=== PATIENT | female | born 1990 | race Caucasian/White ===

== ENCOUNTER 2020-05-29 14:23 | Emergency (ER) | payer MEDICAID, SELFPAY | END 2020-05-29 16:46 | disposition left against medical advice (07) | PROVIDERS: Emergency Provider Emergency Medicine | DX: Z04.1 Encounter for examination and observation following transport accident (principal) ==

== ENCOUNTER 2020-06-03 11:41 | Outpatient (REF) | payer MEDICAID, SELFPAY ==
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
== END 2020-06-03 11:42 | disposition home or self-care (01) ==
LOC: HO.XRAY 11:41
PROVIDERS: PCP Internal Medicine; Visit Provider Emergency Medicine
DX: S19.9XXA Unspecified injury of neck, initial encounter (principal); X58.XXXA Exposure to other specified factors, initial encounter; Y93.9 Activity, unspecified; Y92.9 Unspecified place or not applicable; Y99.9 Unspecified external cause status
CPT/HCPCS: 72040

== ENCOUNTER 2020-07-21 15:00 | Outpatient (RCR) | payer OTHER, MEDICAID, SELFPAY | END 2020-10-29 14:16 | disposition other institution (70) | LOC: HO.PT 15:00 | PROVIDERS: PCP Internal Medicine; Visit Provider Internal Medicine | DX: M54.2 Cervicalgia (principal) | CPT/HCPCS: 97110; 97140; 97161 ==

== ENCOUNTER 2020-12-24 16:41 | Emergency (ER) | payer MEDICAID, SELFPAY ==
--- NOTE | ~2020-12-24 | XR_ITS ---
EXAMINATION: XR CHEST CLINICAL INFORMATION: Cough and fever COMPARISON: Chest 09/24/2018 TECHNIQUE: Frontal view of the chest was obtained. FINDINGS: The lungs are somewhat expanded with diffuse patchy haziness and opacity scattered throughout both lungs suspicious for underlying inflammatory process. No focal consolidation or pleural effusion seen. Heart size and pulmonary vascularity is normal. No gross bony abnormality seen. XR/XR chest 1V IMPRESSION: Patchy bilateral haziness and opacity suspicious for scattered inflammatory infectious etiology. No focal consolidation or pleural effusion. These findings are new compared to previous chest x-ray 09/24/2018.
[2020-12-24 16:55] VITALS: BP 99/56; PULSE 93; RESP 20; TEMP 36.8; O2SAT 97; BMI 24.7
[2020-12-24 17:34] LABS: COVID-19 Test Positive (Negative)
[2020-12-24 18:00] VITALS: BP 110/55; PULSE 77; RESP 18; TEMP 37.1; O2SAT 97
--- NOTE | 2020-12-24 18:52 | ED.URI ---
HPI - URI/Sore Throat General Chief Complaint: Upper Respiratory Symptoms Stated Complaint: flu like Time Seen by Provider: 12/24/20 17:27 Source: patient Mode of arrival: ambulatory History of Present Illness HPI Narrative: 30-year-old female with a past medical history of anemia, presenting to the ED complaining of dry cough, myalgias/body aches, intermittent fevers T-max 102?, headache, sore throat, mild SOB x9 days. Denies recent travel, CP, abdominal pain, sick contacts MD elicited complaint: fever, cough and sore throat Related Data Home Medications Medication Instructions Recorded Confirmed ferrous sulfate 325 mg (65 mg 325 mg PO DAILY 02/12/20 iron) tablet Previous Rx's Medication Instructions Recorded acetaminophen 500 mg tablet 500 mg PO Q6H PRN #20 tab 12/24/20 (Tylenol Extra Strength) benzonatate 100 mg capsule 100 mg PO TID PRN #14 cap 12/24/20 (Tessalon Perles) doxycycline hyclate 100 mg tablet 100 mg PO BID 7 Days #14 tab 12/24/20 fluticasone propionate 50 2 spray INTRANASAL DAILY #16 g 12/24/20 mcg/actuation nasal spray,suspension (Flonase Allergy Relief) Allergies Allergy/AdvReac Type Severity Reaction Status Date / Time No Known Allergies Allergy Verified 02/10/20 14:56 [No Known Allergies*] Review of Systems Review of Systems: Constitutional: + Fever, No Chills, No Night Sweats, + Fatigue, + Malaise ENT/Mouth: + Nasal Congestion, No Sinus Pain, No Hoarseness, + sore throat, No Rhinorrhea, No Swallowing Difficulty Eyes: No Eye Pain, No Swelling, No Redness Cardiovascular: No Chest Pain, + SOB, No Dyspnea on Exertion, No Orthopnea, No Edema Respiratory: + Cough, No Sputum, No Wheezing, No Dyspnea Gastrointestinal: No Nausea, No Vomiting, No Abdominal pain Musculoskeletal: No joint pain, + Myalgias, No Joint Swelling Skin: No Skin Lesions, No rash Neuro: No Weakness, No Numbness,+Headache Yes all other systems are reviewed and are negative [facility] Past Medical History Attestation statement: The following information was validated with the patient. Medical History Anemia Former smoker Surgical History No history of previous surgery Family History Family History Maternal Grandmother Asthma Arthritis Maternal Grandfather Diabetes mellitus Maternal Aunt Breast cancer Social History Social History Unable to assess alcohol history related to: Unknown Advance Directives: No Advance Directives Information Provided: No Patient : No Sexual orientation: Straight/Heterosexual Gender identity: female Physical Exam Vital Signs: Vital Signs: Last Vital Signs Temp 98.3 F 12/24/20 16:55 Pulse 93 12/24/20 16:55 Resp 20 12/24/20 16:55 BP 99/56 L 12/24/20 16:55 Pulse Ox 97 12/24/20 16:55 Body Mass Index 24.7 Const: General: cooperative, healthy appearing, no acute distress, well developed, alert and awake Orientation/consciousness: patient oriented x3 Limitations: no limitations HENMT: Head: Yes normal to inspection Ears: hearing grossly normal bilaterally General nose exam: Normal external nose present Face and sinus: Yes normal facial exam Eyes: General: appearance normal, both eyes and all related structures EOM: EOMs intact bilaterally Neck: Neck: Yes normal visual inspection Resp: Effort & Inspection: normal respiratory effort and no respiratory distress Auscultation: clear to auscultation bilaterally, no rales, no rhonchi and no wheezes Cardio: Rate: regular rate Heart sounds: S1 normal heart sound present and S2 normal heart sound present Skin: Rashes: no rashes Wounds: no wounds Neuro: General: patient oriented x3 Gait exam (Neuro): Normal gait present Extrem: General: Yes normal to inspection Course Course Course Narrative: -COVID-19 positive XR chest 1V IMPRESSION: Patchy bilateral haziness and opacity suspicious for scattered inflammatory infectious etiology. No focal consolidation or pleural effusion. These findings are new compared to previous chest x-ray 09/24/2018. >> ambulated patient with pulse oximetry maintain saturations greater than 97% on RA. No tachycardia. Given 1st dose of doxycycline in the ED. Worrisome signs and symptoms and strict return precautions discussed. Instructed patient/recommended that she obtains pulse oximeter at home MDM - URI/Sore Throat MDM Narrative Medical decision making narrative: 30-year-old female with a past medical history of anemia, presenting to the ED complaining of dry cough, myalgias/body aches, intermittent fevers T-max 102?, headache, sore throat, mild SOB x9 days. On exam mildly hypotensive, afebrile, NAD/nontoxic appearing, lungs CTA. Concern for viral syndrome/COVID-19. Rule out pneumonia. Low concern for severe sepsis. Plan: COVID-19 testing, CXR Medical Records Attestation: I reviewed the patient's medical records. Lab Data Attestation: I reviewed the patient's lab results. Labs: Lab Results 12/24/20 Range/Units 16:58 COVID-19 ([facility]) Positive A (Negative) COVID-19 Clin Com See Note Discharge Plan Discharge Clinical Impression: COVID-19, Pneumonia due to COVID-19 virus Patient Disposition: Home, Self-Care Instructions: COVID-19 (Coronavirus Disease 2019) (ED) Additional Instructions: YOUR COVID-19 POSITIVE. YOU ALSO HAVE COVID-19 PNEUMONIA. DOXYCYCLINE IS ANTIBIOTIC, TAKE PRESCRIBED. TESSALON PERLES FOR COUGH. USE ALBUTEROL INHALER AT HOME NEEDED. FLONASE IS A NASAL DECONGESTANT SPRAY YOU SHOULD BUY A PULSE OXIMETER AT HOME AND MONITOR YOUR OXYGEN SATURATIONS. IF THEY ARE DROPPING BELOW 90% RETURN TO THE ED IMMEDIATELY At this time you will be okay for discharge. Please plan for self quarantine for up to 10-14 days. Do not expose yourself to others. You may not go to work. If testing does come back negative you may return to activities as long as you are no longer having any symptoms for at least 3 days. Please continue to follow cold instructions and wash your hands frequently. You may take Tylenol as directed on the bottle for pain or fever. CDC Guidelines for home isolation: - Stay away from others - WEAR A MASK if you are sick AND STAY HOME - Cover your mouth and nose with a tissue when you cough or sneeze. Dispose of tissues in a lined trash can and wash your hands immediately with soap and water for at least 20 seconds. If soap and water are not available, clean hands with alcohol-based hand casting associate that contains at least 60% alcohol. - Clean your hands often with soap and water for at least 20 seconds - Avoid touching your eyes, nose and mouth with unwashed hands - Do not share dishes, drinking glasses, cups, eating utensils, towels, or bedding with other people in your home. After using these items, wash them thoroughly with soap and water or put in the identity management consultant. - Clean high-touch surfaces in your isolation area ( sick room and bathroom) every day; let a caregiver clean and disinfect high-touch surfaces in other areas of the home. Clean the area or item with soap and water or another detergent if it is dirty. Then, use a household disinfectant. - Limit contact with pets and animals: If you must care for a pet, wash your hands before and after interacting with them) Prescriptions: New acetaminophen [Tylenol Extra Strength] 500 mg tablet 500 mg PO Q6H PRN (Reason: pain or fever) Qty: 20 RF: 0 benzonatate [Tessalon Perles] 100 mg capsule 100 mg PO TID PRN (Reason: cough) Qty: 14 RF: 0 fluticasone propionate [Flonase Allergy Relief] 50 mcg/actuation spray,suspension 2 spray intranasal DAILY Qty: 16 RF: 0 doxycycline hyclate 100 mg tablet 100 mg PO BID 7 Days Qty: 14 RF: 0 Referrals: [facility] [Primary Care Provider] - 2 days (CALL) Stand Alone Forms: Work/School Release
== END 2020-12-24 20:44 | disposition home or self-care (01) ==
PROVIDERS: Emergency Provider Emergency Medicine
DX: U07.1 COVID-19 (principal); J12.82 Pneumonia due to coronavirus disease 2019; R05 Cough; M79.10 Myalgia, unspecified site; R50.9 Fever, unspecified; Z79.899 Other long term (current) drug therapy
CPT/HCPCS: 36415; 71045; 87635; 99283

== ENCOUNTER → 2021-03-03 09:06 | Outpatient (BNVA) | payer MEDICAID, SELFPAY | PROVIDERS: Visit Provider Advanced Practice Midwife | DX: Z32.01 Encounter for pregnancy test, result positive (principal) | CPT/HCPCS: 81025; 99212 ==

== ENCOUNTER 2021-03-17 10:16 | Outpatient (REF) | payer MEDICAID, SELFPAY ==
[2021-03-17 12:59] LABS: Hematocrit 32.4 % (37.0-47.0); Mean Corpuscular Hemoglobin 29.9 pg (27.0-33.0); Mean Platelet Volume 10.3 fL (9.4-12.3); Platelet Count 281 X10*3/uL (160-400); Red Blood Count 3.68 X10*6/uL (4.20-5.50); Red Cell Distribution Width 11.8 % (11.0-16.0); White Blood Count 10.2 X10*3/uL (4.8-10.8)
[2021-03-17 13:23] LABS: Glucose 1 Hour PP 50gm Dose 87 mg/dL (60-140)
[2021-03-18 03:50] LABS: Syphilis Screen Nonreactive (Nonreactive)
[2021-03-18 04:04] LABS: HIV AB/AG Nonreactive (Nonreactive); HIV Num 1 0.06 S/CO (0.00-0.99); ~HepC Num1 0.11 S/CO (0.00-0.79); ~Hepatitis C Antibody Nonreactive (Nonreactive)
[2021-03-18 04:05] LABS: HBsAGNum1 0.14 S/CO (0.00-0.99); Hepatitis B Surface Antigen Negative (Negative)
[2021-03-18 12:12] LABS: Rubella IgG Antibody 1.64 Index
== END 2021-03-17 10:17 | disposition home or self-care (01) ==
LOC: HO.LAB 10:16
PROVIDERS: Visit Provider Advanced Practice Midwife
DX: Z34.91 Encounter for supervision of normal pregnancy, unspecified, first trimester (principal); Z3A.10 10 weeks gestation of pregnancy
CPT/HCPCS: 85027; 86762; 86780; 86787; 86803; 86850; 86900; 86901; 87340; 87389; 99212

== ENCOUNTER 2021-03-25 11:38 | Outpatient (REF) | payer MEDICAID, SELFPAY ==
--- NOTE | ~2021-03-25 | US_ITS ---
EXAMINATION: OBSTETRICAL ULTRASOUND, FIRST TRIMESTER HISTORY: 31-year-old at 11.3 weeks of gestation NT screening COMPARISON: None TECHNIQUE: Real time transabdominal imaging with color and M-mode Doppler. FINDINGS: A single, live IUP CRL of 45.0 mm c/w 11.3wks is noted. Heart Rate: 167 beats per minute. Normal yolk sac seen. NT was 0.6.mm. NB Present The embryo appears sonographically wnl for this GA. Both maternal ovaries are seen and appear normal. GESTATIONAL AGE: 1. Established GA: 11.3 wks 2. GA from [facility]: 11.3 wks ESTIMATED DATE OF DELIVERY: 1. Established MEDHAT: 10/11/2021 2. MEDHAT from [facility]: 10/11/2021 US/US OB 1T nuc measure IMPRESSION: 1. A single live IUP 2. Size equals dates 3. NT of 0.6 mm MFM Consultation: I reviewed the ultrasound findings along with significance of NT measurement. The NT of less than 3mm is generally reassuring. However, the sensitivity for T21 detection is only 60%. I reviewed the availability of serum aneuploidy screening which includes cell-free DNA and placental protein based tests. I discussed the sensitivity, false-positive rate, and other limitations associated with each test. I also reviewed the availability of invasive diagnostic tests that are associated small but definite risk of miscarriage. We also reviewed the differences between screening tests and diagnostic tests. After our discussion, she opted for the First trimester screening that is based on cell-free DNA or non-invasive testing (NIPT). The result will be faxed to your office in approximately 7 days. A follow up at 18 weeks for survey has been scheduled. Thank you very much for this referral. Total time 30 minutes. The time spent was devoted to counseling the patient about the disease and diagnosis, coordinating care including reviewing her records, pertinent lab data and studies, as well as discussing diagnostic evaluation and workup, plan therapeutic interventions and future disposition of care. This includes any additional research needed to obtain further information in formulating the plan of care of this patient. This note was generated with a voice recognition program. Please excuse any errors which may have been overlooked during my review of this note. Sometimes these errors may affect the content or meaning of a given sentence.
== END 2021-03-25 11:39 | disposition home or self-care (01) ==
LOC: HO.US 11:38
PROVIDERS: Visit Provider Advanced Practice Midwife
DX: Z32.01 Encounter for pregnancy test, result positive (principal)
CPT/HCPCS: 76813

== ENCOUNTER 2021-04-13 09:15 | Outpatient (REF) | payer MEDICAID, SELFPAY ==
[2021-04-14 01:25] LABS: CT PCR NOT DETECTED (Not Detect.)
[2021-04-14 01:26] LABS: NG PCR NOT DETECTED (Not Detect.)
[2021-04-14 10:16] LABS: BV Int Neg Control Negative (Negative); BV Int Pos Control Positive (Positive)
[2021-04-16 13:06] LABS: HPV mRNA E6/E7 rflx Not Detected (Not Detected)
== END 2021-04-13 09:16 | disposition home or self-care (01) ==
LOC: HO.LAB 09:15
PROVIDERS: Visit Provider Advanced Practice Midwife
DX: Z34.92 Encounter for supervision of normal pregnancy, unspecified, second trimester (principal); Z36.3 Encounter for antenatal screening for malformations; Z3A.14 14 weeks gestation of pregnancy
CPT/HCPCS: 87480; 87491; 87510; 87591; 87624; 87660; 88142; 99212

== ENCOUNTER → 2021-05-11 10:59 | Outpatient (BNVA) | payer MEDICAID, SELFPAY | PROVIDERS: Visit Provider Advanced Practice Midwife | DX: Z34.82 Encounter for supervision of other normal pregnancy, second trimester (principal); Z3A.18 18 weeks gestation of pregnancy; Z36.3 Encounter for antenatal screening for malformations | CPT/HCPCS: 81003; 99212 ==

== ENCOUNTER 2021-05-27 10:10 | Outpatient (REF) | payer MEDICAID, SELFPAY ==
--- NOTE | ~2021-05-27 | US_ITS ---
EXAMINATION: US OBSTETRICAL CLINICAL INFORMATION: 31-year-old at 20.3 weeks of gestation Screening for anomaly COMPARISON: 03/25/2021 TECHNIQUE: Real-time transabdominal ultrasound was performed using C1-5 megahertz transducer. FINDINGS: A single, active, fetus is seen in breech presentation. The placenta is anterior without previa, and the amniotic fluid volume is wnl. MEASUREMENTS: 1. Biparietal Diameter: 4.8 cm; 20.4 wks 2. Occipital Frontal Diameter: 6.4 cm 3. Head Circumference: 18.3 cm; 20.5 wks 4. Abdominal Circumference: 15.8 cm; 21.0 wks 5. Femur Length: 3.4 cm; 20.6 wks 6. Humerus Length: 3.54 cm; 22.2 wks 7. Tibia Length: 2.95 cm; 20.6 wks 8. Ulna Length: 2.96 cm; 21.1 wks 9. Lateral ventricle: 0.69 cm 10. Cerebellum: 2.1 cm; 21.0 wks 11. Cisterna Magna: 0.56 cm 12. Nuchal Fold: 4.2 mm 13. Heart Rate: 153 beats per minute Rt ovary: normal Lt ovary: normal Cervical length 3.6 cm on T/A. GESTATIONAL AGE: 1. Established GA: 20.3 wks 2. GA from [facility]: 20.6 wks ESTIMATED DATE OF DELIVERY: 1. Established MEDHAT: 10/11/2021 2. MEDHAT from [facility]: 10/08/2021 ANATOMY: Bilateral choroid plexus cysts The visualized anatomy includes but not limited to: 1. Cranium: Normal 2. Intracranial anatomy: cavum septum pellucidi, lateral ventricles, bilateral choroid plexus cysts, cerebellum, posterior fossa, third and fourth ventricles. 3. face: orbits, lip/palate, profile, nasal bone 4. Heart: four-chamber view of the heart, ventricular septum, foramen ovale, pulmonary vein, left and right outflow tracts, three-vessel view, 3 vessel trachea view, aortic and ductal arches, situs.. 5. Diaphragm: Normal 6. Abdominal wall: Normal 7. Cord Insertion: Normal 8. Spine: Cervical, thoracic, lumbar, sacral. 9. Stomach: Normal size and shape 10. Right Kidney: Normal 11. Left Kidney: Normal 12. 3 vessel cord: Normal 13. Upper extremity: Open hands, fifth digit. 14. Lower extremity: Tibia, fibula, bilateral feet. 15. Bladder: Normal 16. Genitalia: Male, patient aware US/US OB /maternal detail IMPRESSION: 1. Single, living, intrauterine with appropriate biometry. 2. Bilateral choroid plexus cyst. The rest of the anatomy was within normal limits. DISCUSSION: I reviewed today's ultrasound findings and informed her that the choroid plexus cyst is a benign finding that is present in approximately 3-5% of normal fetuses. Its frequency is higher in fetuses with trisomy 18. We briefly discussed the approximate prognosis of a child with trisomy 18. The ultrasound detection is approximately 80% due to the fact that condition is usually associated with severe anatomic abnormalities. There were no ultrasound stigmata. She had the low risk N IPT. In this setting, isolated choroid plexus cyst is considered a normal variant. We discussed the limitations of ultrasound in diagnosing aneuploidy and other congenital abnormalities. I reviewed the differences between screening test and diagnostic test. Amniocentesis was discussed and declined. She was informed that the baseline incidence of congenital abnormalities is approximately 3-5%. Not all these conditions are diagnosable in utero. RECOMMENDATIONS: 1. Suggest the interval growth evaluation at approximately 28 weeks (not scheduled). Thank you for allowing me to participate in her care. Total time 30 minutes. The time spent was devoted to counseling the patient about the disease and diagnosis, coordinating care including reviewing her records, pertinent lab data and studies, as well as discussing diagnostic evaluation and workup, plan therapeutic interventions and future disposition of care. This includes any additional research needed to obtain further information in formulating the plan of care of this patient. This note was generated with a voice recognition program. Please excuse any errors which may have been overlooked during my review of this note. Sometimes these errors may affect the content or meaning of a given sentence.
== END 2021-05-27 10:11 | disposition home or self-care (01) ==
LOC: HO.US 10:10
PROVIDERS: Visit Provider Advanced Practice Midwife
DX: Z34.92 Encounter for supervision of normal pregnancy, unspecified, second trimester (principal); Z36.3 Encounter for antenatal screening for malformations
CPT/HCPCS: 76811

== ENCOUNTER 2021-06-01 10:54 | Outpatient (REF) | payer MEDICAID, SELFPAY ==
[2021-06-01 15:50] LABS: CT PCR NOT DETECTED (Not Detect.); NG PCR NOT DETECTED (Not Detect.)
[2021-06-02 12:14] LABS: BV Int Neg Control Negative (Negative); BV Int Pos Control Positive (Positive)
== END 2021-06-01 10:55 | disposition home or self-care (01) ==
LOC: HO.LAB 10:54
PROVIDERS: Visit Provider Advanced Practice Midwife
DX: O23.592 Infection of other part of genital tract in pregnancy, second trimester (principal); N76.0 Acute vaginitis; Z3A.21 21 weeks gestation of pregnancy; Z83.3 Family history of diabetes mellitus
CPT/HCPCS: 87480; 87491; 87510; 87591; 87660; 99212

== ENCOUNTER → 2021-06-29 10:08 | Outpatient (BNVA) | payer MEDICAID, SELFPAY | PROVIDERS: Visit Provider Advanced Practice Midwife | DX: Z34.82 Encounter for supervision of other normal pregnancy, second trimester (principal); Z36.3 Encounter for antenatal screening for malformations; Z3A.25 25 weeks gestation of pregnancy | CPT/HCPCS: 99212 ==

== ENCOUNTER 2021-07-09 15:45 | Emergency (ER) | payer OTHER, SELFPAY ==
[2021-07-09 15:50] VITALS: BP 107/55; PULSE 79; RESP 19; TEMP 36.5; O2SAT 98; BMI 26.5
[2021-07-09 16:00] VITALS: BP 107/55; PULSE 79; RESP 19; TEMP 36.5; O2SAT 98
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
--- NOTE | 2021-07-09 18:00 | PC.NURSE ---
Upon discharge, pt decided that she wouldnt be able to go to [facility] for 4 hour monitoring as she has a 1 1/2 year old child that is with a sitter. Sitter cannot stay, and stated she must go home to care for child. WADE Wong discussed risks of not going to [facility], pt understands risk, and will be discharging against medical advice
== END 2021-07-09 18:22 | disposition left against medical advice (07) ==
PROVIDERS: Emergency Provider Emergency Medicine Emergency Medical Services
DX: O9A.212 Injury, poisoning and certain other consequences of external causes complicating pregnancy, second trimester (principal); S39.012A Strain of muscle, fascia and tendon of lower back, initial encounter; V43.52XA Car driver injured in collision with other type car in traffic accident, initial encounter; Z3A.27 27 weeks gestation of pregnancy; W22.11XA Striking against or struck by driver side automobile airbag, initial encounter; Y93.89 Activity, other specified; Y92.414 Local residential or business street as the place of occurrence of the external cause; Y99.9 Unspecified external cause status
CPT/HCPCS: 99284

== ENCOUNTER → 2021-07-12 09:25 | Outpatient (BNVA) | payer MEDICAID, SELFPAY | PROVIDERS: Visit Provider Obstetrics & Gynecology | DX: Z04.1 Encounter for examination and observation following transport accident (principal); Z34.92 Encounter for supervision of normal pregnancy, unspecified, second trimester | CPT/HCPCS: 99212 ==

== ENCOUNTER 2021-07-15 09:06 | Outpatient (REF) | payer MEDICAID, SELFPAY ==
[2021-07-15 11:10] LABS: Hematocrit 27.4 % (37.0-47.0); Hemoglobin 9.1 g/dl (12.0-16.0); Mean Corpuscular HGB Conc 33.2 g/dl (31.0-35.0); Mean Corpuscular Hemoglobin 29.9 pg (27.0-33.0); Mean Corpuscular Volume 90.1 fL (80.0-98.0); Mean Platelet Volume 10.1 fL (9.4-12.3); Platelet Count 221 X10*3/uL (160-400); Red Blood Count 3.04 X10*6/uL (4.20-5.50); Red Cell Distribution Width 12.5 % (11.0-16.0); White Blood Count 9.1 X10*3/uL (4.8-10.8)
[2021-07-15 11:52] LABS: Glucose 1 Hour PP 50gm Dose 135 mg/dL (60-140)
[2021-07-15 12:04] LABS: Syphilis Screen Nonreactive (Nonreactive)
[2021-07-15 12:20] LABS: Amphetamine Screen Urine Not Detected (Not Detect); Barbiturates, Urine Not Detected (Not Detect); Benzodiazepines Screen Urine Not Detected (Not Detect); Cannabinoid Screen Urine Not Detected (Not Detect); Cocaine Screen Urine Not Detected (Not Detect); Fentanyl, urine Not Detected (Not Detect); Opiate Screen Urine Not Detected (Not Detect); Phencyclidine Screen Urine Not Detected (Not Detect)
== END 2021-07-15 09:07 | disposition home or self-care (01) ==
LOC: HO.LAB 09:06
PROVIDERS: Visit Provider Advanced Practice Midwife
DX: Z34.92 Encounter for supervision of normal pregnancy, unspecified, second trimester (principal)
CPT/HCPCS: 80307; 85027; 86780; 87086; 87147

== ENCOUNTER 2023-05-23 11:17 | Outpatient (REF) | payer MEDICAID, SELFPAY ==
[2023-05-23 14:41] LABS: Alanine Aminotransferase 77 U/L (0-31); Albumin Level 4.4 g/dL (3.5-5.0); Alkaline Phosphatase 113 U/L (39-117); Anion Gap 13 (12-20); Aspartate Amino Transferase 45 U/L (5-31); Bilirubin Total 0.6 mg/dL (0.0-1.0); Blood Urea Nitrogen 11 mg/dL (9-16); Calcium 9.4 mg/dL (8.4-10.2); Carbon Dioxide 25 mmol/L (22-29); Chloride 107 mmol/L (96-108); Estimated Glomerular Filt Rate > 60; Glucose Random 71 mg/dL (60-115); Potassium 3.9 mmol/L (3.3-5.1); Sodium 141 mmol/L (135-145); Total Protein 7.4 g/dL (6.5-8.0)
[2023-05-23 15:01] LABS: TSH reflex Free T4 0.53 uIU/mL (0.32-4.0)
[2023-05-24 08:07] LABS: HIV AB/AG Nonreactive (Nonreactive); HIV Num 1 0.04 S/CO (0.00-0.99)
[2023-05-25 09:04] LABS: RPR Rapid Plasma Reagin NON-REACTIVE (NON-REACTIVE)
[2023-05-25 22:33] LABS: TS Negative Control Passed; TS Panel A 1; TS Panel B 1; TS Positive Control Passed; TSpotTB Negative (Negative)
== END 2023-05-23 11:18 | disposition home or self-care (01) ==
LOC: HO.CHCLDS 11:17
PROVIDERS: Visit Provider Internal Medicine
DX: Z00.00 Encounter for general adult medical examination without abnormal findings (principal); F41.9 Anxiety disorder, unspecified; D64.89 Other specified anemias
CPT/HCPCS: 36415; 80053; 84443; 86481; 86592; 87389

== ENCOUNTER 2023-05-25 15:49 | Outpatient (REF) | payer MEDICAID, SELFPAY ==
[2023-05-26 03:49] LABS: CT PCR NOT DETECTED (Not Detect.); NG PCR NOT DETECTED (Not Detect.)
[2023-05-27 05:12] LABS: HBc Num1 0.09 S/CO (0.00-0.79); HBsAGNum1 0.33 S/CO (0.00-0.99); Hepatitis A Antibody IgM 0.54 Index (0-0.79); Hepatitis B Core Antibody Nonreactive (Nonreactive); Hepatitis B Surface Antigen Negative (Negative); ~Hepatitis A Antibody IgM Nonreactive (Nonreactive); ~Hepatitis B Surface Antibody NONREACTIVE (Nonreactive); ~Hepatitis C Antibody Nonreactive (Nonreactive)
[2023-05-27 20:54] LABS: TS Negative Control Passed; TS Panel A 1; TS Panel B 1; TS Positive Control Passed; TSpotTB Negative (Negative)
== END 2023-05-25 15:50 | disposition home or self-care (01) ==
LOC: HO.HHCL 15:49
PROVIDERS: Visit Provider Internal Medicine
DX: Z00.00 Encounter for general adult medical examination without abnormal findings (principal); R74.01 Elevation of levels of liver transaminase levels
CPT/HCPCS: 0353U; 36415; 86481; 86704; 86706; 86709; 86803; 87340

== ENCOUNTER 2023-06-19 09:26 | Outpatient (REF) | payer MEDICAID, SELFPAY ==
--- NOTE | ~2023-06-19 | US_ITS ---
EXAMINATION: US ABDOMEN COMPLETE CLINICAL INFORMATION: Transaminitis. Hematuria. Flank pain. COMPARISON: None available. TECHNIQUE: Real-time imaging of the abdominal viscera. FINDINGS: PANCREAS: Normal. ABDOMINAL AORTA: The proximal, mid, and distal segments are normal in caliber. INFERIOR VENA CAVA: Visualized portions are normal. LIVER: Normal. The liver is normal in size. The liver contour is normal. Parenchymal echogenicity is normal. No focal hepatic lesion. There is no intrahepatic biliary duct dilatation seen. GALLBLADDER: The gallbladder is physiologically distended without evidence of stones, sludge, wall thickening or pericholecystic fluid. A 2 mm nonmobile polyp is seen. COMMON BILE DUCT: Normal in caliber measuring 0.3 cm in diameter. RIGHT KIDNEY: No hydronephrosis or focal parenchymal lesions. The kidney measures 10.0 x 4.9 x 6.0 cm in maximum dimensions. At the interpolar aspect, a 3 mm nonobstructing calculus is seen. LEFT KIDNEY: Normal. No hydronephrosis. No renal calculi or focal parenchymal lesions. The kidney measures 10.5 x 5.8 x 4.9 cm in maximum dimensions. SPLEEN: Normal. The spleen measures 11.3 cm in maximum dimension. FREE FLUID: None. US/US abdomen complete IMPRESSION: 1. A 3 mm nonobstructing right renal calculus is seen. No left renal calculus is seen. No hydronephrosis is seen bilaterally. 2. A 2 mm nonmobile polyp is seen.
== END 2023-06-19 09:27 | disposition home or self-care (01) ==
LOC: HO.HMGCX 09:26
PROVIDERS: PCP Nurse Practitioner Family; Visit Provider Internal Medicine
DX: R74.01 Elevation of levels of liver transaminase levels (principal)
CPT/HCPCS: 76700

== ENCOUNTER 2024-03-22 13:55 | Outpatient (REF) | payer MEDICAID, SELFPAY | END 2024-03-22 13:56 | disposition home or self-care (01) | LOC: HO.HHCLNP 13:55 | PROVIDERS: Visit Provider Family Medicine | DX: J02.8 Acute pharyngitis due to other specified organisms (principal); B97.89 Other viral agents as the cause of diseases classified elsewhere | CPT/HCPCS: 87070; 87147 ==

== ENCOUNTER 2024-04-01 12:41 | Outpatient (REF) | payer MEDICAID, SELFPAY ==
--- NOTE | ~2024-04-01 | MM_ITS ---
EXAMINATION: MM DIAGNOSTIC DIGITAL BREAST TOMOSYNTHESIS, BILATERAL US BREAST LIMITED, RIGHT MAMMOGRAPHY: CLINICAL INFORMATION: 34-year-old female, baseline mammogram, lump and pain right breast upper outer quadrant about 8:00 to 10:00 axis. COMPARISON: Mammography: No prior. Baseline exam. TECHNIQUE: Digital breast tomosynthesis is performed in both the craniocaudal and mediolateral oblique views along with computer-aided detection (CAD). Synthesized 2D images are generated from the tomosynthesis. In addition to standard views, full field right mediolateral view was also obtained. FINDINGS: The breasts are heterogeneously dense, which may obscure small masses (ACR BI-RADS breast composition Category c). Within the approximate 8-9 o'clock axis of the right breast, mid to posterior depth, there is a irregular spiculated mass with associated distortion/desmoplasia and stable microcalcifications. This will be evaluated with ultrasound. There are no suspicious findings in the left breast. No axillary abnormality or skin abnormalities in either breast. ULTRASOUND: CLINICAL INFORMATION: Evaluate irregular mass, palpable, approximate 8:00 axis left breast, posterior one third. COMPARISON: No prior. TECHNIQUE: Targeted sonographic evaluation was performed using a high frequency linear transducer. Attention was given to the 8:00 axis left breast, posterior one third, in the region of palpable concern. Selected archived documentation. FINDINGS: RIGHT BREAST: - Within the right breast, spanning 8-9 o'clock axis, there is an irregular elongated wider than tall infiltrative appearing hypoechoic mass with posterior acoustic shadowing/attenuation, hyperechoic desmoplasia surrounding in the fat, internal vascular flow, with estimated diameter of approximately 2.1 x 4.9 x 1.3 cm (AP, TRV, CC). There are small specular echoes representing calcifications. This is extremely suspicious. -Within the lower right axilla, there is a markedly enlarged lymph node with loss of normal fatty hilum, thickened cortex, consistent with pathologic node, measuring 2.8 x 1.8 cm. This is also extremely suspicious. No additional abnormalities noted. MM/MM tomosynthesis diagnostic BI IMPRESSION: -Highly suspicious hypoechoic mass within the 8-9:00 axis of the right breast, for which ultrasound guided biopsy is recommended. This correlates with the palpable abnormality. -Highly suspicious low axillary pathologic lymph node measuring 2.8 x 1.8 cm, for which ultrasound-guided biopsy is recommended. This was incidentally found. -Findings and recommendations were communicated to patient via the technologist, who appeared in understanding. OVERALL ASSESSMENT: Mammography: BI-RADS 5 - Highly suggestive of malignancy Ultrasound: BI-RADS 5 - Highly suggestive of malignancy RECOMMENDATION: Biopsy recommended This patient's information was entered into a reminder system with a target due date for their next mammogram. Electronically signed by: Ruy Gallo MD 04/01/2024 01:58 PM [facility]
== END 2024-04-01 12:42 | disposition home or self-care (01) ==
LOC: HO.MAMMO 12:41
PROVIDERS: PCP Family Medicine; Visit Provider Family Medicine
DX: N64.4 Mastodynia (principal)
CPT/HCPCS: 76642; 77062; 77066

== ENCOUNTER → 2024-04-01 13:30 | Outpatient (BNV) | payer MEDICAID, SELFPAY | PROVIDERS: PCP Family Medicine; Visit Provider Radiology Diagnostic Radiology | DX: N63.13 Unspecified lump in the right breast, lower outer quadrant (principal) | CPT/HCPCS: 76642; 77062; 77066 ==

== ENCOUNTER 2024-04-07 13:18 | Outpatient (AMB) | payer MEDICAID, SELFPAY ==
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
[2024-04-07 13:23] VITALS: BP 125/60; PULSE 62; BMI 28.3
== END 2024-04-07 13:35 | disposition home or self-care (01) ==
PROVIDERS: PCP Family Medicine; Visit Provider Surgery
DX: R22.31 Localized swelling, mass and lump, right upper limb (principal); N63.10 Unspecified lump in the right breast, unspecified quadrant
CPT/HCPCS: 99204

== ENCOUNTER → 2024-04-07 13:18 | Outpatient (BNVA) | payer MEDICAID, SELFPAY | PROVIDERS: PCP Family Medicine; Visit Provider Surgery | DX: N63.11 Unspecified lump in the right breast, upper outer quadrant (principal); R22.31 Localized swelling, mass and lump, right upper limb; Z80.3 Family history of malignant neoplasm of breast | CPT/HCPCS: 99202 ==

== ENCOUNTER 2024-04-08 09:48 | Outpatient (REF) | payer MEDICAID, SELFPAY ==
--- NOTE | ~2024-04-08 | MM_ITS ---
PROCEDURE: US GUIDED BREAST BIOPSY, RIGHT US GUIDED RIGHT AXILLARY NODE BIOPSY, RIGHT CLINICAL INFORMATION: Suspicious irregular spiculated mass 9:00 axis right breast , for ultrasound-guided biopsy. Suspicious enlarged lymph node right axillary region, for ultrasound-guided biopsy. COMPARISON: 04/01/2024 mammography and right breast ultrasound. PROCEDURAL DETAILS: The details of the procedure, as well as the risks, benefits, and alternatives to the procedure were explained to the patient in detail and all of her questions were answered, after which written informed consent was obtained. Site and side were confirmed. Right breast 9:00 axis mass: Prior to the procedure, sonography revealed the somewhat elongated hypoechoic irregular mass at the 9:00 axis, 5 cm from the nipple. A time-out was performed, the lesion intended for biopsy was targeted, and the skin of the overlying right breast was then marked, prepped and draped in the usual sterile fashion. Using sonographic guidance, sterile technique, and 1% lidocaine without epinephrine for local anesthesia, multiple core biopsies were obtained through the targeted area with a 14G spring loaded Sertera core biopsy device. There was real-time confirmation of appropriate needle passage. Sampling was documented. At the completion of tissue sampling, a single open coil metallic clip was deposited at the biopsy site. Right Axillary Lymph Node: Prior to the procedure, sonography revealed a pathologic right low axillary lymph node measuring 2.1 cm short axis with loss of fatty hilum. A time-out was performed, the lesion intended for biopsy was targeted, and the skin of the overlying right axilla was then marked, prepped and draped in the usual sterile fashion. Using sonographic guidance, sterile technique, and 1% lidocaine without epinephrine for local anesthesia, multiple core biopsies were obtained through the targeted area with a 14G spring loaded Sertera core biopsy device. There was real-time confirmation of appropriate needle passage. Sampling was documented. At the completion of tissue sampling, a single butterfly shaped metallic clip was deposited at the biopsy site. There was no evidence of immediate complication. SPECIMEN: 3 well formed core samples were obtained from each site. DIGITAL POST-PROCEDURE MAMMOGRAPHY: Breast density: The tissue is heterogeneously dense which may obscure small masses. BI-RADS version 5, category C. There are no new mammographic findings demonstrated. The postprocedure 2-view direct digital mammogram reveals satisfactory and accurate positioning of both of the biopsy clips. No hematoma present. The patient tolerated the procedure well and, after assuring adequate hemostasis, was discharged in good condition after reviewing postbiopsy breast care instructions. Final pathology results are pending. MM/MM tomosynthesis diagnostic RT IMPRESSION: 1. No immediate complication from 2 site ultrasound-guided percutaneous biopsy right breast 9:00 lesion and low axillary lymph node. 2. Ultrasound was used to localize and guide marker clip placement x2. 3. The 2-view direct digital postprocedure mammogram reveals accurate positioning of both of the biopsy clips. 4. Final pathology results are pending. A separate report with final recommendations will be issued once these results are made available. Electronically signed by: Ruy Gallo MD 04/08/2024 11:52 AM [facility]
[2024-04-08] MEDS: Lidocaine HCl 1 % 20 ML VIAL SUBCUT (10:59)
[2024-04-08] MEDS: Sodium Bicarbonate 8.4% 50 MEQ/50 ML VIAL SUBCUT (10:59)
== END 2024-04-08 09:49 | disposition home or self-care (01) ==
LOC: HO.MAMMO 09:48
PROVIDERS: PCP Internal Medicine; Visit Provider Surgery
DX: N63.10 Unspecified lump in the right breast, unspecified quadrant (principal); R22.31 Localized swelling, mass and lump, right upper limb
CPT/HCPCS: 19083; 38505; 76942; 77061; 77065; 88305; 88341; 88342; 88360; A4648; C1894; J2003

== ENCOUNTER → 2024-04-08 09:50 | Outpatient (BNV) | payer MEDICAID, SELFPAY | PROVIDERS: PCP Internal Medicine; Visit Provider Radiology Diagnostic Radiology | DX: R22.31 Localized swelling, mass and lump, right upper limb (principal); N63.15 Unspecified lump in the right breast, overlapping quadrants | CPT/HCPCS: 19083; 38505; 77065 ==

== ENCOUNTER 2024-04-16 09:37 | Outpatient (AMB) | payer MEDICAID, SELFPAY ==
[2024-04-16 09:48] VITALS: BP 120/80; PULSE 62; BMI 28.3
--- NOTE | 2024-04-16 09:48 | MHC.OFFVIS ---
Vital Signs 04/16/24 09:48 Height 5 ft 2 in Weight 155 lb BMI 28.3 BP 120/80 Blood Pressure Location Rt brachial Position Sitting Pulse 62 Intake Visit Reasons: Discuss br bx results Intake Note: Patient here to discuss rt br us needle core and rt axilla LN bx from 04-08-2024. Patient c/o: bruising around bx site. Audio Production Manager Required: No Accompanied by: Self / Same As Patient Allergies No Known Allergies [No Known Allergies*] Allergy (Verified 04/16/24 09:49) HPI Comments Details: Patient has finally presented for follow-up status post breast (right) and axillary lymph node biopsies which were positive for breast cancer. She had missed a couple of appointments and was called by me personally to strongly encourage her to come for today's visit. Pathology results were reviewed. Patient was as would be expected very upset but she said she had her suspicious at this was the diagnosis. [facility] Medical History Former smoker Anemia Surgical History No history of previous surgery Family History Maternal Grandmother Asthma Arthritis Maternal Grandfather Diabetes mellitus Maternal Aunt Breast cancer Social History Household Members: Children Both parents involved: Yes Caregiver staying overnight: No Housing: Apartment Are you a primary lead caregiver to a significant other at home: No Do you presently have visiting nurse or other home services: No 75 years or older and lives alone: No Unable to assess alcohol history related to: Unknown Patient Tobacco Use Status: Former Tobacco user Cigarettes Per Day: 4 Agree to transfusion: Yes service: No Current occupational status: unemployed Sexual orientation: Straight/Heterosexual Gender identity: Female Female Reproductive History Menstrual Age of Menarche: 10 Physical Exam Vital Signs: Last Vital Signs Pulse 62 04/16/24 09:48 BP 120/80 04/16/24 09:48 BMI result Body Mass Index 28.3 Chest Other: Breast exam is status quo. Ecchymosis status post biopsy expected. Assessment & Plan Assessment & Plan (1) Breast cancer, right: Code(s): C50.911 - Malignant neoplasm of unspecified site of right female breast Category: Medical (2) Metastatic cancer to axillary lymph nodes: Code(s): C77.3 - Secondary and unspecified malignant neoplasm of axilla and upper limb lymph nodes Category: Surgical Plan Current plan is for the patient to be seen by Oncology for consideration of neoadjuvant therapy regarding her recently diagnosed breast cancer with positive lymph nodes of the right breast. All questions answered. Patient was assured me that she will make this appointment. We will be in contact with her and with Oncology regarding her progress and possible surgical interventions. At present, patient was very upset with her diagnosis and arrangements for genetic testing will be made on a day which is more convenient for her. All questions answered. Orders: Referrals Hematology & Oncology Referral C50.919 - Malignant neoplasm of unspecified site of unspecified female breast Coding Level of Care Code Est Pt Level 5 (20268) Diagnoses Breast cancer, right C50.911 Metastatic cancer to axillary lymph nodes C77.3
== END 2024-04-16 10:00 | disposition home or self-care (01) ==
PROVIDERS: PCP Internal Medicine; Visit Provider Surgery
DX: C50.911 Malignant neoplasm of unspecified site of right female breast (principal); C77.3 Secondary and unspecified malignant neoplasm of axilla and upper limb lymph nodes
CPT/HCPCS: 99214

== ENCOUNTER → 2024-04-16 09:37 | Outpatient (BNVA) | payer MEDICAID, SELFPAY | PROVIDERS: PCP Internal Medicine; Visit Provider Surgery | DX: C50.911 Malignant neoplasm of unspecified site of right female breast (principal); C77.3 Secondary and unspecified malignant neoplasm of axilla and upper limb lymph nodes | CPT/HCPCS: 99212 ==

== ENCOUNTER → 2024-04-25 09:50 | Outpatient (BNVA) | payer MEDICAID, SELFPAY | PROVIDERS: PCP Internal Medicine; Visit Provider Surgery | DX: Z13.79 Encounter for other screening for genetic and chromosomal anomalies (principal) | CPT/HCPCS: 99211 ==

== ENCOUNTER → 2024-04-25 11:21 | Outpatient (BNV) | payer MEDICAID, SELFPAY | PROVIDERS: PCP Internal Medicine; Referring Provider Internal Medicine; Visit Provider Internal Medicine | DX: C50.411 Malignant neoplasm of upper-outer quadrant of right female breast (principal); C77.3 Secondary and unspecified malignant neoplasm of axilla and upper limb lymph nodes | CPT/HCPCS: 99205 ==

== ENCOUNTER 2024-04-29 15:16 | Outpatient (REF) | payer MEDICAID, SELFPAY ==
[2024-04-29] MEDS: gadobutroL 7.5 ML VIAL IVPUSH (16:29)
== END 2024-04-29 15:17 | disposition home or self-care (01) ==
LOC: HO.MRI 15:16
PROVIDERS: PCP Internal Medicine; Visit Provider Internal Medicine
DX: C77.3 Secondary and unspecified malignant neoplasm of axilla and upper limb lymph nodes (principal)
CPT/HCPCS: 77049; A9585

== ENCOUNTER → 2024-04-29 15:38 | Outpatient (BNV) | payer MEDICAID, SELFPAY | PROVIDERS: PCP Internal Medicine; Visit Provider Internal Medicine | DX: C50.411 Malignant neoplasm of upper-outer quadrant of right female breast (principal); C77.3 Secondary and unspecified malignant neoplasm of axilla and upper limb lymph nodes | CPT/HCPCS: 77049 ==

== ENCOUNTER → 2024-04-30 15:07 | Outpatient (REF) | payer MEDICAID, SELFPAY ==
--- NOTE | 2024-04-30 15:09 | CA_ITS ---
Transthoracic Echocardiogram Patient (Last, First, Middle): Jeny Sierra, Gender: Female Date of : 1990 Age: 34 Procedure Date: 04/30/2024 Procedure Type: Transthoracic Echocardiogram Location: OP Height: 157.48 cm Weight: 70.31 kg BSA: 1.72 m2 Heart Rate: bpm BP: 120 / 80 mmHg Information Systems Security Analyst: MAGNUS Referring MD: Hawa Lei MD Symptoms: pre chemo eval Study Quality: Adequate ECG Rhythm: Sinus Conclusions: - The left ventricular systolic function is normal. The calculated ejection fraction is 65% by biplane method. - No obvious valvular pathology seen on this study. Findings Left Ventricle Normal left ventricular cavity size. There is normal left ventricular wall thickness. The left ventricular systolic function is normal. The calculated ejection fraction is 65% by biplane method. There is no evidence of regional wall motion abnormalities. Diastolic function is normal for age. LV peak GLS -22.3%. Right Ventricle Mildly increased right ventricular cavity size. There is normal right ventricular systolic function. Atria The left atrium is mildly dilated. The right atrium is normal in size. Aortic Valve There is a normal trileaflet aortic valve. There is no aortic valve stenosis. There is no aortic valve regurgitation. Mitral Valve The mitral valve appears normal. There is trace mitral valve regurgitation. There is no mitral valve stenosis. Pulmonic Valve The pulmonic valve is likely normal. Tricuspid Valve Normal tricuspid valve structure. There is trace tricuspid valve regurgitation. There is no evidence of pulmonary hypertension. Great Vessels The asc aorta and aortic arch are normal in size. Venous The inferior vena cava is normal in size and collapses greater than 50% with inspiration. Pericardium/Pleural There is no evidence of pericardial effusion. Prior Study Comparison No prior study available for comparison. Recommendations, Care & Conclusions No obvious valvular pathology seen on this study. Measurements 2D Linear Measurements IVSd: 0.90 0.6-0.9/0.6-1.0 cm LVIDd: 4.65 3.9-5.3/4.2-5.9 cm LVIDd Index: 2.70 2.4-3.2/2.2-3.1 cm/m2 LVIDs: 3.16 2.0-3.6 cm LVPWd: 0.82 0.7-1.1 cm LA Diam: 3.60 2.7-3.8/3.0-4.0 cm LAIDs Index: 2.09 1.5-2.3 cm/m2 LV Mass: 164.12 67-162/88-224 g LV Mass Index: 95.42 43-95/49-115 g/m2 LVOT Diam: 1.90 3.0+(-)1.3 cm 2D Systolic Function EF 4C: 65.60 >55% EF 2C: 66.40 >55% EF BiP: 65.00 >55% Mitral Valve MV Pk E: 0.92 MV PK A: 0.46 MV Decel Time: 280.00 E/A: 2.00 E'Lateral: 13.80 E'Medial: 10.30 E/E' Med: 9.00 E/E' Lat: 6.70 PHT: 82.00 MVA PHT: 2.68 Decel Boyle: 3.30 Aortic Valve AoV Pk Pedro: 1.79 AoV Mn Pedro: 1.19 AoV VTI: 0.39 AoV Pk Grad: 13.00 Aov Mn Grad: 7.00 AXEL Cont.VTI: 2.12 LVOT LVOT Pk Pedro: 1.40 LVOT Mn Pedro: 0.92 LVOT VTI: 0.29 LVOT Pk Grad: 8.00 LVOT Mn Grad: 4.00 LVOT Diam: 1.90 LVOT Area: 2.84 Diastolic Function MV Pk E: 0.92 MV Pk A: 0.46 E/A: 2.00 E'Medial: 10.30 E/E' Med: 9.00 E' Laterial: 13.80 E/E' Lat: 6.70 Right Ventricle TAPSE (mm): 26.50 TVS' Pedro: 14.90 Tricuspid Valve RA Press: 3.00 Great Vessels Aorta Sinus of Valsalva: 2.59 2.0-3.[address] Ridge: 2.25 1.7-3.4 cm Ao Asc: 2.70 2.1-3.4 cm Ao Arch: 2.40 Updated in Other Vendor System with Status of Final Taurus Agustin MD electronically signed on 05/02/2024 11:47:55 AM with status of Final
== END ==
LOC: HO.CARD 15:07
PROVIDERS: PCP Internal Medicine; Visit Provider Internal Medicine
DX: C77.3 Secondary and unspecified malignant neoplasm of axilla and upper limb lymph nodes (principal)
CPT/HCPCS: 93306; 93356

== ENCOUNTER → 2024-04-30 15:09 | Outpatient (BNV) | payer MEDICAID, SELFPAY | PROVIDERS: PCP Internal Medicine; Visit Provider Internal Medicine | DX: Z01.818 Encounter for other preprocedural examination (principal) | CPT/HCPCS: 93306; 93356 ==

== ENCOUNTER 2024-05-01 10:41 | Day surgery (SDC) | payer MEDICAID, SELFPAY ==
[2024-04-30 05:56] VITALS: BMI 28.3
[2024-05-01] VITALS (17 sets, daily range): BP systolic 98–125; BP diastolic 57–78; PULSE 52–71; RESP 16–22; TEMP 36.4–36.6; O2SAT 97–100
--- NOTE | ~2024-05-01 | IR_ITS ---
CLINICAL HISTORY: Right Breast cancer. The patient presents to interventional radiology for placement of a port for chemotherapy. PROCEDURES: 1. Real-time ultrasound-guided access into the left internal jugular vein after documentation of selected vessel patency, and permanent image storing in the patient records. 2. Placement of a 6.6 Azeri single-lumen power port. CLINICIAN: Clif Busby PA-C MEDICATIONS: - Versed 1.5 mg, Fentanyl 75 mcg, Lidocaine 1% 10 mL SQ -Antibiotics: Ancef 2g -For additional details, please see nursing flowsheet. Complications: None. Estimated blood loss: <5 ml Specimens: None. Contrast: None. Fluoroscopy time: 1.2 min MODERATE SEDATION TIME: 37 min PROCEDURE NOTE: The procedure, risks, benefits, and alternatives were carefully explained to the patient and written informed consent was obtained. The patient was placed supine on the fluoroscopy table. A timeout was performed. The left neck and chest was prepped and draped in usual sterile fashion. Maximum barrier technique was utilized. Local anesthesia was administered to the access site with 1% lidocaine. Under ultrasound guidance, the left internal jugular vein was accessed with a 5 fr micropuncture set. A 0.035 in wire was advanced into the IVC. A peel-away sheath was advanced over the wire and into the SVC, and the wire was removed. Next, subcutaneous lidocaine was administered to the chest. The port pocket was created after the skin incision, utilizing blunt dissection. Using blunt dissection, a subcutaneous tunnel was created that connects from the port pocket to the venotomy site. Through the peel-away sheath, the 6.6 Azeri port catheter was placed. The catheter position was verified with fluoroscopy to be at the superior vena cava/right atrial junction. The port was connected to the catheter and was placed in the pocket. The venotomy site was closed with a 3-0 Vicryl subcutaneous suture. The port incision site was closed with interrupted 3-0 Vicryl subcutaneous sutures and surgical glue. Prior to closing the skin, 1 g of Ancef solution was placed in the pocket. The port was tested, flushed, and packed with heparin per routine protocol. The patient tolerated the procedure well. The patient was stable after the procedure and was transferred to the PACU. The procedure was performed under moderate sedation and with a dedicated nurse with continuous monitoring of vital signs. A permanent image of the ultrasound the neck and fluoroscopic image of the chest was saved and sent to PACS. FINDINGS: 1. Patent left internal jugular vein 2. Placement of a 6.6 Azeri single lumen power port. 3. Port flushes and aspirates very well with a 10 mL syringe. No pneumothorax. IR/IR cvc insert tunnel w prt/director of valuation IMPRESSION: Placement of a 6.6 Azeri single-lumen power port. PLAN: - The patient will be discharged home when stable by sedation protocol. - Port may be used immediately. This procedure was performed by Clif Busby PA-C, and directly supervised by Dr. Olivo Electronically signed by: Cem Olivo MD 05/23/2024 03:15 PM [facility] Workstation: [id number]
--- NOTE | ~2024-05-01 | IR_ITS ---
CLINICAL HISTORY: Right Breast cancer. The patient presents to interventional radiology for placement of a port for chemotherapy. PROCEDURES: 1. Real-time ultrasound-guided access into the left internal jugular vein after documentation of selected vessel patency, and permanent image storing in the patient records. 2. Placement of a 6.6 English single-lumen power port. CLINICIAN: Clif Busby PA-C MEDICATIONS: - Versed 1.5 mg, Fentanyl 75 mcg, Lidocaine 1% 10 mL SQ -Antibiotics: Ancef 2g -For additional details, please see nursing flowsheet. Complications: None. Estimated blood loss: <5 ml Specimens: None. Contrast: None. Fluoroscopy time: 1.2 min MODERATE SEDATION TIME: 37 min PROCEDURE NOTE: The procedure, risks, benefits, and alternatives were carefully explained to the patient and written informed consent was obtained. The patient was placed supine on the fluoroscopy table. A timeout was performed. The left neck and chest was prepped and draped in usual sterile fashion. Maximum barrier technique was utilized. Local anesthesia was administered to the access site with 1% lidocaine. Under ultrasound guidance, the left internal jugular vein was accessed with a 5 fr micropuncture set. A 0.035 in wire was advanced into the IVC. A peel-away sheath was advanced over the wire and into the SVC, and the wire was removed. Next, subcutaneous lidocaine was administered to the chest. The port pocket was created after the skin incision, utilizing blunt dissection. Using blunt dissection, a subcutaneous tunnel was created that connects from the port pocket to the venotomy site. Through the peel-away sheath, the 6.6 English port catheter was placed. The catheter position was verified with fluoroscopy to be at the superior vena cava/right atrial junction. The port was connected to the catheter and was placed in the pocket. The venotomy site was closed with a 3-0 Vicryl subcutaneous suture. The port incision site was closed with interrupted 3-0 Vicryl subcutaneous sutures and surgical glue. Prior to closing the skin, 1 g of Ancef solution was placed in the pocket. The port was tested, flushed, and packed with heparin per routine protocol. The patient tolerated the procedure well. The patient was stable after the procedure and was transferred to the PACU. The procedure was performed under moderate sedation and with a dedicated nurse with continuous monitoring of vital signs. A permanent image of the ultrasound the neck and fluoroscopic image of the chest was saved and sent to PACS. FINDINGS: 1. Patent left internal jugular vein 2. Placement of a 6.6 English single lumen power port. 3. Port flushes and aspirates very well with a 10 mL syringe. No pneumothorax. IR/IR us guide venous access IMPRESSION: Placement of a 6.6 English single-lumen power port. PLAN: - The patient will be discharged home when stable by sedation protocol. - Port may be used immediately. This procedure was performed by Clif Busby PA-C, and directly supervised by Dr. Olivo Electronically signed by: Cem Olivo MD 05/23/2024 03:15 PM [facility] Workstation: [id number]
[2024-05-01 11:06] LABS: UPreg QC Valid YES; Urine Pregnancy NEGATIVE (NEGATIVE)
--- NOTE | 2024-05-01 13:07 | MHC.SHP ---
Pre-Procedural Eval Section A - 24 Hr Update-Section A only Date of Service: 05/01/24 Section B - Complete if H&P > 30 days Chief Complaint: malig. neoplasm axilla & upper limb lymph nodes Details of Present Illness: 34 y/o female with right breast cancer and poor iv access Relevant Family History (Specify if Yes): No Relevant Social History: None Present Medications: see Short Stay Collaborative assessment Medical History: Significant History History of Previous Operations: Relevant previous surgery/procedure and date(s) Allergies: Allergies Allergy/AdvReac Type Severity Reaction Status Date / Time No Known Allergies Allergy Verified 04/25/24 11:34 [No Known Allergies*] Review of Systems Sugical H&P ROS: Negative: Constitution, Cardiovascular, Respiratory and Integumentary Exam Surgical H&P Exam: Normal: Heart, Normal: Lungs, Normal: Skin and Normal: Neurological Plan 34 y/o female with right breast cancer and poor iv access -Left port Time Spent With Patient Time: Total time managing care of this patient today ____ minutes.
[2024-05-01] MEDS: ceFAZolin Sodium/Dextrose,Iso 2 GM/50 ML PIGGYBACK IV (13:35)
[2024-05-01] MEDS: fentaNYL citrate/PF 100 MCG/2 ML VIAL 50 MCG IVPUSH (13:37)
[2024-05-01] MEDS: Midazolam HCl/PF 2 MG/2 ML VIAL 1 MG IVPUSH ×4 (13:40→14:00)
[2024-05-01] MEDS: fentaNYL citrate/PF 100 MCG/2 ML VIAL 25 MCG IVPUSH ×3 (13:43→14:00)
== END 2024-05-01 16:10 | disposition home or self-care (01) ==
PROVIDERS: Physician Assistant Surgical; PCP Internal Medicine; Visit Provider Internal Medicine
DX: Z45.2 Encounter for adjustment and management of vascular access device (principal); C77.3 Secondary and unspecified malignant neoplasm of axilla and upper limb lymph nodes; C50.511 Malignant neoplasm of lower-outer quadrant of right female breast; Z17.0 Estrogen receptor positive status [ER+]; Z17.21 Progesterone receptor positive status; Z17.32 Human epidermal growth factor receptor 2 negative status; D64.9 Anemia, unspecified; Z56.0 Unemployment, unspecified; Z87.891 Personal history of nicotine dependence
CPT/HCPCS: 36561; 76937; 81025; 99152; 99153; C1769; C1788; J0131; J0690; J1642; J1644; J2003; J2250; J2310; J3010

== ENCOUNTER → 2024-05-01 13:00 | Outpatient (BNV) | payer MEDICAID, SELFPAY | PROVIDERS: PCP Internal Medicine; Visit Provider Physician Assistant Surgical | DX: C50.911 Malignant neoplasm of unspecified site of right female breast (principal); C77.3 Secondary and unspecified malignant neoplasm of axilla and upper limb lymph nodes | CPT/HCPCS: 36561; 76937; 77001; 99152 ==

== ENCOUNTER 2024-06-21 11:54 | Inpatient (IN) | payer MEDICAID, SELFPAY ==
[2024-06-21] VITALS (12 sets, daily range): BP systolic 88–109; BP diastolic 37–78; PULSE 95–130; RESP 18–33; TEMP 37.7–39.6; O2SAT 91–99; BMI 26.7
--- NOTE | ~2024-06-21 | XR_ITS ---
CLINICAL HISTORY: chest wall pain, fever Chest Radiographs, 2 views Comparison: 12/24/20 Findings: Left chest wall central venous catheter with the tip terminating at the cavoatrial junction. No cardiomegaly. Normal mediastinal contours. No pneumothorax. No opacity. No pleural effusion. Normal upper abdomen. No acute fracture. Impression: No acute findings. This document has been electronically signed by: Mariposa Mobley MD on 06/21/2024 14:15:34
--- NOTE | 2024-06-21 12:04 | ED_ITS ---
HPI - General Adult General Chief complaint: Nausea/Vomiting/Diarrhea Stated complaint: sent by Dr. Henry cancer patient,multiple symptoms Time Seen by Provider: 06/21/24 12:09 Source: patient Mode of arrival: ambulatory Limitations: no limitations History of Present Illness ED Provider: Dominique Jain APRN HPI narrative: 34 yo female with a history of breast cancer [place] [facility] [place] currently on adriamycin/cytoxan (last dose 06/17) here with complaints of generalized abdominal pain, chest wall pain with coughing, non productive cough, sore throat, body aches, chills, fever, nausea/vomiting with waking this morning. Of note, patient was in [facility] ER 2 days ago with her son where he was diagnosed with both rhinovirus/coronavirus. She denies shortness of breath, headache, neck pain/stiffness, skin rash, diarrhea, urinary complaints, calf pain or swelling. Related Data Previous Rx's ?Medication ?Instructions ?Recorded dexamethasone 4 mg tablet 4 mg PO BID #30 tabs 05/20/24 ondansetron 8 mg disintegrating 8 mg PO Q8H PRN Nausea #60 tabs 05/20/24 tablet acetaminophen 325 mg capsule 650 mg (2 x 325 mg) PO Q6H PRN 06/21/24 fever or pain #30 caps ondansetron 4 mg disintegrating 4 mg PO Q6H PRN nausea and 06/21/24 tablet vomiting #12 tabs oseltamivir 75 mg capsule (Tamiflu) 75 mg PO BID 5 days #10 caps 06/21/24 Allergies Allergy/AdvReac Type Severity Reaction Status Date / Time No Known Allergies Allergy Verified 06/21/24 12:07 [No Known Allergies*] Review of Systems 2 Review of Systems: Yes all other systems are reviewed and are negative Constitutional: Constitutional: Reports no additional constitutional complaints, Reports body ache(s), Reports chills, Reports fever(s), Denies headache(s) and Denies weakness Eyes: Eyes: Reports no additional eye complaints and Denies change in vision ENT: Reports system reviewed and no additional complaints, except as documented, Denies dizziness, Denies headache(s), Denies nasal congestion, Reports nasal discharge, Denies neck pain and Reports sore throat Cardiovascular: Cardiovascular: Reports no additional cardiovascular complaints, Reports chest pain, Denies leg edema and Denies dyspnea Respiratory: Respiratory: Reports no additional respiratory complaints, Reports cough and Denies dyspnea Gastrointestinal: Gastrointestinal: Reports no additional gastrointestinal complaints, Reports abdominal pain, Denies diarrhea, Reports nausea and Reports vomiting Genitourinary: Genitourinary: Reports no additional female genitourinary complaints and Denies urinary incontinence Musculoskeletal: Musculoskeletal: Reports no additional musculoskeletal complaints, Denies back pain, Denies arthralgias, Denies joint swelling, Denies neck pain, Denies numbness and Denies tingling Integumentary/Breasts: Skin/Breast: Reports system reviewed and no additional complaints, except as docu and Denies rash Neurologic: Reports system reviewed and no additional complaints, except as documented, Denies Abnormal speech present, Denies dizziness, Denies headache(s), Denies numbness, Denies tingling and Denies weakness PMFSH Past Medical History Attestation statement: The following information was validated with the patient. Source: old records reviewed and nursing notes reviewed Medical History Former smoker Anemia Surgical History No history of previous surgery Family History Family History Maternal Grandmother Arthritis Asthma Maternal Grandfather Diabetes mellitus Maternal Aunt Breast cancer Father Throat cancer Paternal Grandfather Stomach cancer Social History Social History Household Members: Children Housing: Apartment Are you a primary day care director to a significant other at home: No Do you presently have visiting nurse or other home services: No Unable to assess alcohol history related to: Unknown Alcohol intake: former Patient Tobacco Use Status: Former Tobacco user Smoked in Last 30 Days: No Use of substances other than those prescribed or required for medical reasons: No Agree to transfusion: Yes Advance Directives: No Advance Directives Information Provided: No service: No Current occupational status: unemployed Sexual orientation: Straight/Heterosexual Gender identity: Female Physical Exam ED Vital Signs: Vital Signs - 24 hr 06/21/24 12:04 06/21/24 13:39 06/21/24 14:46 Temperature 100.1 F 101.5 F H 99.8 F Pulse Rate 130 H 108 H 101 H Respiratory Rate 22 H 18 18 Blood Pressure 90/53 L 109/51 L Pulse Oximetry 99 97 95 Oxygen Delivery Method Room Air Room Air 06/21/24 14:52 06/21/24 17:09 06/21/24 17:32 Temperature 101.3 F H 102.6 F H Pulse Rate 116 H 116 H Respiratory Rate 19 18 Blood Pressure 95/43 L 100/77 106/78 Pulse Oximetry 99 95 Oxygen Delivery Method Room Air Room Air 06/21/24 18:28 06/21/24 19:22 06/21/24 19:25 Temperature 103.3 F H 103.3 F H 103.3 F H Pulse Rate 118 H 108 H Respiratory Rate 20 Blood Pressure 95/63 98/48 L Pulse Oximetry 99 97 Oxygen Delivery Method Room Air Room Air 06/21/24 20:51 06/21/24 20:55 06/21/24 20:58 Temperature 100.7 F H Pulse Rate 98 95 117 H Respiratory Rate 31 H 33 H 31 H Blood Pressure 88/47 L 92/37 L 101/48 L Pulse Oximetry 93 91 L 93 Oxygen Delivery Method Room Air Room Air Room Air 06/21/24 20:58 Temperature Pulse Rate 98 Respiratory Rate Blood Pressure 101/48 L Pulse Oximetry Oxygen Delivery Method BMI result Body Mass Index 26.7 Const General: cooperative, healthy appearing, comfortable and no acute distress Orientation/consciousness: patient oriented x3 Limitations: no limitations HENMT Head: Yes normal to inspection Ears: hearing grossly normal bilaterally and TM's normal bilaterally General nose exam: Normal external nose present Face and sinus: Yes normal facial exam Mouth: Normal oral and palatal mucosa present Throat: Yes posterior oropharynx normal, Yes tonsils normal and Yes uvula midline Eyes General: appearance normal, both eyes and all related structures Pupils: Equal, round and reactive pupils present Neck Neck: Yes normal visual inspection, Yes full ROM, Yes no lymphadenopathy and Yes no meningeal signs Chest Chest palpation & inspection: normal inspection of the chest Resp Effort & Inspection: normal respiratory effort Auscultation: clear to auscultation bilaterally Cardio Rate: regular rate Rhythm: regular rhythm Peripheral pulses: Peripheral pulses 2+ throughout GI Inspection: Yes normal to inspection Palpation (GI): Soft to palpation and nontender Auscultation: normal bowel sounds Back/Spine/Pelvis Thoracic/Lumbar Spine: thoracic and lumbar spine normal to inspection Skin General skin exam: no rashes or lesions noted Neuro General: patient oriented x3, no meningeal signs, no focal motor deficits and normal sensation to monofilament Cranial nerves: Yes Equal, round and reactive pupils present Cognition (Neuro): normal cognition Speech: No Abnormal speech present Gait exam (Neuro): Normal gait present Motor exam (neuro): 5/5 motor strength present throughout Extrem General: Yes normal to inspection, Yes no pedal edema and Yes no calf tenderness Course Course Course Narrative: RME performed by Kendal Brown PA-C. Patient is a 34 year old assigned female at presenting to the emergency department with a fever, chills, and cough. Patient states she has breast cancer and is on chemo for which she follows with Dr. Lei. Detailed physical exam and review of systems are deferred to the studio couch frame builder. Labs, imaging, and swabs ordered. Patient placed back in the waiting room pending room availability and results. Reevaluation(s) Reevaluation #1: 1445-labs show leukocytosis (from Neulasta and not infection) Otherwise labs are unremarkable. Patient is not neutropenic. Her chest x-ray shows no signs of infection. Her urine is negative for infection. Her serology is positive for coronavirus, rhinovirus and flu a. She is nontoxic appearing she is tolerating p.o.. I discussed her case with the oncologist on-call. Her white blood cell count is likely elevated from receiving Neulasta last week. We are both comfortable discharging the patient home and she will follow up with the on-call tomorrow morning via phone. We will hold her in the ER until her temp and heart rate improve and then anticipate dc Reevaluation #2: 2100-patient has continued to have intermittent fevers while she has been in the emergency room and tachycardia despite several rounds of Tylenol and Toradol and IV fluids. I think this is from her viral illness. However patient developed a room air saturation of 89-90% which improved on 2 L of oxygen and had some tachypnea at rest. Her lungs are clear. This is likely from her viral syndrome. She feels quite weak. I do believe she would benefit from admission with IV fluids and supplemental oxygen and to continue to treat her supportively. Patient is agreeable with plan of care Medications Administered Discontinued Medications Generic Name Dose Route Start Last Admin Trade Name Neil PRN Reason Stop Dose Admin Acetaminophen 650 mg 06/21/24 12:30 06/21/24 12:55 Acetaminophen 325 Mg Tablet PO 06/21/24 12:31 650 mg ONCE ONE Administration Acetaminophen 975 mg 06/21/24 17:04 06/21/24 17:30 Acetaminophen 325 Mg Tablet PO 06/21/24 17:05 975 mg ONCE ONE Administration Sodium Chloride 1,000 mls @ 999 mls/hr 06/21/24 12:19 06/21/24 14:44 Ns IV 06/21/24 13:19 Infused .Q1H1M STA Infusion Sodium Chloride 1,000 mls @ 999 mls/hr 06/21/24 12:41 06/21/24 14:48 Ns IV 06/21/24 13:41 Infused .Q1H1M STA Infusion Sodium Chloride 1,000 mls @ 999 mls/hr 06/21/24 14:51 06/21/24 17:06 Ns IV 06/21/24 15:51 Infused .Q1H1M STA Infusion Sodium Chloride 500 mls @ 999 mls/hr 06/21/24 19:27 06/21/24 19:38 Ns IV 06/21/24 19:57 999 mls/hr .Q31M STA Administration Ketorolac Tromethamine 15 mg 06/21/24 13:46 06/21/24 14:44 Ketorolac Tromethamine 15 Mg/Ml Vial IVPUSH 06/21/24 13:47 15 mg ONCE ONE Administration Ketorolac Tromethamine 15 mg 06/21/24 19:27 06/21/24 19:37 Ketorolac Tromethamine 15 Mg/Ml Vial IVPUSH 06/21/24 19:28 15 mg ONCE ONE Administration Ondansetron HCl 4 mg 06/21/24 12:30 06/21/24 12:55 Ondansetron Hcl 4 Mg/2 Ml Vial IVPUSH 06/21/24 12:31 4 mg ONCE ONE Administration Oseltamivir Phosphate 75 mg 06/21/24 17:04 06/21/24 17:38 Oseltamivir Phosphate 75 Mg Capsule PO 06/21/24 17:05 75 mg ONCE ONE Administration Medical Decision Making Medical Decision Making MDM Narrative: 34 yo female with a history of breast cancer [place] [facility] [place]Dul[place] currently on adriamycin/cytoxan (last dose 06/17) here with complaints of generalized abdominal pain, chest wall pain with coughing, non productive cough, sore throat, body aches, chills, fever, nausea/vomiting with waking this morning w/ recent sick contact.? On arrival she has fever, tachycardia and initial blood pressure 90/53 She is alert and oriented. No focal findings on exam. Constellation of symptoms with recent sick contact to two different viruses seems more typical for a viral syndrome. Due to history will obtain labs, EKG, CXR, UA. Nursing tells me respiratory pathogen panel will take several hours and so we will obtain a rapid covid and flu test. Will order APAP, IVF, antiemetic Differential Diagnosis Differential Diagnoses: The differential diagnosis associated with the presentation includes See course of care Admission/Observation Consideration of admission/observation: Escalation of care including admission/observation considered see course of care Consult Healthcare Provider Management of the patient was discussed with: Hospitalist and Engine Lathe Set Up Operator Aaron Henry-reviewed labs. Elevated WBC from Neulasta injection which she received last week and not from infection. 2100-Reached out to hospitalist (Reginald) for admission, Accepted at 2143 Lab Data [facility] Lab Attestation statement: I reviewed the patient's lab results. 06/21/24 12:53 06/21/24 12:53 Labs: Lab Results 06/21/24 06/21/24 06/21/24 Range/Units 12:53 12:54 13:09 WBC 27.2 H (4.8-10.8) X10*3/uL RBC 3.60 L (4.20-5.50) X10*6/uL Hgb 10.6 L (12.0-16.0) g/dl Hct 30.0 L (37.0-47.0) % MCV 83.3 (80.0-98.0) fL MCH 29.4 (27.0-33.0) pg MCHC 35.3 H (31.0-35.0) g/dl RDW 12.2 (11.0-16.0) % Plt Count 106 L D (160-400) X10*3/uL MPV 10.2 (9.4-12.3) fL Immature Gran % (Auto) Cancelled Neut % (Auto) Cancelled Lymph % (Auto) Cancelled Saunders % (Auto) Cancelled Eos % (Auto) Cancelled Baso % (Auto) Cancelled Lymph # (Auto) Cancelled Saunders # (Auto) Cancelled Eos # (Auto) Cancelled Baso # (Auto) Cancelled Abs Immat Gran (auto) Cancelled Absolute Neuts (auto) Cancelled Absolute Nucleated RBC 0.000 (0.0-0.012) X10*3/uL Nucleated RBC % (auto) 0.0 (0.0-0.2) /100WBC Neutrophils % (Manual) 91 H (45-73) % Band Neutrophils % 2 L (3-5) % Lymphocytes % (Manual) 4 L (20-40) % Monocytes % (Manual) 2 (2-11) % Metamyelocytes % 1 % Abs Neuts (Manual) 25.3 H (2.0-8.3) X10*3/uL Lymphocytes # (Manual) 1.1 L (1.2-4.9) X10*3/uL Monocytes # (Manual) 0.5 (0.1-1.2) X10*3/uL Metamyelocytes # 0.3 X10*3/uL Toxic Vacuolation PRESENT Platelet Estimate DECREASED (NORMAL) Plt Morphology Comment NORMAL RBC Morphology NOTED Hypochromasia 1+ (5-14) /OIF Tear Drop Cells 1+ (0-2) /OIF Sodium 136 (135-145) mmol/L Potassium 3.8 (3.3-5.1) mmol/L Chloride 105 (96-108) mmol/L Carbon Dioxide 23 (22-29) mmol/L Anion Gap 12 (12-20) BUN 10 (9-16) mg/dL Creatinine 0.79 (0.5-1.4) mg/dL Estim Creat Clear Calc 87.8 Estimated GFR > 60 Random Glucose 96 (60-115) mg/dL Lactic Acid 2.0 (0.5-2.0) mmol/L Calcium 9.2 D (8.4-10.2) mg/dL Magnesium 1.6 (1.6-2.6) mg/dL Total Bilirubin 0.5 (0.0-1.0) mg/dL AST 40 H (5-31) U/L ALT 94 H (0-31) U/L Alkaline Phosphatase 270 H (39-117) U/L Troponin I High Sens 2.9 (<3.5-17.0) ng/L Total Protein 7.5 (6.5-8.0) g/dL Albumin 4.2 (3.5-5.0) g/dL Beta HCG, Quant < 2 mIU/mL Urine Color Urine Appearance Urine pH (5.0-9.0) Ur Specific [place] (1.005-1.025) Urine Protein (Neg-Trace) mg/dL Urine Glucose (UA) (Negative) mg/dL Urine Ketones (Negative) mg/dL Urine Blood (Negative) Urine Nitrite (Negative) Ur Leukocyte Esterase (Negative) Urine RBC (0-2) /HPF Urine WBC (0-5) /HPF Ur Squamous Epith Cells (0-2) /HPF Urine Bacteria (None Seen) Hyaline Casts (0-2) /LPF Respiratory Panel Mckeon See Note Adenovirus (Rapid PCR) Not Detected (Not Detect.) B.pert (TEM-PCR) Not Detected (Not Detect.) B.parapertussis DNA PCR Not Detected (Not Detect.) C. pneumoniae DNA (PCR) Not Detected (Not Detect.) Coronavirus OC43 (PCR) Not Detected (Not Detect.) Coronavirus HKU1 (PCR) Not Detected (Not Detect.) Coronavirus 229E (PCR) Not Detected (Not Detect.) COVID-19 (BONIFACIO) Negative (Negative) COVID-19 Clin Com See Note Coronavirus NL63 (PCR) Detected A (Not Detect.) Human Metapneumovir PCR Not Detected (Not Detect.) Influenza A (RT-PCR) Detected A (Not Detect.) Influenza B (RT-PCR) Not Detected (Not Detect.) M. pneumoniae (PCR) Not Detected (Not Detect.) Parainfluenza 1 (PCR) Not Detected (Not Detect.) Parainfluenza 2 (PCR) Not Detected (Not Detect.) Parainfluenza 3 (PCR) Not Detected (Not Detect.) Parainfluenza 4 (PCR) Not Detected (Not Detect.) RSV (PCR) Not Detected (Not Detect.) Entero/Rhino (PCR) Detected A (Not Detect.) SARS-CoV-2 RNA (RT-PCR) Not Detected (Not Detect.) S. pyogenes GrpA CHARMAINE Negative (Negative) 02/08/25 Range/Units 14:31 WBC (4.8-10.8) X10*3/uL RBC (4.20-5.50) X10*6/uL Hgb (12.0-16.0) g/dl Hct (37.0-47.0) % MCV (80.0-98.0) fL MCH (27.0-33.0) pg MCHC (31.0-35.0) g/dl RDW (11.0-16.0) % Plt Count (160-400) X10*3/uL MPV (9.4-12.3) fL Immature Gran % (Auto) Neut % (Auto) Lymph % (Auto) Saunders % (Auto) Eos % (Auto) Baso % (Auto) Lymph # (Auto) Saunders # (Auto) Eos # (Auto) Baso # (Auto) Abs Immat Gran (auto) Absolute Neuts (auto) Absolute Nucleated RBC (0.0-0.012) X10*3/uL Nucleated RBC % (auto) (0.0-0.2) /100WBC Neutrophils % (Manual) (45-73) % Band Neutrophils % (3-5) % Lymphocytes % (Manual) (20-40) % Monocytes % (Manual) (2-11) % Metamyelocytes % % Abs Neuts (Manual) (2.0-8.3) X10*3/uL Lymphocytes # (Manual) (1.2-4.9) X10*3/uL Monocytes # (Manual) (0.1-1.2) X10*3/uL Metamyelocytes # X10*3/uL Toxic Vacuolation Platelet Estimate (NORMAL) Plt Morphology Comment RBC Morphology Hypochromasia /OIF Tear Drop Cells /OIF Sodium (135-145) mmol/L Potassium (3.3-5.1) mmol/L Chloride (96-108) mmol/L Carbon Dioxide (22-29) mmol/L Anion Gap (12-20) BUN (9-16) mg/dL Creatinine (0.5-1.4) mg/dL Estim Creat Clear Calc Estimated GFR Random Glucose (60-115) mg/dL Lactic Acid (0.5-2.0) mmol/L Calcium (8.4-10.2) mg/dL Magnesium (1.6-2.6) mg/dL Total Bilirubin (0.0-1.0) mg/dL AST (5-31) U/L ALT (0-31) U/L Alkaline Phosphatase (39-117) U/L Troponin I High Sens (<3.5-17.0) ng/L Total Protein (6.5-8.0) g/dL Albumin (3.5-5.0) g/dL Beta HCG, Quant mIU/mL Urine Color Yellow Urine Appearance Clear Urine pH 6.5 (5.0-9.0) Ur Specific [place] <= 1.005 (1.005-1.025) Urine Protein Negative (Neg-Trace) mg/dL Urine Glucose (UA) Negative (Negative) mg/dL Urine Ketones Negative (Negative) mg/dL Urine Blood Moderate (2+) H (Negative) Urine Nitrite Negative (Negative) Ur Leukocyte Esterase Negative (Negative) Urine RBC 6-10 H (0-2) /HPF Urine WBC 0-5 (0-5) /HPF Ur Squamous Epith Cells 11-20 (0-2) /HPF Urine Bacteria Trace (None Seen) Hyaline Casts 0-2 (0-2) /LPF Respiratory Panel [place] Adenovirus (Rapid PCR) (Not Detect.) B.pert (TEM-PCR) (Not Detect.) B.parapertussis DNA PCR (Not Detect.) C. pneumoniae DNA (PCR) (Not Detect.) Coronavirus OC43 (PCR) (Not Detect.) Coronavirus HKU1 (PCR) (Not Detect.) Coronavirus 229E (PCR) (Not Detect.) COVID-19 (BONIFACIO) (Negative) COVID-19 Clin Com Coronavirus NL63 (PCR) (Not Detect.) Human Metapneumovir PCR (Not Detect.) Influenza A (RT-PCR) (Not Detect.) Influenza B (RT-PCR) (Not Detect.) M. pneumoniae (PCR) (Not Detect.) Parainfluenza 1 (PCR) (Not Detect.) Parainfluenza 2 (PCR) (Not Detect.) Parainfluenza 3 (PCR) (Not Detect.) Parainfluenza 4 (PCR) (Not Detect.) RSV (PCR) (Not Detect.) Entero/Rhino (PCR) (Not Detect.) SARS-CoV-2 RNA (RT-PCR) (Not Detect.) S. pyogenes GrpA CHARMAINE (Negative) Independent Interpretation I performed an independent interpretation of an: EKG and Plain X-Ray Interpretation: I independently reviewed the EKG which shows sinus tachycardia with a rate of 104 I independently viewed the x-ray and agree with the radiology report Radiology Impression Discussion of test interpretation with radiology: I have reviewed the radiologist's reading. Radiologist Impression: [place] [id number] XRay Report Signed Patient: Jeny Sierra MR#: [id number] : 1990 Acct:[id number] Age/Sex: 34 / F ADM Date: 06/21/24 Loc: .ED Attending Dr: Ordering Physician: Dominique Jain NP Date of Service: 06/21/24 Procedure(s): XR chest 2V Accession Number(s): [id number] cc: Gregory Henry MD; Dominique Jain NP~ CLINICAL HISTORY: chest wall pain, fever Chest Radiographs, 2 views Comparison: 12/24/20 Findings: Left chest wall central venous catheter with the tip terminating at the cavoatrial junction. No cardiomegaly. Normal mediastinal contours. No pneumothorax. No opacity. No pleural effusion. Normal upper abdomen. No acute fracture. Impression: No acute findings. Discharge Plan Discharge Clinical Impression: Influenza A Patient Disposition: Admitted As Inpatient Additional Instructions: Your viral panel was positive for coronavirus, rhino virus and influenza a. We are prescribing you a medication called Tamiflu. Sometimes Tamiflu can cause vomiting and diarrhea. If this medication makes you feel worse you may stop taking it. Make sure that you are taking all medications with food. We also prescribed you a nausea medication to have at home if you need it. Continue to take Tylenol for any fever as needed. Increase fluids at home. We did speak to the oncologist on-call and they recommended that you call them tomorrow to give them an update on how you are feeling. They also recommended you follow-up with your normal oncologist on Sunday. In the meantime if you feel that your symptoms are getting worse please return to the emergency room. Print Language: Maldivian
--- NOTE | 2024-06-21 12:19 | ECG_ITS ---
Test Reason : fever Blood Pressure : */* mmHG Vent. Rate : 104 BPM Atrial Rate : 104 BPM P-R Int : 148 ms QRS Dur : 100 ms QT Int : 320 ms P-R-T Axes : 14 3 19 degrees QTcB Int : 420 ms Sinus tachycardia Incomplete right bundle branch block Borderline ECG No previous ECGs available Referred By: Dominique Jain Electronically Signed By: Konrad Paige
--- OUTSIDE RECORDS SUMMARY | 2024-06-21 12:32 | XMS_ITS | Clinical Summary ---
Author Organization [facility] Address [address] [place] [address] Care Team Providers Care Press Operator Assistant Name Role Phone Unavailable Primary Care Provider Unavailabl e Allergies No known active allergies Medications Medication Sig Dispensed Refills Start Date End Date Status 27-1 MG TABS Take 1 tablet by mouth daily. 0 12/11/2022 Active Active Problems Patient Care Coordination No te Formatting of this note migh t be different from the original. PCP: KRISTI [facility] NPI#[id number] Problem Noted Date Diagnosed Date Other specified anemias 12/29/2022 Estimated Date of Delivery Comme nts Yes 02/06/2023 Social History Tobacco Use Types Packs/Day Years Used Date Smoking Tobacco: Former Cigarettes Smokeless Tobacco: Never Tobacco Cessation:Counseling Given: Not Answered Alcohol Use Standard Drinks/Week Comments Not Currently 0 (1 standard drink = 0.6 oz pur e alcohol) Estimated Date of Delivery Comme nts Yes 02/06/2023 Sex and Gender Information Value Date Recorded Sex Assigned at Female 03/07/2023 11:21 AM EDT Gender Identity Not on file Sexual Orientation Not on file Job Start Date Occupation Industry Not on file Not on file Not on file Last Filed Vital Signs Vital Sign Reading Time Taken Comments Blood Pressure 107/52 02/01/2023 1:39 PM EDT Pulse 77 02/01/2023 1:39 PM EDT Temperature 36.4 ??C (97.5 ??F) 02/01/2023 1:39 PM ED T Respiratory Rate - - Oxygen Saturation 98% 02/01/2023 1:39 PM EDT Inhaled Oxygen Concentration - - Weight 71.2 kg (157 lb) 12/07/2022 11:32 AM EDT Height - - Body Mass Index - - Plan of Treatment Health Maintenance Due Date Last Done Comments Hepatitis C Screening 1990 COVID-19 Vaccine (#1) 1990 Depression Screening 2000 Preventative Health Evaluation 02/06/2006 Cervical Cancer Screening (Pap Smear) 02/06/2009 Hepatitis B Vaccines (2 of 3 - 19+ 3-dose series) 11/06/2014 10/09/2014 Influenza Vaccine (#1) 2024 02/20/2020, 2017 DTap / Tdap / Td (6 - Td or Tdap) 11/17/2032 11/17/2022, 09/01/2021, 11/29/2011, Additional history exists RSV Adult > 60+ Yrs or (1 - 1-dose 75+ series) 02/06/2063 Pneumococcal Vaccine Aged Out No long er eligible based on patient's age to complete this topic RSV Ped < 20 months Aged Out No longe r eligible based on patient's age to complete this topic RigoJeny acosta Personal/Family Self [address] [address]
[2024-06-21] MEDS: ondansetron HCL 4 MG/2 ML VIAL IVPUSH (12:55)
[2024-06-21] MEDS: Acetaminophen 325 MG TABLET 650 MG PO (12:55)
[2024-06-21] MEDS: 0.9 % Sodium Chloride 1,000 ML 999 ML IV ×3 (12:56→15:10)
[2024-06-21 13:07] LABS: Hemoglobin 10.6 g/dl (12.0-16.0)
[2024-06-21 13:13] LABS: Mean Corpuscular HGB Conc 35.3 g/dl (31.0-35.0); Mean Corpuscular Hemoglobin 29.4 pg (27.0-33.0); Mean Corpuscular Volume 83.3 fL (80.0-98.0); Mean Platelet Volume 10.2 fL (9.4-12.3); Platelet Count 106 X10*3/uL (160-400); Red Cell Distribution Width 12.2 % (11.0-16.0); White Blood Count 27.2 X10*3/uL (4.8-10.8)
[2024-06-21 13:21] LABS: IDNOW Serial# 58CA691E; Strep A Nucleic Acid Negative (Negative)
[2024-06-21 13:26] LABS: Band Neutrophils Percent 2 % (3-5); Lymphocytes Absolute Manual 1.1 X10*3/uL (1.2-4.9); Lymphocytes Percent Manual 4 % (20-40); Metamyelocytes Absolute 0.3 X10*3/uL; Metamyelocytes Percent 1 %; Monocytes Absolute Manual 0.5 X10*3/uL (0.1-1.2); Monocytes Percent Manual 2 % (2-11); Neutrophils Absolute Manual 25.3 X10*3/uL (2.0-8.3); Neutrophils Percent Manual 91 % (45-73)
[2024-06-21 13:28] LABS: Troponin-I High Sensitivity 2.9 ng/L (<3.5-17.0)
[2024-06-21 13:29] LABS: Alanine Aminotransferase 94 U/L (0-31); Albumin Level 4.2 g/dL (3.5-5.0); Alkaline Phosphatase 270 U/L (39-117); Anion Gap 12 (12-20); Aspartate Amino Transferase 40 U/L (5-31); Bilirubin Total 0.5 mg/dL (0.0-1.0); Blood Urea Nitrogen 10 mg/dL (9-16); Calcium 9.2 mg/dL (8.4-10.2); Carbon Dioxide 23 mmol/L (22-29); Chloride 105 mmol/L (96-108); Creatinine Clr Calc Pharmacy 87.8; Estimated Glomerular Filt Rate > 60; Glucose Random 96 mg/dL (60-115); Magnesium 1.6 mg/dL (1.6-2.6); Potassium 3.8 mmol/L (3.3-5.1); Sodium 136 mmol/L (135-145); Total Protein 7.5 g/dL (6.5-8.0)
[2024-06-21 13:31] LABS: COVID-19 Test Negative (Negative); IDNOW Serial# 55D5AD1C
[2024-06-21 13:31] LABS: Hypochromasia 1+ (5-14) /OIF; RBC Morphology NOTED; Tear Drop Cells 1+ (0-2) /OIF; Toxic Vacuolation PRESENT
[2024-06-21 13:32] LABS: Platelet Estimate DECREASED (NORMAL); Platelet Morphology Comment NORMAL
[2024-06-21 13:47] LABS: HCG Quantitative < 2 mIU/mL
[2024-06-21 14:11] LABS: Adenovirus PCR Not Detected (Not Detect.); Bordetella parapertussis PCR Not Detected (Not Detect.); Bordetella pertussis PCR Not Detected (Not Detect.); Chlamydia pneumoniae PCR Not Detected (Not Detect.); Coronavirus 229E PCR Not Detected (Not Detect.); Coronavirus HKU1 PCR Not Detected (Not Detect.); Coronavirus NL63 PCR Detected (Not Detect.); Coronavirus OC43 PCR Not Detected (Not Detect.); Human metapneumovirus PCR Not Detected (Not Detect.); Influenza B PCR Not Detected (Not Detect.); Mycoplasma pneumoniae PCR Not Detected (Not Detect.); Parainfluenza 1 PCR Not Detected (Not Detect.); Parainfluenza 2 PCR Not Detected (Not Detect.); Parainfluenza 3 PCR Not Detected (Not Detect.); Parainfluenza 4 PCR Not Detected (Not Detect.); RSV PCR Not Detected (Not Detect.); Rhino/Enterovirus PCR Detected (Not Detect.)
[2024-06-21 14:26] LABS: Influenza A PCR Detected (Not Detect.); SARS-CoV-2 PCR Not Detected (Not Detect.)
[2024-06-21] MEDS: Ketorolac Tromethamine 15 MG/ML VIAL IVPUSH ×2 (14:44→19:37)
[2024-06-21 14:47] LABS: Appearance Urine Clear; Color Urine Yellow; Glucose Urine UA Negative (Negative); Leukocyte Esterase Urine Negative (Negative); Nitrite Urine Negative (Negative); PH 6.5 (5.0-9.0); Specific Gravity - Urine <= 1.005 (1.005-1.025); UMIC TRIGGER UACC YES; Urine Blood Moderate (2+) (Negative); Urine Ketones Negative (Negative); Urine Protein Negative (Neg-Trace)
[2024-06-21 15:25] LABS: Bacteria Urine Trace (None Seen); Hyaline Casts Urine 0-2 /LPF (0-2); WBC Urine 0-5 /HPF (0-5)
[2024-06-21] MEDS: Acetaminophen 325 MG TABLET 975 MG PO (17:30)
[2024-06-21] MEDS: Oseltamivir Phosphate 75 MG CAPSULE PO (17:38)
--- NOTE | 2024-06-21 18:48 | PC.NURSE ---
Pt's fever persists at 103.3 at this time; HR 118; SAO2 100%RA; pt ambulating to/from BR; pt states that she doesn't think she should be DC'd; ASSOCIATE ENGINEER made aware; pt with multiple blankets on; informed that this will not help her fever; pt declines to remove any blankets
--- NOTE | 2024-06-21 19:27 | MHC.EDTECH ---
seizure pads applied to bed for precautions.
[2024-06-21] MEDS: 0.9 % Sodium Chloride 500 ML 999 ML IV (19:38)
[2024-06-21] MEDS: 0.9 % Sodium Chloride 1,000 ML 100 ML IVCONT (22:15)
--- NOTE | 2024-06-21 22:58 | PM.IMHP ---
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 and currently on adriamycin/cytoxan (last dose 06/17/24) who presents to the ED from home complaining of fevers, chills, generalized body aches, dry cough, sore throat, nausea, vomiting, abdominal pain, and chest wall pain that is worse with coughing. She has had these symptoms for 2 days now and unfortunately seems to be getting worse. She denies any associated shortness of breath, orthopnea or PND. She was in [facility] ED 2 days ago with her son who was diagnosed with both rhinovirus and coronavirus. Initial workup done in our emergency department was significant for finding of a fever of 101.5? F, tachycardia with a heart rate of 108 beats per minute and mild hypotension with a blood pressure as low as 88/47 mmHg. Serology done was positive for enterovirus / rhinovirus, influenza A and coronavirus NL63. Chest x-ray was clear. However, while in the emergency department her oxygen saturation kept dropping to the high 80's and she had to be placed on 2 L of supplemental oxygen with improvement. An assessment of sepsis due to viral respiratory illness and hypoxia was made and she was started on Tamiflu and a decision made to admit her for continued care. Review of Systems Review of Systems: Yes all other systems are reviewed and are negative [facility] Medical History Former smoker Anemia Functional capacity: independent ambulation Family History Maternal Grandmother Arthritis Asthma Maternal Grandfather Diabetes mellitus Maternal Aunt Breast cancer Father Throat cancer Paternal Grandfather Stomach cancer Surgical History No history of previous surgery Social History Household Members: Children Housing: Apartment Are you a primary rn progressive care unit to a significant other at home: No Do you presently have visiting nurse or other home services: No Unable to assess alcohol history related to: Unknown Alcohol intake: former Patient Tobacco Use Status: Former Tobacco user Smoked in Last 30 Days: No Use of substances other than those prescribed or required for medical reasons: No Agree to transfusion: Yes Advance Directives: No Advance Directives Information Provided: No service: No Current occupational status: unemployed Sexual orientation: Straight/Heterosexual Gender identity: Female Meds Allergies Allergy/AdvReac Type Severity Reaction Status Date / Time No Known Allergies Allergy Verified 06/21/24 12:07 [No Known Allergies*] Physical Exam Vital Signs and Narrative: Vital Signs: Last Vital Signs Temp 100.7 F H 06/21/24 20:58 Pulse 98 06/21/24 20:58 Resp 31 H 06/21/24 20:58 BP 101/48 L 06/21/24 20:58 Pulse Ox 93 06/21/24 20:58 O2 Del Method Room Air 06/21/24 20:58 BMI result Body Mass Index 26.7 General: Ill appearing but well nourished. Awake and alert. In no obvious respiratory distress. Psychiatric: Pleasant, well kempt, cooperative with normal thought process, speech, cognition and affect. HEENT: Normocephalic, atraumatic. No pallor or jaundice. Moist oral mucus membranes. Neck: Supple. No JVD Lungs: Coarse bilateral breath sounds but with no rales, rhonchi or wheezes Heart: RRR. Normal s1/s2. No murmurs, rubs or gallops. No peripheral edema. Abdomen: Flabby, Soft, non-tender. Normoactive bowel sounds. No visceromegaly. Genitourinary: Deferred Back/Spine/Pelvis: Deferred Skin: Warm, dry, well perfused. Normal turgor. No mottling. Normal capillary refill (< 2 seconds). Neurologic: Awake and alert. Intact speech & cognition. Normal gait & balance. CN II-XII grossly normal. Extremities: Normal muscle bulk, tone and power. No obvious deformities. No peripheral edema. Good peripheral pulses. Results Labs 06/21/24 12:53 06/21/24 12:53 Labs: Laboratory Results - last 24 hr 06/21/24 06/21/24 06/21/24 12:53 12:54 13:09 MCV 83.3 MCH 29.4 MCHC 35.3 H RDW 12.2 Plt Count 106 L D MPV 10.2 Immature Gran % (Auto) Cancelled Neut % (Auto) Cancelled Lymph % (Auto) Cancelled [place] % (Auto) Cancelled Eos % (Auto) Cancelled Baso % (Auto) Cancelled Lymph # (Auto) Cancelled [place] # (Auto) Cancelled Eos # (Auto) Cancelled Baso # (Auto) Cancelled Abs Immat Gran (auto) Cancelled Absolute Neuts (auto) Cancelled Absolute Nucleated RBC 0.000 Nucleated RBC % (auto) 0.0 Neutrophils % (Manual) 91 H Band Neutrophils % 2 L Lymphocytes % (Manual) 4 L Monocytes % (Manual) 2 Metamyelocytes % 1 Abs Neuts (Manual) 25.3 H Lymphocytes # (Manual) 1.1 L Monocytes # (Manual) 0.5 Metamyelocytes # 0.3 Toxic Vacuolation PRESENT Platelet Estimate DECREASED Plt Morphology Comment NORMAL RBC Morphology NOTED Hypochromasia 1+ (5-14) Tear Drop Cells 1+ (0-2) Anion Gap 12 Estim Creat Clear Calc 87.8 Estimated GFR > 60 Random Glucose 96 Lactic Acid 2.0 Calcium 9.2 D Magnesium 1.6 Total Bilirubin 0.5 AST 40 H ALT 94 H Alkaline Phosphatase 270 H Troponin I High Sens 2.9 Total Protein 7.5 Albumin 4.2 Beta HCG, Quant < 2 Urine Color Urine Appearance Urine pH Ur Specific [place] Urine Protein Urine Glucose (UA) Urine Ketones Urine Blood Urine Nitrite Ur Leukocyte Esterase Urine RBC Urine WBC Ur Squamous Epith Cells Urine Bacteria Hyaline Casts Respiratory Panel Mcke[place] See Note Adenovirus (Rapid PCR) Not Detected B.pert (TEM-PCR) Not Detected B.parapertussis DNA PCR Not Detected C. pneumoniae DNA (PCR) Not Detected Coronavirus OC43 (PCR) Not Detected Coronavirus HKU1 (PCR) Not Detected Coronavirus 229E (PCR) Not Detected COVID-19 (BONIFACIO) Negative COVID-19 Clin Com See Note Coronavirus NL63 (PCR) Detected A Human Metapneumovir PCR Not Detected Influenza A (RT-PCR) Detected A Influenza B (RT-PCR) Not Detected M. pneumoniae (PCR) Not Detected Parainfluenza 1 (PCR) Not Detected Parainfluenza 2 (PCR) Not Detected Parainfluenza 3 (PCR) Not Detected Parainfluenza 4 (PCR) Not Detected RSV (PCR) Not Detected Entero/Rhino (PCR) Detected A SARS-CoV-2 RNA (RT-PCR) Not Detected S. pyogenes GrpA CHARMAINE Negative 06/21/24 14:31 MCV MCH MCHC RDW Plt Count MPV Immature Gran % (Auto) Neut % (Auto) Lymph % (Auto) [place] % (Auto) Eos % (Auto) Baso % (Auto) Lymph # (Auto) [place] # (Auto) Eos # (Auto) Baso # (Auto) Abs Immat Gran (auto) Absolute Neuts (auto) Absolute Nucleated RBC Nucleated RBC % (auto) Neutrophils % (Manual) Band Neutrophils % Lymphocytes % (Manual) Monocytes % (Manual) Metamyelocytes % Abs Neuts (Manual) Lymphocytes # (Manual) Monocytes # (Manual) Metamyelocytes # Toxic Vacuolation Platelet Estimate Plt Morphology Comment RBC Morphology Hypochromasia Tear Drop Cells Anion Gap Estim Creat Clear Calc Estimated GFR Random Glucose Lactic Acid Calcium Magnesium Total Bilirubin AST ALT Alkaline Phosphatase Troponin I High Sens Total Protein Albumin Beta HCG, Quant Urine Color Yellow Urine Appearance Clear Urine pH 6.5 Ur Specific [place] <= 1.005 Urine Protein Negative Urine Glucose (UA) Negative Urine Ketones Negative Urine Blood Moderate (2+) H Urine Nitrite Negative Ur Leukocyte Esterase Negative Urine RBC 6-10 H Urine WBC 0-5 Ur Squamous Epith Cells 11-20 Urine Bacteria Trace Hyaline Casts 0-2 Respiratory Panel [place] Adenovirus (Rapid PCR) B.pert (TEM-PCR) B.parapertussis DNA PCR C. pneumoniae DNA (PCR) Coronavirus OC43 (PCR) Coronavirus HKU1 (PCR) Coronavirus 229E (PCR) COVID-19 (BONIFACIO) COVID-19 Clin Com Coronavirus NL63 (PCR) Human Metapneumovir PCR Influenza A (RT-PCR) Influenza B (RT-PCR) M. pneumoniae (PCR) Parainfluenza 1 (PCR) Parainfluenza 2 (PCR) Parainfluenza 3 (PCR) Parainfluenza 4 (PCR) RSV (PCR) Entero/Rhino (PCR) SARS-CoV-2 RNA (RT-PCR) S. pyogenes GrpA CHARMAINE Imaging Radiologist's Impressions: CXR Clear Assessment and Plan (1) Acute respiratory failure with hypoxia: Status: Acute (2) Sepsis: Qualifiers: Sepsis type: sepsis due to unspecified organism Acute respiratory failure type: with hypoxia Severe sepsis shock status: without septic shock Sepsis acute organ dysfunction status: with acute organ dysfunction Severe sepsis acute organ dysfunction type: acute respiratory failure Qualified Code(s): A41.9 - Sepsis, unspecified organism; R65.20 - Severe sepsis without septic shock; J96.01 - Acute respiratory failure with hypoxia Status: Acute (3) Influenza A: Status: Acute (4) Leukocytosis: Qualifiers: Leukocytosis type: leukemoid reaction Qualified Code(s): D72.823 - Leukemoid reaction Status: Acute (5) Metastatic cancer to axillary lymph nodes: Status: Acute Plan Patient is a 34-year-old female with a history of breast cancer that is metastatic to the axillary lymph nodes here with: # Sepsis # Acute respiratory failure with hypoxia # Influenza A virus infection # Enterovirus/rhinovirus infection # Coronavirus NL63 infection - here with fevers and generalized body aches - presentation likely due to viral respiratory tract infection - meets criteria for sepsis with fever and tachycardia - also with hypoxia requiring oxygen - admit and continue with symptomatic care - start Tamiflu # Right metastatic breast cancer ( with Mets to the axillary lymph nodes) # Leukocytosis - noted with a WBC count of 27.2 - likely effect of Neulesta - continue outpatient follow up with [facility] team Total time managing care of this patient today: 75 minutes. Quality Stroke Does the patient have a stroke diagnosis?: No VTE Prior VTE?: No VTE Risk Level:: Medical - moderate - high VTE Device Contraindication: N/A - Device Ordered VTE Drug Contraindication: N/A - Med Ordered
[2024-06-22] VITALS (8 sets, daily range): BP systolic 85–110; BP diastolic 33–56; PULSE 70–101; RESP 16–24; TEMP 36.6–39.4; O2SAT 96–100
[2024-06-22] MEDS: Ketorolac Tromethamine 30 MG/ML VIAL IVPUSH ×3 (01:39→13:58)
[2024-06-22] MEDS: 0.9 % Sodium Chloride 1,000 ML 999 ML IV ×2 (01:55→09:09)
[2024-06-22 06:54] LABS: Hematocrit 26.9 % (37.0-47.0); Hemoglobin 8.9 g/dl (12.0-16.0); Mean Corpuscular HGB Conc 33.1 g/dl (31.0-35.0); Mean Corpuscular Hemoglobin 28.9 pg (27.0-33.0); Mean Corpuscular Volume 87.3 fL (80.0-98.0); Mean Platelet Volume 10.4 fL (9.4-12.3); Red Blood Count 3.08 X10*6/uL (4.20-5.50); Red Cell Distribution Width 12.5 % (11.0-16.0); White Blood Count 7.7 X10*3/uL (4.8-10.8)
[2024-06-22 06:58] LABS: Platelet Count 72 X10*3/uL (160-400)
[2024-06-22 07:24] LABS: Lymphocytes Absolute Manual 0.8 X10*3/uL (1.2-4.9); Lymphocytes Percent Manual 11 % (20-40); Neutrophils Percent Manual 89 % (45-73)
[2024-06-22 07:25] LABS: Band Neutrophils Percent 0 % (3-5); Neutrophils Absolute Manual 6.9 X10*3/uL (2.0-8.3); Platelet Estimate DECREASED (NORMAL); Platelet Morphology Comment NORMAL; RBC Morphology NORMAL
[2024-06-22 07:53] LABS: Alanine Aminotransferase 108 U/L (0-31); Albumin Level 3.2 g/dL (3.5-5.0); Alkaline Phosphatase 189 U/L (39-117); Anion Gap 8 (12-20); Aspartate Amino Transferase 77 U/L (5-31); Bilirubin Total 0.9 mg/dL (0.0-1.0); Blood Urea Nitrogen 7 mg/dL (9-16); Carbon Dioxide 19 mmol/L (22-29); Chloride 115 mmol/L (96-108); Estimated Glomerular Filt Rate > 60; Glucose Random 93 mg/dL (60-115); Potassium 4.2 mmol/L (3.3-5.1); Sodium 138 mmol/L (135-145); Total Protein 5.7 g/dL (6.5-8.0)
[2024-06-22] MEDS: 0.9 % Sodium Chloride 1,000 ML 100 ML IVCONT ×2 (08:04→17:23)
[2024-06-22] MEDS: Oseltamivir Phosphate 75 MG CAPSULE PO ×2 (08:05→20:39)
--- NOTE | 2024-06-22 08:11 | PC.NURSE ---
Provider alerted of low BP
[2024-06-22 08:12] LABS: Calcium 7.6 mg/dL (8.4-10.2)
[2024-06-22] MEDS: Acetaminophen 325 MG TABLET 650 MG PO (08:58)
[2024-06-22] MEDS: Albumin Human 25 % 100 ML 133.33 ML IV ×2 (08:58→09:55)
--- NOTE | 2024-06-22 09:23 | PHA.MEDREC ---
Addendum entered by Guille Moore RPh 06/22/24 13:22: Med rec was reviewed by [facility]. Original Note: Pharmacy Consult ? Medication Reconciliation Pharmacy has completed the medication reconciliation. Spoke to pt to confirm meds.
[2024-06-22 12:25] LABS: Lactic Acid 0.6 mmol/L (0.5-2.0)
--- NOTE | 2024-06-22 14:34 | HO.PM.IMPN ---
Subjective Subjective Date of Service: 06/22/24 Interval History: Seen and evaluated this morning feels better still on O@ supplement no other events Review of Systems Review of Systems: Yes all other systems are reviewed and are negative Physical Exam Vital Signs: Vital Signs: Last Vital Signs Temp 98.1 F 06/22/24 11:38 Pulse 82 06/22/24 11:38 Resp 20 06/22/24 11:38 BP 98/52 L 06/22/24 11:38 Pulse Ox 99 06/22/24 11:38 O2 Del Method Nasal Cannula 06/22/24 11:38 O2 Flow Rate 2 06/22/24 11:38 BMI result Body Mass Index 26.7 Const: Other: Constitutional : Awake, interactive, not in distress Neck : Normal inspection, Supple Cardiovascular : RRR, no JVP, no lower extremity edema Respiratory : good bilateral air entry, expiratory wheezes, on O2 Gastrointestinal: soft, lax, Normal bowel sounds, Non tender Skin : Warm, Dry Neurological : Alert & oriented x3, No focal deficit , Objective Data Active Medications Acetaminophen (Acetaminophen 325 Mg Tablet) 650 mg PO Q6H PRN PRN Reason: Pain, Mild 1-3,fever,headache Last Admin: 06/22/24 08:58 Dose: 650 mg Documented By: JERRICA Calcium Carbonate (Calcium Carbonate 750 Mg Tab.Chew) 750 mg PO Q4H PRN PRN Reason: Heartburn Enoxaparin Sodium (Enoxaparin Sodium 40 Mg/0.4 Ml Syringe) 40 mg SUBCUT Q24H [facility] Last Admin: 06/22/24 08:06 Dose: Not Given Documented By: JERRICA Non-Admin Reason: Patient Refused Sodium Chloride (Ns) 1,000 mls @ 100 mls/hr IVCONT .Q10H [facility] Last Admin: 06/22/24 08:04 Dose: 100 mls/hr Documented By: JERRICA Magnesium Hydroxide (Milk Of Magnesia 30 Ml Oral.Susp) 30 ml PO DAILY PRN PRN Reason: Constipation Melatonin (Melatonin 3 Mg Tablet) 6 mg PO BEDTIME PRN PRN Reason: Insomnia Oseltamivir Phosphate (Oseltamivir Phosphate 75 Mg Capsule) 75 mg PO BID [facility] Stop: 06/26/24 21:01 Last Admin: 06/22/24 08:05 Dose: 75 mg Documented By: JERRICA Sodium Chloride (0.9 % Sodium Chloride Flush 3 Ml Syringe) 3 ml IVFLUSH QSHIFT [facility] Last Admin: 06/22/24 13:59 Dose: Not Given Documented By: JERRICA Non-Admin Reason: IV Running Labs 06/22/24 06:39 06/22/24 06:39 Labs: Laboratory Results - last 24 hr 06/21/24 06/22/24 06/22/24 14:31 06:39 12:01 MCV 87.3 MCH 28.9 MCHC 33.1 RDW 12.5 Plt Count 72 L D MPV 10.4 Immature Gran % (Auto) Cancelled Neut % (Auto) Cancelled Lymph % (Auto) Cancelled [place] % (Auto) Cancelled Eos % (Auto) Cancelled Baso % (Auto) Cancelled Lymph # (Auto) Cancelled [place] # (Auto) Cancelled Eos # (Auto) Cancelled Baso # (Auto) Cancelled Abs Immat Gran (auto) Cancelled Absolute Neuts (auto) Cancelled Absolute Nucleated RBC 0.000 Nucleated RBC % (auto) 0.0 Neutrophils % (Manual) 89 H Band Neutrophils % 0 L Lymphocytes % (Manual) 11 L Abs Neuts (Manual) 6.9 Lymphocytes # (Manual) 0.8 L Platelet Estimate DECREASED Plt Morphology Comment NORMAL RBC Morphology NORMAL Anion Gap 8 L Estim Creat Clear Calc 99.0 Estimated GFR > 60 Random Glucose 93 Lactic Acid 0.6 Calcium 7.6 L D Total Bilirubin 0.9 AST 77 H ALT 108 H Alkaline Phosphatase 189 H Total Protein 5.7 L Albumin 3.2 L Urine Color Yellow Urine Appearance Clear Urine pH 6.5 Ur Specific [place] <= 1.005 Urine Protein Negative Urine Glucose (UA) Negative Urine Ketones Negative Urine Blood Moderate (2+) H Urine Nitrite Negative Ur Leukocyte Esterase Negative Urine RBC 6-10 H Urine WBC 0-5 Ur Squamous Epith Cells 11-20 Urine Bacteria Trace Hyaline Casts 0-2 Assessment and Plan (1) Acute respiratory failure with hypoxia: Status: Acute (2) Influenza A: Status: Acute (3) Leukocytosis: Status: Acute Plan Patient is a 34-year-old female with a history of breast cancer that is metastatic to the axillary lymph nodes here with: # Viral Sepsis complicated wiht Acute respiratory failure with hypoxia seocndary to # Influenza A virus infection, Enterovirus/rhinovirus infection and Coronavirus NL63 infection symptomatic care DExamethasone Continue Tamiflu PRN nebulizer Wean O2 down as tolerated # Right metastatic breast cancer with Mets to the axillary lymph nodes Last Chemo on Sunday , next in 10 days # Leukocytosis resolved continue outpatient follow up with [place] [facility] team DVT PPx Lovenox The patient will need overnight hospital stay for Acute hypoxic failure and viral sepsis on IV steroids, nebulizers pending weaning off O2 Quality Stroke Does the patient have a stroke diagnosis?: No VTE Prior VTE?: No VTE Risk Level:: Medical - moderate - high VTE Device Contraindication: N/A - Device Ordered VTE Drug Contraindication: N/A - Med Ordered
[2024-06-22] MEDS: dexAMETHasone sod phosphate 4 MG/ML VIAL IVPUSH (15:49)
--- NOTE | 2024-06-22 16:34 | MHC.CM.PN ---
PT REPORTS SHE LIVES WITH HER AND 4 CHILDREN SHE HAS BEEN INDEPENDENT WITH CARE BUT WORRIES SHE WILL NEED HELP, EDUCATION PROVIDED ON OBTAINING [employer] SHE HAS NO SERVICES OR DME AT THIS TIME SHE DECLINES TO COMPLETE A HCP PCP: RON GARCIA (SHE REPORTS IT IS NOT [facility] LISTED) DCP: HOME, PT SAYS SHE WILL ARRANGE AN UBER
--- NOTE | 2024-06-22 18:37 | PC.NURSE ---
Pt reporting feeling overall much better. Was able to eat dinner with no issue. Reporting body aches and fever are gone and she is better than last night.
--- NOTE | 2024-06-22 20:35 | PC.NURSE ---
pt sat on 2l nc 100%, o2 removed sat remains at 98% pt talking in full sentences. last vomiting 30 hours ago per pt. bp 93/45 provider made aware. ivf infusing pt bending her arm to talk on her cell phone,. teach on the need to keep her arm straight.
[2024-06-23] VITALS: BP 106/58; PULSE 64; RESP 20; TEMP 37.4; O2SAT 97
[2024-06-23 03:41] VITALS: BP 105/62; PULSE 74; RESP 16; TEMP 37.1; O2SAT 97
--- NOTE | 2024-06-23 03:42 | PC.NURSE ---
pt denies pain but has pain to her chest with coughing.
[2024-06-23 04:49] LABS: Hemoglobin 8.1 g/dl (12.0-16.0); Mean Corpuscular HGB Conc 33.8 g/dl (31.0-35.0); Mean Corpuscular Hemoglobin 28.9 pg (27.0-33.0); Mean Corpuscular Volume 85.7 fL (80.0-98.0); Mean Platelet Volume 11.3 fL (9.4-12.3); Red Cell Distribution Width 12.2 % (11.0-16.0)
[2024-06-23 04:50] LABS: Platelet Count 64 X10*3/uL (160-400)
[2024-06-23] MEDS: 0.9 % Sodium Chloride 1,000 ML 100 ML IVCONT (04:53)
[2024-06-23 05:06] LABS: Anion Gap 11 (12-20); Blood Urea Nitrogen 5 mg/dL (9-16); Calcium 8.5 mg/dL (8.4-10.2); Carbon Dioxide 19 mmol/L (22-29); Chloride 113 mmol/L (96-108); Creatinine Clr Calc Pharmacy 111.9; Estimated Glomerular Filt Rate > 60; Glucose Random 78 mg/dL (60-115); Potassium 4.2 mmol/L (3.3-5.1); Sodium 139 mmol/L (135-145)
[2024-06-23 05:21] LABS: Atypical Lymph Absolute Manual 0.1 x10*3/uL; Atypical Lymphs Percent Manual 2 % (0-6); Band Neutrophils Percent 1 % (3-5); Eosinophils Absolute Manual 0.1 X10*3/uL (0.0-0.4); Eosinophils Percent Manual 1 % (0-4); Lymphocytes Absolute Manual 1.1 X10*3/uL (1.2-4.9); Lymphocytes Percent Manual 21 % (20-40); Monocytes Absolute Manual 0.2 X10*3/uL (0.1-1.2); Monocytes Percent Manual 3 % (2-11); Neutrophils Absolute Manual 3.7 X10*3/uL (2.0-8.3); Neutrophils Percent Manual 72 % (45-73); Platelet Estimate DECREASED (NORMAL); RBC Morphology NORMAL
[2024-06-23 05:22] LABS: Basophilic Stippling 1+ (0-2) /OIF; Dohle Bodies PRESENT; Large Platelet PRESENT; Platelet Morphology Comment NOTED; Schistocytes 1+ (0-2) /OIF; Tear Drop Cells 1+ (0-2) /OIF; Toxic Granulation PRESENT; Toxic Vacuolation PRESENT
[2024-06-23 05:23] LABS: Hypochromasia 1+ (5-14) /OIF
[2024-06-23 08:09] VITALS: BP 106/68; PULSE 98; RESP 20; TEMP 36.8; O2SAT 97
[2024-06-23] MEDS: Oseltamivir Phosphate 75 MG CAPSULE PO (09:32)
--- NOTE | 2024-06-23 09:47 | PC.NURSE ---
assumed care of patient at 0700, patient is alert and oriented x4. patient medicated per MAR, states she is ready to be d/c. patient VSS. patient given warm blanket and water
--- NOTE | 2024-06-23 09:51 | P.DS_ITS ---
DS: Providers Provider Date of Service: 06/23/24 Date of admission: 06/21/24 22:58 Date of discharge: 06/23/24 Primary care physician: Gregory Henry MD DS: Diagnosis Discharge Diagnosis (1) Acute respiratory failure with hypoxia: Status: Acute (2) Influenza A: Status: Acute (3) Leukocytosis: Status: Acute (4) COVID-19: Status: Acute (5) Rhinovirus: Status: Acute DS: Summary Hospital Course Hospital Course: Admission note HPI Patient is a 34 year old female with a history of metastatic breast cancer (to axillary lymph nodes) followed by [facility] [place] [place] oncology (Dr. Lei) and currently on adriamycin/cytoxan (last dose 06/17/24) who presents to the ED from home complaining of fevers, chills, generalized body aches, dry cough, sore throat, nausea, vomiting, abdominal pain, and chest wall pain that is worse with coughing. She has had these symptoms for 2 days now and unfortunately seems to be getting worse. She denies any associated shortness of breath, orthopnea or PND. She was in [facility] ED 2 days ago with her son who was diagnosed with both rhinovirus and coronavirus. Initial workup done in our emergency department was significant for finding of a fever of 101.5? F, tachycardia with a heart rate of 108 beats per minute and mild hypotension with a blood pressure as low as 88/47 mmHg. Serology done was positive for enterovirus / rhinovirus, influenza A and coronavirus NL63. Chest x-ray was clear. However, while in the emergency department her oxygen saturation kept dropping to the high 80's and she had to be placed on 2 L of supplemental oxygen with improvement. An assessment of sepsis due to viral respiratory illness and hypoxia was made and she was started on Tamiflu and a decision made to admit her for continued care. Hospital course The patient was treated for Viral Sepsis complicated wiht Acute respiratory failure with hypoxia seocndary to Influenza A virus infection, Enterovirus/rhinovirus infection and Coronavirus infection which was treated with symptomatic care, DExamethasone and Tamiflu with PRN nebulizer with good response as she was weaned off O2 and was able to ambulate on room air with no reported dyspnea. leukocytosis resolved and she had >24 hours without fever. She will be discharged home on Tamiflu and Dexamethasone for 3 more days. For history of Right metastatic breast cancer with Mets to the axillary lymph nodes. her Last Chemo on Sunday , next dose will be next week. \ Discharge plan Tamiflu as prescribed for 3 more days 3 more days of Dexamethasone Tylenol as needed Keep yourself well hydrated Time Attestation Discharge Coordination Time (in mins): 38 Quality: Safe Use of Opioids Does Pt have an Active Cancer Diagnosis on the Problem List?: Yes Opioid Measure Date for [facility] Report: 05/24/24 Opioid Measure Time for [facility] Report: 09:57 Quality: Stroke Does the patient have a stroke diagnosis?: No Physical Exam Vital Signs: Vital Signs: Last Vital Signs Temp 98.2 F 06/23/24 08:09 Pulse 98 06/23/24 08:09 Resp 20 06/23/24 08:09 BP 106/68 06/23/24 08:09 Pulse Ox 97 06/23/24 08:09 O2 Del Method Room Air 06/23/24 08:09 O2 Flow Rate 2 06/22/24 16:14 BMI result Body Mass Index 26.7 Const: Other: Constitutional : Awake, interactive, not in distress Neck : Normal inspection, Supple Cardiovascular : RRR, no JVP, no lower extremity edema Respiratory : good bilateral air entry, no wheezes, on room air Gastrointestinal: soft, lax, Normal bowel sounds, Non tender Skin : Warm, Dry Neurological : Alert & oriented x3, No focal deficit , DS: Data Data Completed and Pending Labs on day of discharge: Laboratory Results - last 24 hr 06/22/24 06/23/24 12:01 04:38 WBC 5.0 RBC 2.80 L Hgb 8.1 L Hct 24.0 L MCV 85.7 MCH 28.9 MCHC 33.8 RDW 12.2 Plt Count 64 L MPV 11.3 Immature Gran % (Auto) Cancelled Neut % (Auto) Cancelled Lymph % (Auto) Cancelled [place] % (Auto) Cancelled Eos % (Auto) Cancelled Baso % (Auto) Cancelled Lymph # (Auto) Cancelled [place] # (Auto) Cancelled Eos # (Auto) Cancelled Baso # (Auto) Cancelled Abs Immat Gran (auto) Cancelled Absolute Neuts (auto) Cancelled Absolute Nucleated RBC 0.000 Nucleated RBC % (auto) 0.0 Neutrophils % (Manual) 72 Band Neutrophils % 1 L Lymphocytes % (Manual) 21 Atypical Lymphs % (Man) 2 Monocytes % (Manual) 3 Eosinophils % (Manual) 1 Abs Neuts (Manual) 3.7 Lymphocytes # (Manual) 1.1 L Atyp Lymphs # (Manual) 0.1 Monocytes # (Manual) 0.2 Eosinophils # (Manual) 0.1 Toxic Granulation PRESENT Toxic Vacuolation PRESENT Dohle Bodies PRESENT Platelet Estimate DECREASED Large Platelets PRESENT Plt Morphology Comment NOTED RBC Morphology NORMAL Hypochromasia 1+ (5-14) Basophilic Stippling 1+ (0-2) Tear Drop Cells 1+ (0-2) Schistocytes 1+ (0-2) Sodium 139 Potassium 4.2 Chloride 113 H Carbon Dioxide 19 L Anion Gap 11 L BUN 5 L Creatinine 0.62 Estim Creat Clear Calc 111.9 Estimated GFR > 60 Random Glucose 78 Lactic Acid 0.6 Calcium 8.5 D Preliminary micro results at discharge 06/21/24 12:53 Blood Culture - Preliminary Blood - Venous No growth after 24 hours. 06/21/24 12:53 Blood Culture - Preliminary Blood - Venous No growth after 24 hours. Imaging Chest x-ray: Radiologist's impression: Findings: Left chest wall central venous catheter with the tip terminating at the cavoatrial junction. No cardiomegaly. Normal mediastinal contours. No pneumothorax. No opacity. No pleural effusion. Normal upper abdomen. No acute fracture. Impression: No acute findings. This document has been electronically signed by: Mariposa Mobley MD on 06/21/2024 14:15:34 Discharge Plan Discharge Anticipated Discharge Date/Time: 06/23/24 09:49 Patient Disposition: Home, Self-Care Discharge Diagnosis: Influenza, Covid infections Referrals: Gregory Henry MD [Primary Care Provider] - 1 day Discharge Medications: New ondansetron 4 mg tablet,disintegrating 4 mg PO Q6H PRN (Reason: nausea and vomiting) Qty: 12 0RF acetaminophen 325 mg capsule 650 mg PO Q6H PRN (Reason: fever or pain) Qty: 30 0RF oseltamivir [Tamiflu] 75 mg capsule 75 mg PO BID 5 Days Qty: 10 0RF dexamethasone 4 mg Tablet 4 mg PO DAILY Qty: 3 0RF Continued dexamethasone 4 mg tablet See Rx Instructions .ROUTE .COMPLEX Rx Instructions: 4 mg orally BID ;Take for 2 days after chemotherapy Discharge Orders: Discharge Order (Routine); Ordered 06/23/24 Ordered By: Miguel Martins Diet: Advance to usual diet Activity on Discharge: As tolerated Stand Alone Forms: Patient Portal Discharge page Print Language: Belizean Activity Restrictions/Additional Instructions: Your viral panel was positive for coronavirus, rhino virus and influenza a. We are prescribing you a medication called Tamiflu. Sometimes Tamiflu can cause vomiting and diarrhea. If this medication makes you feel worse you may stop taking it. Make sure that you are taking all medications with food. We also prescribed you a nausea medication to have at home if you need it. Continue to take Tylenol for any fever as needed. Increase fluids at home. We did speak to the oncologist on-call and they recommended that you call them tomorrow to give them an update on how you are feeling. They also recommended you follow-up with your normal oncologist on Sunday. In the meantime if you feel that your symptoms are getting worse please return to the emergency room. Care Plan Goals: Tamiflu as prescribed for 3 more days 3 more days of Dexamethasone Tylenol as needed Keep yourself well hydrated Health Concerns: Covid, Flu, Rhinovirus Plan of Treatment: Tamiflu and Dexamethasone Assessment: as above Patient Instructions: Influenza (ED)
--- NOTE | 2024-06-23 10:15 | MHC.CM.PN ---
PT DCD HOME SELF CARE
== END 2024-06-23 10:22 | disposition home or self-care (01) | DRG 720 ==
LOC: HO.ED 21:15 → HO.EDOVER 23:01
PROVIDERS: Nurse Practitioner Family; Physician Assistant Medical; Admitting Provider Internal Medicine; Emergency Provider Emergency Medicine; PCP Internal Medicine Medical Oncology; Visit Provider Student in an Organized Health Care Education/Training Program
DX: A41.89 Other specified sepsis (principal); J96.01 Acute respiratory failure with hypoxia; I95.9 Hypotension, unspecified; C77.3 Secondary and unspecified malignant neoplasm of axilla and upper limb lymph nodes; C50.911 Malignant neoplasm of unspecified site of right female breast; B97.10 Unspecified enterovirus as the cause of diseases classified elsewhere; J10.1 Influenza due to other identified influenza virus with other respiratory manifestations; B97.89 Other viral agents as the cause of diseases classified elsewhere; R65.20 Severe sepsis without septic shock; B97.29 Other coronavirus as the cause of diseases classified elsewhere; Z20.822 Contact with and (suspected) exposure to COVID-19; Z87.891 Personal history of nicotine dependence
CPT/HCPCS: 36415; 71046; 80048; 80053; 81001; 83605; 83735; 84484; 84702; 85007; 85025; 85027; 87040; 87633; 87635; 87651; 93005; 99285; J1100; J1885; J2405; P9047

== ENCOUNTER → 2024-06-21 12:18 | Outpatient (BNV) | payer MEDICAID, SELFPAY | PROVIDERS: Emergency Provider Emergency Medicine; PCP Internal Medicine Medical Oncology; Visit Provider Radiology Diagnostic Radiology | DX: R07.89 Other chest pain (principal); R50.9 Fever, unspecified | CPT/HCPCS: 71046 ==

== ENCOUNTER → 2024-06-21 12:19 | Outpatient (BNV) | payer MEDICAID, SELFPAY | PROVIDERS: Admitting Provider Internal Medicine; Emergency Provider Emergency Medicine; PCP Internal Medicine Medical Oncology; Visit Provider Internal Medicine Cardiovascular Disease | DX: R00.0 Tachycardia, unspecified (principal) | CPT/HCPCS: 93010 ==

== ENCOUNTER → 2024-06-21 22:58 | Outpatient (BNV) | payer MEDICAID, SELFPAY | PROVIDERS: Admitting Provider Internal Medicine; Emergency Provider Emergency Medicine; PCP Internal Medicine Medical Oncology; Visit Provider Internal Medicine | DX: U07.1 COVID-19 (principal); J96.01 Acute respiratory failure with hypoxia; J10.1 Influenza due to other identified influenza virus with other respiratory manifestations; D72.823 Leukemoid reaction; B34.8 Other viral infections of unspecified site | CPT/HCPCS: 99223; 99232; 99239 ==

== ENCOUNTER 2024-07-28 13:49 | Outpatient (REF) | payer MEDICAID, SELFPAY ==
[2024-07-28 16:37] LABS: MANUAL DIFF FLAG NO
[2024-07-28 16:40] LABS: Basophils Percent Auto 0.9 % (0-2); Eosinophils Absolute Auto 0.1 X10*3/uL (0.0-0.4); Eosinophils Percent Auto 1.2 % (0-4); Hematocrit 24.5 % (37.0-47.0); Hemoglobin 8.4 g/dl (12.0-16.0); Imm Gran Abs Auto 0.02 X10*3/uL (0.00-0.03); Imm Gran Pct Auto 0.5 % (0.0-0.4); Lymphocytes Absolute Auto 1.4 X10*3/uL (1.2-4.9); Lymphocytes Percent Auto 32.5 % (20-40); Mean Corpuscular HGB Conc 34.3 g/dl (31.0-35.0); Mean Corpuscular Hemoglobin 29.8 pg (27.0-33.0); Mean Corpuscular Volume 86.9 fL (80.0-98.0); Mean Platelet Volume 10.3 fL (9.4-12.3); Monocytes Absolute Auto 0.2 X10*3/uL (0.1-1.2); Monocytes Percent Auto 4.7 % (2-11); Neutrophils Absolute Auto 2.5 x10*3/uL (2.0-8.3); Neutrophils Percent Auto 60.2 % (45-73); Platelet Count 311 X10*3/uL (160-400); Red Blood Count 2.82 X10*6/uL (4.20-5.50); Red Cell Distribution Width 14.9 % (11.0-16.0); White Blood Count 4.2 X10*3/uL (4.8-10.8)
[2024-07-28 16:53] LABS: Estimated Average Glucose 108 mg/dL; Hemoglobin A1c % 5.4 % (<6.0)
[2024-07-28 17:13] LABS: Alanine Aminotransferase 127 U/L (0-31); Albumin Level 4.1 g/dL (3.5-5.0); Alkaline Phosphatase 138 U/L (39-117); Anion Gap 11 (12-20); Aspartate Amino Transferase 70 U/L (5-31); Bilirubin Total 0.4 mg/dL (0.0-1.0); Blood Urea Nitrogen 11 mg/dL (9-16); Calcium 8.7 mg/dL (8.4-10.2); Carbon Dioxide 23 mmol/L (22-29); Chloride 110 mmol/L (96-108); Cholesterol 217 mg/dL (<200); Estimated Glomerular Filt Rate > 60; Glucose Random 94 mg/dL (60-115); HDL Cholesterol 47 mg/dL (>40); Iron 34 mcg/dL (30-160); LDL Cholesterol Calculated 138 mg/dL (<100); Magnesium 1.6 mg/dL (1.6-2.6); Percent Iron Saturation 13 % (15-50); Potassium 3.9 mmol/L (3.3-5.1); Sodium 140 mmol/L (135-145); Total Iron Binding Capacity 253 mcg/dL (228-428); Total Protein 7.1 g/dL (6.5-8.0); Triglycerides 160 mg/dL (<150); Unsaturated Iron Binding 219 ug/dL
[2024-07-28 17:16] LABS: Ferritin 220 ng/mL (10-122); TSH reflex Free T4 0.41 uIU/mL (0.32-4.0); Vitamin D 25-OH Total 11.2 ng/mL (>30)
[2024-07-28 17:30] LABS: Folate 11.4 ng/mL (> or = 4.0); Vitamin B12 > 2000 pg/mL (200-900)
[2024-07-29 08:07] LABS: HIV AB/AG Nonreactive (Nonreactive); HIV Num 1 0.07 S/CO (0.00-0.99); ~Hepatitis C Antibody Nonreactive (Nonreactive)
== END 2024-07-28 13:50 | disposition home or self-care (01) ==
LOC: HO.HHCL 13:49
PROVIDERS: Internal Medicine; Visit Provider Internal Medicine
DX: D64.89 Other specified anemias (principal); C50.411 Malignant neoplasm of upper-outer quadrant of right female breast
CPT/HCPCS: 36415; 80053; 80061; 82306; 82607; 82728; 82746; 83036; 83540; 83735; 84443; 85025; 86803; 87389

== ENCOUNTER 2024-07-30 10:54 | Outpatient (REF) | payer MEDICAID, SELFPAY ==
--- NOTE | ~2024-07-30 | US_ITS ---
EXAMINATION: US DIAGNOSTIC ULTRASOUND BREAST, LEFT CLINICAL INFORMATION: 5 mm enhancing mass in the central outer left breast far posterior depth on prior recent MRI. 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 COMPARISON: Comparison is made with relevant prior imaging. TECHNIQUE: Ultrasound of the breast is performed with real-time lopes scale imaging and color Doppler. FINDINGS: Targeted color Doppler ultrasound scanning from 1-5 o'clock demonstrates normal fibronodular breast tissue. There is no sonographic abnormality to correlate with the enhancing mass seen on prior recent MRI in the central outer left breast posterior depth. Results are discussed with the patient at time of visit. US/US breast LT limited mamm only IMPRESSION: Recommend six-month follow-up breast MRI for further evaluation of stability 5 mm enhancing mass in the central outer left breast far posterior depth. This area could represent a lymph node. 6 month follow-up recommended to ensure stability. ASSESSMENT: BI-RADS 1: Negative RECOMMENDATION: 6 month follow-up breast MRI recommended for further evaluation of stability left breast. Patient is under the care of a breast surgeon for excision and further management of known right breast malignancy with axillary metastasis. This patient's information was entered into a reminder system with a target due date for their next mammogram. Electronically signed by: Carola Simpson DO 07/30/2024 11:34 AM EDT
== END 2024-07-30 10:55 | disposition home or self-care (01) ==
LOC: HO.MAMMO 10:54
PROVIDERS: PCP Internal Medicine; Visit Provider Internal Medicine
DX: N63.25 Unspecified lump in the left breast, overlapping quadrants (principal); C50.911 Malignant neoplasm of unspecified site of right female breast
CPT/HCPCS: 76642

== ENCOUNTER → 2024-07-30 10:57 | Outpatient (BNV) | payer MEDICAID, SELFPAY | PROVIDERS: PCP Internal Medicine; Visit Provider Internal Medicine | DX: N63.25 Unspecified lump in the left breast, overlapping quadrants (principal) | CPT/HCPCS: 76642 ==

== ENCOUNTER 2024-08-04 11:36 | Outpatient (REF) | payer MEDICAID, SELFPAY ==
--- NOTE | ~2024-08-04 | US_ITS ---
EXAMINATION: US DIAGNOSTIC ULTRASOUND BREAST, RIGHT CLINICAL INFORMATION: Question response to treatment right breast cancer with axillary metastasis.. COMPARISON: Comparison is made with relevant prior imaging. TECHNIQUE: Ultrasound of the breast is performed with real-time lopes scale imaging and color Doppler. FINDINGS: Targeted color Doppler ultrasound scanning in the area of the patient's known right breast malignancy 8-9 o'clock demonstrates again seen ill-defined hypoechoic irregular mass approximate measurements of 35 x 20 mm on these limited images not significant change from prior ultrasound however ultrasound evaluation is difficult and MRI evaluation may demonstrate more defined changes in size. Targeted color Doppler ultrasound in the right axilla demonstrates similar-appearing enlarged abnormal axillary lymph node. Results are discussed with the patient at time of visit. US/US breast RT limited mamm only IMPRESSION: Similar-appearing known right breast malignancy 8-9 o'clock 5 cm from nipple and metastatic right axillary lymph node. As the biopsy-proven malignant mass is slightly ill-defined on ultrasound, difficult to evaluate small differences in size. ASSESSMENT: BI-RADS 6: Known Biopsy-Proven Malignancy RECOMMENDATION: The patient is under the care of a breast surgeon and oncology for excision and further management known right breast malignancy. This patient's information was entered into a reminder system with a target due date for their next mammogram. Electronically signed by: Carola Simpson DO 08/04/2024 01:27 PM EDT
== END 2024-08-04 11:37 | disposition home or self-care (01) ==
LOC: HO.MAMMO 11:36
PROVIDERS: PCP Internal Medicine; Visit Provider Internal Medicine
DX: C50.911 Malignant neoplasm of unspecified site of right female breast (principal)
CPT/HCPCS: 76642

== ENCOUNTER → 2024-08-04 11:42 | Outpatient (BNV) | payer MEDICAID, SELFPAY | PROVIDERS: PCP Internal Medicine; Visit Provider Internal Medicine | DX: C50.911 Malignant neoplasm of unspecified site of right female breast (principal) | CPT/HCPCS: 76642 ==

== ENCOUNTER 2024-08-20 11:25 | Outpatient (REF) | payer MEDICAID, SELFPAY ==
--- OUTSIDE RECORDS SUMMARY | 2024-08-20 13:32 | XMS_ITS | Encounter Summary ---
Author Organization [employer] [facility] Address [address] [place] [address] Care Team Providers Care Senior Buyer Planner Name Role Phone Debbie Logan Primary Care Provider [phone] Debbie Logan Primary Care Provider [phone] Brenda Dangelo MD Primary Care Provide r Encounter Details Date Type Department Care Team (Late Contact Info) Description 02/09/2023 Abstract [facility] [address] [place] [address] Louann Leung Social History Tobacco Use Types Packs/Day Years Used Date Smoking Tobacco: Never Passive Smoke Exposure: Never Smokeless Tobacco: Never Comments Unknown Sex and Gender Information Value Date Recorded Sex Assigned at Female 03/13/2022 10:21 AM EDT Legal Sex Female 10:21 AM EDT Gender Identity Female 03/13/2022 10:21 AM EDT Sexual Orientation Straight 03/13/2022 10 :21 AM EDT documented as of this encounter Plan of Treatment Upcoming Encounters Date Type Department Care Team ([facility] Contact Info) Description 10/29/2024 10:15 AM EDT Office Visit [facility] [address] [place] [address] [phone] Brenda Dangelo MD [address] [place] [address] documented as of this encounter Visit Diagnoses Not on filedocumented in this encounter Care Teams Senior Buyer Planner Relationship Specialty Start Date End Date Debbie oLgan FNP [address] [place] [address] PCP - General Family Medicine 01/19/23 06/14/23 Debbie Logan FNP [address] [place] [address] PCP - General Family Medicine 06/15/23 01/15/24 Brenda Dangelo MD [address] [place] [address] PCP - General Internal Medicine 01/16/24 sAtrid Mackay Screen Stretcher 07/10/24 documented as of this encounter
--- OUTSIDE RECORDS SUMMARY | 2024-08-20 13:32 | XMS_ITS | Clinical Summary ---
Author Organization [facility] [address] [place] [address] [place] [address] Phone Care Team Providers Care Radar Repairer Name Role Phone Unavailable Primary Care Provider Unavailabl e Allergies No known active allergies Medications PNV no.95/ferrous fum/folic ac ( ORAL) Take 1 tablet by mouth 1 (one) time each day. 12/11/2022 Active medroxyPROGESTE Desean 150 mg/mL injection Inject 1 mL (150 mg total) into the shoulder, thigh, or buttocks every 3 (three) months. 03/19/2023 Active Immunizations Name Administration Dates Next Due Tdap Tetanus diptheria acell ular pertussis (Boostrix; Adacel) 7yo and older 11/17/2022,09/01/2021 Surgical History Surgery Date Site/Laterality Comments WISDOM TOOTH EXTRACTION 2020 PROCEDURE: HISTORICAL WISDOM TEETH EXTRACTION; COMMENT: bottoms Medical History Medical History Date Comments Anemia DX:Anemia Family History Medical History Relation Name Comments No Known Problems Brother 1 No Known Problems Brother 2 Other: cancer Father Other: currently has cancer; unknown type Father Diabetes Maternal Grandfather Hypertension Maternal Grandmother Other: kidney issues Mother Breast cancer Other great grandmother No Known Problems Paternal Grandmother No Known Problems Sister 1 No Known Problems Sister 2 No Known Problems Sister 3 Relation Name Status Comments Brother 1 Alive Brother 2 Alive Father Alive Maternal Grandfather Alive Maternal Grandmother Alive Mother Alive Other great grandmother Paternal Grandfather Other Paternal Grandmother Alive Sister 1 Alive Sister 2 Alive Sister 3 Alive Social History Tobacco Use Types Packs/Day Years Used Date Smoking Tobacco: Former Smokeless Tobacco: Never Alcohol Use Standard Drinks/Week Comments Not Currently 0 (1 standard drink = 0.6 oz pur e alcohol) Comments Unknown Sex and Gender Information Value Date Recorded Sex Assigned at Not on file Legal Sex Female 5:47 AM EST Gender Identity Not on file Sexual Orientation Not on file Obstetrics History Last Filed Vital Signs Vital Sign Reading Time Taken Comments Blood Pressure 126/65 03/04/2024 1:31 PM EDT Pulse 74 03/04/2024 1:31 PM EDT Temperature - - Respiratory Rate - - Oxygen Saturation - - Inhaled Oxygen Concentration - - Weight 72.6 kg (160 lb) 03/04/2024 1:31 PM EDT Height - - Body Mass Index - - Plan of Treatment Health Maintenance Due Date Last Done Comments COVID-19 Vaccine (#1) 02/06/1993 Pneumococcal Vaccine: Pediatrics (0 to 5 Years) and At-Risk Patients (6 to 64 Years) (1 of 2 - PCV) 02/06/2007 Social Influencers of Health Screening 04/16/2022 Hepatitis B Vaccines (3 of 3 - 19+ 3-dose series) 09/12/2023 07/18/2023, 06/06/2023, 10/09/2014 Influenza Vaccine (#1) 2024 , 02/20/2020, 02/12/2018, Additional history exists Depression Screening 05/23/2024 05/23/2023 Cervical Cancer Screening: HPV 08/03/2027 08/02/2022 DTaP,Tdap,and Td Vaccines (6 - Td or Tdap) 11/17/2032 11/17/2022, 09/01/2021, 11/29/2011, Additional history exists MMR Vaccines Aged Out 04/30/2009 No longer eligi ble based on patient's age to complete this topic Hepatitis A Vaccines Aged Out 10/09/2014 No long er eligible based on patient's age to complete this topic HIV Screening Completed 05/23/2023, 05/23/2023 Hepatitis C Screening Completed 05/25/2023 HIB Vaccines Aged Out No longer eligi ble based on patient's age to complete this topic HPV Vaccines Aged Out No longer eligi ble based on patient's age to complete this topic IPV Vaccines Aged Out No longer eligi ble based on patient's age to complete this topic Meningococcal ACWY Vaccine Aged Out N o longer eligible based on patient's age to complete this topic Meningococcal B Vaccine Aged Out No l onger eligible based on patient's age to complete this topic RSV Immunization Patients Under 20 months Aged Out No longer eligible based on patient's age to complete this topic Varicella Vaccines Aged Out No longer eligible based on patient's age to complete this topic Procedures Procedure Name Priority Date/Time Associated Diagnosis Comments HEPATITIS C SCREENING Routine 05/25/2023 HIV SCREENING Routine 05/23/2023 HPV Routine 08/02/2022 from Last 3 Months or Most Recently Relevant to Health Maintenance Results * Hepatitis C Screening (05/25/2023) Hepatitis C Screening Abstracted [facility] Provider HEALTH MAINTENANCE Final Result * HIV Screening (05/23/2023) Pathologist [facility] HIV Screening Abstracted [facility] Provider HEALTH MAINTENANCE Final Result * Cervical Cancer Screening: HPV (08/02/2022) Cervical Cancer Screening: HPV Negative, abstracted [facility] Provider HEALTH MAINTENANCE Final Result from Last 3 Months or Most Recently Relevant to Health Maintenance Insurance [place]
--- OUTSIDE RECORDS SUMMARY | 2024-08-20 13:33 | XMS_ITS | Encounter Summary ---
Author Organization [employer] Address [address] [place] [address] Care Team Providers Care Production Graphic Designer Name Role Phone Debbie Logan WILIAN Primary Care Provider [phone] Brenda Dangelo MD Primary Care Provide r Encounter Details Date Type Department Care Team ([facility] Contact Info) Description 06/23/2023 Orders Only [facility] [address] [place], [place] [phone] Perry Miguel MD [address] [place] [address] Hematuria, unspecified type (Primary Dx) Social History Tobacco Use Types Packs/Day Years Used Date Smoking Tobacco: Former Cigarettes 0.5 15 2 - 2019 Passive Smoke Exposure: Never Smokeless Tobacco: Never Depression Answer Date Recorded Patient Health Questionnaire-9 Score 0 05/23/2023 Patient Health Questionnaire-9 Score 0 05/23/2023 Last PHQ-9: Questionnaire Data Not on file 0 05/23/2023 Housing Stability Answer Date Recorded What is your housing situation today? I have betty rosario 02/26/[address] you li ve. Do you have problems with any of the following? None of the above 02/26/2023 Food Insecurity Answer Date Recorded Within the past 12 months, y ou worried that your food would run out before you got money to buy more: Never True 02/26/2023 Within the past 12 months,th e food you bought just didn't last and you didn't have enough money to get more: Never True Transportation Answer Date Recorded In the past 12 months, has l ack of transportation kept you from medical appts, meetings, work or from getting things needed for daily living? No 02/26/2023 Utilities Answer Date Recorded In the past 12 months, has t he electric, gas, oil or water company threatened to shut off services in your home? No 02/26/2023 Depression Answer Date Recorded Patient Health Questionnaire-2 Score 0 05/23/2023 Comments Unknown Sex and Gender Information Value Date Recorded Sex Assigned at Female 03/13/2022 10:21 AM EDT Legal Sex Female 10:21 AM EDT Gender Identity Female 03/13/2022 10:21 AM EDT Sexual Orientation Straight 03/13/2022 10 :21 AM EDT documented as of this encounter Plan of Treatment Upcoming Encounters Date Type Department Care Team (Late st Contact Info) Description 10/29/2024 10:15 AM EDT Office Visit [facility] [address] [place] [phone] Brenda Dangelo MD [address] [place] [phone] Scheduled Orders Name Type Priority Associated Diagnoses Orde r Schedule Urinalysis with reflex microscopic Lab Routine Hematuria, unspecified type Expected: 06/23/2023, Expires: 06/23/2024 documented as of this encounter Visit Diagnoses Diagnosis Hematuria, unspecified type- Primary documented in this encounter Additional Health Concerns Assessment Noted Time PHQ-9 Depression Total Score: 0 05/23/19 24 10:43 AM EST documented as of this encounter Care Teams Production Graphic Designer Relationship Specialty Start Date End Date Debbie Logan FNP [address] [place] [id number] PCP - General Family Medicine 06/15/23 01/15/24 Brenda Dangelo MD [address] [place] [id number] PCP - General Internal Medicine 01/16/24 Astrid Mackay Automobile Taillight Assembler 07/10/24 documented as of this encounter
--- OUTSIDE RECORDS SUMMARY | 2024-08-20 13:33 | XMS_ITS | Encounter Summary ---
Author Organization [employer] Address [address] [place] [address] Care Team Providers Care Corporate Counselor Name Role Phone Chip Banerjee Primary Care Provider Unavail able Debbie Logan Primary Care Provider [phone] Debbie Logan Primary Care Provider [phone] Brenda Dangelo MD Primary Care Provide r Reason for Visit * Reason Onset Date Comments Triage 08/30/2022 Encounter Details Date Type Department Care Team (Late st Contact Info) Description 08/30/[address] [facility] [address] [place] [id number] Chip Banerjee AGNP Triage Social History Tobacco Use Types Packs/Day Years Used Date Smoking Tobacco: Never Passive Smoke Exposure: Never Smokeless Tobacco: Never Comments Unknown Sex and Gender Information Value Date Recorded Sex Assigned at Female 03/13/2022 10:21 AM EDT Legal Sex Female 10:21 AM EDT Gender Identity Female 03/13/2022 10:21 AM EDT Sexual Orientation Straight 03/13/2022 10 :21 AM EDT COVID-19 Exposure Response Date Recorded In the last 10 days, have yo u been in contact with someone who was confirmed or suspected to have Coronavirus/COVID-19? No / Unsure 08/30/2022 2:28 PM EDT documented as of this encounter Miscellaneous Notes * Telephone Encounter - Kiana Lindsay RN - 08/30/2022 9:21 AM EDT Triage call Pt reports sore throat and bilateral ear pain since last night. Pt is neg for fever but, has chills and headache. Pt is 17 weeks . Pt is going to [facility] [facility] at 10AM and will come to [facility] after to be seen by provider. Pt agrees with disposition and home care reviewed. Protocol Used: Sore Throat (Adult) Protocol-Based Disposition: See in Office or Video Visit Today Video visit not offered Positive Triage Questions: * Earache also present * Patient wants to be seen * All higher-acuity triage questions were negative Care Advice Discussed: * For Relief of Sore Throat Pain * Pain and Fever Medicines * Soft Diet * Drink Plenty of Liquids * Expected Course * Reasons To Call Back - Sore throat is the main symptom and it lasts longer than 48 hours - Sore throat is mild but lasts longer than 4 days - Fever lasts longer than 3 days - You become worse * Telephone Encounter - Trang Camp - 08/30/2022 8:46 AM EDT Pt 2 of 2 Symptoms: sore throat and earache (both) Outcome: Schedule a same-day appointment or talk to a nurse or provider today Reason:No high acuity concerns reported by caller The caller accepted this outcome documented in this encounter Plan of Treatment Upcoming Encounters Date Type Department Care Team (Late st Contact Info) Description 10/29/2024 10:15 AM EDT Office Visit [facility] [address] [place] [address] Brenda Dangelo MD [address] [place] [address] documented as of this encounter Visit Diagnoses Not on filedocumented in this encounter Care Teams Corporate Counselor Relationship Specialty Start Date End Date Chip Banerjee AGNP PCP - General Family Medicine 02/16/22 01/18/23 Debbie Logan FNP [address] [place] [address] PCP - General Family Medicine 01/19/23 06/14/23 Debbie Logan FNP [address], [place] [id number] PCP - General Family Medicine 06/15/23 01/15/24 Brenda Dangelo MD [address], [place] [phone] PCP - General Internal Medicine 01/16/24 Astrid Mackay [employer]er 07/10/24 documented as of this encounter
--- OUTSIDE RECORDS SUMMARY | 2024-08-20 13:33 | XMS_ITS | Clinical Summary ---
Author Organization [facility] Address [address] [facility] [address] [place] [address] Care Team Providers Care Nursing Surgical Services Director Name Role Phone Brenda Dangelo MD Primary Care Provide r Allergies No known active allergies Medications medroxyPROGEST ERone (Depo-Provera) 150 MG/ML injection TAKE TO DOCTOR'S OFFICE FOR ADMINISTRATION EVERY 3 MONTHS Active multivitamin () 27-0.8 MG tablet Take 1 tablet by mouth Once per day. Active cetirizine (ZyrTEC) 10 MG tabletIndicati ons:Sore throat Take 1 tablet (10 mg) by mouth Once per day. 30 tablet 2 Active dexAMETHasone (Decadron) 4 MG tablet TAKE 1 TABLET ORALLY 2 TIMES A DAY TAKE FOR 2 DAYS AFTER CHEMOTHERAPY Active ferrous sulfate (Fe Tabs) 325 (65 Fe) MG EC tabletIndicati ons:Iron deficiency anemia, unspecified iron deficiency anemia type Take 1 tablet (325 mg) by mouth with breakfast. Do not crush, chew, or split. 30 tablet 1 025 2025 Active Ascorbic Acid (vitamin C) 250 MG tabletIndicati ons:Iron deficiency anemia, unspecified iron deficiency anemia type Take 1 tablet (250 mg) by mouth Once per day. 30 tablet 11 025 2025 Active ergocalciferol (Vitamin D2) 1.25 MG (78158 UT) capsuleIndicat ions:Vitamin D deficiency Take 1 capsule (1.25 mg) by mouth 1 (one) time per week. 5 capsule 2 03/18/2 025 Active fluticasone (Flonase) 50 MCG/ACT nasal sprayIndicatio ns:Cough in adult INSTILL 1 SPRAY IN EACH NOSTRIL ONCE DAILY 48 g 025 Active fluticasone (Flonase) 50 MCG/ACT nasal sprayIndicatio ns:Cough in adult Administer 1 spray into each nostril Once per day. Shake gently. Before first use, prime pump. After use, clean tip and replace cap. 16 g 1 025 2024 Discontinued amoxicillin-cl avulanate (Augmentin) 875-125 MG tabletIndicati ons:Acute otitis media, unspecified otitis media type Take 1 tablet by mouth 2 times daily for 7 days. 14 tablet 025 2024 ibuprofen 800 MG tabletIndicati ons:Acute otitis media, unspecified otitis media type Take 1 tablet (800 mg) by mouth every 8 (eight) hours if needed for mild pain for up to 10 days. 30 tablet 025 2024 Active Problems Problem Noted Date Diagnosed Date Elevated LFTs 07/29/2024 Acute respiratory failure with hypoxia Assessment & Plan (07/28/2024 4:08 PM EDT): Now completely recovered Hospital discharge follow-up 07/28/2024 Acute otitis media 07/28/2024 Assessment & Plan (07/28/2024 4:09 PM EDT): I will prescribe for patient Augmentin 875/125 mg twice a day for 7 days and ibuprofen as needed for pain Muscular pain 07/28/2024 Assessment & Plan (07/28/2024 4:11 PM EDT): I prescribed for patient ibuprofen as needed and I advised to report symptoms to oncologist Chronic pain of left knee 04/16/2024 Assessment & Plan (04/16/2024 2:56 PM EST): XRAY ordered today Malignant neoplasm of upper- outer quadrant of right female breast 04/16/2024 Assessment & Plan (04/16/2024 2:57 PM EST): Counseling done, patient appears to have a positive attitude, she will f/u with oncology, I advise not to miss her appointment Sore throat 03/02/2024 Assessment & Plan (03/02/2024 5:20 PM EDT): Infectious tests negative in clinic, patient is clinically well hydrated. Will continue supportive measures of fluids, Tylenol, can use antihistamine for congestion. RTC for any worsening of symptoms. Other specified anemias 12/29/2022 Assessment & Plan (04/16/2024 2:57 PM EST): Blood work ordered, results will be review with patient Anxiety 01/08/2018 Deliberate self-cutting 09/16/2013 Tobacco dependence syndrome 05/14/1961 Encounters Date Type Department Care Team Description 08/11/2024 Refill [facility] [address] [place] [id number] Ashly Gordillo NP Cough in adult 08/08/2024 Patient Outreach [address] [address] Brenda Dangelo MD Care Coordination ([facility] Her[facility]- Follow up) 08/08/[address] [address] Brenda Dangelo MD Care Management ([facility] follow up call) 08/05/[address] [address] Brenda Dangelo MD 08/04/2024 Orders Only [facility] External Provider, [facility] 07/30/2024 Orders Only [facility] External Provider, [facility] 07/29/[address] [address] Megan Hayward, RN Results 07/29/2024 Orders Only [address] [address] Brenda Dangelo MD Elevated LFTs (Primary Dx); Vitamin D deficiency; Iron deficiency anemia, unspecified iron deficiency anemia type 07/28/2024 1:00 PM EDT Office Visit [address] [address] Brenda Dangelo MD Acute respiratory failure with hypoxia (CMS/HCC) (Primary Dx); Hospital discharge follow-up; Acute otitis media, unspecified otitis media type; Muscular pain 07/28/2024 Orders Only GENERIC EXTERNAL DATA DEPARTMENT Provider, Generic External Data 07/28/2024 Travel 07/25/2024 Population Health Risk Score [facility] (C3) Department [address] [place] [id number] Provider, [facility] Generic 07/23/2024 Patient Outreach [address] [address] Brenda Dangelo MD Care Coordination ([facility] Ontiveros- Follow up call) 07/22/[address] [address] Brenda Dangelo MD Care Management ([facility] follow up call) 07/14/[address] [address] Brenda Dangelo MD No Show 07/11/[address] [address] Brenda Dangelo MD Chart Prep 07/10/[address] [address] Brenda Dangelo MD Care Management ([facility] initial assessment/enrollme nt) 07/09/2024 Patient Outreach [address] [address] Brenda Dangelo MD Care Coordination ([facility] Ontiveros- [place] for CM Program reminder) 06/27/2024 Patient Outreach [address] [address] Brenda Dangelo MD Transition Of Care (Tcm) (HDF- scheduled and SDOH screening completed on 06/24/2024) 06/24/2024 Patient Outreach [address] [address] Brenda Dangelo MD Care Coordination ([facility] Herring Returned to [facility]- ADT Outreach- Pt agrees to participate in CM Program) 06/24/2024 Patient Outreach [address] [address] Brenda Dangelo MD Care Coordination ([facility] Herring#2- ADT outreach-LVM) 06/24/2024 Patient Outreach [address] [address] Brenda Dangelo MD Transition Of Care (Tcm) (HDF- Unscheduled LVM) 06/23/2024 Patient Outreach [address] [address] Brenda Dangelo MD Care Coordination ([facility] H[facility] Herring#1- ADT Outreach-LVM) 06/23/[address] [address] Astrid Mackay Care Management ([facility] chart review) from Last 3 Months Immunizations Name Administration Dates Next Due DTP 10/07/1992 Hep A, Adult 10/09/2014 Hep B, adult 07/18/2023,06/06/2023,10/09/2014 Influenza injectable quadriv alent IIV4 with preservative 02/12/2018 Influenza injectable quadriv alent preservative free 04/19/2023,02/20/2020 Influenza, Split (incl. gertrudis fied surface antigen) 07/15/2013,02/13/2012 MMR 04/30/2009 Td (adult), 5 Lf tetanus tox oid, preservative free, adsorbed 11/29/2011 Tdap 11/17/2022,09/01/2021,06/23/2011 Family History Medical History Relation Name Comments Arthritis Maternal Grandmother Asthma Maternal Grandmother Hypertension Maternal Grandmother Kidney disease Maternal Grandmother Asthma Mother No Known Problems Paternal Grandfather Relation Name Status Comments Maternal Grandmother Mother Paternal Grandfather Social History Tobacco Use Types Packs/Day Years Used Date Smoking Tobacco: Former Cigarettes 0.5 15 2 - 2019 Passive Smoke Exposure: Never Smokeless Tobacco: Never Tobacco Cessation:Counseling Given: Not Answered Depression Answer Date Recorded Patient Health Questionnaire-9 Score 0 05/23/2023 Patient Health Questionnaire-9 Score 0 05/23/2023 Last PHQ-9: Questionnaire Data Not on file 0 05/23/2023 Housing Stability Answer Date Recorded What is your housing situation today? I have betty rosario 04/02/[address] you li ve. Do you have problems with any of the following? None of the above 04/02/2024 Food Insecurity Answer Date Recorded Within the past 12 months, y ou worried that your food would run out before you got money to buy more: Never True 04/02/2024 Within the past 12 months,th e food you bought just didn't last and you didn't have enough money to get more: Never True Transportation Answer Date Recorded In the past 12 months, has l ack of transportation kept you from medical appts, meetings, work or from getting things needed for daily living? No 04/02/2024 Utilities Answer Date Recorded In the past 12 months, has t he electric, gas, oil or water company threatened to shut off services in your home? No 04/02/2024 Depression Answer Date Recorded Patient Health Questionnaire-2 Score 0 05/23/2023 Internet Access Answer Date Recorded Internet Access Q1 Yes 04/02/2024 Internet Access Q2 Not on file 04/02/2024 Comments No Sex and Gender Information Value Date Recorded Sex Assigned at Female 03/13/2022 10:21 AM EDT Legal Sex Female 10:21 AM EDT Gender Identity Female 03/13/2022 10:21 AM EDT Sexual Orientation Straight 03/13/2022 10 :21 AM EDT Last Filed Vital Signs Vital Sign Reading Time Taken Comments Blood Pressure 114/49 07/28/2024 1:07 PM EDT Pulse 74 07/28/2024 1:07 PM EDT Temperature 35.5 ??C (95.9 ??F) 07/28/2024 1:07 PM ED T Respiratory Rate 24 07/28/2024 1:07 PM EDT Oxygen Saturation 100% 07/28/2024 1:07 PM EDT Inhaled Oxygen Concentration - - Weight 67.2 kg (148 lb 4 oz) 07/28/2024 1:07 PM EDT Height 157.5 cm (5' 2 ) 07/28/2024 1:07 PM EDT Body Mass Index 27.12 07/28/2024 1:07 PM EDT Plan of Treatment Upcoming Encounters Date Type Department Care Team (Late st Contact Info) Description 10/29/2024 10:15 AM EDT Office Visit [facility] [address] [place], [place] [phone] Brenda Dangelo MD [address] [place] [address] Health Maintenance Due Date Last Done Comments Alcohol/Substance Use Screening 2000 Family Planning (PISQ) 02/06/2003 Hepatitis B Vaccines (3 of 3 - 19+ 3-dose series) 09/12/2023 07/18/2023, 06/06/2023, 10/09/2014 COVID-19 Vaccine (2023- season) 2024 Influenza Vaccine (#1) 2024 , 02/20/2020, 02/12/2018, Additional history exists Depression Screening 05/23/2024 05/23/2023, 05/23/19 24 Diagnostic Breast Imaging 02/04/20252024, 08/04/2024, 07/30/2024, Additional history exists Mammogram 02/04/2025 08/04/2024, 07/13, 07/30/2024, Additional history exists SDOH Screening 06/24/2025 06/24/2024 Tobacco Screening 07/28/2025 07/28/2024 Cervical Cancer Screening 04/14/2026 HPV/Cotest 04/14/2026 04/13/2021, 04/13/2021 Pap Smear 04/14/2026 04/14/2021 DTaP/Tdap/Td Vaccines (6 - Td or Tdap) 11/17/2032 11/17/2022, 09/01/2021, 11/29/2011, Additional history exists Zoster Vaccines (1 of 2) 02/06/2038 RSV Patients and Patients Aged 60 years or older (1 - 1-dose 75+ series) 02/06/2063 Hepatitis A Vaccines Aged Out 10/09/2014 No long er eligible based on patient's age to complete this topic HIV Screening Completed 07/28/2024, 05/14, 03/17/2021, Additional history exists Hepatitis C Screening Completed 07/28/2024 , 05/25/2023, 03/17/2021 HIB Vaccines Aged Out No longer eligi ble based on patient's age to complete this topic HPV Vaccines Aged Out No longer eligi ble based on patient's age to complete this topic IPV Vaccines Aged Out No longer eligi ble based on patient's age to complete this topic Meningococcal Vaccine Aged Out No rosario mikki eligible based on patient's age to complete this topic Pneumococcal Vaccine: Pediatrics (0 to 5 Years) and At-Risk Patients (6 to 49) Years) Aged Out No longer eligible based on patient's age to complete this topic RSV under 20 months Aged Out No longe r eligible based on patient's age to complete this topic Rotavirus Vaccines Aged Out No longer eligible based on patient's age to complete this topic Procedures Procedure Name Priority Date/Time Associated Diagnosis Comments BI US BREAST LIMITED RIGHT Routine 08/04/2024 11:42 AM EDT BI US BREAST LIMITED LEFT Routine 08/04/2024 11:42 AM EDT BI US BREAST LIMITED LEFT Routine 07/30/2024 10:57 AM EDT MAGNESIUM Routine 07/28/2024 1:52 PM EDT TSH W/REFLEX TO FT4 Routine 07/28/2024 1 :52 PM EDT Anemia due to other cause, not classified VITAMIN D,25-OH,TOTAL,IA Routine 07/28/2024 1:52 PM EDT Malignant neoplasm of upper-outer quadrant of right female breast, unspecified estrogen receptor status (CMS/HCC) Anemia due to other cause, not classified LIPID PANEL, STANDARD Routine 07/28/2024 1:52 PM EDT Malignant neoplasm of upper-outer quadrant of right female breast, unspecified estrogen receptor status (CMS/HCC) HEPATITIS C AB W/REFL TO HCV RNA, QN, PCR Routine 07/28/2024 1:52 PM EDT Malignant neoplasm of upper-outer quadrant of right female breast, unspecified estrogen receptor status (CMS/HCC) HIV 1/2 ANTIGEN/ANTIBODY, FOURTH GENERATION W/RFL Routine 07/28/2024 1:52 PM EDT Malignant neoplasm of upper-outer quadrant of right female breast, unspecified estrogen receptor status (CMS/HCC) HEMOGLOBIN A1C Routine 07/28/2024 1:52 PM EDT Malignant neoplasm of upper-outer quadrant of right female breast, unspecified estrogen receptor status (CMS/HCC) COMPREHENSIVE METABOLIC PANEL Routine 07/28/2024 1:52 PM EDT Malignant neoplasm of upper-outer quadrant of right female breast, unspecified estrogen receptor status (CMS/HCC) VITAMIN B12/FOLATE, SERUM PANEL Routine 07/28/2024 1:52 PM EDT Anemia due to other cause, not classified FERRITIN Routine 07/28/2024 1:52 PM EDT Anemia due to other cause, not classified IRON AND TOTAL IRON BINDING CAPACITY Routine 07/28/2024 1:52 PM EDT Anemia due to other cause, not classified CBC WITH AUTO DIFFERENTIAL Routine 07/28/2024 1:52 PM EDT Anemia due to other cause, not classified HM PAP/HPV Routine 04/14/2021 ZZZ HISTORICAL HPV E6/E7 RFLX PORTIA 16 18/45 Routine 04/13/2021 10:26 AM EST from Last 3 Months or Most Recently Relevant to Health Maintenance Results * BI US Breast Limited Right (08/04/2024 11:42 AM EDT) Anatomical Region Laterality Modality Breast Right Ultrasound 08/04/2024 11:4 2 AM EDT Narrative 08/06/2024 1:53 PM EDT ? [facility] ? [address] ?[place] [address] ? Ultrasound Report ? Signed ? Patient: Rigo,Jeny ?MR#: [id number] ?? 6 ? : 1990 ?Acct:[id number] ? Age/Sex: 34 / F ?ADM Date: 08/04/24 ? Loc: HO.MAMMO ? Attending Dr: Hawa Lei MD ? Ordering Physician: Hawa Lei MD ?? Date of Service: 08/04/24 ?? Procedure(s): US breast RT limited mamm only ?? Accession Number(s): [id number] ? cc: Brenda Dangelo MD; Hawa Lei MD ? EXAMINATION: ?? US DIAGNOSTIC ULTRASOUND BREAST, RIGHT ? CLINICAL INFORMATION: ? Question response to treatment right breast cancer with axillary ?? metastasis.. ? COMPARISON: ?? Comparison is made with relevant prior imaging. ? TECHNIQUE: ?? Ultrasound of the breast is performed with real-time lopes scale imaging ?? and color Doppler. ? FINDINGS: ?? Targeted color Doppler ultrasound scanning in the area of the patient's ?? known right breast malignancy 8-9 o'clock demonstrates again seen ?? ill-defined hypoechoic irregular mass approximate measurements of 35 x ?? 20 mm on these limited images not significant change from prior ?? ultrasound however ultrasound evaluation is difficult and MRI ?? evaluation may demonstrate more defined changes in size. ? Targeted color Doppler ultrasound in the right axilla demonstrates ?? similar-appearing enlarged abnormal axillary lymph node. ? Results are discussed with the patient at time of visit. ? US/US breast RT limited mamm only ?? IMPRESSION: ?? Similar-appearing known right breast malignancy 8-9 o'clock 5 cm from ?? nipple and metastatic right axillary lymph node. ?? As the biopsy-proven malignant mass is slightly ill-defined on ?? ultrasound, difficult to evaluate small differences in size. ? ASSESSMENT: ? BI-RADS 6: Known Biopsy-Proven Malignancy ? RECOMMENDATION: ?? The patient is under the care of a breast surgeon and oncology for ?? excision and further management known right breast malignancy. ? This patient's information was entered into a reminder system with a ?? target due date for their next mammogram. ? Electronically signed by: ??Carola Simpson DO ??08/04/2024 01:27 PM EDT ? Dictated By: ?Carola Simpson DO ? Signed By: ?08/06/24 1353 ? DD/ 1142 ? TD/TT: 08/04/24 1205 ? [employer] Installer: ? Procedure Note Donotuseinterpreter, Image - 08/06/2024 [facility] [address] [place] [address] Ultrasound Report Signed Patient: Vahid Sierra#: [id number] 6 : 1990Acct:[id number] Age/Sex: 34 / FADM Date: 08/04/24 Loc: HO.MAMMO Attending Dr: Hawa Lei MD Ordering Physician: Hawa Lei MD Date of Service: 08/04/24 Procedure(s): US breast RT limited mamm only Accession Number(s): [id number] cc: Brenda Dangelo MD; Hawa Lei MD EXAMINATION: US DIAGNOSTIC ULTRASOUND BREAST, RIGHT CLINICAL INFORMATION: Question response to treatment right breast cancer with axillary metastasis.. COMPARISON: Comparison is made with relevant prior imaging. TECHNIQUE: Ultrasound of the breast is performed with real-time lopes scale imaging and color Doppler. FINDINGS: Targeted color Doppler ultrasound scanning in the area of the patient's known right breast malignancy 8-9 o'clock demonstrates again seen ill-defined hypoechoic irregular mass approximate measurements of 35 x 20 mm on these limited images not significant change from prior ultrasound however ultrasound evaluation is difficult and MRI evaluation may demonstrate more defined changes in size. Targeted color Doppler ultrasound in the right axilla demonstrates similar-appearing enlarged abnormal axillary lymph node. Results are discussed with the patient at time of visit. US/US breast RT limited mamm only IMPRESSION: Similar-appearing known right breast malignancy 8-9 o'clock 5 cm from nipple and metastatic right axillary lymph node. As the biopsy-proven malignant mass is slightly ill-defined on ultrasound, difficult to evaluate small differences in size. ASSESSMENT: BI-RADS 6: Known Biopsy-Proven Malignancy RECOMMENDATION: The patient is under the care of a breast surgeon and oncology for excision and further management known right breast malignancy. This patient's information was entered into a reminder system with a target due date for their next mammogram. Electronically signed by: Carola Simpson DO 08/04/2024 01:27 PM EDT RP Dictated By: Carola Simpson DO Signed By:08/06/24 1353 DD/ 1142 TD/TT: 08/04/24 1205 Solar Electric Installer: [facility] External Provider IMG US PROCEDURES Final Result * BI US Breast Limited Left (08/04/2024 11:42 AM EDT) Only the most recent of2 resultswithin the time period is included. Anatomical Region Laterality Modality Breast Left Ultrasound 08/04/2024 11:4 2 AM EDT Narrative 08/04/2024 1:29 PM EDT ? [facility] [place] ? [address] ?[place] [address] ? Ultrasound Report ? Signed ? Patient: Rigo,Jeny ?MR#: [id number] ?? 6 ? : 1990 ?Acct:[id number] ? Age/Sex: 34 / F ?ADM Date: /24/25 ? Loc: HO.MAMMO ? Attending Dr: Hawa Lei MD ? Ordering Physician: Hawa Lei MD ?? Date of Service: 08/04/24 ?? Procedure(s): US breast LT limited mamm only ?? Accession Number(s): [id number] ? cc: Brenda Dangelo MD; Hawa Lei MD ? EXAMINATION: ?? US DIAGNOSTIC ULTRASOUND BREAST, RIGHT ? CLINICAL INFORMATION: ? Question response to treatment right breast cancer with axillary ?? metastasis.. ? COMPARISON: ?? Comparison is made with relevant prior imaging. ? TECHNIQUE: ?? Ultrasound of the breast is performed with real-time lopes scale imaging ?? and color Doppler. ? FINDINGS: ?? Targeted color Doppler ultrasound scanning in the area of the patient's ?? known right breast malignancy 8-9 o'clock demonstrates again seen ?? ill-defined hypoechoic irregular mass approximate measurements of 35 x ?? 20 mm on these limited images not significant change from prior ?? ultrasound however ultrasound evaluation is difficult and MRI ?? evaluation may demonstrate more defined changes in size. ? Targeted color Doppler ultrasound in the right axilla demonstrates ?? similar-appearing enlarged abnormal axillary lymph node. ? Results are discussed with the patient at time of visit. ? US/US breast LT limited mamm only ?? IMPRESSION: ?? Similar-appearing known right breast malignancy 8-9 o'clock 5 cm from ?? nipple and metastatic right axillary lymph node. ?? As the biopsy-proven malignant mass is slightly ill-defined on ?? ultrasound, difficult to evaluate small differences in size. ? ASSESSMENT: ? BI-RADS 6: Known Biopsy-Proven Malignancy ? RECOMMENDATION: ?? The patient is under the care of a breast surgeon and oncology for ?? excision and further management known right breast malignancy. ? This patient's information was entered into a reminder system with a ?? target due date for their next mammogram. ? Electronically signed by: ??Carola Simpson DO ??08/04/2024 01:27 PM EDT ?? RP ? Dictated By: ?Carola Simpson DO ? Signed By: ?<Electronically signed by Carola Simpson, DO in OV> ? 08/04/24 1327 ? DD/ 1142 ? TD/TT: 08/04/24 1205 ? Solar Electric Installer: ? Procedure Note Yolanda Posada - 08/04/2024 [facility] [address] [place] [address] [place] [place], [place] [address] Ultrasound Report Signed Patient: Jeny SierraMR#: [id number] 6 : 1990Acct:[id number] Age/Sex: 34 / FADM Date: 08/04/24 Loc: HO.MAMMO Attending Dr: Hawa Lei MD Ordering Physician: Hawa Lei MD Date of Service: 08/04/24 Procedure(s): US breast LT limited mamm only Accession Number(s): [id number] cc: Brenda Dangelo MD; Hawa Lei MD EXAMINATION: US DIAGNOSTIC ULTRASOUND BREAST, RIGHT CLINICAL INFORMATION: Question response to treatment right breast cancer with axillary metastasis.. COMPARISON: Comparison is made with relevant prior imaging. TECHNIQUE: Ultrasound of the breast is performed with real-time lopes scale imaging and color Doppler. FINDINGS: Targeted color Doppler ultrasound scanning in the area of the patient's known right breast malignancy 8-9 o'clock demonstrates again seen ill-defined hypoechoic irregular mass approximate measurements of 35 x 20 mm on these limited images not significant change from prior ultrasound however ultrasound evaluation is difficult and MRI evaluation may demonstrate more defined changes in size. Targeted color Doppler ultrasound in the right axilla demonstrates similar-appearing enlarged abnormal axillary lymph node. Results are discussed with the patient at time of visit. US/US breast LT limited mamm only IMPRESSION: Similar-appearing known right breast malignancy 8-9 o'clock 5 cm from nipple and metastatic right axillary lymph node. As the biopsy-proven malignant mass is slightly ill-defined on ultrasound, difficult to evaluate small differences in size. ASSESSMENT: BI-RADS 6: Known Biopsy-Proven Malignancy RECOMMENDATION: The patient is under the care of a breast surgeon and oncology for excision and further management known right breast malignancy. This patient's information was entered into a reminder system with a target due date for their next mammogram. Electronically signed by: Carola Simpson DO 08/04/2024 01:27 PM EDT Dictated By: Carola Simpson DO Signed By: <Electronically signed by Carola Simpson DO in OV> 08/04/24 1327 DD/ 1142 TD/TT: 08/04/24 1205 Solar Electric Installer: us [facility] External Provider IMG US PROCEDURES Final Result * (ABNORMAL) Vitamin D, 25-Hydroxy, Total, Immunoassay (07/28/2024 1:52 PM EDT) Vitamin D 25-OH Total 11.2(L) >30 ng/mL [facility] Comment: Health Based Reference Values*< 20 ??ng/mL ??[id number] ng/mL ??Insufficient> 30 ??ng/mL ??Sufficient*Kayla MCKEON. N Engl J Med. 2007;[id number]:266-280There is no well-established upper level of normal vitamin Dlevels. Some laboratories use 50 ng/mL as an upper limit ofnormal. However, toxicity is patient-dependent and may occurat any level. Careful correlation with the patient'spresentation is necessary and, if there is concern forvitamin D toxicity, treatment should be consideredirrespective of the serum level.Care must be taken in interpreting Vitamin D results fromdifferent laboratories and methodologies. ??Published datademonstrated that results from patients undergoinghemodialysis may show a negative bias when tested withvarious automated 25-OH vitamin D assays when compared toLC- MS/MS.When testing samples from patients whose predominant form ofVitamin D is Vitamin D2, such as patients receiving VitaminD2 supplementation, results that are subtherapeutic shouldbe confirmed with another method such as LC-MS/MS. Blood Venous blood specimen / Unknown 07/28/2024 1:52 PM EDT 07/28/2024 4:29 PM EDT us Brenda Sawyer MD LAB BLOOD ORDERABLES Final Result [facility] [address] [place] [address] [phone] * (ABNORMAL) Vitamin B12 (Cobalamin) and Folate Panel, Serum (07/28/2024 1:52 PM EDT) Pathologist [facility] Vitamin B12 >2,000(H ) 200 - 900 pg/mL [facility] Comment:NORMAL 200-900 PG/ML INDETERMINATE 160-199 PG/ML DEFICIENT < 160 PG/ML Folate 11.4 > or = 4.0 ng/mL [facility] Comment:Reference Values:> o r = 4.0 ng/mL< 4.0 ng/mL suggests folate deficiency Methotrexate, aminopterin and folinic acid(leucovorin) are chemotherapeutic agents whose molecularstructures are similar to folate; therefore, the Architectfolate assay cannot be used for patients using these drugs. Blood Venous blood specimen / Unknown 07/28/2024 1:52 PM EDT 07/28/2024 4:29 PM EDT Brenda Sawyer MD LAB BLOOD ORDERABLES Final Result Performing Organization Address [facility] Co de Phone Number [facility] [address] [place] [address] [phone] * TSH with Reflex to Free T4 (07/28/2024 1:52 PM EDT) Pathologist [facility] TSH reflex Free T4 0.41 0.32 - 4.0 uIU/mL [facility] Blood Venous blood specimen / Unknown 07/28/2024 1:52 PM EDT 07/28/2024 4:29 PM EDT Brenda Sawyer MD LAB BLOOD ORDERABLES Final Result Performing Organization Address [facility] de Phone Number [facility] [address] [place] [address] [phone] * (ABNORMAL) CBC auto differential (07/28/2024 1:52 PM EDT) Pathologist [facility] White Blood Count 4.2(L) 4.8 - 10.8 X10*3/uL [facility] Red Blood Count 2.82(L) 4.20 - 5.50 X10*6/uL [facility] Hemoglobin 8.4(L) 12.0 - 16.0 g/dl [facility] Hematocrit 24.5(L) 37.0 - 47.0 % [facility] Mean Corpuscular Volume 86.9 80.0 - 98.0 fL [facility] Mean Corpuscular Hemoglobin 29.8 27.0 - 33.0 pg [facility] Mean Corpuscular HGB Conc 34.3 31.0 - 35.0 g/dl [facility] Red Cell Distribution Width 14.9 11.0 - 16.0 % [facility] Platelet Count 311 160 - 400 X10*3/uL [facility] Mean Platelet Volume 10.3 9.4 - 12.3 fL [facility] Neutrophils Percent Auto 60.2 45 - 73 % [facility] Imm Gran Pct Auto 0.5(H) 0.0 - 0.4 % [facility] Lymphocytes Percent Auto 32.5 20 - 40 % [facility] Monocytes Percent Auto 4.7 2 - 11 % [facility] Eosinophils Percent Auto 1.2 0 - 4 % [facility] Basophils Percent Auto 0.9 0 - 2 % [facility] NRBC Pct Auto 0.0 0.0 - 0.2 /100WBC [facility] Neutrophils Absolute Auto 2.5 2.0 - 8.3 x10*3/uL [facility] Imm Gran Abs Auto 0.02 0.00 - 0.03 X10*3/uL [facility] Lymphocytes Absolute Auto 1.4 1.2 - 4.9 X10*3/uL [facility] Monocytes Absolute Auto 0.2 0.1 - 1.2 X10*3/uL [facility] Eosinophils Absolute Auto 0.1 0.0 - 0.4 X10*3/uL [facility] Basophils Absolute Auto 0.0 0.0 - 0.2 X10*3/uL [facility] NRBC Abs Auto 0.000 0.0 - 0.012 X10*3/uL [facility] Blood Venous blood specimen / Unknown 07/28/2024 1:52 PM EDT 07/28/2024 4:29 PM EDT us Brenda Sawyer MD LAB BLOOD ORDERABLES Final Result [facility] [address] [place] [phone] * Hepatitis C Antibody with Reflex to HCV, RNA, Quantitative, Real-Time PCR (07/28/2024 1:52 PM EDT) [facility] Hepatitis C Antibody Nonreactive Nonreactive [facility] Comment:Antibodies to HCV no t detected; does not exclude early acuteHCV infection. Blood Venous blood specimen / Unknown 07/28/2024 1:52 PM EDT 07/28/2024 4:24 PM EDT Brenda Sawyer MD LAB BLOOD ORDERABLES Final Result Performing Organization Address [facility]/ZIP Co de Phone Number [facility] [address] [place] [address] [phone] * (ABNORMAL) Iron And Total Iron Binding Capacity (07/28/2024 1:52 PM EDT) [facility] Iron 34 30 - 160 mcg/dL [facility] Total Iron Binding Capacity 253 228 - 428 mcg/dL [facility] Percent Iron Saturation 13(L) 15 - 50 % [facility] Unsaturated Iron Binding 219 ug/dL [facility] Blood Venous blood specimen / Unknown 07/28/2024 1:52 PM EDT 07/28/2024 4:29 PM EDT Brenda Sawyer MD LAB BLOOD ORDERABLES Final Result Performing Organization Address [facility] Co de Phone Number [facility] [address] [place] [address] [phone] * HIV-1/2 Antigen and Antibodies, Fourth Generation, with Reflexes (07/28/2024 1:52 PM EDT) [facility] HIV AB/AG Nonreactive Nonreactive [facility] Comment:HIV-1 p24 Ag and/or HIV-1/HIV-2 Ab not detected.A test result that is nonreactive does not exclude thepossibility of exposure to or infection with HIV-1 and/orHIV-2. Nonreactive results in this assay for individualswith prior exposure to HIV-1 and/or HIV-2 may be due toantigen and antibody levels that are below the limit ofdetection of this assay.[employer] HIV Ag/Ab Combo assay result andsupplemental assay results should be interpreted inconjunction with the patient's clinical presentation,history and other laboratory results. If the results areinconsistent with clinical evidence, additional testing issuggested to confirm the result. Blood Venous blood specimen / Unknown 07/28/2024 1:52 PM EDT 07/28/2024 4:24 PM EDT us Brenda Sawyer MD LAB BLOOD ORDERABLES Final Result Performing Organization Address [facility]/ZIP Co de Phone Number [facility] [address] [place] [address] [phone] * Magnesium (07/28/2024 1:52 PM EDT) Magnesium 1.6 1.6 - 2.6 mg/dL [facility] 07/28/2024 1:52 PM EDT 07/28/2024 4:29 PM EDT us Generic External Data Provider LAB BLOOD ORDERAB LES Final Result Performing Organization Address [facility] Co de Phone Number [facility] [address] [place] [address] [phone] * Hemoglobin A1c (07/28/2024 1:52 PM EDT) Hemoglobin A1c 5.4 <6.0 % [facility] Comment:Hemoglobin A1C Refer ence Range Adults: 4.8 - 6.0 % Non diabetic: < 6.0 % Goal: < 7.0 %Additional Action Suggested: > 8.0 %Note: Hemoglobin A1c results are invalid for patients with abnormal amounts of HbF. Blood transfusions may impact the HbA1c concentration in the patient sample. Estimated Average Glucose 108 mg/dL [facility] Comment:eAG = Estimated ave rage glucose which is %A1C expressed asaverage glucose, using the formula of the M5M-GppqrecZvcpfvl Glucose study (ADAG), Diabetes Care, Vol.31,#8,2007 Blood Venous blood specimen / Unknown 07/28/2024 1:52 PM EDT 07/28/2024 4:29 PM EDT us Brenda Sawyer MD LAB BLOOD ORDERABLES Final Result Performing Organization Address City/[facility]/ZIP Co de Phone Number [facility] [address] [place] [address] [phone] * (ABNORMAL) Ferritin (07/28/2024 1:52 PM EDT) Ferritin 220(H) 10 - 122 ng/mL [facility] Blood Venous blood specimen / Unknown 07/28/2024 1:52 PM EDT 07/28/2024 4:29 PM EDT us Brenda Sawyer MD LAB BLOOD ORDERABLES Final Result Performing Organization Address [facility] Co de Phone Number [facility] [address] [place] [address] [phone] * (ABNORMAL) Lipid Panel, Standard (07/28/2024 1:52 PM EDT) Triglycerides 160(H) <150 mg/dL [facility] Comment:Desirable Triglyceri de: less than 150 mg/dLBorderline High Triglyceride 150-199 mg/dLHigh Triglyceride: 200-499 mg/dLVery High Triglyceride: greater than or equal to 5OO mg/dL Cholesterol 217(H) <200 mg/dL [facility] Comment:Desirable Cholestero l: less than 200 mg/dLBorderline High Cholesterol: 200-239 mg/dLHigh Cholesterol: greater than 239 mg/dL LDL Cholesterol Calculated 138(H) <100 mg/dL [facility] Comment:Desirable LDL: less than 100 mg/dLNear Optimal/Above Optimal LDL: 110- 129 mg/dLBorderline High LDL: 130-159 mg/dLHigh LDL: 160-189 mg/dLVery High LDL: greater than or equal to 190 mg/dL HDL Cholesterol 47 >40 mg/dL [facility] Comment:Desirable HDL: great er than 40 mg/dL Note: This HDL assay may give artificially low results in patients with liver disease. Blood Venous blood specimen / Unknown 07/28/2024 1:52 PM EDT 07/28/2024 4:29 PM EDT us Brenda Sawyer MD LAB BLOOD ORDERABLES Final Result [facility] [address] [place] [phone] * (ABNORMAL) Comprehensive Metabolic Panel (07/28/2024 1:52 PM EDT) Sodium 140 135 - 145 mmol/L [facility] Potassium 3.9 3.3 - 5.1 mmol/L [facility] Chloride 110(H) 96 - 108 mmol/L [facility] Carbon Dioxide 23 22 - 29 mmol/L [facility] Anion Gap 11(L) 12 - 20 [facility] Urea Nitrogen (BUN) 11 9 - 16 mg/dL [facility] Creatinine, Serum 0.72 0.5 - 1.4 mg/dL [facility] Estimated Glomerular Filt Rate >60 [facility] Comment:Chronic Kidney Disea se: Estimated GFR < 60 mL/min/1.15n3Ihusmk Kidney Disease: Estimated GFR < 15 mL/min/1.73m2 Glucose 94 60 - 115 mg/dL [facility] Calcium 8.7 8.4 - 10.2 mg/dL [facility] Bilirubin, Total 0.4 0.0 - 1.0 mg/dL [facility] Aspartate Amino Transferase 70(H) 5 - 31 U/L [facility] Alanine Aminotransferase 127(H) 0 - 31 U/L [facility] Total Protein 7.1 6.5 - 8.0 g/dL [facility] Albumin Level 4.1 3.5 - 5.0 g/dL [facility] Alkaline Phosphatase 138(H) 39 - 117 U/L [facility] Blood Venous blood specimen / Unknown 07/28/2024 1:52 PM EDT 07/28/2024 4:29 PM EDT Brenda Sawyer MD LAB BLOOD ORDERABLES Final Result [facility] [address] [place] [address] [phone] * Pap Smear (04/14/2021) Pap smear Performed Result [facility] Historical Provider HEALTH MAINTENANCE Final Result * HPV E6/E7 RFLX PORTIA 16 18/45 (04/13/2021 10:26 AM EST) HPV 16 RNA [facility] HPV 18/45 RNA [facility] HPV E6 E7 ADD [facility] HPV mRNA E6/E7 rflx Not Detected Not Detected [facility] Comment: Methodology: Scooper-Mediated Amplification This assay detects E6/E7 viral messenger RNA (mRNA) from 14 high-risk HPV types (16,18,31,33,35,39,45,51,52,56,58,59,66,68). The analytical performance characteristics of this assay have been determined by [employer]. The modifications have not been cleared or approved by the FDA. This assay has been validated pursuant to the CLIA regulations and is used for clinical purposes. For additional information, please refer to http://education.[employer]/faq/JCA532p8 (This link if provided for information/ educational purposes only.) THIS TEST WAS PERFORMED AT: [facility] [address] [place] [address] [address] [place], [place] ??[phone] WILD BRICENO MD 04/13/2021 10:2 6 AM EST Sharon CastilloMedon HISTORICAL/NON ORDERABLE LABS Fi nal Result [facility] [address] from Last 3 Months or Most Recently Relevant to Health Maintenance [facility] Care Teams Nursing Surgical Services Director Relationship Specialty Start Date End Date Brenda Dangelo MD [address] [place] [phone] PCP - General Internal Medicine 01/16/24 Astrid Mackay Iron Worker 07/10/24
[2024-08-20 13:36] LABS: MANUAL DIFF FLAG NO
[2024-08-20 13:48] LABS: Basophils Percent Auto 0.5 % (0-2); Eosinophils Percent Auto 0.3 % (0-4); Hematocrit 25.6 % (37.0-47.0); Hemoglobin 9.1 g/dl (12.0-16.0); Lymphocytes Absolute Auto 1.3 X10*3/uL (1.2-4.9); Mean Corpuscular HGB Conc 35.5 g/dl (31.0-35.0); Mean Corpuscular Hemoglobin 31.9 pg (27.0-33.0); Mean Corpuscular Volume 89.8 fL (80.0-98.0); Mean Platelet Volume 10.6 fL (9.4-12.3); Monocytes Absolute Auto 0.1 X10*3/uL (0.1-1.2); Monocytes Percent Auto 3.5 % (2-11); Neutrophils Absolute Auto 2.3 x10*3/uL (2.0-8.3); Neutrophils Percent Auto 61.7 % (45-73); Platelet Count 241 X10*3/uL (160-400); Red Blood Count 2.85 X10*6/uL (4.20-5.50); Red Cell Distribution Width 14.3 % (11.0-16.0); White Blood Count 3.7 X10*3/uL (4.8-10.8)
[2024-08-21 05:30] LABS: HBc Num1 0.07 S/CO (0.00-0.79); HBsAGNum1 0.28 S/CO (0.00-0.99); Hepatitis B Core Antibody Nonreactive (Nonreactive); Hepatitis B Surface Antigen Negative (Negative); ~Hepatitis C Antibody Nonreactive (Nonreactive)
[2024-08-21 06:20] LABS: ~Hepatitis B Surface Antibody REACTIVE (Nonreactive)
[2024-08-26 08:07] LABS: Hepatitis A Antibody IgM 0.26 Index (0-0.79); ~Hepatitis A Antibody IgM Nonreactive (Nonreactive)
== END 2024-08-20 11:26 | disposition home or self-care (01) ==
LOC: HO.HHCL 11:25
PROVIDERS: Internal Medicine; Visit Provider Internal Medicine
DX: C50.911 Malignant neoplasm of unspecified site of right female breast (principal); R79.89 Other specified abnormal findings of blood chemistry
CPT/HCPCS: 36415; 85025; 86704; 86706; 86709; 86803; 87340

== ENCOUNTER 2024-09-05 09:09 | Outpatient (REF) | payer MEDICAID, SELFPAY ==
--- NOTE | ~2024-09-05 | US_ITS ---
EXAMINATION: US ABDOMEN COMPLETE CLINICAL INFORMATION: Persistent elevation of LFTs. COMPARISON: Ultrasound abdomen complete 06/19/2023 TECHNIQUE: Real-time imaging of the abdominal viscera. FINDINGS: PANCREAS: The body and the tail of the pancreas is obscured by overlying gas. ABDOMINAL AORTA: The proximal, mid, and distal segments are normal in caliber. INFERIOR VENA CAVA: Visualized portions are normal. LIVER: The liver is normal size measuring 13.2 cm. The liver contour is normal. Parenchymal echogenicity is normal. No focal hepatic lesion. There is no intrahepatic biliary duct dilatation seen. GALLBLADDER: The gallbladder is physiologically distended without evidence of stones, sludge, polyps, wall thickening or pericholecystic fluid. Previously visualized polyp is not visualized at this time COMMON BILE DUCT: Normal in caliber measuring 0.5 cm in diameter. RIGHT KIDNEY: No hydronephrosis. No renal calculi or focal parenchymal lesions. The kidney measures 9.7 cm in maximum dimension. LEFT KIDNEY: No hydronephrosis. No renal calculi or focal parenchymal lesions. The kidney measures 10.2 cm in maximum dimension. SPLEEN: The spleen measures 11.0 cm in maximum dimension. FREE FLUID: None. US/US abdomen complete IMPRESSION: Previously seen gallbladder polyp is not visualized at this time. Gallbladder is unremarkable. Rest of the abdominal ultrasound is unremarkable. Electronically signed by: Nirav Mooney MD 09/08/2024 09:37 AM EDT
--- OUTSIDE RECORDS SUMMARY | 2024-09-05 09:21 | XMS_ITS | Encounter Summary ---
Author Organization [employer] Address [address] [facility] [address] [place] [address] Care Team Providers Care Loading Unit Operator Seating Name Role Phone Debbie Logan WILIAN Primary Care Provider [phone] Brenda Dangelo MD Primary Care Provide r Encounter Details Date Type Department Care Team ([facility] Contact Info) Description 06/23/2023 Orders Only [facility] [address], [place] [phone] Perry Miguel MD [address] [place] [phone] Hematuria, unspecified type (Primary Dx) Social History [...] Description 10/29/2024 10:15 AM EDT Office Visit [facility] [address] [place] [phone] Brenda Dangelo MD [address] [place] [phone] Scheduled Orders Name Type Priority Associated Diagnoses Orde r Schedule Urinalysis with reflex microscopic Lab Routine Hematuria, unspecified type Expected: 06/23/2023, Expires: 06/23/2024 documented as of this encounter Visit Diagnoses Diagnosis Hematuria, unspecified type- Primary documented in this encounter Additional Health Concerns Assessment Noted Time PHQ-9 Depression Total Score: 0 05/23/19 24 10:43 AM EST documented as of this encounter Care Teams Loading Unit Operator Seating Relationship Specialty Start Date End Date Debbie Logan FNP [address] [place] [phone] PCP - General Family Medicine 06/15/23 01/15/24 Brenda Dangelo MD [address] [place] [phone] PCP - General Internal Medicine 01/16/24 Astrid Mackay Analyst Market Intelligence 07/10/24 documented as of this encounter
--- OUTSIDE RECORDS SUMMARY | 2024-09-05 09:21 | XMS_ITS | Encounter Summary ---
Author Organization [employer] Address [address] [place] [address] Care Team Providers Care Hotel And Dining Room Cashier Name Role Phone Chip Banerjee Primary Care Provider Unavail able Debbie Logan Primary Care Provider [phone] Debbie Logan Primary Care Provider [phone] Brenda Dangelo MD Primary Care Provide r Reason for Visit * Reason Onset Date Comments Triage 08/30/2022 Encounter Details Date Type Department Care Team (Late st Contact Info) Description 08/30/2022 Telephone [facility] [address] [place] [phone] Chip Banerjee AGNP Triage Social History Tobacco [...] 17 weeks . Pt is going to [employer] at 10AM and will come to [facility] after to be seen by [...] Description 10/29/2024 10:15 AM EDT Office Visit [facility] [address] [place] [phone] Brenda Dangelo MD [address] [place] [phone] documented as of this encounter Visit Diagnoses Not on filedocumented in this encounter Care Teams Hotel And Dining Room Cashier Relationship Specialty Start Date End Date Chip Banerjee AGNP PCP - General Family Medicine 02/16/22 01/18/23 Debbie Logan FNP [address] [place] [phone] PCP - General Family Medicine 01/19/23 06/14/23 Debbie Logan FNP [address], [place] [phone] PCP - General Family Medicine 06/15/23 01/15/24 Brenda Dangelo MD [address], [place] [phone] PCP - General Internal Medicine 01/16/24 Astrid Mackay Pet Groomer 07/10/24 documented as of this encounter
--- OUTSIDE RECORDS SUMMARY | 2024-09-05 09:21 | XMS_ITS | Clinical Summary ---
Author Organization [employer] Address [address] [facility] [address] [place] [address] Care Team Providers Care Outside Physical Damage Appraiser Name Role Phone Brenda Dangelo MD Primary [...] 2025 Active ergocalciferol (Vitamin D2) 1.25 MG (39293 UT) capsuleIndicat ions:Vitamin D deficiency Take 1 [...] cap. 16 g 1 025 2024 Discontinued ibuprofen 800 MG tabletIndicati ons:Acute otitis media, [...] Encounters Date Type Department Care Team Description 08/21/2024 Patient Outreach [address] [address] Brenda Dangelo MD Care Coordination ([facility]/HODA Allan#1- Follow up call-LVM) 08/20/[address] [address] Brenda Dangelo MD Care Management ([facility] TC #1-lvm) 08/20/2024 Orders Only GENERIC EXTERNAL DATA DEPARTMENT Provider, Generic External Data 08/11/2024 Refill [facility] [address] [place] [phone] Ashly Gordillo NP Cough in adult 08/08/2024 Patient Outreach [address] [address] Brenda Dangelo MD Care Coordination ([facility]/HODA Ontiveros- Follow up) 08/08/[address] [address] Brenda Dangelo MD Care Management ([facility] follow up call) 08/05/[address] [address] Brenda Dangelo MD 08/04/2024 Orders Only [facility] External Provider, [facility] 07/30/2024 Orders Only [facility] External Provider, [facility] 07/29/2024 Telephone [facility] [place] [address] Megan Hayward, RN Results 07/29/2024 Orders Only [facility] [place] [address] Brenda Dangelo MD Elevated LFTs (Primary Dx); Vitamin D deficiency; Iron deficiency anemia, unspecified iron deficiency anemia type 07/28/2024 1:00 PM EDT Office Visit [address] [address] Brenda Dangelo MD Acute respiratory failure with hypoxia (CMS/HCC) (Primary Dx); Hospital discharge follow-up; Acute otitis media, unspecified otitis media type; Muscular pain 07/28/2024 Orders Only GENERIC EXTERNAL DATA DEPARTMENT Provider, Generic External Data 07/28/2024 Travel 07/25/2024 [facility] Risk Score [facility] () Department [address] [place] [phone] Provider, [facility] Generic 07/23/2024 Patient Outreach [address] [address] Brenda Dangelo MD Care Coordination ([facility]/W Elijah Friedman - Follow up call) 07/22/[address] [address] Brenda Dangelo MD Care Management (C3 follow up call) 07/14/[address] [address] Brenda Dangelo MD No Show 07/11/[address] [address] Brenda Dangelo MD Chart Prep 07/10/[address] [address] Brenda Dangelo MD Care Management ([facility] initial assessment/enrollme nt) 07/09/2024 Patient Outreach [address] [address] Brenda Dangelo MD Care Coordination ([facility]/HODA Allan- [place] for CM Program reminder) 06/27/2024 Patient Outreach [address] [address] Brenda Dangelo MD Transition Of Care (Tcm) (HDF- scheduled and SDOH screening completed on 06/24/2024) 06/24/2024 Patient Outreach [address] [address] Brenda Dangelo MD Care Coordination (C3/[facility] Elijah Friedman TC Returned to [facility]- ADT Outreach- Pt agrees to participate in CM Program) 06/24/2024 Patient Outreach [address] [address] Brenda Dangelo MD Care Coordination ([facility]/HODA Ontiveros#2- ADT outreach-LVM) 06/24/2024 Patient Outreach [address] [address] Brenda Dangelo MD Transition Of Care (Tcm) (HDF- Unscheduled LVM) 06/23/2024 Patient Outreach [address] [address] Brenda Dangelo MD Care Coordination ([facility]HODA Ontiveros#1- ADT Outreach-LVM) 06/23/[address] [address] Astrid Mackay Care Management ([facility] chart review) from Last 3 Months Immunizations [...] Date Smoking Tobacco: Former Cigarettes 0.5 15 - 2018 Passive Smoke Exposure: Never Smokeless Tobacco: Never [...] Description 10/29/2024 10:15 AM EDT Office Visit [facility] [address] [place] [address] Brenda Dangelo MD [address] [place] [address] Health Maintenance Due Date Last Done Comments Alcohol/Substance Use Screening 2000 Family Planning (PISQ) 02/06/2003 Hepatitis B Vaccines (3 of 3 - 19+ 3-dose series) 09/12/2023 07/18/2023, 06/06/2023, 10/09/2014 COVID-19 Vaccine ( season) 2024 Influenza Vaccine (#1) 2024 , [...] Additional history exists Hepatitis C Screening Completed 08/20/2024 , 07/28/2024, 05/25/2023, Additional history exists HIB Vaccines Aged Out No longer eligi [...] Procedure Name Priority Date/Time Associated Diagnosis Comments CBC WITH AUTO DIFFERENTIAL Routine 08/20/2024 11:28 AM EDT HEPATITIS PANEL, GENERAL Routine 08/20/2024 11:28 AM EDT Elevated LFTs BI US BREAST LIMITED RIGHT Routine 08/04/2024 [...] Relevant to Health Maintenance Results * Hepatitis A,B,C Profile (08/20/2024 11:28 AM EDT) Hepatitis A IgM Nonreactive Nonreactive [facility] Comment:IgM antibodies to NAVARRO V not detected; does not exclude earlyacute or recovered HAV infection. ~Hepatitis B Surface Antibody REACTIVE Nonreactive [facility] Comment:REACTIVE: > 11.99 mI U/mL Hepatitis B Core Antibody Nonreactive Nonreactive [facility] Hepatitis C Antibody Nonreactive Nonreactive [facility] Comment:Antibodies to HCV no t detected; does not exclude early acuteHCV infection. Hepatitis B Surface Ag Negative Negative [facility] Blood Venous blood specimen / Unknown 08/20/2024 11:28 AM EDT 08/20/2024 1:34 PM EDT us Brenda Sawyer MD LAB BLOOD ORDERABLES Final Result [facility] [address] [place] [phone] * (ABNORMAL) CBC auto differential (08/20/2024 11:28 AM EDT) Only the most recent of2 resultswithin the time period is included. White Blood Count 3.7(L) 4.8 - 10.8 X10*3/uL [facility] Red Blood Count 2.85(L) 4.20 - 5.50 X10*6/uL [facility] Hemoglobin 9.1(L) 12.0 - 16.0 g/dl [facility] Hematocrit 25.6(L) 37.0 - 47.0 % [facility] Mean Corpuscular Volume 89.8 80.0 - 98.0 fL [facility] Mean Corpuscular Hemoglobin 31.9 27.0 - 33.0 pg [facility] Mean Corpuscular HGB Conc 35.5(H) 31.0 - 35.0 g/dl [facility] Red Cell Distribution Width 14.3 11.0 - 16.0 % [facility] Platelet Count 241 160 - 400 X10*3/uL [facility] Mean Platelet Volume 10.6 9.4 - 12.3 fL [facility] Neutrophils Percent Auto 61.7 45 - 73 % [facility] Imm Gran Pct Auto 0.0 0.0 - 0.4 % [facility] Lymphocytes Percent Auto 34.0 20 - 40 % [facility] Monocytes Percent Auto 3.5 2 - 11 % [facility] Eosinophils Percent Auto 0.3 0 - 4 % [facility] Basophils Percent Auto 0.5 0 - 2 % [facility] NRBC Pct Auto 0.0 0.0 - 0.2 /100WBC [facility] Neutrophils Absolute Auto 2.3 2.0 - 8.3 x10*3/uL [facility] Imm Gran Abs Auto 0.00 0.00 - 0.03 X10*3/uL [facility] Lymphocytes Absolute Auto 1.3 1.2 - 4.9 X10*3/uL [facility] Monocytes Absolute Auto 0.1 0.1 - 1.2 X10*3/uL [facility] Eosinophils Absolute Auto 0.0 0.0 - 0.4 X10*3/uL [facility] Basophils Absolute Auto 0.0 0.0 - 0.2 X10*3/uL [facility] NRBC Abs Auto 0.000 0.0 - 0.012 X10*3/uL [facility] 08/20/2024 11:2 8 AM EDT 08/20/2024 1:34 PM EDT us Generic External Data Provider LAB BLOOD ORDERAB LES Final Result [facility] [address] [place] [phone] * BI US Breast Limited Right (08/04/2024 11:42 AM EDT) Anatomical Region Laterality Modality Breast Right Ultrasound 08/04/2024 11:4 2 AM EDT Narrative 08/06/2024 1:53 PM EDT ? [facility] ? [address] ?[place] [address] ? Ultrasound Report ? Signed ? Patient: Rigo,Jeny ?MR#: [id number] ?? 6 ? : 1990 ?Acct:[id number] ? Age/Sex: 34 / F ?ADM Date: 08/04/24 ? Loc: HO.MAMMO ? Attending Dr: Hawa Lei MD ? Ordering Physician: Hawa Lei MD ?? Date of Service: 08/04/24 ?? Procedure(s): US breast RT limited mamm only ?? Accession Number(s): [id number] ? cc: Brenda Dangelo MD; Hawa Lei [...] DD/ 1142 ? TD/TT: 08/04/24 1205 ? Metal Casket Maker: ? Procedure Note Swetha, Image - 08/06/2024 [facility] [address] [place] [address] Ultrasound Report Signed Patient: Jeny SierraMR#: [id number] 6 : 1990Acct:[id number] Age/Sex: 34 / FADM Date: 08/04/24 Loc: HO.MAMMO Attending Dr: Hawa Lei MD Ordering Physician: Hawa Lei MD Date of Service: 08/04/24 Procedure(s): US breast RT limited mamm only Accession Number(s): [id number] cc: Brenda Dangelo MD; Hawa Lei MD [...] EDT Dictated By: Carola Simpson DO Signed By:08/06/24 1353 DD/ 1142 TD/TT: 08/04/24 1205 Metal Casket Maker: [facility] External Provider IMG US PROCEDURES Final Result * BI US Breast Limited Left (08/04/2024 11:42 AM EDT) Only the most recent of2 resultswithin the time period is included. Anatomical Region Laterality Modality Breast Left Ultrasound 08/04/2024 11:4 2 AM EDT Narrative 08/04/2024 1:29 PM EDT ? [facility] ? [address] ?[place] [address] ? Ultrasound Report ? Signed ? Patient: Rigo,Jeny ?MR#: [id number] ?? 6 ? : 1990 ?Acct:[id number] ? Age/Sex: 34 / F ?ADM Date: 03/24/25 ? Loc: HO.MAMMO ? Attending Dr: Hawa Lei MD ? Ordering Physician: Hawa Lei MD ?? Date of Service: 08/04/24 ?? Procedure(s): US breast LT limited mamm only ?? Accession Number(s): [id number] ? cc: Brenda Dangelo MD; Hawa Lei [...] DD/ 1142 ? TD/TT: 08/04/24 1205 ? Metal Casket Maker: ? Procedure Note Swetha, Image - 08/04/2024 [facility] [address] [place], [place] [address] Ultrasound Report Signed Patient: Vahid Sierra#: [id number] 6 : 1990Acct:[id number] Age/Sex: 34 / FADM Date: 08/04/24 Loc: HO.MAMMO Attending Dr: Hawa Lei MD Ordering Physician: Hawa Lei MD Date of Service: 08/04/24 Procedure(s): US breast LT limited mamm only Accession Number(s): [id number] cc: Brenda Dangelo MD; Hawa Lei MD [...] 08/04/24 1327 DD/ 1142 TD/TT: 08/04/24 1205 Metal Casket Maker: [facility] External Provider IMG US PROCEDURES Final Result * (ABNORMAL) Vitamin D, 25-Hydroxy, Total, Immunoassay (07/28/2024 1:52 PM EDT) Vitamin D 25-OH Total 11.2(L) >30 ng/mL [facility] Comment: Health Based Reference Values*< 20 ??ng/mL ??[id number] ng/mL ??Insufficient> 30 ??ng/mL ??Sufficient*Kayla MCKEON. N [...] Sawyer MD LAB BLOOD ORDERABLES Final Result [facility] [address] [place] [phone] * (ABNORMAL) Vitamin B12 (Cobalamin) and Folate Panel, Serum (07/28/2024 1:52 PM EDT) Vitamin B12 >2,000(H ) 200 - 900 pg/mL [facility] Comment:NORMAL 200-900 PG/M L INDETERMINATE 160-199 PG/ML DEFICIENT < 160 PG/ML Folate 11.4 > or = 4.0 ng/mL [facility] Comment:Reference Values:> o r = [...] BLOOD ORDERABLES Final Result Performing Organization Address [facility] Co de Phone Number [facility] [address] [place] [phone] * TSH with Reflex to Free T4 (07/28/2024 1:52 PM EDT) TSH reflex Free T4 0.41 0.32 - 4.0 uIU/mL [facility] Blood Venous blood specimen / Unknown 07/28/2024 1:52 PM EDT 07/28/2024 4:29 PM EDT Brenda Sawyer MD LAB BLOOD ORDERABLES Final Result Performing Organization Address City/[facility]/ZIP Co de Phone Number [facility] [address] [place] [phone] * Hepatitis C Antibody with Reflex to HCV, RNA, Quantitative, Real-Time PCR (07/28/2024 1:52 PM EDT) Hepatitis C Antibody Nonreactive Nonreactive [facility] Comment:Antibodies to HCV no t detected; does not exclude early acuteHCV infection. Blood Venous blood specimen / Unknown 07/28/2024 1:52 PM EDT 07/28/2024 4:24 PM EDT Brenda Sawyer MD LAB BLOOD ORDERABLES Final Result Performing Organization Address [facility]/ZIP Co de Phone Number [facility] [address] [place] [phone] * (ABNORMAL) Iron And Total Iron Binding Capacity (07/28/2024 1:52 PM EDT) [facility] Iron 34 30 - 160 mcg/dL [facility] Total Iron Binding Capacity 253 228 - 428 mcg/dL [facility] Percent Iron Saturation 13(L) 15 - 50 % [facility] Unsaturated Iron Binding 219 ug/dL [facility] Blood Venous blood specimen / Unknown 07/28/2024 1:52 PM EDT 07/28/2024 4:29 PM EDT us Brenda Sawyer MD LAB BLOOD ORDERABLES Final Result Performing Organization Address [facility] de Phone Number [facility] [address] [place] [phone] * HIV-1/2 Antigen and Antibodies, Fourth Generation, with Reflexes (07/28/2024 1:52 PM EDT) [facility] HIV AB/AG Nonreactive Nonreactive [facility] Comment:HIV-1 p24 Ag and/or HIV-1/HIV-2 Ab not detected.A test result that is nonreactive does not exclude thepossibility of exposure to or infection with HIV-1 and/orHIV-2. Nonreactive results in this assay for individualswith prior exposure to HIV-1 and/or HIV-2 may be due toantigen and antibody levels that are below the limit ofdetection of this assay.The [employer] HIV Ag/Ab Combo assay result andsupplemental assay results should be interpreted inconjunction with the patient's clinical presentation,history and other laboratory results. If the results areinconsistent with clinical evidence, additional testing issuggested to confirm the result. Blood Venous blood specimen / Unknown 07/28/2024 1:52 PM EDT 07/28/2024 4:24 PM EDT us Brenda Sawyer MD LAB BLOOD ORDERABLES Final Result Performing Organization Address [facility]/ZIP Co de Phone Number [facility] [address] [place] [phone] * Magnesium (07/28/2024 1:52 PM EDT) Magnesium 1.6 1.6 - 2.6 mg/dL [facility] 07/28/2024 1:52 PM EDT 07/28/2024 4:29 PM EDT Generic External Data Provider LAB BLOOD ORDERAB LES Final Result Performing Organization Address [facility] Co de Phone Number [facility] [address] [place] [phone] * Hemoglobin A1c (07/28/2024 1:52 PM EDT) Hemoglobin A1c 5.4 <6.0 % [facility] Comment:Hemoglobin A1C Refer ence Range Adults: 4.8 - 6.0 % Non diabetic: < 6.0 % Goal: < 7.0 %Additional Action Suggested: > 8.0 %Note: Hemoglobin A1c results are invalid for patients with abnormal amounts of HbF. Blood transfusions may impact the HbA1c concentration in the patient sample. Estimated Average Glucose 108 mg/dL [facility] Comment:eAG = Estimated ave rage glucose which is %A1C expressed asaverage glucose, using the formula of the N3F-EewanoeIckqnrt Glucose study (ADAG), Diabetes Care, Vol.31,#8,Dec. 2007 Blood Venous blood specimen / Unknown 07/28/2024 1:52 PM EDT 07/28/2024 4:29 PM EDT Brenda Sawyer MD LAB BLOOD ORDERABLES Final Result [facility] [address] [place] [phone] * (ABNORMAL) Ferritin (07/28/2024 1:52 PM EDT) Pathologist [facility] Ferritin 220(H) 10 - 122 ng/mL [facility] Blood Venous blood specimen / Unknown 07/28/2024 1:52 PM EDT 07/28/2024 4:29 PM EDT Brenda Sawyer MD LAB BLOOD ORDERABLES Final Result Performing Organization Address City/[facility]/ZIP Co de Phone Number [facility] [address] [place] [phone] * (ABNORMAL) Lipid Panel, Standard (07/28/2024 1:52 PM EDT) Pathologist [facility] Triglycerides 160(H) <150 mg/dL [facility] Comment:Desirable Triglyceri de: less than 150 mg/dLBorderline High Triglyceride 150-199 mg/dLHigh Triglyceride: 200-499 mg/dLVery High Triglyceride: greater than or equal to 5OO mg/dL Cholesterol 217(H) <200 mg/dL [facility] Comment:Desirable Cholestero l: less than 200 mg/dLBorderline High Cholesterol: 200-239 mg/dLHigh Cholesterol: greater than 239 mg/dL LDL Cholesterol Calculated 138(H) <100 mg/dL [facility] Comment:Desirable LDL: less than 100 mg/dLNear Optimal/Above Optimal LDL: 110- 129 mg/dLBorderline High LDL: 130-159 mg/dLHigh LDL: 160-189 mg/dLVery High LDL: greater than or equal to 190 mg/dL HDL Cholesterol 47 >40 mg/dL [facility] Comment:Desirable HDL: great er than 40 mg/dL Note: This HDL assay may give artificially low results in patients with liver disease. Blood Venous blood specimen / Unknown 07/28/2024 1:52 PM EDT 07/28/2024 4:29 PM EDT us Brenda Sawyer MD LAB BLOOD ORDERABLES Final Result [facility] [address] [place] [phone] * (ABNORMAL) Comprehensive Metabolic Panel (07/28/2024 1:52 PM EDT) Sodium 140 135 - 145 mmol/L [facility] Potassium 3.9 3.3 - 5.1 mmol/L [facility] Chloride 110(H) 96 - 108 mmol/L [facility] Carbon Dioxide 23 22 - 29 mmol/L [facility] Anion Gap 11(L) 12 - 20 [facility] Urea Nitrogen (BUN) 11 9 - 16 mg/dL [facility] Creatinine, Serum 0.72 0.5 - 1.4 mg/dL [facility] Estimated Glomerular Filt Rate >60 [facility] Comment:Chronic Kidney Disea se: Estimated GFR < 60 mL/min/1.91e2Bpvcyv Kidney Disease: Estimated GFR < 15 mL/min/1.73m2 Glucose 94 60 - 115 mg/dL [facility] Calcium 8.7 8.4 - 10.2 mg/dL [facility] Bilirubin, Total 0.4 0.0 - 1.0 mg/dL [facility] Aspartate Amino Transferase 70(H) 5 - 31 U/L [facility] Alanine Aminotransferase 127(H) 0 - 31 U/L [facility] Total Protein 7.1 6.5 - 8.0 g/dL [facility] Albumin Level 4.1 3.5 - 5.0 g/dL [facility] Alkaline Phosphatase 138(H) 39 - 117 U/L [facility] Blood Venous blood specimen / Unknown 07/28/2024 1:52 PM EDT 07/28/2024 4:29 PM EDT us Brenda Sawyer MD LAB BLOOD ORDERABLES Final Result [facility] [address] [place] [phone] * Pap Smear (04/14/2021) Pap smear Performed Historical Provider MD HEALTH MAINTENANCE Final Result * HPV E6/E7 RFLX PORTIA 16 18/45 (04/13/2021 10:26 AM EST) HPV 16 RNA [facility] HPV 18/45 RNA [facility] HPV E6 E7 ADD [facility] HPV mRNA E6/E7 rflx Not Detected Not Detected [facility] Comment: Methodology: Harvest Manager-Mediated Amplification This assay detects E6/E7 viral messenger RNA (mRNA) from 14 high-risk HPV types (16,18,31,33,35,39,45,51,52,56,58,59,66,68). The analytical performance characteristics of this assay have been determined by [employer]. The modifications have not been cleared or approved by the FDA. This assay has been validated pursuant to the CLIA regulations and is used for clinical purposes. For additional information, please refer to http://education.[employer]Scientific/faq/ZXE359w2 (This link if provided for information/ educational purposes only.) THIS TEST WAS PERFORMED AT: [facility] [address] [place] [address] [address] [place], [place] ??[phone] WILD BRICENO MD 04/13/2021 10:2 6 AM EST us Sharon Brandon HISTORICAL/NON ORDERABLE LABS Fi nal Result [facility] [address] from Last 3 Months or Most Recently Relevant to Health Maintenance Insurance [facility] C3 Care Teams Outside Physical Damage Appraiser Relationship Specialty Start Date End Date Brenda Dangelo MD [address] [place] [phone] PCP - General Internal Medicine 01/16/24 Astrid Mackay Fish Seiner 07/10/24
--- OUTSIDE RECORDS SUMMARY | 2024-09-05 09:21 | XMS_ITS | Clinical Summary ---
Author Organization [facility] [address] [place] [address] [place] [address] Phone Care Team Providers Care Bead Wire Insulator Name Role Phone Unavailable Primary Care Provider [...] 19+ 3-dose series) 09/12/2023 07/18/2023, 06/06/2023, 10/09/2014 Depression Screening 05/23/2024 05/23/2023 Influenza Vaccine (Season Ended) 2025 04/19/2023, 02/20/2020, 02/12/2018, Additional history exists Cervical Cancer Screening: HPV 08/03/2027 08/02/2022 DTaP,Tdap,and [...] C Screening (05/25/2023) Hepatitis C Screening Abstracted [facility] Provider HEALTH MAINTENANCE Final Result * HIV Screening (05/23/2023) Pathologist [facility] HIV Screening Abstracted [facility] Provider HEALTH MAINTENANCE Final Result * Cervical Cancer Screening: HPV (08/02/2022) Cervical Cancer Screening: HPV Negative, abstracted [facility] Provider HEALTH MAINTENANCE Final Result from Last 3 Months or Most Recently Relevant to Health Maintenance [place]
--- OUTSIDE RECORDS SUMMARY | 2024-09-05 09:21 | XMS_ITS | Clinical Summary ---
Author Organization [facility] Address [address] [place] [address] Care Team Providers Care Crime Prevention Police Officer Name Role Phone Unavailable Primary Care Provider Unavailabl e Allergies No known active allergies Medications Medication Sig Dispensed Refills Start Date End Date Status 27-1 MG TABS Take 1 tablet by mouth daily. 0 12/11/2022 Active Active Problems Patient Care Coordination No te Formatting of this note migh t be different from the original. PCP: KRISTI HAMM PENDING SALE TO [facility] NPI#[id number] Problem Noted Date Diagnosed Date Other specified [...] topic RigoJeny acosta Personal/Family Self [address] [address]
--- OUTSIDE RECORDS SUMMARY | 2024-09-05 09:21 | XMS_ITS | Encounter Summary ---
Author Organization [employer] [facility] Address [address] [facility] [address] [place] [address] Care Team Providers Care Manager Country Name Role Phone Debbie Logan Primary Care Provider [phone] Debbie Logan Primary Care Provider [phone] Brenda Dangelo MD Primary Care Provide r Encounter Details Date Type Department Care Team (Late Contact Info) Description 02/09/2023 Abstract [facility] [address] [place] [address] Louann Leung Social History Tobacco Use Types [...] Upcoming Encounters Date Type Department Care Team ([facility] Contact Info) Description 10/29/2024 10:15 AM EDT Office Visit [facility] [address] [place] [address] [phone] Brenda Dangelo MD [address] [place] [address] documented as of this encounter Visit Diagnoses Not on filedocumented in this encounter Care Teams Manager Country Relationship Specialty Start Date End Date Debbie Logan FNP [address] [place] [address] PCP - General Family Medicine 01/19/23 06/14/23 Debbie Logan FNP [address] [place] [address] PCP - General Family Medicine 06/15/23 01/15/24 Brenda Dangelo MD [address] [place] [address] PCP - General Internal Medicine 01/16/24 Astrid Mackay Tire Repairman 07/10/24 documented as of this encounter
== END 2024-09-05 09:10 | disposition home or self-care (01) ==
LOC: HO.US 09:09
PROVIDERS: PCP Internal Medicine; Visit Provider Internal Medicine
DX: R79.89 Other specified abnormal findings of blood chemistry (principal)
CPT/HCPCS: 76700

== ENCOUNTER → 2024-09-05 09:11 | Outpatient (BNV) | payer MEDICAID, SELFPAY | PROVIDERS: PCP Internal Medicine; Visit Provider Radiology Diagnostic Radiology | DX: R74.01 Elevation of levels of liver transaminase levels (principal) | CPT/HCPCS: 76700 ==

== ENCOUNTER 2024-09-22 02:17 | Emergency (ER) | payer MEDICAID, SELFPAY ==
[2024-09-22 02:27] VITALS: BP 126/88; PULSE 111; O2SAT 99
[2024-09-22 02:29] VITALS: BMI 24.0
--- NOTE | 2024-09-22 02:36 | ED_ITS ---
HPI - Alcohol General Chief Complaint: ETOH/Substance Use Stated Complaint: ETOH/FALL ONTO LT KNEE Time Seen by Provider: 09/22/24 02:34 Source: patient Mode of arrival: EMS Limitations: no limitations History of Present Illness ED Provider: HPI narrative: Patient has had few drinks earlier got into verbal altercation with family members somewhat took her keys patient was agitated on arrival ambulatory in steady gait patient recently diagnose with breast cancer Related Data Home Medications ?Medication ?Instructions ?Recorded ?Confirmed dexamethasone 4 mg tablet See Rx Instructions .Route .COMPLEX 06/22/24 07/29/24 Previous Rx's ?Medication ?Instructions ?Recorded acetaminophen 325 mg capsule 650 mg (2 x 325 mg) PO Q6H PRN 06/21/24 fever or pain #30 caps ondansetron 4 mg disintegrating 4 mg PO Q6H PRN nausea and 06/21/24 tablet vomiting #12 tabs amoxicillin 875 mg-potassium 1 tab PO BID #20 tabs 08/29/24 clavulanate 125 mg tablet gabapentin 300 mg capsule 300 mg PO BEDTIME #30 caps 08/29/24 Allergies Allergy/AdvReac Type Severity Reaction Status Date / Time No Known Allergies Allergy Verified 09/22/24 02:34 [No Known Allergies*] Review of Systems Review of Systems: Yes all other systems are reviewed and are negative PMFSH Past Medical History Medical History Former smoker Anemia Surgical History Metastatic cancer to axillary lymph nodes No history of previous surgery Family History Family History Maternal Grandmother Arthritis Asthma Maternal Grandfather Diabetes mellitus Maternal Aunt Breast cancer Father Throat cancer Paternal Grandfather Stomach cancer Social History Social History Household Members: Children Housing: Apartment Are you a primary reproductive healthcare assistant to a significant other at home: No Do you presently have visiting nurse or other home services: No Unable to assess alcohol history related to: Unknown Alcohol intake: former Patient Tobacco Use Status: Former Tobacco user Agree to transfusion: Yes Advance Directives: No Advance Directives Information Provided: No Do you have a plan to hurt others: No Plan service: No Current occupational status: unemployed Sexual orientation: Straight/Heterosexual Gender identity: Female Physical Exam ED Vital Signs: Vital Signs - 24 hr 09/22/24 02:40 Temperature 97.9 F Pulse Rate 97 Respiratory Rate 20 Blood Pressure 121/56 L Pulse Oximetry 99 Oxygen Delivery Method Room Air BMI result Body Mass Index 24.0 Appearance: Alert. Oriented X3. No acute distress. ETOH Eyes: PERRLA, No Nystagmus HEENT: Pharynx normal. Oral Mucosa moist atraumatic Neck: Normal inspection. Neck supple. CVS: Normal heart rate and rhythm. Pulses normal. Respiratory: No respiratory distress. Equal air entry bilateral, no wheezing/rales/rhonchi Abdomen: Soft and nontender. Bowel sounds are present, no mass palpable, no CVA tenderness Skin: Skin warm and dry. Normal skin color. Normal skin turgor. Extremities: No lower extremity edema. No calf tenderness Neuro: Oriented X 3. No motor deficit. No sensory deficit.No cerebellar signs , cranial nerves II-XII intact Medical Decision Making Medical Decision Making MDM Narrative: Patient does not want to stay in the hospital for further evaluation ambulatory in his steady gait will be walking to her house which is nearby discharge patient home vitals are stable Discharge Plan Discharge Clinical Impression: Alcoholic intoxication Patient Disposition: Home, Self-Care Instructions: Alcohol Intoxication (DC) Additional Instructions: Stop drinking alcohol Follow up with detox if needed Prescriptions: No Action ondansetron 4 mg tablet,disintegrating 4 mg PO Q6H PRN (Reason: nausea and vomiting) Qty: 12 0RF acetaminophen 325 mg capsule 650 mg PO Q6H PRN (Reason: fever or pain) Qty: 30 0RF dexamethasone 4 mg tablet See Rx Instructions .ROUTE .COMPLEX Rx Instructions: 4 mg orally BID ;Take for 2 days after chemotherapy gabapentin 300 mg Capsule 300 mg PO BEDTIME Qty: 30 0RF amoxicillin-pot clavulanate 875-125 mg Tablet 1 tab PO BID Qty: 20 0RF Interventions: ED Discharge Assessment Last Done: 09/22/24 02:40 Discharge Date/Time: 09/22/24 02:41 Print Language: Citizen Of [place]
[2024-09-22 02:40] VITALS: BP 121/56; PULSE 97; RESP 20; TEMP 36.6; O2SAT 99
--- NOTE | 2024-09-22 02:41 | PC.NURSE ---
pt denies SI/HI, denies any medical complaints or needs. says she does not want to be here and does not need to be here. says she drank because she has stage 4 cancer. talking loudly on phone, ambulating with steady gait. seen at bedside by MD Plummer and discharged home.
--- OUTSIDE RECORDS SUMMARY | 2024-09-22 02:44 | XMS_ITS | Encounter Summary ---
Author Organization [employer] Address [address] [facility] [address] [place] [address] Care Team Providers Care Diesel Engine Mechanic Apprentice Name Role Phone Debbie Logan REHABILITATION DIRECTOR Primary Care Provider [phone] Brenda Dangelo MD Primary Care Provide r Encounter Details Date Type Department Care Team ([facility] st Contact Info) Description 06/23/2023 Orders Only [facility] [address] [place], [place] [phone] Perry Miguel MD [address] [place] [address] Hematuria, unspecified type (Primary Dx) Social History Tobacco Use Types Packs/Day Years Used Date Smoking Tobacco: Former Cigarettes 0.5 15 2 - 2018 Passive Smoke Exposure: Never Smokeless [...] Description 10/29/2024 10:15 AM EDT Office Visit [facility] [address] [place] [phone] Brenda Dangelo MD [address] [place] [phone] Scheduled Orders Name Type Priority Associated Diagnoses Orde r Schedule Urinalysis with reflex microscopic Lab Routine Hematuria, unspecified type Expected: 06/23/2023, Expires: 06/23/2024 documented as of this encounter Visit Diagnoses Diagnosis Hematuria, unspecified type- Primary documented in this encounter Additional Health Concerns Assessment Noted Time PHQ-9 Depression Total Score: 0 05/23/19 10:43 AM EST documented as of this encounter Care Teams Diesel Engine Mechanic Apprentice Relationship Specialty Start Date End Date Debbie Logan FNP [address] [place] [id number] PCP - General Family Medicine 06/15/23 01/15/24 Brenda Dangelo MD [address] [place] [id number] PCP - General Internal Medicine 01/16/24 Astrid Mackay Senior Architect 07/10/24 documented as of this encounter
--- OUTSIDE RECORDS SUMMARY | 2024-09-22 02:44 | XMS_ITS | Encounter Summary ---
Author Organization [employer] Address [address] [facility] 7t [place] [address] Care Team Providers Care Lightning Protection Installer Name Role Phone Debbie Logan Primary Care Provider [phone] Debbie Logan Primary Care Provider [phone] Brenda Dangelo MD Primary Care Provide r Encounter Details Date Type Department Care Team (Late st Contact Info) Description 02/09/2023 Abstract [facility] [address] [place] [phone] Louann Leung Social History Tobacco Use Types [...] Description 10/29/2024 10:15 AM EDT Office Visit [facility] [address] [place] [address] [phone] Brenda Dangelo MD [address] [place] [address] documented as of this encounter Visit Diagnoses Not on filedocumented in this encounter Care Teams Lightning Protection Installer Relationship Specialty Start Date End Date Debbie Logan FNP [address] [place] [phone] PCP - General Family Medicine 01/19/23 06/14/23 Debbie Logan FNP [address] [place] [address] PCP - General Family Medicine 06/15/23 01/15/24 Brenda Dangelo MD [address] [place] [address] PCP - General Internal Medicine 01/16/24 Astrid Mackay Slitter And Rewinder 07/10/24 documented as of this encounter
--- OUTSIDE RECORDS SUMMARY | 2024-09-22 02:44 | XMS_ITS | Clinical Summary ---
Author Organization [facility] [address] [place] [address] [place] [address] Phone Care Team Providers Care Chief Merchandising Officer Name Role Phone Unavailable Primary Care [...] C Screening (05/25/2023) Hepatitis C Screening Abstracted [facility] Provider HEALTH MAINTENANCE Final Result * HIV Screening (05/23/2023) Pathologist [facility] HIV Screening Abstracted [facility] Provider HEALTH MAINTENANCE Final Result * Cervical Cancer Screening: HPV (08/02/2022) Cervical Cancer Screening: HPV Negative, abstracted [facility] Provider HEALTH MAINTENANCE Final Result from Last 3 Months or Most Recently Relevant to Health Maintenance Insurance [place]
--- OUTSIDE RECORDS SUMMARY | 2024-09-22 02:44 | XMS_ITS | Clinical Summary ---
Author Organization [facility] Address [address] [place] [address] Care Team Providers Care Printed Circuit Designer Name Role Phone Unavailable Primary Care Provider Unavailabl e Allergies No known active allergies Medications Medication Sig Dispensed Refills Start Date End Date Status 27-1 MG TABS Take 1 tablet by mouth daily. 0 12/11/2022 Active Active Problems Patient Care Coordination No te Formatting of this note migh t be different from the original. PCP: KRISTI HAMM [facility] NPI#[id number] Problem Noted Date Diagnosed Date Other specified [...] topic RigoJeny acosta Personal/Family Self [address] [id number]
--- OUTSIDE RECORDS SUMMARY | 2024-09-22 02:44 | XMS_ITS | Clinical Summary ---
Author Organization [employer] Address [address] [address] [place] [address] Care Team Providers Care Catering Barista Name Role Phone Brenda Dangelo MD Primary Care Provide r Allergies No known active allergies Medications medroxyPROGESTE Desean (Depo-Provera) 150 MG/ML injection TAKE TO DOCTOR'S OFFICE FOR ADMINISTRATION EVERY 3 MONTHS 06/20/19 24 Active multivitamin () 27-0.8 MG tablet Take 1 tablet by mouth Once per day. 02/07/20 24 Active cetirizine (ZyrTEC) 10 MG tabletIndicatio ns:Sore throat Take 1 tablet (10 mg) by mouth Once per day. 30 tablet 2 02/29/20 24 Active dexAMETHasone (Decadron) 4 MG tablet TAKE 1 TABLET ORALLY 2 TIMES A DAY TAKE FOR 2 DAYS AFTER CHEMOTHERAPY Active ferrous sulfate (Fe Tabs) 325 (65 Fe) MG EC tabletIndicatio ns:Iron deficiency anemia, unspecified iron deficiency anemia type Take 1 tablet (325 mg) by mouth with breakfast. Do not crush, chew, or split. 30 tablet 1 07/30/19 25 026 Active Ascorbic Acid (vitamin C) 250 MG tabletIndicatio ns:Iron deficiency anemia, unspecified iron deficiency anemia type Take 1 tablet (250 mg) by mouth Once per day. 30 tablet 11 07/30/19 25 026 Active ergocalciferol (Vitamin D2) 1.25 MG (16866 UT) capsuleIndicati ons:Vitamin D deficiency Take 1 capsule (1.25 mg) by mouth 1 (one) time per week. 5 capsule 2 07/30/19 25 Active fluticasone (Flonase) 50 MCG/ACT nasal sprayIndication s:Cough in adult INSTILL 1 SPRAY IN EACH NOSTRIL ONCE DAILY 48 g 08/12/19 25 Active Active Problems Problem Noted Date Diagnosed Date [...] Encounters Date Type Department Care Team Description 09/05/2024 Patient Outreach [address] [phone] Brenda Dangelo MD Care Coordination ([facility]- Follow up call) 09/05/[address] [address] Brenda Dangelo MD Care Management (C3 follow up call) 08/21/2024 Patient Outreach [address] [address] Brenda Dangelo MD Care Coordination ([facility]#1- Follow up call-LVM) 08/20/[address] [address] Brenda Dangelo MD Care Management ([facility] TC #1-lvm) 08/20/2024 Orders Only GENERIC EXTERNAL DATA DEPARTMENT Provider, Generic External Data 08/11/2024 Refill [facility] [address] [place] [phone] Ashly Gordillo NP Cough in adult 08/08/2024 Patient Outreach [address] [address] Brenda Dangelo MD Care Coordination ([facility]- Follow up) 08/08/[address] [address] Brenda Dangelo MD Care Management ([facility]3 follow up call) 08/05/[address] [address] Brenda Dangelo MD 08/04/2024 Orders Only [facility] External Provider, [facility] 07/30/2024 Orders Only [facility] External Provider, [facility] 07/29/[address] [address] Megan Hayward, RN Results 07/29/2024 Orders Only [facility] [address] [place] [phone] Brenda Dangelo MD Elevated LFTs (Primary Dx); Vitamin D deficiency; Iron deficiency anemia, unspecified iron deficiency anemia type 07/28/2024 1:00 PM EDT Office Visit [address] [address] Brenda Dangelo MD Acute respiratory failure with hypoxia (CMS/HCC) (Primary Dx); Hospital discharge follow-up; Acute otitis media, unspecified otitis media type; Muscular pain 07/28/2024 Orders Only GENERIC EXTERNAL DATA DEPARTMENT Provider, Generic External Data 07/28/2024 Travel 07/25/2024 Population Health Risk Score [facility] (C3) Department [address] [place] [phone] Provider, Population Health Generic 07/23/2024 Patient Outreach [address] [address] Brenad Dangelo MD Care Coordination ([facility]- Follow up call) 07/22/[address] [address] Brenda Dangelo MD Care Management ([facility] follow up call) 07/14/[address] [address] Brenda Dangelo MD No Show 07/11/[address] [address] Brenda Dangelo MD Chart Prep 07/10/[address] [address] Brenda Dangelo MD Care Management ([facility] initial assessment/enrollme nt) 07/09/2024 Patient Outreach [facility] [address] [place] [phone] Brenda Dangelo MD Care Coordination ([facility]/W YaSHAZIA Brady for CM Program reminder) 06/27/2024 Patient Outreach [facility] [address] [place] [address] Brenda Dangelo MD Transition Of Care (Tcm) (HDF- scheduled and SDOH screening completed on 06/24/2024) from Last 3 Months Immunizations Name Administration [...] is your housing situation today? I have bettydelio rosario 04/02/[address] you [...] Description 10/29/2024 10:15 AM EDT Office Visit [facility] [address] [place] [address] Brenda Dangelo MD [address] [place] [address] Health Maintenance Due Date Last Done Comments Alcohol/Substance Use Screening 2000 Family Planning (PISQ) 02/06/2003 Hepatitis B Vaccines (3 of 3 - 19+ 3-dose series) 09/12/2023 07/18/2023, 06/06/2023, 10/09/2014 COVID-19 Vaccine ( season) 2024 Influenza Vaccine (#1) 2024 , 02/20/2020, 02/12/2018, Additional history exists Depression Screening 05/23/2024 05/23/2023, 05/23/19 Diagnostic Breast Imaging 02/04/20252024, 08/04/2024, 07/30/2024, Additional [...] Procedure Name Priority Date/Time Associated Diagnosis Comments US ABDOMEN COMPLETE Routine 09/05/2024 9 :18 AM EDT Elevated LFTs CBC WITH AUTO DIFFERENTIAL Routine 08/20/2024 11:28 [...] Recently Relevant to Health Maintenance Results * US Abdomen Complete (09/05/2024 9:18 AM EDT) Anatomical Region Laterality Modality Abdomen Ultrasound 09/05/2024 9:18 AM EDT Narrative 09/08/2024 9:40 AM EDT ? [facility] ?[address] ?[place] [address] ? Ultrasound Report ? Signed ? Patient: Rigo,Jeny ?MR#: [id number] ?? 6 ? : 1990 ?Acct:[id number] ? Age/Sex: 34 / F ?ADM Date: 04/25/25 ? Loc: HO.US ? Attending Dr: Brenda Sawyer MD ? Ordering Physician: Brenda Dangelo MD ?? Date of Service: 09/05/24 ?? Procedure(s): US abdomen complete ?? Accession Number(s): [id number] ? cc: Brenda Dangelo MD ? EXAMINATION: ?? US ABDOMEN COMPLETE ? CLINICAL INFORMATION: ?? Persistent elevation of LFTs. ? COMPARISON: ?? Ultrasound abdomen complete 06/19/2023 ? TECHNIQUE: ?? Real-time imaging of the abdominal viscera. ? FINDINGS: ? PANCREAS: The body and the tail of the pancreas is obscured by ?? overlying gas. ? ABDOMINAL AORTA: The proximal, mid, and distal segments are normal in ?? caliber. ? INFERIOR VENA CAVA: Visualized portions are normal. ? LIVER: The liver is normal size measuring 13.2 cm. ??The liver contour ?? is normal. Parenchymal echogenicity is normal. No focal hepatic lesion. ?? There is no intrahepatic biliary duct dilatation seen. ? GALLBLADDER: The gallbladder is physiologically distended without ?? evidence of stones, sludge, polyps, wall thickening or pericholecystic ?? fluid. Previously visualized polyp is not visualized at this time ? COMMON BILE DUCT: Normal in caliber measuring 0.5 cm in diameter. ? RIGHT KIDNEY: No hydronephrosis. No renal calculi or focal parenchymal ?? lesions. The kidney measures 9.7 cm in maximum dimension. ? LEFT KIDNEY: No hydronephrosis. No renal calculi or focal parenchymal ?? lesions. The kidney measures 10.2 cm in maximum dimension. ? SPLEEN: The spleen measures 11.0 cm in maximum dimension. ? FREE FLUID: None. ? US/US abdomen complete ?? IMPRESSION: ?? Previously seen gallbladder polyp is not visualized at this time. ?? Gallbladder is unremarkable. ? Rest of the abdominal ultrasound is unremarkable. ? Electronically signed by: ??Nirav Jesica MD ??09/08/2024 09:37 AM EDT RP ? Dictated By: ?Jesica,Nirav S MD ? Signed By: ?<Electronically signed by Nirav S Jesica, MD in OV> ?09/08/24 0937 ? DD/ 0918 ? TD/TT: 09/05/24 0926 ? Blueprint Engineer: MSM ? Procedure Note Donotuseinterpreter, Image - 09/08/2024 [place] [address] Ultrasound Report Signed Patient: Jeny SierraMR#: [id number] 6 : 1990Acct:[id number] Age/Sex: 34 / FADM Date: 09/05/24 Loc: HO.US Attending Dr: Brenda Sawyer MD Ordering Physician: Brenda Dangelo MD Date of Service: 09/05/24 Procedure(s): US abdomen complete Accession Number(s): [id number] cc: Brenda Dangelo MD EXAMINATION: US ABDOMEN COMPLETE CLINICAL INFORMATION: Persistent elevation of LFTs. COMPARISON: Ultrasound abdomen complete 06/19/2023 TECHNIQUE: Real-time imaging of the abdominal viscera. FINDINGS: PANCREAS: The body and the tail of the pancreas is obscured by overlying gas. ABDOMINAL AORTA: The proximal, mid, and distal segments are normal in caliber. INFERIOR VENA CAVA: Visualized portions are normal. LIVER: The liver is normal size measuring 13.2 cm. The liver contour is normal. Parenchymal echogenicity is normal. No focal hepatic lesion. There is no intrahepatic biliary duct dilatation seen. GALLBLADDER: The gallbladder is physiologically distended without evidence of stones, sludge, polyps, wall thickening or pericholecystic fluid. Previously visualized polyp is not visualized at this time COMMON BILE DUCT: Normal in caliber measuring 0.5 cm in diameter. RIGHT KIDNEY: No hydronephrosis. No renal calculi or focal parenchymal lesions. The kidney measures 9.7 cm in maximum dimension. LEFT KIDNEY: No hydronephrosis. No renal calculi or focal parenchymal lesions. The kidney measures 10.2 cm in maximum dimension. SPLEEN: The spleen measures 11.0 cm in maximum dimension. FREE FLUID: None. US/US abdomen complete IMPRESSION: Previously seen gallbladder polyp is not visualized at this time. Gallbladder is unremarkable. Rest of the abdominal ultrasound is unremarkable. Electronically signed by: Nirav Jesica MD 09/08/2024 09:37 AM EDT Dictated By: Nirav Mooney MD Signed By: <Electronically signed by Nirav Mooney MD in OV> 09/08/2437 DD/ 7 TD/TT: 09/05/24925 Blueprint Engineer: [facility] [place] [place] Brenda Sawyer MD IMG US PROCEDURES Fin al Result * Hepatitis A,B,C Profile (08/20/2024 11:28 AM EDT) Hepatitis A IgM Nonreactive Nonreactive [facility] Comment:IgM antibodies to NAVARRO V not detected; does not exclude earlyacute or recovered HAV infection. ~Hepatitis B Surface Antibody REACTIVE Nonreactive [facility] Comment:REACTIVE: > 11.99 mI U/mL Hepatitis B Core Antibody Nonreactive Nonreactive [facility] Hepatitis C Antibody Nonreactive Nonreactive [facility] Comment:Antibodies to HCV no t detected; does not exclude early acuteHCV infection. Hepatitis B Surface Ag Negative Negative [facility] Blood Venous blood specimen / Unknown 08/20/2024 11:28 AM EDT 08/20/2024 1:34 PM EDT us Brenda Sawyer MD LAB BLOOD ORDERABLES Final Result [facility] [address] [place] [phone] * (ABNORMAL) CBC auto differential (08/20/2024 11:28 AM EDT) Only the most recent of2 resultswithin the time period is included. White Blood Count 3.7(L) 4.8 - 10.8 X10*3/uL [facility] Red Blood Count 2.85(L) 4.20 - 5.50 X10*6/uL [facility] Hemoglobin 9.1(L) 12.0 - 16.0 g/dl [facility] Hematocrit 25.6(L) 37.0 - 47.0 % [facility] Mean Corpuscular Volume 89.8 80.0 - 98.0 fL [facility] Mean Corpuscular Hemoglobin 31.9 27.0 - 33.0 pg [facility] Mean Corpuscular HGB Conc 35.5(H) 31.0 - 35.0 g/dl [facility] Red Cell Distribution Width 14.3 11.0 - 16.0 % [facility] Platelet Count 241 160 - 400 X10*3/uL [facility] Mean Platelet Volume 10.6 9.4 - 12.3 fL [facility] Neutrophils Percent Auto 61.7 45 - 73 % [facility] Imm Gran Pct Auto 0.0 0.0 - 0.4 % [facility] Lymphocytes Percent Auto 34.0 20 - 40 % [facility] Monocytes Percent Auto 3.5 2 - 11 % [facility] Eosinophils Percent Auto 0.3 0 - 4 % [facility] Basophils Percent Auto 0.5 0 - 2 % [facility] NRBC Pct Auto 0.0 0.0 - 0.2 /100WBC [facility] Neutrophils Absolute Auto 2.3 2.0 - 8.3 x10*3/uL [facility] Imm Gran Abs Auto 0.00 0.00 - 0.03 X10*3/uL [facility] Lymphocytes Absolute Auto 1.3 1.2 - 4.9 X10*3/uL [facility] Monocytes Absolute Auto 0.1 0.1 - 1.2 X10*3/uL [facility] Eosinophils Absolute Auto 0.0 0.0 - 0.4 X10*3/uL [facility] Basophils Absolute Auto 0.0 0.0 - 0.2 X10*3/uL [facility] NRBC Abs Auto 0.000 0.0 - 0.012 X10*3/uL [facility] 08/20/2024 11:2 8 AM EDT 08/20/2024 1:34 PM EDT us Generic External Data Provider LAB BLOOD ORDERAB LES Final Result [facility] [address] [place] [phone] * BI US Breast Limited Right (08/04/2024 11:42 AM EDT) Anatomical Region Laterality Modality Breast Right Ultrasound 08/04/2024 11:4 2 AM EDT Narrative 08/06/2024 1:53 PM EDT ? [facility] ? [address] ?[place] [address] ? Ultrasound Report ? Signed ? Patient: Jeny Sierra ?MR#: [id number] ?? 6 ? : 1990 ?Acct:[id number] ? Age/Sex: 34 / F ?ADM Date: 08/04/24 ? Loc: HO.MAMMO ? Attending Dr: Hawa Lei MD ? Ordering Physician: Hawa Lei MD ?? Date of Service: 08/04/24 ?? Procedure(s): US breast RT limited mamm only ?? Accession Number(s): [id number] ? cc: Brenda Dangelo MD; Hawa Lei [...] DD/ 1142 ? TD/TT: 08/04/24 1205 ? Blueprint Engineer: ? Procedure Note Swetha, Image - 08/06/2024 [facility] [address] [place] [address] Ultrasound Report Signed Patient: Vahid Sierra#: [id number] 6 : 1990Acct:[id number] Age/Sex: 34 / FADM Date: 08/04/24 Loc: HO.MAMMO Attending Dr: Hawa Lei MD Ordering Physician: Hawa Lei MD Date of Service: 08/04/24 Procedure(s): US breast RT limited mamm only Accession Number(s): [id number] cc: Brenda Dangelo MD; Hawa Lei MD [...] By:08/06/24 1353 DD/ 1142 TD/TT: 08/04/24 1205 Blueprint Engineer: us [facility] External Provider IMG US PROCEDURES Final Result * BI US Breast Limited Left (08/04/2024 11:42 AM EDT) Only the most recent of2 resultswithin the time period is included. Anatomical Region Laterality Modality Breast Left Ultrasound 08/04/2024 11:4 2 AM EDT Narrative 08/04/2024 1:29 PM EDT ? [facility] ? [address] ?[place] [address] ? Ultrasound Report ? Signed ? Patient: Rigo,Jeny ?MR#: [id number] ?? 6 ? : 1990 ?Acct:[id number] ? Age/Sex: 34 / F ?ADM Date: 03/24/25 ? Loc: HO.MAMMO ? Attending Dr: Hawa Lei MD ? Ordering Physician: Hawa Lei MD ?? Date of Service: 08/04/24 ?? Procedure(s): US breast LT limited mamm only ?? Accession Number(s): [id number] ? cc: Brenda Dangelo MD; Hawa Lei [...] DD/ 1142 ? TD/TT: 08/04/24 1205 ? Blueprint Engineer: ? Procedure Note Yolanda Posada - 08/04/2024 [facility] [address] [place], [place] [address] Ultrasound Report Signed Patient: Jeny Sierra#: [id number] 6 : 1990Acct:[id number] Age/Sex: 34 / FADM Date: 08/04/24 Loc: HO.MAMMO Attending Dr: Hawa Lei MD Ordering Physician: Hawa Lei MD Date of Service: 08/04/24 Procedure(s): US breast LT limited mamm only Accession Number(s): [id number] cc: Brenda Dangelo MD; Hawa Lei MD [...] 08/04/24 1327 DD/ 1142 TD/TT: 08/04/24 1205 Blueprint Engineer: [facility] External Provider IMG US PROCEDURES Final Result * (ABNORMAL) Vitamin D, 25-Hydroxy, Total, Immunoassay (07/28/2024 1:52 PM EDT) Vitamin D 25-OH Total 11.2(L) >30 ng/mL [facility] Comment: Health Based Reference Values*< 20 ??ng/mL ??Tcgszoxgl61-89 ng/mL ??Insufficient> 30 ??ng/mL ??Sufficient*Kayla MCKEON. N [...] Sawyer MD LAB BLOOD ORDERABLES Final Result [facility] [address] [place] [phone] [phone] * (ABNORMAL) Vitamin B12 (Cobalamin) and Folate Panel, Serum (07/28/2024 1:52 PM EDT) Vitamin B12 >2,000(H ) 200 - 900 pg/mL [facility] Comment:NORMAL 200-900 PG/ML INDETERMINATE 160-199 PG/ML DEFICIENT < 160 PG/ML Folate 11.4 > or = 4.0 ng/mL [facility] Comment:Reference Values:> o r = 4.0 [...] BLOOD ORDERABLES Final Result Performing Organization Address [facility] Co de Phone Number [facility] [address] [place] [phone] * TSH with Reflex to Free T4 (07/28/2024 1:52 PM EDT) TSH reflex Free T4 0.41 0.32 - 4.0 uIU/mL [facility] Blood Venous blood specimen / Unknown 07/28/2024 1:52 PM EDT 07/28/2024 4:29 PM EDT us Brenda Sawyer MD LAB BLOOD ORDERABLES Final Result Performing Organization Address [facility] Co de Phone Number [facility] [address] [place] [phone] * Hepatitis C Antibody with Reflex to HCV, RNA, Quantitative, Real-Time PCR (07/28/2024 1:52 PM EDT) Hepatitis C Antibody Nonreactive Nonreactive [facility] Comment:Antibodies to HCV no t detected; does not exclude early acuteHCV infection. Blood Venous blood specimen / Unknown 07/28/2024 1:52 PM EDT 07/28/2024 4:24 PM EDT us Brenda Sawyer MD LAB BLOOD ORDERABLES Final Result Performing Organization Address [facility]/ZIP Co de Phone Number [facility] [address] [place] [phone] * (ABNORMAL) Iron And Total Iron Binding Capacity (07/28/2024 1:52 PM EDT) Iron 34 30 - 160 mcg/dL [facility] Total Iron Binding Capacity 253 228 - 428 mcg/dL [facility] Percent Iron Saturation 13(L) 15 - 50 % [facility] Unsaturated Iron Binding 219 ug/dL [facility] Blood Venous blood specimen / Unknown 07/28/2024 1:52 PM EDT 07/28/2024 4:29 PM EDT us Brenda Sawyer MD LAB BLOOD ORDERABLES Final Result Performing Organization Address [facility] Co de Phone Number [facility] [address] [place] [phone] * HIV-1/2 Antigen and Antibodies, Fourth Generation, with Reflexes (07/28/2024 1:52 PM EDT) [facility] HIV AB/AG Nonreactive Nonreactive [facility] Comment:HIV-1 p24 Ag and/or HIV-1/HIV-2 Ab not detected.A test result that is nonreactive does not exclude thepossibility of exposure to or infection with HIV-1 and/orHIV-2. Nonreactive results in this assay for individualswith prior exposure to HIV-1 and/or HIV-2 may be due toantigen and antibody levels that are below the limit ofdetection of this assay.The [employer] HIV Ag/Ab Combo assay result andsupplemental assay results should be interpreted inconjunction with the patient's clinical presentation,history and other laboratory results. If the results areinconsistent with clinical evidence, additional testing issuggested to confirm the result. Blood Venous blood specimen / Unknown 07/28/2024 1:52 PM EDT 07/28/2024 4:24 PM EDT us Brenda Sawyer MD LAB BLOOD ORDERABLES Final Result Performing Organization Address [facility]/ZIP Co de Phone Number [facility] [address] [place] [phone] * Magnesium (07/28/2024 1:52 PM EDT) Magnesium 1.6 1.6 - 2.6 mg/dL [facility] 07/28/2024 1:52 PM EDT 07/28/2024 4:29 PM EDT us Generic External Data Provider LAB BLOOD ORDERAB LES Final Result Performing Organization Address [facility] Phone Number [facility] [address] [place] [phone] * Hemoglobin A1c (07/28/2024 1:52 PM EDT) Hemoglobin A1c 5.4 <6.0 % [facility] Comment:Hemoglobin A1C Refer ence Range Adults: 4.8 - 6.0 % Non diabetic: < 6.0 % Goal: < 7.0 %Additional Action Suggested: > 8.0 %Note: Hemoglobin A1c results are invalid for patients with abnormal amounts of HbF. Blood transfusions may impact the HbA1c concentration in the patient sample. Estimated Average Glucose 108 mg/dL [facility] Comment:eAG = Estimated ave rage glucose which is %A1C expressed asaverage glucose, using the formula of the Y1Y-ZgrcghaOyutlsa Glucose study (ADAG), Diabetes Care, Vol.31,#8,Dec. 2007 Blood Venous blood specimen / Unknown 07/28/2024 1:52 PM EDT 07/28/2024 4:29 PM EDT us Brenda Sawyer MD LAB BLOOD ORDERABLES Final Result Performing Organization Address [facility] Co de Phone Number [facility] [address] [place] [phone] * (ABNORMAL) Ferritin (07/28/2024 1:52 PM EDT) Ferritin 220(H) 10 - 122 ng/mL [facility] Blood Venous blood specimen / Unknown 07/28/2024 1:52 PM EDT 07/28/2024 4:29 PM EDT us Brenda Sawyer MD LAB BLOOD ORDERABLES Final Result Performing Organization Address City/[facility]/ZIP Co de Phone Number [facility] [address] [place] [phone] * (ABNORMAL) Lipid Panel, Standard (07/28/2024 1:52 PM EDT) Triglycerides 160(H) <150 mg/dL [facility] Comment:Desirable Triglyceri de: less than 150 mg/dLBorderline High Triglyceride 150-199 mg/dLHigh Triglyceride: 200-499 mg/dLVery High Triglyceride: greater than or equal to 5OO mg/dL Cholesterol 217(H) <200 mg/dL [facility] Comment:Desirable Cholestero l: less than 200 mg/dLBorderline High Cholesterol: 200-239 mg/dLHigh Cholesterol: greater than 239 mg/dL LDL Cholesterol Calculated 138(H) <100 mg/dL [facility] Comment:Desirable LDL: less than 100 mg/dLNear Optimal/Above Optimal LDL: 110- 129 mg/dLBorderline High LDL: 130-159 mg/dLHigh LDL: 160-189 mg/dLVery High LDL: greater than or equal to 190 mg/dL HDL Cholesterol 47 >40 mg/dL [facility] Comment:Desirable HDL: great er than 40 mg/dL Note: This HDL assay may give artificially low results in patients with liver disease. Blood Venous blood specimen / Unknown 07/28/2024 1:52 PM EDT 07/28/2024 4:29 PM EDT us Brenda Sawyer MD LAB BLOOD ORDERABLES Final Result [facility] [address] [place] [phone] [phone] * (ABNORMAL) Comprehensive Metabolic Panel (07/28/2024 1:52 PM EDT) Sodium 140 135 - 145 mmol/L [facility] Potassium 3.9 3.3 - 5.1 mmol/L [facility] Chloride 110(H) 96 - 108 mmol/L [facility] Carbon Dioxide 23 22 - 29 mmol/L [facility] Anion Gap 11(L) 12 - 20 [facility] Urea Nitrogen (BUN) 11 9 - 16 mg/dL [facility] Creatinine, Serum 0.72 0.5 - 1.4 mg/dL [facility] Estimated Glomerular Filt Rate >60 [facility] Comment:Chronic Kidney Disea se: Estimated GFR < 60 mL/min/1.43y2Udhdys Kidney Disease: Estimated GFR < 15 mL/min/1.73m2 Glucose 94 60 - 115 mg/dL [facility] Calcium 8.7 8.4 - 10.2 mg/dL [facility] Bilirubin, Total 0.4 0.0 - 1.0 mg/dL [facility] Aspartate Amino Transferase 70(H) 5 - 31 U/L [facility] Alanine Aminotransferase 127(H) 0 - 31 U/L [facility] Total Protein 7.1 6.5 - 8.0 g/dL [facility] Albumin Level 4.1 3.5 - 5.0 g/dL [facility] Alkaline Phosphatase 138(H) 39 - 117 U/L [facility] Blood Venous blood specimen / Unknown 07/28/2024 1:52 PM EDT 07/28/2024 4:29 PM EDT us Brenda Sawyer MD LAB BLOOD ORDERABLES Final Result [facility] [address] [place] [phone] * Hm Pap Smear (04/14/2021) Pap smear Performed Historical Provider HEALTH MAINTENANCE Final Result * HPV E6/E7 RFLX PORTIA 16 18/45 (04/13/2021 10:26 AM EST) HPV 16 RNA TNP [facility] HPV 18/45 RNA TNP [facility] HPV E6 E7 ADD TNP [facility] HPV mRNA E6/E7 rflx Not Detected Not Detected [facility] Comment: Methodology: Sheet Pile Hammer Operator-Mediated Amplification This assay detects E6/E7 viral messenger RNA (mRNA) from 14 high-risk HPV types (16,18,31,33,35,39,45,51,52,56,58,59,66,68). The analytical performance characteristics of this assay have been determined by [employer]. The modifications have not been cleared or approved by the FDA. This assay has been validated pursuant to the CLIA regulations and is used for clinical purposes. For additional information, please refer to http://education.Moogi/faq/ORU054d1 (This link if provided for information/ educational purposes only.) THIS TEST WAS PERFORMED AT: [facility] [address] [place] [address] [address] [place], [place] ??[id number] WILD BRICENO MD 04/13/2021 10:2 6 AM EST [place] HISTORICAL/NON ORDERABLE LABS Fi nal Result [facility] [address] from Last 3 Months or Most Recently Relevant to Health Maintenance [place] [address] C3 Care Teams Catering Barista Relationship Specialty Start Date End Date Brenda Dangelo MD [address] [place] [id number] PCP - General Internal Medicine 01/16/24 Astrid Mackay Animal Control Officer 07/10/24
--- OUTSIDE RECORDS SUMMARY | 2024-09-22 02:44 | XMS_ITS | Encounter Summary ---
Author Organization [employer] Address [address] [place] [address] Care Team Providers Care Cold Work Operator Name Role Phone Chip Banerjee Primary Care Provider Unavail able Debbie Logan Primary Care Provider [phone] Debbie Logan Primary Care Provider [phone] Dangelo MD Primary Care Provide r Reason for Visit * Reason Onset Date Comments Triage 08/30/2022 Encounter Details Date Type Department Care Team (Late st Contact Info) Description 08/30/2022 Telephone [facility] [address] [place] [phone] Chip Banerjee AGNP Triage Social History Tobacco [...] 17 weeks . Pt is going to [facility] at 10AM and will come to [facility] after to be seen by provider. Pt [...] Description 10/29/2024 10:15 AM EDT Office Visit [facility] [address] [place] [address] Brenda Dangelo MD [address] [place] [address] documented as of this encounter Visit Diagnoses Not on filedocumented in this encounter Care Teams Cold Work Operator Relationship Specialty Start Date End Date Chip Banerjee AGNP PCP - General Family Medicine 02/16/22 01/18/23 Debbie Logan FNP [address] [place] [address] PCP - General Family Medicine 01/19/23 06/14/23 Debbie Logan FNP [address] [place] [address] PCP - General Family Medicine 06/15/23 01/15/24 Brenda Dangelo MD [address] [place] [address] PCP - General Internal Medicine 01/16/24 Astrid Mackay Digital Imager 07/10/24 documented as of this encounter
== END 2024-09-22 02:41 | disposition home or self-care (01) ==
LOC: HO.ED 02:42
PROVIDERS: Emergency Provider Internal Medicine
DX: F10.220 Alcohol dependence with intoxication, uncomplicated (principal); Y90.9 Presence of alcohol in blood, level not specified; R45.1 Restlessness and agitation
CPT/HCPCS: 99282

== ENCOUNTER 2024-10-21 14:11 | Outpatient (AMB) | payer MEDICAID, SELFPAY ==
--- NOTE | 2024-10-21 14:14 | MHC.OFFVIS ---
Vital Signs 10/21/24 14:22 Height 5 ft 2 in Weight 148 lb BMI 27.1 BP 109/55 L Blood Pressure Location Rt brachial Position Sitting Pulse 91 Intake Visit Reasons: Hx breast CA Intake Note: Patient here for breast exam. Hx of Rt breast CA. Last evaluated by Dr. Luna 04-16-2024. Completed Taxol txt September 2024. Patient c/o:discuss Rt br lumpectomy. Feels mass on Rt axilla as well. 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 She had a palpable mass during her 1st trimester of her 5th last February,. The was terminated because of intrauterine . She said that this mass that she had increased in size either rapidly. A mammogram done showed a mass about 4.9 x 2.1 x 1.3 cm at the 9 o'clock position of the right breast with an enlarged axillary lymph node. Unfortunately, biopsies of this were done showing an invasive ductal carcinoma on both the breast mass as well as the lymph node. She was actually being seen by Dr. Luna was last seen in April,. She underwent neoadjuvant chemotherapy with Dr. Lei with Adriamycin and Cytoxan and has completed this already. Her 1st was the age of 25. Menarche was at age of 10. She was 5 times. There is no family history of breast cancer. She says that her right breast mass in her right axillary mass have shrunk significantly. [facility] Medical History (Updated 10/21/24 @ 14:41 by Onofre Dela Cruz MD) Invasive ductal carcinoma of breast Former smoker Anemia Surgical History Metastatic cancer to axillary lymph nodes No history of previous surgery Family History Maternal Grandmother Arthritis Asthma Maternal Grandfather Diabetes mellitus Maternal Aunt Breast cancer Father Throat cancer Paternal Grandfather Stomach cancer Social History Household Members: Children Both parents involved: Yes Caregiver staying overnight: No Housing: Apartment Are you a primary careers counsellor to a significant other at home: No Do you presently have visiting nurse or other home services: No 75 years or older and lives alone: No Unable to assess alcohol history related to: Unknown Alcohol intake: former Patient Tobacco Use Status: Former Tobacco user Agree to transfusion: Yes service: No Current occupational status: unemployed Sexual orientation: Straight/Heterosexual Gender identity: Female Female Reproductive History Menstrual Age of Menarche: 10 Review of Systems Const Denies chills and Denies fever(s) Card Denies chest pain, Denies dyspnea and Denies dyspnea on exertion Resp Denies cough, Denies dyspnea and Denies dyspnea on exertion GI Denies hematochezia and Denies change in bowel habits Denies hematuria Musc Denies back pain and Denies limited range of motion Neuro Denies focal weakness and Denies convulsions Psych Denies depression and Denies mood swings Physical Exam Vital Signs: Last Vital Signs Pulse 91 10/21/24 14:22 BP 109/55 L 10/21/24 14:22 BMI result Body Mass Index 27.1 Const General: comfortable and no acute distress Orientation/consciousness: patient oriented x3 Neck Neck: Yes no lymphadenopathy Chest Other: I am unable to palpate the mass on the right breast anymore. Resp Auscultation: clear to auscultation bilaterally Cardio Rhythm: regular rhythm GI Palpation (GI): Soft to palpation, nontender and no guarding Neuro General: patient oriented x3 Assessment & Plan Assessment & Plan (1) Invasive ductal carcinoma of breast: Code(s): C50.919 - Malignant neoplasm of unspecified site of unspecified female breast Category: Medical Plan: She has responded very well to neoadjuvant chemotherapy. I am unable to feel any obvious mass on the right breast or in the axilla I am going to order for an ultrasound her right breast to document size of the tumor. We can then plan on appropriate surgical treatment and she does state that she really wants to proceed with a breast conservation therapy I will were seen in the office after the ultrasound. I will discuss her case with Dr. Lei of Oncology as well. Coding Level of Care Code Est Pt Level 3 (49102) Diagnoses Invasive ductal carcinoma of breast C50.919
[2024-10-21 14:22] VITALS: BP 109/55; PULSE 91; BMI 27.1
--- OUTSIDE RECORDS SUMMARY | 2024-10-21 17:03 | XMS_ITS | Clinical Summary ---
Author Organization [facility] [address] [place] [address] [place] [address] Phone Care Team Providers Care Animal Humane Agent Supervisor Name Role Phone Unavailable Primary Care Provider [...] C Screening (05/25/2023) Hepatitis C Screening Abstracted [facility] Provider HEALTH MAINTENANCE Final Result * HIV Screening (05/23/2023) Pathologist [facility] HIV Screening Abstracted [facility] Provider HEALTH MAINTENANCE Final Result * Cervical Cancer Screening: HPV (08/02/2022) Cervical Cancer Screening: HPV Negative, abstracted [facility] Provider HEALTH MAINTENANCE Final Result from Last 3 Months or Most Recently Relevant to Health Maintenance Insurance MEDICAID - [place]
== END 2024-10-21 14:39 | disposition home or self-care (01) ==
LOC: HO.HGS 14:12
PROVIDERS: PCP Internal Medicine; Visit Provider Surgery
DX: C50.919 Malignant neoplasm of unspecified site of unspecified female breast (principal)
CPT/HCPCS: 99213

== ENCOUNTER → 2024-10-21 14:11 | Outpatient (BNVA) | payer MEDICAID, SELFPAY | PROVIDERS: PCP Internal Medicine; Visit Provider Surgery | DX: C50.811 Malignant neoplasm of overlapping sites of right female breast (principal); C77.3 Secondary and unspecified malignant neoplasm of axilla and upper limb lymph nodes | CPT/HCPCS: 99212 ==

== ENCOUNTER → 2024-10-24 08:00 | Outpatient (BNV) | payer MEDICAID, SELFPAY | PROVIDERS: PCP Internal Medicine; Visit Provider Internal Medicine | DX: N63.13 Unspecified lump in the right breast, lower outer quadrant (principal) | CPT/HCPCS: 76642 ==

== ENCOUNTER 2024-10-24 08:21 | Outpatient (REF) | payer MEDICAID, SELFPAY ==
--- NOTE | ~2024-10-24 | US_ITS ---
EXAMINATION: US DIAGNOSTIC ULTRASOUND BREAST, RIGHT CLINICAL INFORMATION: No right breast cancer with axillary metastasis assess response to neoadjuvant chemotherapy treatment. COMPARISON: Comparison is made with relevant prior imaging. Prior ultrasound August 04, 2024. Prior imaging dating back to 2023. TECHNIQUE: Ultrasound of the breast is performed with real-time lopes scale imaging and color Doppler. FINDINGS: Targeted color Doppler ultrasound scanning in the area of previously biopsy-proven invasive ductal carcinoma at 8-9 o'clock demonstrates the previously seen mass is more ill-defined slightly decreased from prior today measuring 28 mm x 13 mm given differences in measuring technique difficult to assess previously similar area measurements were 35 x 20. Targeted color Doppler ultrasound scanning in the right axilla demonstrates again seen an enlarged axillary lymph node approximately 15 x 16 mm previously 18 x 20 mm. There is a marker clip adjacent to the enlarged lymph node in the right axilla. Results are provided to the patient at time of visit by the technologist. US/US breast LT limited mamm only IMPRESSION: Slight decreased size of vague mass in the right breast 8-9 o'clock compared with ultrasound from July 2024. Slight decrease in size of enlarged abnormal right axillary lymph node. 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 Recommend clinical follow-up with oncology and breast surgeon for excision and further management. ASSESSMENT: BI-RADS 6: Known Biopsy-Proven Malignancy RECOMMENDATION: Recommend clinical follow up with oncology and breast surgeon for excision and further management of known right breast malignancy with metastases. Electronically signed by: Carola Simpson DO 10/24/2024 03:13 PM EDT
--- OUTSIDE RECORDS SUMMARY | 2024-10-24 08:29 | XMS_ITS | Clinical Summary ---
Author Organization [facility] [address] [place] [address] [place] [address] Phone Care Team Providers Care Staking Engineer Name Role Phone Unavailable Primary Care Provider [...] C Screening (05/25/2023) Hepatitis C Screening Abstracted [facility] Provider HEALTH MAINTENANCE Final Result * HIV Screening (05/23/2023) Pathologist [facility] HIV Screening Abstracted [facility] Provider HEALTH MAINTENANCE Final Result * Cervical Cancer Screening: HPV (08/02/2022) Cervical Cancer Screening: HPV Negative, abstracted [facility] Provider HEALTH MAINTENANCE Final Result from Last 3 Months or Most Recently Relevant to Health Maintenance Insurance MEDICAID - [place]
== END 2024-10-24 08:22 | disposition home or self-care (01) ==
LOC: HO.MAMMO 08:21
PROVIDERS: PCP Internal Medicine; Visit Provider Surgery
DX: C50.912 Malignant neoplasm of unspecified site of left female breast (principal)
CPT/HCPCS: 76642

== ENCOUNTER 2024-10-29 11:17 | Outpatient (AMB) | payer MEDICAID, SELFPAY ==
--- NOTE | 2024-10-29 11:17 | A.OFFVIS_ITS ---
Vital Signs 10/29/24 11:22 Height 5 ft 2 in Weight 148 lb BMI 27.1 BP 122/58 L Blood Pressure Location Rt brachial Position Sitting Pulse 70 Intake Visit Reasons: s/p US (R) breast 10/24/24 Intake Note: Patient here to discuss Rt br US from 10-24-2024 results. Patient c/o: no concerns. Dr. Lei follow up 11-04-2024. Java Solutions Architect Required: No Accompanied by: Self / Same As Patient Allergies No Known Allergies (No Known Allergies*) Allergy (Verified 10/29/24 11:22) HPI HPI s/p US (R) breast 10/24/24: Details: 34 year female here for follow-up for a right breast cancer. She had a palpable mass during her 1st trimester of her 5th last February,. The was terminated because of intrauterine . She said that this mass that she had increased in size either rapidly. A mammogram done showed a mass about 4.9 x 2.1 x 1.3 cm at the 9 o'clock position of the right breast with an enlarged axillary lymph node. Unfortunately, biopsies of this were done showing an invasive ductal carcinoma on both the breast mass as well as the lymph node. She was actually being seen by Dr. Dotsonco was last seen in April,. She underwent neoadjuvant chemotherapy with Dr. Lei with Adriamycin and Cytoxan and has completed this already. Her 1st was the age of 25. Menarche was at age of 10. She was 5 times. There is no family history of breast cancer. She says that her right breast mass in her right axillary mass have shrunk significantly. I saw her in the office last week and scheduled for a follow-up ultrasound. This shows that the area of the invasive ductal carcinoma at the 8 to 9 o'clock position slight decreased in size. Previous measurements was 35 x 20 mm and the ultrasound last week showed this to be 28 x 13 mm. Lymph node in the right axilla has also decreased in size from 18 x 20 mm to 15 x 16 mm. She otherwise denies any new complaints. [facility] Medical History Invasive ductal carcinoma of breast Former smoker Anemia Surgical History Metastatic cancer to axillary lymph nodes No history of previous surgery Family History Maternal Grandmother Arthritis Asthma Maternal Grandfather Diabetes mellitus Maternal Aunt Breast cancer Father Throat cancer Paternal Grandfather Stomach cancer Social History Household Members: Children Both parents involved: Yes Caregiver staying overnight: No Housing: Apartment Are you a primary ambulatory care coordinator to a significant other at home: No Do you presently have visiting nurse or other home services: No 75 years or older and lives alone: No Unable to assess alcohol history related to: Unknown Alcohol intake: former Patient Tobacco Use Status: Former Tobacco user Agree to transfusion: Yes service: No Current occupational status: unemployed Sexual orientation: Straight/Heterosexual Gender identity: Female Female Reproductive History Menstrual Age of Menarche: 10 Review of Systems Const Denies chills and Denies fever(s) Card Denies chest pain, Denies dyspnea and Denies dyspnea on exertion Resp Denies cough, Denies dyspnea and Denies dyspnea on exertion GI Denies hematochezia and Denies change in bowel habits Denies hematuria Musc Denies back pain and Denies limited range of motion Neuro Denies focal weakness and Denies convulsions Psych Denies depression and Denies mood swings Physical Exam Vital Signs: Last Vital Signs Pulse 70 10/29/24 11:22 BP 122/58 L 10/29/24 11:22 BMI result Body Mass Index 27.1 Const General: comfortable and no acute distress Orientation/consciousness: patient oriented x3 Neck Neck: Yes no lymphadenopathy Chest Other: Vague mass noted on the right breast as well as in the axilla representing her known right breast invasive ductal carcinoma with axillary lymph node metastasis Resp Auscultation: clear to auscultation bilaterally Cardio Rhythm: regular rhythm GI Palpation (GI): Soft to palpation, nontender and no guarding Neuro General: patient oriented x3 Assessment & Plan Assessment & Plan (1) Breast cancer, right: Code(s): C50.911 - Malignant neoplasm of unspecified site of right female breast Category: Medical Plan: She has a known invasive ductal carcinoma, ERPR positive with a positive lymph node metastasis She has finished neoadjuvant chemotherapy and radiation. Her follow-up ultrasound which I ordered last week shows slight decrease in the size of the right breast mass. I am going discuss the plan for definitive surgical treatment with her oncologist Dr. Lei. The patient is aware of the option of breast conservation therapy with axillary dissection or targeted axillary dissection, versus full mastectomy also with axillary dissection or targeted axillary dissection. She understands that breast conservation therapy may require whole breast radiation as adjuvant treatment. She understands the risks and benefits of each procedure. She understands the advantages and disadvantages of each surgical option compared to the other. She says she has not really made up her mind yet appeared she understands that there is always the option of proceeding with breast reconstruction if she decides to choose mastectomy. Coding Level of Care Code Est Pt Level 4 (49446) Diagnoses Breast cancer, right C50.911
[2024-10-29 11:22] VITALS: BP 122/58; PULSE 70; BMI 27.1
--- OUTSIDE RECORDS SUMMARY | 2024-10-29 13:08 | XMS_ITS | Clinical Summary ---
Author Organization [facility] [address] [place] [address] [place] [address] Phone Care Team Providers Care Speedometer Inspector Name Role Phone Unavailable Primary Care [...] C Screening (05/25/2023) Hepatitis C Screening Abstracted [facility] Provider HEALTH MAINTENANCE Final Result * HIV Screening (05/23/2023) Pathologist [facility] HIV Screening Abstracted [facility] Provider HEALTH MAINTENANCE Final Result * Cervical Cancer Screening: HPV (08/02/2022) Cervical Cancer Screening: HPV Negative, abstracted [facility] Provider HEALTH MAINTENANCE Final Result from Last 3 Months or Most Recently Relevant to Health Maintenance Insurance MEDICAID - [place]
== END 2024-10-29 11:42 | disposition home or self-care (01) ==
LOC: HO.HGS 11:17
PROVIDERS: PCP Internal Medicine; Visit Provider Surgery
DX: C50.911 Malignant neoplasm of unspecified site of right female breast (principal)
CPT/HCPCS: 99214

== ENCOUNTER → 2024-10-29 11:17 | Outpatient (BNVA) | payer MEDICAID, SELFPAY | PROVIDERS: PCP Internal Medicine; Visit Provider Surgery | DX: C50.811 Malignant neoplasm of overlapping sites of right female breast (principal); C77.3 Secondary and unspecified malignant neoplasm of axilla and upper limb lymph nodes; Z17.0 Estrogen receptor positive status [ER+]; Z17.21 Progesterone receptor positive status | CPT/HCPCS: 99212 ==

== ENCOUNTER 2024-11-05 11:24 | Outpatient (REF) | payer MEDICAID, SELFPAY ==
--- NOTE | ~2024-11-05 | MR_ITS ---
EXAMINATION: MR BREAST WITHOUT AND WITH CONTRAST, BILATERAL CLINICAL INFORMATION: Recently diagnosed right breast cancer February 2024 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 Evaluate for neoadjuvant chemotherapy assessment. COMPARISON: Comparison is made with relevant prior imaging. Breast MRI April 29, 2024 mammography March 2024 TECHNIQUE: MR imaging of the breasts was performed using T1, T2 and fat saturated techniques. Dynamic multiphase imaging was also performed after administration of intravenous gadolinium contrast agent. Computer generated 3D reconstruction and enhancement kinetic analysis was utilized by the radiologist in the interpretation of this examination. FINDINGS: Breast composition: There is heterogeneous fibroglandular breast tissue with moderate background enhancement. LEFT BREAST: No suspicious enhancing masses or areas of non mass enhancement. No axillary or internal mammary adenopathy. RIGHT BREAST: There is interval decrease size and conspicuity of area of nonmass enhancement in the lower outer central outer right breast today measuring 33 x 20 mm 40 mm anterior to posterior by transverse by superior to inferior compared with prior MRI April 2024. This biopsy-proven malignancy previously measured 60 x 24 x 44 (anterior to posterior by transverse by superior to inferior). Multiple prominent right axillary lymph nodes are decreased in size from priors these were consistent with metastatic disease.. Limited views of the chest and abdomen are unremarkable. MR/MR breast BI wo/w con IMPRESSION: Left: No MRI evidence of malignancy. Right: Biopsy-proven malignancy in the central outer right breast with decreased in mass appearance, enhancement is more nonmass enhancement and decreased in size and conspicuity. There is decreased size of known metastatic right axillary lymph nodes which still remains slightly prominent. ASSESSMENT: LEFT BREAST: BI-RADS 1 negative. RIGHT BREAST: BI-RADS 6 known biopsy-proven malignancy. RECOMMENDATIONS: Known biopsy-proven malignancy. The patient is under the care of a breast surgeon and oncology is for excision and further management. Electronically signed by: Carola Simpson DO 11/06/2024 11:53 AM EDT
[2024-11-05] MEDS: gadobutroL 7.5 ML VIAL IVPUSH (12:08)
--- OUTSIDE RECORDS SUMMARY | 2024-11-05 13:33 | XMS_ITS | Clinical Summary ---
Author Organization [facility] [address] [place] [address] [place] [address] Phone Care Team Providers Care Drywall Sprayer Name Role Phone Unavailable Primary Care Provider [...] C Screening (05/25/2023) Hepatitis C Screening Abstracted [facility] Provider HEALTH MAINTENANCE Final Result * HIV Screening (05/23/2023) Pathologist [facility] HIV Screening Abstracted [facility] Provider HEALTH MAINTENANCE Final Result * Cervical Cancer Screening: HPV (08/02/2022) Cervical Cancer Screening: HPV Negative, abstracted [facility] Provider HEALTH MAINTENANCE Final Result from Last 3 Months or Most Recently Relevant to Health Maintenance Insurance MEDICAID - [place]
== END 2024-11-05 11:25 | disposition home or self-care (01) ==
LOC: HO.MRI 11:24
PROVIDERS: PCP Internal Medicine; Visit Provider Surgery
DX: C50.911 Malignant neoplasm of unspecified site of right female breast (principal)
CPT/HCPCS: 77049; A9585

== ENCOUNTER → 2024-11-05 11:35 | Outpatient (BNV) | payer MEDICAID, SELFPAY | PROVIDERS: PCP Internal Medicine; Visit Provider Internal Medicine | DX: C50.611 Malignant neoplasm of axillary tail of right female breast (principal) | CPT/HCPCS: 77049 ==

== ENCOUNTER 2024-12-17 10:29 | Outpatient (AMB) | payer MEDICAID, SELFPAY ==
[2024-12-17 10:35] VITALS: BP 119/59; PULSE 71; BMI 26.9
--- NOTE | 2024-12-17 10:35 | MHC.OFFVIS ---
Vital Signs 12/17/24 10:35 Height 5 ft 2 in Weight 147 lb BMI 26.9 BP 119/59 L Blood Pressure Location Rt brachial Position Sitting Pulse 71 Intake Visit Reasons: Discuss surgery per MRI results, breast Intake Note: Patient here to discuss breast surgery. Biopsy-proven malignancy in the central outer right breast. Patient c/o: no concerns. 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 She had a palpable mass during her 1st trimester of her 5th last February,. The was terminated because of intrauterine . She said that this mass that she had increased in size either rapidly. A mammogram done showed a mass about 4.9 x 2.1 x 1.3 cm at the 9 o'clock position of the right breast with an enlarged axillary lymph node. Unfortunately, biopsies of this were done showing an invasive ductal carcinoma on both the breast mass as well as the lymph node. She was actually being seen by Dr. Luna was last seen in April,. She underwent neoadjuvant chemotherapy with Dr. Lei with Adriamycin and Cytoxan and has completed this already. Her 1st was the age of 25. Menarche was at age of 10. She was 5 times. There is no family history of breast cancer. She says that her right breast mass in her right axillary mass have shrunk significantly. I saw her in the office last week and scheduled for a follow-up ultrasound. This shows that the area of the invasive ductal carcinoma at the 8 to 9 o'clock position slight decreased in size. Previous measurements was 33 x 20 x 40 mm and the ultrasound last week showed this to be 28 x 13 mm. Lymph node in the right axilla has also decreased in size from 18 x 20 mm to 15 x 16 mm. She otherwise denies any new complaints. She was sent for an MRI of the breast to further assess response to neoadjuvant treatment. She is here to discuss surgical treatment. She says she feels well overall. [facility] Medical History Invasive ductal carcinoma of breast Former smoker Anemia Surgical History Metastatic cancer to axillary lymph nodes No history of previous surgery Family History Maternal Grandmother Arthritis Asthma Maternal Grandfather Diabetes mellitus Maternal Aunt Breast cancer Father Throat cancer Paternal Grandfather Stomach cancer Social History Household Members: Children Housing: Apartment Are you a primary managed care coordinator to a significant other at home: No Do you presently have visiting nurse or other home services: No Unable to assess alcohol history related to: Unknown Alcohol intake: former Patient Tobacco Use Status: Former Tobacco user Agree to transfusion: Yes service: No Current occupational status: unemployed Sexual orientation: Straight/Heterosexual Gender identity: Female Female Reproductive History Menstrual Age of Menarche: 10 Review of Systems Const Denies chills and Denies fever(s) Card Denies chest pain, Denies dyspnea and Denies dyspnea on exertion Resp Denies cough, Denies dyspnea and Denies dyspnea on exertion GI Denies hematochezia and Denies change in bowel habits Denies hematuria Musc Denies back pain and Denies limited range of motion Neuro Denies focal weakness and Denies convulsions Psych Denies depression and Denies mood swings Physical Exam Vital Signs: Last Vital Signs Pulse 71 12/17/24 10:35 BP 119/59 L 12/17/24 10:35 BMI result Body Mass Index 26.9 Const General: comfortable and no acute distress Orientation/consciousness: patient oriented x3 Neck Neck: Yes no lymphadenopathy Chest Other: Right breast with a vague mass laterally, size difficult to assess, no obvious palpable lymph node Resp Auscultation: clear to auscultation bilaterally Cardio Rhythm: regular rhythm GI Palpation (GI): Soft to palpation, nontender and no guarding Neuro General: patient oriented x3 Assessment & Plan Assessment & Plan (1) Invasive ductal carcinoma of breast: Code(s): C50.919 - Malignant neoplasm of unspecified site of unspecified female breast Category: Medical Plan: She has completed her neoadjuvant chemotherapy with Adriamycin and Cytoxan for invasive ductal cancer of the right breast. She had an MRI last 11/05/2024 to evaluate for response and this showed that the mass in the right breast has decreased in size from 60 x 24 x 44 mm to 33 x 20 x 40 mm. She had positive lymph node based on biopsies in the past as well but there currently is no palpable lymphadenopathy. I therefore explained to her that despite good response, the mass is still good sized especially relative to her breast. She insists on conservation therapy. I explained to her that the achieving negative margins might be challenging but she says that she is okay with significant breast asymmetry as long as the breast is preserved. She also understands that she is going to undergo radiation treatment after lumpectomy. I therefore explained to her the technique of lumpectomy with the Hologic localizer, as well as sentinel node biopsy. I reviewed the risks including but not limited to bleeding, infections, postop pain, hematoma, additional surgeries to achieve negative margins, as well as the benefits and alternatives. She says she has a good understanding of the treatment plan and states that she has been researching online about this herself. I have also discussed the above case with Dr. Simpson. She is going to place a localizer as well on the previously biopsied axillary lymph node. Orders: Orders NM sentinel node w imaging 12/17/24 C50.919 - Malignant neoplasm of unspecified site of unspecified female breast Coding Level of Care Code Est Pt Level 4 (93584) Diagnoses Invasive ductal carcinoma of breast C50.919
--- OUTSIDE RECORDS SUMMARY | 2024-12-17 11:10 | XMS_ITS | Clinical Summary ---
Author Organization [facility] Address [address] [place] [address] Care Team Providers Care Brush Stainer Name Role Phone Unavailable Primary Care Provider Unavailabl e Allergies No known active allergies Medications Medication Sig Dispensed Refills Start Date End Date Status 27-1 MG TABS Take 1 tablet by mouth daily. 0 12/11/2022 Active Active Problems Patient Care Coordination No te Formatting of this note migh t be different from the original. PCP: KRISTI HAMM [facility] NPI#[id number] Problem Noted Date Diagnosed Date Other specified [...] 77 02/01/2023 1:39 PM EDT Temperature 36.4 C (97.5 F) 02/01/2023 1:39 PM EDT Respiratory Rate - - Oxygen Saturation 98% [...] 3-dose series) 11/06/2014 10/09/2014 Influenza Vaccine (#1) 2025 02/20/2020, 2017 DTap / Tdap / Td [...] topic RigoJeny acosta Personal/Family Self [address] [address]
--- OUTSIDE RECORDS SUMMARY | 2024-12-17 11:10 | XMS_ITS | Clinical Summary ---
Author Organization [facility] [address] [place] [address] [place] [address] Phone Care Team Providers Care Firearms Expert Name Role Phone Unavailable Primary Care Provider [...] 5 Years) and At-Risk Patients (6 to 49 Years) (1 of 2 - PCV) 02/06/2007 Social Influencers of Health Screening 04/16/2022 Hepatitis B Vaccines (3 of 3 - 19+ 3-dose series) 09/12/2023 07/18/2023, 06/06/2023, 10/09/2014 Depression Screening 05/14/2024 Influenza Vaccine (#1) 2025 , 02/20/2020, 02/12/2018, Additional history exists Cervical Cancer [...] C Screening (05/25/2023) Hepatitis C Screening Abstracted [facility] Provider HEALTH MAINTENANCE Final Result * HIV Screening (05/23/2023) Pathologist [facility] HIV Screening Abstracted [facility] Provider [place]INTENA[place] Final Result * Cervical Cancer Screening: HPV (08/02/2022) Pathologist [facility] Cervical Cancer Screening: HPV Negative, abstracted [facility] Provider HEALTH MAINTENANCE Final Result from Last 3 Months or Most Recently Relevant to Health Maintenance Insurance MEDICAID - [place]
--- OUTSIDE RECORDS SUMMARY | 2024-12-17 11:10 | XMS_ITS | Encounter Summary ---
Author Organization [employer] Address [address] [place] [address] [address] [place] [address] Care Team Providers Care Inspector Packager Name Role Phone Debbie Logan Primary Care Provider [phone] Debbie Logan Primary Care Provider [phone] Brenda Dangelo MD Primary Care Provide r Encounter Details Date Type Department Care Team (Late st Contact Info) Description 02/09/2023 Abstract [facility] [address] [place] [address] Louann Leung Social History Tobacco Use Types [...] on file documented as of this encounter Visit Diagnoses Not on filedocumented in this encounter Care Teams Inspector Packager Relationship Specialty Start Date End Date Debbie Logan FNP [address] [place], [place] [phone] PCP - General Family Medicine 01/19/23 06/14/23 Debbie Logan FNP [address] [place] [address] PCP - General Family Medicine 06/15/23 01/15/24 Brenda Dangelo MD [address] [place] [id number] PCP - General Internal Medicine 01/16/24 documented as of this encounter
== END 2024-12-17 10:43 | disposition home or self-care (01) ==
LOC: HO.HGS 10:30
PROVIDERS: PCP Internal Medicine; Visit Provider Surgery
DX: C50.919 Malignant neoplasm of unspecified site of unspecified female breast (principal)
CPT/HCPCS: 99214

== ENCOUNTER → 2024-12-17 10:29 | Outpatient (BNVA) | payer MEDICAID, SELFPAY | PROVIDERS: PCP Internal Medicine; Visit Provider Surgery | DX: C50.411 Malignant neoplasm of upper-outer quadrant of right female breast (principal); C77.3 Secondary and unspecified malignant neoplasm of axilla and upper limb lymph nodes; Z92.21 Personal history of antineoplastic chemotherapy | CPT/HCPCS: 99212 ==

== ENCOUNTER 2025-01-02 13:56 | Outpatient (REF) | payer MEDICAID, SELFPAY ==
--- NOTE | ~2025-01-02 | XR_ITS ---
EXAMINATION: XR HAND, RIGHT CLINICAL INFORMATION: Right hand pain COMPARISON: None available. TECHNIQUE: PA, lateral, and oblique views of the right hand. FINDINGS: The bones and soft tissues are normal. No fracture. Alignment is anatomic. Joint spaces are maintained. No erosions or soft tissue calcifications. XR/XR hand RT min 3V IMPRESSION: Unremarkable right hand. Electronically signed by: Justin Flores MD 01/02/2025 02:18 PM EDT
--- OUTSIDE RECORDS SUMMARY | 2025-01-02 13:59 | XMS_ITS | Clinical Summary ---
Author Organization [facility] [address] [place] [address] [place] [address] Phone Care Team Providers Care Customer Marketing Assistant Name Role Phone Unavailable Primary Care [...] C Screening (05/25/2023) Hepatitis C Screening Abstracted [facility] Provider HEALTH MAINTENANCE Final Result * HIV Screening (05/23/2023) Pathologist [facility] HIV Screening Abstracted [facility] Provider [place] HEALTH MAINTENANCE Final Result * Cervical Cancer Screening: HPV (08/02/2022) Pathologist [facility] Cervical Cancer Screening: HPV Negative, abstracted [facility] Provider HEALTH MAINTENANCE Final Result from Last 3 Months or Most Recently Relevant to Health Maintenance Insurance MEDICAID - [place]
--- OUTSIDE RECORDS SUMMARY | 2025-01-02 13:59 | XMS_ITS | Encounter Summary ---
Author Organization [employer] Address [address] [place] [address] Care Team Providers Care Sales Representative Printing Supplies Name Role Phone Debbie Logan Primary Care Provider [phone] Debbie Logan Primary Care Provider [phone] Brenda Dangelo MD Primary Care Provide r Encounter Details Date Type Department Care Team (Late st Contact Info) Description 02/09/2023 Abstract [facility] MEDICINE [address] [place] [id number] Louann Leung Social History Tobacco Use Types [...] Upcoming Encounters Date Type Department Care Team (Latest Contact Info) Description 01/02/2025 2:00 PM EDT Office Visit [facility] [address] [place], [place] [phone] NameJovan MD [address] [place], [place] [phone] Flexor tenosynovitis of thumb (Primary Dx); Right hand pain documented as of this encounter Visit Diagnoses Not on filedocumented in this encounter Care Teams Sales Representative Printing Supplies Relationship Specialty Start Date End Date Debbie Logan FNP [address] [place] [address] PCP - General Family Medicine 01/19/23 06/14/23 Debbie Logan FNP [address] [place] [address] PCP - General Family Medicine 06/15/23 01/15/24 Brenda Dangelo MD [address] [place] [address] PCP - General Internal Medicine 01/16/24 documented as of this encounter
--- OUTSIDE RECORDS SUMMARY | 2025-01-02 13:59 | XMS_ITS | Clinical Summary ---
Author Organization [facility] Address [address] [place] [address] Care Team Providers Care Online Advertising Director Name Role Phone Unavailable Primary Care Provider Unavailabl e Allergies No known active allergies Medications Medication Sig Dispensed Refills Start Date End Date Status 27-1 MG TABS Take 1 tablet by mouth daily. 0 12/11/2022 Active Active Problems Patient Care Coordination No te Formatting of this note migh t be different from the original. PCP: KRISTI HAMM [facility] NPI#[id number] Problem Noted Date Diagnosed Date Other specified [...] topic RigoJeny acosta Personal/Family Self 1990 [address] [address]
== END 2025-01-02 13:57 | disposition home or self-care (01) ==
LOC: HO.HHCX 13:56
PROVIDERS: Visit Provider Internal Medicine Geriatric Medicine
DX: M79.641 Pain in right hand (principal); M65.941 Unspecified synovitis and tenosynovitis, right hand
CPT/HCPCS: 73130

== ENCOUNTER → 2025-01-02 13:58 | Outpatient (BNV) | payer MEDICAID, SELFPAY | PROVIDERS: Visit Provider Radiology Diagnostic Radiology | DX: M79.641 Pain in right hand (principal) | CPT/HCPCS: 73130 ==

== ENCOUNTER 2025-01-20 09:29 | Outpatient (REF) | payer MEDICAID, SELFPAY ==
--- NOTE | ~2025-01-20 | MM_ITS ---
EXAMINATION/PROCEDURE: 1. ULTRASOUND GUIDED RFID LOCALIZATION BREAST, RIGHT 2. ULTRASOUND GUIDED RFID LOCALIZATION AXILLA, RIGHT 3. MG BREAST DIAGNOSTIC UNILATERAL RIGHT CLINICAL INFORMATION: Patient is status post biopsy of the right right breast mass at 9 o'clock position at 5 cm from the nipple and right axillary lymph node on April 08, 2024. Pathology results showed invasive ductal carcinoma at both sites. An open coil clip was placed at the location of the right breast mass and a butterfly shape clip was placed in the right axilla. Patient is status post chemotherapy. Per discussion with Dr. Dela Cruz prior to the procedure, the localizer tag were to be placed within the biopsied right breast mass and within the biopsied right axillary lymph node. COMPARISON: Multiple prior studies, including most recent breast MRI on November 05, 2024, right breast ultrasound on October 24, 2024 and ultrasound-guided biopsy images on April 08, 2024. TECHNIQUE NEEDLE LOC: Proper informed consent is obtained from the patient after discussion of the procedure, potential risks and complications, and alternatives including declining the procedure today. Patient was given an opportunity for questions. The patient appeared to understand. The patient consented to the procedure and signed the consent form. GUIDANCE: Ultrasound. APPROACH: Lateral. TARGETS: 1. Biopsy-proven malignancy solid mass at 8:00-9:00 at 5 cm from the nipple with adjacent hydromark clip. 2. Abnormal right axillary lymph node with adjacent hydromark clip. ANESTHESIA: (6 cc of lidocaine 1% buffered with Sodium Bicarbonate 8.4 % (9cc: 1cc) at each site. LOCALIZATION SYSTEM: -[employer] LOCallizer Wire-Free Guidance System with 12g needle applicator. -Length: 7 cm. -RADIOFREQUENCY TAG: ID # [id number] placed within the right breast mass at 8-9:00 at 5 cm from the nipple. -RADIOFREQUENCY TAG: ID # [id number] placed within the abnormal right axillary lymph node. Both RF Tag IDs confirmed with LOCalizer Guidance System prior to placement. The skin is prepped and local anesthesia administered. The needle is positioned and RFID tag deployed in each intended target in the breast and in the axilla. Final images demonstrate the LOCalizer RF tag to reside adjacent to the open coil biopsy clip in the breast and butterfly biopsy clip in the axilla. The patient tolerated the procedure well and had no immediate complications. Dressing placed and home instructions reviewed. MM/MM diagnostic mammo unilat RT IMPRESSION: -Status post right breast RFID localization TAG ID# [id number]. - Status post right axilla RFID localization TAG ID# [id number]. Electronically signed by: Melvin Man MD 01/20/2025 12:36 PM EDT
--- NOTE | ~2025-01-20 | US_ITS ---
EXAMINATION/PROCEDURE: 1. ULTRASOUND GUIDED RFID LOCALIZATION BREAST, RIGHT 2. ULTRASOUND GUIDED RFID LOCALIZATION AXILLA, RIGHT 3. MG BREAST DIAGNOSTIC UNILATERAL RIGHT CLINICAL INFORMATION: Patient is status post biopsy of the right right breast mass at 9 o'clock position at 5 cm from the nipple and right axillary lymph node on April 08, 2024. Pathology results showed invasive ductal carcinoma at both sites. An open coil clip was placed at the location of the right breast mass and a butterfly shape clip was placed in the right axilla. Patient is status post chemotherapy. Per discussion with Dr. Dela Cruz prior to the procedure, the localizer tag were to be placed within the biopsied right breast mass and within the biopsied right axillary lymph node. COMPARISON: Multiple prior studies, including most recent breast MRI on November 05, 2024, right breast ultrasound on October 24, 2024 and ultrasound-guided biopsy images on April 08, 2024. TECHNIQUE NEEDLE LOC: Proper informed consent is obtained from the patient after discussion of the procedure, potential risks and complications, and alternatives including declining the procedure today. Patient was given an opportunity for questions. The patient appeared to understand. The patient consented to the procedure and signed the consent form. GUIDANCE: Ultrasound. APPROACH: Lateral. TARGETS: 1. Biopsy-proven malignancy solid mass at 8:00-9:00 at 5 cm from the nipple with adjacent hydromark clip. 2. Abnormal right axillary lymph node with adjacent hydromark clip. ANESTHESIA: (6 cc of lidocaine 1% buffered with Sodium Bicarbonate 8.4 % (9cc: 1cc) at each site. LOCALIZATION SYSTEM: -[employer] LOCallizer Wire-Free Guidance System with 12g needle applicator. -Length: 7 cm. -RADIOFREQUENCY TAG: ID # [id number] placed within the right breast mass at 8-9:00 at 5 cm from the nipple. -RADIOFREQUENCY TAG: ID # [id number] placed within the abnormal right axillary lymph node. Both RF Tag IDs confirmed with LOCalizer Guidance System prior to placement. The skin is prepped and local anesthesia administered. The needle is positioned and RFID tag deployed in each intended target in the breast and in the axilla. Final images demonstrate the LOCalizer RF tag to reside adjacent to the open coil biopsy clip in the breast and butterfly biopsy clip in the axilla. The patient tolerated the procedure well and had no immediate complications. Dressing placed and home instructions reviewed. US/US Breast RF Tag Device Addl IMPRESSION: -Status post right breast RFID localization TAG ID# [id number]. - Status post right axilla RFID localization TAG ID# [id number]. Electronically signed by: Melvin Man MD 01/20/2025 12:36 PM EDT
--- NOTE | ~2025-01-20 | US_ITS ---
EXAMINATION/PROCEDURE: 1. ULTRASOUND GUIDED RFID LOCALIZATION BREAST, RIGHT 2. ULTRASOUND GUIDED RFID LOCALIZATION AXILLA, RIGHT 3. MG BREAST DIAGNOSTIC UNILATERAL RIGHT CLINICAL INFORMATION: Patient is status post biopsy of the right right breast mass at 9 o'clock position at 5 cm from the nipple and right axillary lymph node on April 08, 2024. Pathology results showed invasive ductal carcinoma at both sites. An open coil clip was placed at the location of the right breast mass and a butterfly shape clip was placed in the right axilla. Patient is status post chemotherapy. Per discussion with Dr. Dela Cruz prior to the procedure, the localizer tag were to be placed within the biopsied right breast mass and within the biopsied right axillary lymph node. COMPARISON: Multiple prior studies, including most recent breast MRI on November 05, 2024, right breast ultrasound on October 24, 2024 and ultrasound-guided biopsy images on April 08, 2024. TECHNIQUE NEEDLE LOC: Proper informed consent is obtained from the patient after discussion of the procedure, potential risks and complications, and alternatives including declining the procedure today. Patient was given an opportunity for questions. The patient appeared to understand. The patient consented to the procedure and signed the consent form. GUIDANCE: Ultrasound. APPROACH: Lateral. TARGETS: 1. Biopsy-proven malignancy solid mass at 8:00-9:00 at 5 cm from the nipple with adjacent hydromark clip. 2. Abnormal right axillary lymph node with adjacent hydromark clip. ANESTHESIA: (6 cc of lidocaine 1% buffered with Sodium Bicarbonate 8.4 % (9cc: 1cc) at each site. LOCALIZATION SYSTEM: -4Blox LOCallizer Wire-Free Guidance System with 12g needle applicator. -Length: 7 cm. -RADIOFREQUENCY TAG: ID # [id number] placed within the right breast mass at 8-9:00 at 5 cm from the nipple. -RADIOFREQUENCY TAG: ID # [id number] placed within the abnormal right axillary lymph node. Both RF Tag IDs confirmed with LOCalizer Guidance System prior to placement. The skin is prepped and local anesthesia administered. The needle is positioned and RFID tag deployed in each intended target in the breast and in the axilla. Final images demonstrate the LOCalizer RF tag to reside adjacent to the open coil biopsy clip in the breast and butterfly biopsy clip in the axilla. The patient tolerated the procedure well and had no immediate complications. Dressing placed and home instructions reviewed. US/US Breast RF Tag Device Right IMPRESSION: -Status post right breast RFID localization TAG ID# [id number]. - Status post right axilla RFID localization TAG ID# [id number]. Electronically signed by: Melvin Man MD 01/20/2025 12:36 PM EDT
--- OUTSIDE RECORDS SUMMARY | 2025-01-20 10:56 | XMS_ITS | Clinical Summary ---
Author Organization [facility] Address [address] [place] [address] Care Team Providers Care Actuarial Trainee Name Role Phone Unavailable Primary Care Provider Unavailabl e Allergies No known active allergies Medications Medication Sig Dispensed Refills Start Date End Date Status 27-1 MG TABS Take 1 tablet by mouth daily. 0 12/11/2022 Active Active Problems Patient Care Coordination No te Formatting of this note migh t be different from the original. PCP: KRISTI HAMM [facility] NPI#[id number] Problem Noted Date Diagnosed Date Other specified [...] topic RigoJeny acosta Personal/Family Self [address] [address]
--- OUTSIDE RECORDS SUMMARY | 2025-01-20 10:56 | XMS_ITS | Clinical Summary ---
Author Organization [facility] [address] [place] [address] [place] [address] Phone Care Team Providers Care Cna Hha Name Role Phone Unavailable Primary Care Provider [...] C Screening (05/25/2023) Hepatitis C Screening Abstracted [facility] Provider HEALTH MAINTENANCE Final Result * HIV Screening (05/23/2023) Pathologist [facility] HIV Screening Abstracted [facility] Provider [place] HEALTH MAINTENANCE Final Result * Cervical Cancer Screening: HPV (08/02/2022) Pathologist [facility] Cervical Cancer Screening: HPV Negative, abstracted [facility] Provider HEALTH MAINTENANCE Final Result from Last 3 Months or Most Recently Relevant to Health Maintenance Insurance [place] - [place]
[2025-01-20] MEDS: Lidocaine HCl 1 % 20 ML VIAL 16 ML SUBCUT (11:07)
== END 2025-01-20 09:30 | disposition home or self-care (01) ==
LOC: HO.MAMMO 09:29
PROVIDERS: PCP Internal Medicine; Visit Provider Surgery
DX: C50.911 Malignant neoplasm of unspecified site of right female breast (principal); Z12.31 Encounter for screening mammogram for malignant neoplasm of breast
CPT/HCPCS: 19285; 19286; 77065; C1819; J2003

== ENCOUNTER → 2025-01-20 09:30 | Outpatient (BNV) | payer MEDICAID, SELFPAY | PROVIDERS: PCP Internal Medicine; Visit Provider Radiology Body Imaging | DX: N63.15 Unspecified lump in the right breast, overlapping quadrants (principal) | CPT/HCPCS: 19285; 19286; 77065 ==

== ENCOUNTER 2025-01-27 07:21 | Day surgery (SDC) | payer MEDICAID, SELFPAY ==
--- OUTSIDE RECORDS SUMMARY | 2025-01-21 16:57 | XMS_ITS | Encounter Summary ---
Author Organization [employer] Address [address] [place] [address] [address] [place] [address] Care Team Providers Care Golf Course Starter Name Role Phone Debbie Logan Primary Care Provider [phone] Debbie Logan Primary Care Provider [phone] Brenda Dangelo MD Primary Care Provide r Encounter Details Date Type Department Care Team (Late st Contact Info) Description 02/09/2023 Abstract [facility] MED[facility]INE [address] [place] [address] Louann Leung Social History Tobacco Use Types [...] on filedocumented in this encounter Care Teams Golf Course Starter Relationship Specialty Start Date End Date Debbie Logan FNP [address] [place], [place] [phone] PCP - General Family Medicine 01/19/23 06/14/23 Debbie Logan FNP [address] [place] [address] PCP - General Family Medicine 06/15/23 01/15/24 Brenda Dangelo MD [address] [place] [id number] PCP - General Internal Medicine 01/16/24 documented as of this encounter
--- OUTSIDE RECORDS SUMMARY | 2025-01-21 16:57 | XMS_ITS | Clinical Summary ---
Author Organization [facility] Address [address] [place] [address] Care Team Providers Care Elevator Troubleshooter Name Role Phone Unavailable Primary Care Provider Unavailabl e Allergies No known active allergies Medications Medication Sig Dispensed Refills Start Date End Date Status 27-1 MG TABS Take 1 tablet by mouth daily. 0 12/11/2022 Active Active Problems Patient Care Coordination No te Formatting of this note migh t be different from the original. PCP: KRISTI H[facility] NPI#[id number] Problem Noted Date Diagnosed Date Other specified [...] RigoJeny acosta Personal/Family Self [address] [address]
--- OUTSIDE RECORDS SUMMARY | 2025-01-21 16:57 | XMS_ITS | Clinical Summary ---
Author Organization [facility] [address] [place] [address] [place] [address] Phone Care Team Providers Care Nutrition Tech Name Role Phone Unavailable Primary Care Provider [...] C Screening (05/25/2023) Hepatitis C Screening Abstracted [facility] Provider HEALTH MAINTENANCE Final Result * HIV Screening (05/23/2023) Pathologist [facility] HIV Screening Abstracted [facility] Provider [place] HEALTH MAINTENANCE Final Result * Cervical Cancer Screening: HPV (08/02/2022) Pathologist [facility] Cervical Cancer Screening: HPV Negative, abstracted [facility] Provider HEALTH MAINTENANCE Final Result from Last 3 Months or Most Recently Relevant to Health Maintenance Insurance [place]ICAID - [place]
--- OUTSIDE RECORDS SUMMARY | 2025-01-21 16:58 | XMS_ITS | Encounter Summary ---
Author Organization [employer] Address [address] [facility] [address] [place] [address] Care Team Providers Care Sleep Technologist Name Role Phone Chip Banerjee Primary Care Provider Unavail able Debbie Logan Primary Care Provider [phone] Debbie Logan Primary Care Provider [phone] Brenda Dangelo MD Primary Care Provide r Reason for Visit * Reason Onset Date Comments Triage 08/30/2022 Encounter Details Date Type Department Care Team (Late st Contact Info) Description 08/30/2022 Telephone [facility] MEDICINE [address] [place] [phone] Chip Banerjee AGNP Triage Social History Tobacco [...] 17 weeks . Pt is going to [facility] [facility] at 10[facility] and will come to [facility] after to be seen by provider. [...] documented in this encounter Plan of Treatment Not on file documented as of this encounter Visit Diagnoses Not on filedocumented in this encounter Care Teams Sleep Technologist Relationship Specialty Start Date End Date Chip Banerjee AGNP PCP - General Family Medicine 02/16/22 01/18/23 Debbie Logan FNP [address] [place] [address] PCP - General Family Medicine 01/19/23 06/14/23 Debbie Logan FNP [address] [place] [address] PCP - General Family Medicine 06/15/23 01/15/24 Brenda Dangelo MD [address] [place] [address] PCP - General Internal Medicine 01/16/24 documented as of this encounter
--- OUTSIDE RECORDS SUMMARY | 2025-01-21 16:58 | XMS_ITS | Encounter Summary ---
Author Organization [employer] Address [address] [facility] [address] [place] [address] Care Team Providers Care Creping Machine Operator Name Role Phone Debbie Logan WILIAN Primary Care Provider [phone] Brenda Dangelo MD Primary Care Provide r Encounter Details Date Type Department Care Team ([facility] Contact Info) Description 06/23/2023 Orders Only [facility] [address] [place], [place] [phone] Perry Miguel MD [address] [place] [address] Hematuria, unspecified type (Primary Dx) Social History [...] as of this encounter Plan of Treatment Scheduled Orders Name Type Priority Associated Diagnoses Orde r Schedule Urinalysis with reflex microscopic Lab Routine Hematuria, unspecified type Expected: 06/23/2023, Expires: 06/23/2024 documented as of this encounter Visit Diagnoses Diagnosis Hematuria, unspecified type- Primary documented in this encounter Additional Health Concerns Assessment Noted Time PHQ-9 Depression Total Score: 0 05/23/19 24 10:43 AM EST documented as of this encounter Care Teams Creping Machine Operator Relationship Specialty Start Date End Date Debbie Logan FNP [address] [place] [address] PCP - General Family Medicine 06/15/23 01/15/24 Brenda Dangelo MD [address] [place] [address] PCP - General Internal Medicine 01/16/24 documented as of this encounter
--- OUTSIDE RECORDS SUMMARY | 2025-01-21 16:58 | XMS_ITS | Encounter Summary ---
Author Organization [employer] Address [address] [place] [address] Care Team Providers Care Hydrologist Name Role Phone Brenda Dangelo MD Primary Care Provide r Encounter Details Date Type Department Care Team ([facility] Contact Info) Description 01/20/2025 Orders Only [facility] External Provider, [facility] Social History Tobacco Use Types Packs/Day Years Used Date Smoking Tobacco: Former Cigarettes 0.5 15 2018 Passive Smoke Exposure: Never Smokeless Tobacco: Never Alcohol Use Standard Drinks/Week Comments Never 0 (1 standard drink = 0.6 oz pur e alcohol) Depression Answer Date Recorded Patient Health Questionnaire-9 Score 0 10/29/2024 Patient Health Questionnaire-9 Score 0 10/29/2024 Last PHQ-9: Questionnaire Data Not on file 0 10/29/2024 Housing Stability Answer Date Recorded What is [...] t he electric, gas, oil or water Seriosity threatened to shut off services in your home? No 04/02/2024 Depression Answer Date Recorded Patient Health Questionnaire-2 Score 0 10/29/2024 Internet Access Answer Date Recorded Internet Access [...] Priority Date/Time Associated Diagnosis Comments BI MAMMOGRAM DIAGNOSTIC RIGHT Routine 01/20/2025 11:00 AM EDT US BREAST RF TAG DEVICE ADDL Routine 01/20/2025 9:50 AM EDT US BREAST NEEDLE LOC RT - RFID Routine 01/20/2025 9:50 AM EDT documented in this encounter Results * Mammogram Diagnostic Right (01/20/2025 11:00 AM EDT) Anatomical Region Laterality Modality Breast Right Mammography 01/20/2025 11:0 0 AM EDT Narrative 01/20/2025 12:39 PM EDT [facility] [address] [place] [address] Mammography Report Signed Patient: Jeny Sierra MR#: [id number] 6 : 1990 Acct:[id number] Age/Sex: 34 / F ADM Date: 01/20/25 Loc: HO.MAMMO Attending Dr: Onofre Dela Cruz MD Ordering Physician: Onofre Dela Cruz MD Results: 6Kno wn Biopsy Proven Malignancy Date of Service: 01/20/25 Follow Up: Surgical Consult Procedure(s): MM diagnostic mammo unilat RT Accession Number(s): [id number] cc: Brenda Dangelo MD; Onofre Dela Cruz MD EXAMINATION/PROCEDURE: 1. ULTRASOUND GUIDED RFID LOCALIZATION BREAST, RIGHT 2. ULTRASOUND GUIDED RFID LOCALIZATION AXILLA, RIGHT 3. MG BREAST DIAGNOSTIC UNILATERAL RIGHT CLINICAL INFORMATION: Patient is status post biopsy of the right right breast mass at 9 o'clock position at 5 cm from the nipple and right axillary lymph node on April 08, 2024. Pathology results showed invasive ductal carcinoma at both sites. An open coil clip was placed at the location of the right breast mass and a butterfly shape clip was placed in the right axilla. Patient is status post chemotherapy. Per discussion with Dr. Dela Cruz prior to the procedure, the localizer tag were to be placed within the biopsied right breast mass and within the biopsied right axillary lymph node. COMPARISON: Multiple prior studies, including most recent breast MRI on November 05, 2024, right breast ultrasound on October 24, 2024 and ultrasound-guided biopsy images on April 08, 2024. TECHNIQUE NEEDLE LOC: Proper informed consent is obtained from the patient after discussion of the procedure, potential risks and complications, and alternatives including declining the procedure today. Patient was given an opportunity for questions. The patient appeared to understand. The patient consented to the procedure and signed the consent form. GUIDANCE: Ultrasound. APPROACH: Lateral. TARGETS: 1. Biopsy-proven malignancy solid mass at 8:00-9:00 at 5 cm from the nipple with adjacent hydromark clip. 2. Abnormal right axillary lymph node with adjacent hydromark clip. ANESTHESIA: (6 cc of lidocaine 1% buffered with Sodium Bicarbonate 8.4 % (9cc: 1cc) at each site. LOCALIZATION SYSTEM: -FunnelFire LOCallizer Wire-Free Guidance System with 12g needle applicator. -Length: 7 cm. -RADIOFREQUENCY TAG: ID # [id number] placed within the right breast mass at 8-9:00 at 5 cm from the nipple. -RADIOFREQUENCY TAG: ID # [id number] placed within the abnormal right axillary lymph node. Both RF Tag IDs confirmed with LOCalizer Guidance System prior to placement. The skin is prepped and local anesthesia administered. The needle is positioned and RFID tag deployed in each intended target in the breast and in the axilla. Final images demonstrate the LOCalizer RF tag to reside adjacent to the open coil biopsy clip in the breast and butterfly biopsy clip in the axilla. The patient tolerated the procedure well and had no immediate complications. Dressing placed and home instructions reviewed. MM/MM diagnostic mammo unilat RT IMPRESSION: -Status post right breast RFID localization TAG ID# [id number]. - Status post right axilla RFID localization TAG ID# [id number]. Electronically signed by: Melvin Man MD 01/20/2025 12:36 PM EDT Dictated By: Melvin Man MD Signed By: <Electronically signed by Melvin Man MD in OV> 01/20/25 1236 DD/ 1100 TD/TT: 01/20/25 1112 Business And Services Instructor: Procedure Note Donotuseinterpreter, Image - 01/20/2025 [facility] [address] [place] [address] Mammography Report Signed Patient: Jeny SierraMR#: [id number] 6 : 1990Acct:[id number] Age/Sex: 34 / FADM Date: 01/20/25 Loc: HO.MAMMO Attending Dr: Onofre Dela Cruz MD Ordering Physician: Onofre Dela Cruzesults: 6Kno wn Biopsy Proven Malignancy Date of Service: 01/20/25Follow Up: Surgical Consult Procedure(s): MM diagnostic mammo unilat RT Accession Number(s): [id number] cc: Brenda Dangelo MD; Onofre Dela Cruz MD EXAMINATION/PROCEDURE: 1. ULTRASOUND GUIDED RFID LOCALIZATION BREAST, RIGHT 2. ULTRASOUND GUIDED RFID LOCALIZATION AXILLA, RIGHT 3. MG BREAST DIAGNOSTIC UNILATERAL RIGHT CLINICAL INFORMATION: Patient is status post biopsy of the right right breast mass at 9 o'clock position at 5 cm from the nipple and right axillary lymph node on April 08, 2024. Pathology results showed invasive ductal carcinoma at both sites. An open coil clip was placed at the location of the right breast mass and a butterfly shape clip was placed in the right axilla. Patient is status post chemotherapy. Per discussion with Dr. Dela Cruz prior to the procedure, the localizer tag were to be placed within the biopsied right breast mass and within the biopsied right axillary lymph node. COMPARISON: Multiple prior studies, including most recent breast MRI on November 05, 2024, right breast ultrasound on October 24, 2024 and ultrasound-guided biopsy images on April 08, 2024. TECHNIQUE NEEDLE LOC: Proper informed consent is obtained from the patient after discussion of the procedure, potential risks and complications, and alternatives including declining the procedure today. Patient was given an opportunity for questions. The patient appeared to understand. The patient consented to the procedure and signed the consent form. GUIDANCE: Ultrasound. APPROACH: Lateral. TARGETS: 1. Biopsy-proven malignancy solid mass at 8:00-9:00 at 5 cm from the nipple with adjacent hydromark clip. 2. Abnormal right axillary lymph node with adjacent hydromark clip. ANESTHESIA: (6 cc of lidocaine 1% buffered with Sodium Bicarbonate 8.4 % (9cc: 1cc) at each site. LOCALIZATION SYSTEM: -FunnelFire LOCallizer Wire-Free Guidance System with 12g needle applicator. -Length: 7 cm. -RADIOFREQUENCY TAG: ID # [id number] placed within the right breast mass at 8-9:00 at 5 cm from the nipple. -RADIOFREQUENCY TAG: ID # [id number] placed within the abnormal right axillary lymph node. Both RF Tag IDs confirmed with LOCalizer Guidance System prior to placement. The skin is prepped and local anesthesia administered. The needle is positioned and RFID tag deployed in each intended target in the breast and in the axilla. Final images demonstrate the LOCalizer RF tag to reside adjacent to the open coil biopsy clip in the breast and butterfly biopsy clip in the axilla. The patient tolerated the procedure well and had no immediate complications. Dressing placed and home instructions reviewed. MM/MM diagnostic mammo unilat RT IMPRESSION: -Status post right breast RFID localization TAG ID# [id number]. - Status post right axilla RFID localization TAG ID# [id number]. Electronically signed by: Melvin Man MD 01/20/2025 12:36 PM EDT Dictated By: Melvin Man MD Signed By: <Electronically signed by Melvin Mna MD in OV> 01/20/25 1236 DD/ 1100 TD/TT: 01/20/25 1112 Business And Services Instructor: [facility] External Provider IMG BI PROCEDURES Edited Result - Final * US breast RF Tag Device Addl (01/20/2025 9:50 AM EDT) Anatomical Region Laterality Modality Abdomen Ultrasound 01/20/2025 9:50 AM EDT Narrative 01/20/2025 12:39 PM EDT [facility] [address] [place] [address] Ultrasound Report Signed Patient: Jeny Sierra MR#: [id number] 6 : 1990 Acct:[id number] Age/Sex: 34 / F ADM Date: 01/20/25 Loc: HO.MAMMO Attending Dr: Onofre Dela Cruz MD Ordering Physician: Onofre Dela Cruz MD Date of Service: 01/20/25 Procedure(s): US Breast RF Tag Device Addl Accession Number(s): [id number] cc: Brenda Dangelo MD; Onofre Dela Cruz MD Reason for Exam: EXAMINATION/PROCEDURE: 1. ULTRASOUND GUIDED RFID LOCALIZATION BREAST, RIGHT 2. ULTRASOUND GUIDED RFID LOCALIZATION AXILLA, RIGHT 3. MG BREAST DIAGNOSTIC UNILATERAL RIGHT CLINICAL INFORMATION: Patient is status post biopsy of the right right breast mass at 9 o'clock position at 5 cm from the nipple and right axillary lymph node on April 08, 2024. Pathology results showed invasive ductal carcinoma at both sites. An open coil clip was placed at the location of the right breast mass and a butterfly shape clip was placed in the right axilla. Patient is status post chemotherapy. Per discussion with Dr. Dela Cruz prior to the procedure, the localizer tag were to be placed within the biopsied right breast mass and within the biopsied right axillary lymph node. COMPARISON: Multiple prior studies, including most recent breast MRI on November 05, 2024, right breast ultrasound on October 24, 2024 and ultrasound-guided biopsy images on April 08, 2024. TECHNIQUE NEEDLE LOC: Proper informed consent is obtained from the patient after discussion of the procedure, potential risks and complications, and alternatives including declining the procedure today. Patient was given an opportunity for questions. The patient appeared to understand. The patient consented to the procedure and signed the consent form. GUIDANCE: Ultrasound. APPROACH: Lateral. TARGETS: 1. Biopsy-proven malignancy solid mass at 8:00-9:00 at 5 cm from the nipple with adjacent hydromark clip. 2. Abnormal right axillary lymph node with adjacent hydromark clip. ANESTHESIA: (6 cc of lidocaine 1% buffered with Sodium Bicarbonate 8.4 % (9cc: 1cc) at each site. LOCALIZATION SYSTEM: -FunnelFire LOCallizer Wire-Free Guidance System with 12g needle applicator. -Length: 7 cm. -RADIOFREQUENCY TAG: ID # [id number] placed within the right breast mass at 8-9:00 at 5 cm from the nipple. -RADIOFREQUENCY TAG: ID # [id number] placed within the abnormal right axillary lymph node. Both RF Tag IDs confirmed with LOCalizer Guidance System prior to placement. The skin is prepped and local anesthesia administered. The needle is positioned and RFID tag deployed in each intended target in the breast and in the axilla. Final images demonstrate the LOCalizer RF tag to reside adjacent to the open coil biopsy clip in the breast and butterfly biopsy clip in the axilla. The patient tolerated the procedure well and had no immediate complications. Dressing placed and home instructions reviewed. US/US Breast RF Tag Device Addl IMPRESSION: -Status post right breast RFID localization TAG ID# [id number]. - Status post right axilla RFID localization TAG ID# [id number]. Electronically signed by: Melvin Man MD 01/20/2025 12:36 PM EDT Dictated By: Melvin Man MD Signed By: <Electronically signed by Melvin Man MD in OV> 01/20/25 1236 DD/ 0950 TD/TT: 01/20/25 1109 Business [employer] Services Instructor: Procedure Note Donotuseinterpreter, Image - 01/20/2025 [facility] [address] [place] [address] Ultrasound Report Signed Patient: Jeny SierraMR#: [id number] 6 : 1990Acct:[id number] Age/Sex: 34 / FADM Date: 01/20/25 Loc: HO.MAMMO Attending Dr: Onofre Dela Cruz MD Ordering Physician: Onofre Dela Cruz MD Date of Service: 01/20/25 Procedure(s): US Breast RF Tag Device Addl Accession Number(s): [id number] cc: Brenda Dangelo MD; Onofre Dela Cruz MD Reason for Exam: EXAMINATION/PROCEDURE: 1. ULTRASOUND GUIDED RFID LOCALIZATION BREAST, RIGHT 2. ULTRASOUND GUIDED RFID LOCALIZATION AXILLA, RIGHT 3. MG BREAST DIAGNOSTIC UNILATERAL RIGHT CLINICAL INFORMATION: Patient is status post biopsy of the right right breast mass at 9 o'clock position at 5 cm from the nipple and right axillary lymph node on April 08, 2024. Pathology results showed invasive ductal carcinoma at both sites. An open coil clip was placed at the location of the right breast mass and a butterfly shape clip was placed in the right axilla. Patient is status post chemotherapy. Per discussion with Dr. Dela Cruz prior to the procedure, the localizer tag were to be placed within the biopsied right breast mass and within the biopsied right axillary lymph node. COMPARISON: Multiple prior studies, including most recent breast MRI on November 05, 2024, right breast ultrasound on October 24, 2024 and ultrasound-guided biopsy images on April 08, 2024. TECHNIQUE NEEDLE LOC: Proper informed consent is obtained from the patient after discussion of the procedure, potential risks and complications, and alternatives including declining the procedure today. Patient was given an opportunity for questions. The patient appeared to understand. The patient consented to the procedure and signed the consent form. GUIDANCE: Ultrasound. APPROACH: Lateral. TARGETS: 1. Biopsy-proven malignancy solid mass at 8:00-9:00 at 5 cm from the nipple with adjacent hydromark clip. 2. Abnormal right axillary lymph node with adjacent hydromark clip. ANESTHESIA: (6 cc of lidocaine 1% buffered with Sodium Bicarbonate 8.4 % (9cc: 1cc) at each site. LOCALIZATION SYSTEM: -FunnelFire LOCallizer Wire-Free Guidance System with 12g needle applicator. -Length: 7 cm. -RADIOFREQUENCY TAG: ID # [id number] placed within the right breast mass at 8-9:00 at 5 cm from the nipple. -RADIOFREQUENCY TAG: ID # [id number] placed within the abnormal right axillary lymph node. Both RF Tag IDs confirmed with LOCalizer Guidance System prior to placement. The skin is prepped and local anesthesia administered. The needle is positioned and RFID tag deployed in each intended target in the breast and in the axilla. Final images demonstrate the LOCalizer RF tag to reside adjacent to the open coil biopsy clip in the breast and butterfly biopsy clip in the axilla. The patient tolerated the procedure well and had no immediate complications. Dressing placed and home instructions reviewed. US/US Breast RF Tag Device Addl IMPRESSION: -Status post right breast RFID localization TAG ID# [id number]. - Status post right axilla RFID localization TAG ID# [id number]. Electronically signed by: Melvin Man MD 01/20/2025 12:36 PM EDT Workstation: [employer] Dictated By: Melvin Man MD Signed By: <Electronically signed by Melvin Man MD in OV> 01/20/25 1236 DD/ 0950 TD/TT: 01/20/25 1109 Business And Services Instructor: [facility] External Provider IMG US PROCEDURES Edited Result - Final * US breast needle loc RT - RFID (01/20/2025 9:50 AM EDT) Anatomical Region Laterality Modality Abdomen Ultrasound 01/20/2025 9:50 AM EDT Narrative 01/20/2025 12:39 PM EDT [facility] [address] [place] [address] Ultrasound Report Signed Patient: Jeny Sierra MR#: [id number] 6 : 1990 Acct:[id number] Age/Sex: 34 / F ADM Date: 01/20/25 Loc: HO.MAMMO Attending Dr: Onofre Dela Cruz MD Ordering Physician: Onofre Dela Cruz MD Date of Service: 01/20/25 Procedure(s): US Breast RF Tag Device Right Accession Number(s): [id number] cc: Brenda Dangelo MD; Onofre Dela Cruz MD Reason for Exam: EXAMINATION/PROCEDURE: 1. ULTRASOUND GUIDED RFID LOCALIZATION BREAST, RIGHT 2. ULTRASOUND GUIDED RFID LOCALIZATION AXILLA, RIGHT 3. MG BREAST DIAGNOSTIC UNILATERAL RIGHT CLINICAL INFORMATION: Patient is status post biopsy of the right right breast mass at 9 o'clock position at 5 cm from the nipple and right axillary lymph node on April 08, 2024. Pathology results showed invasive ductal carcinoma at both sites. An open coil clip was placed at the location of the right breast mass and a butterfly shape clip was placed in the right axilla. Patient is status post chemotherapy. Per discussion with Dr. Dela Cruz prior to the procedure, the localizer tag were to be placed within the biopsied right breast mass and within the biopsied right axillary lymph node. COMPARISON: Multiple prior studies, including most recent breast MRI on November 05, 2024, right breast ultrasound on October 24, 2024 and ultrasound-guided biopsy images on April 08, 2024. TECHNIQUE NEEDLE LOC: Proper informed consent is obtained from the patient after discussion of the procedure, potential risks and complications, and alternatives including declining the procedure today. Patient was given an opportunity for questions. The patient appeared to understand. The patient consented to the procedure and signed the consent form. GUIDANCE: Ultrasound. APPROACH: Lateral. TARGETS: 1. Biopsy-proven malignancy solid mass at 8:00-9:00 at 5 cm from the nipple with adjacent hydromark clip. 2. Abnormal right axillary lymph node with adjacent hydromark clip. ANESTHESIA: (6 cc of lidocaine 1% buffered with Sodium Bicarbonate 8.4 % (9cc: 1cc) at each site. LOCALIZATION SYSTEM: -FunnelFire LOCallizer Wire-Free Guidance System with 12g needle applicator. -Length: 7 cm. -RADIOFREQUENCY TAG: ID # [id number] placed within the right breast mass at 8-9:00 at 5 cm from the nipple. -RADIOFREQUENCY TAG: ID # [id number] placed within the abnormal right axillary lymph node. Both RF Tag IDs confirmed with LOCalizer Guidance System prior to placement. The skin is prepped and local anesthesia administered. The needle is positioned and RFID tag deployed in each intended target in the breast and in the axilla. Final images demonstrate the LOCalizer RF tag to reside adjacent to the open coil biopsy clip in the breast and butterfly biopsy clip in the axilla. The patient tolerated the procedure well and had no immediate complications. Dressing placed and home instructions reviewed. US/US Breast RF Tag Device Right IMPRESSION: -Status post right breast RFID localization TAG ID# [id number]. - Status post right axilla RFID localization TAG ID# [id number]. Electronically signed by: Melvin Man MD 01/20/2025 12:36 PM EDT Dictated By: Melvin Man MD Signed By: <Electronically signed by Melvin Man MD in OV> 01/20/25 1236 DD/ 0950 TD/TT: 01/20/25 1109 Business And Services Instructor: Procedure Note Donotuseinterpreter, Image - 01/20/2025 [place] [facility] [address] [place] [address] Ultrasound Report Signed Patient: Vahid Sierra#: [id number] 6 : 1990Acct:[id number] Age/Sex: 34 / FADM Date: 01/20/25 Loc: HO.MAMMO Attending Dr: Onofre Dela Cruz MD Ordering Physician: Onofre Dela Cruz MD Date of Service: 01/20/25 Procedure(s): US Breast RF Tag Device Right Accession Number(s): [id number] cc: Brenda Dangelo MD; Onofre Dela Cruz MD Reason for Exam: EXAMINATION/PROCEDURE: 1. ULTRASOUND GUIDED RFID LOCALIZATION BREAST, RIGHT 2. ULTRASOUND GUIDED RFID LOCALIZATION AXILLA, RIGHT 3. MG BREAST DIAGNOSTIC UNILATERAL RIGHT CLINICAL INFORMATION: Patient is status post biopsy of the right right breast mass at 9 o'clock position at 5 cm from the nipple and right axillary lymph node on April 08, 2024. Pathology results showed invasive ductal carcinoma at both sites. An open coil clip was placed at the location of the right breast mass and a butterfly shape clip was placed in the right axilla. Patient is status post chemotherapy. Per discussion with Dr. Dela Cruz prior to the procedure, the localizer tag were to be placed within the biopsied right breast mass and within the biopsied right axillary lymph node. COMPARISON: Multiple prior studies, including most recent breast MRI on November 05, 2024, right breast ultrasound on October 24, 2024 and ultrasound-guided biopsy images on April 08, 2024. TECHNIQUE NEEDLE LOC: Proper informed consent is obtained from the patient after discussion of the procedure, potential risks and complications, and alternatives including declining the procedure today. Patient was given an opportunity for questions. The patient appeared to understand. The patient consented to the procedure and signed the consent form. GUIDANCE: Ultrasound. APPROACH: Lateral. TARGETS: 1. Biopsy-proven malignancy solid mass at 8:00-9:00 at 5 cm from the nipple with adjacent hydromark clip. 2. Abnormal right axillary lymph node with adjacent hydromark clip. ANESTHESIA: (6 cc of lidocaine 1% buffered with Sodium Bicarbonate 8.4 % (9cc: 1cc) at each site. LOCALIZATION SYSTEM: -FunnelFire LOCallizer Wire-Free Guidance System with 12g needle applicator. -Length: 7 cm. -RADIOFREQUENCY TAG: ID # [id number] placed within the right breast mass at 8-9:00 at 5 cm from the nipple. -RADIOFREQUENCY TAG: ID # [id number] placed within the abnormal right axillary lymph node. Both RF Tag IDs confirmed with LOCalizer Guidance System prior to placement. The skin is prepped and local anesthesia administered. The needle is positioned and RFID tag deployed in each intended target in the breast and in the axilla. Final images demonstrate the LOCalizer RF tag to reside adjacent to the open coil biopsy clip in the breast and butterfly biopsy clip in the axilla. The patient tolerated the procedure well and had no immediate complications. Dressing placed and home instructions reviewed. US/US Breast RF Tag Device Right IMPRESSION: -Status post right breast RFID localization TAG ID# [id number]. - Status post right axilla RFID localization TAG ID# [id number]. Electronically signed by: Melvin Man MD 01/20/2025 12:36 PM EDT Dictated By: Melvin Man MD Signed By: <Electronically signed by Melvin Man MD in OV> 01/20/25 1236 DD/ 0950 TD/TT: 01/20/25 1109 Business And Services Instructor: [facility] External Provider IMG US PROCEDURES Edited Result - Final documented in this encounter Visit Diagnoses Not on filedocumented in this encounter Additional Health Concerns Assessment Noted Time PHQ-9 Depression Total Score: 0 10/30/19 25 10:27 AM EDT documented as of this encounter Care Teams Hydrologist Relationship Specialty Start Date End Date Brenda Dangelo MD [address] [place] [id number] PCP - General Internal Medicine 01/16/24 documented as of this encounter
--- OUTSIDE RECORDS SUMMARY | 2025-01-21 16:58 | XMS_ITS | Clinical Summary ---
Author Organization [employer] Address [address] [facility] [address] [place] [address] Care Team Providers Care Manager Of Radiology Name Role Phone Brenda Dangelo MD Primary [...] 026 Active ergocalciferol (Vitamin D2) 1.25 MG (88998 UT) capsuleIndicati ons:Vitamin D deficiency Take 1 capsule (1.25 mg) by mouth 1 (one) time per week. 5 capsule 2 07/30/19 25 Active fluticasone (Flonase) 50 MCG/ACT nasal sprayIndication s:Cough in adult INSTILL 1 SPRAY IN EACH NOSTRIL ONCE DAILY 48 g 08/12/19 25 Active lidocaine (Lidoderm) 5 % patchIndication s:Chronic pain of left knee Apply 1 patch topically Once per day. Remove & discard patch within 12 hours or as directed by MD. 30 patch 1 10/30/19 25 Active naproxen (Naprosyn) 500 MG tablet Take 1 tablet (500 mg) by mouth 2 times daily for 10 days. 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 breast 04/16/2024 Assessment & Plan (10/29/2024 11:15 AM EDT): Continue to follow up closely with oncology Counseling done I advised healthy diet and exercise as tolerated Assessment & Plan (04/16/2024 2:57 PM EST): Counseling done, patient appears to have a positive attitude, she will f/u with oncology, I advise not to miss her appointment Other specified anemias 12/29/2022 Assessment & Plan (04/16/2024 2:57 PM EST): Blood work ordered, results will be review with patient Anxiety 01/08/2018 Deliberate self-cutting 09/16/2013 Tobacco dependence syndrome 05/14/1959 Resolved Problems Problem Noted Date Diagnosed Date Resolved Date Acute respiratory failure with hypoxia 07/28/2024 10/29/2024 Assessment & Plan (07/28/2024 4:08 PM EDT): Now completely recovered Acute otitis media 07/28/2024 Assessment & Plan (07/28/2024 4:09 PM EDT): I will prescribe for patient Augmentin 875/125 mg twice a day for 7 days and ibuprofen as needed for pain Sore throat 03/02/2024 10/29/2024 Assessment & Plan (03/02/2024 5:20 PM EDT): Infectious tests negative in clinic, patient is clinically well hydrated. Will continue supportive measures of fluids, Tylenol, can use antihistamine for congestion. RTC for any worsening of symptoms. Encounters Date Type Department Care Team Description 01/20/2025 Orders Only [facility] External Provider, [facility] 01/05/2025 Results Follow-Up [address] [address] NameJovan MD XR Hand 3+ Views Right 01/02/2025 2:00 PM EDT Office Visit [facility] [address] [place] [id number] NameJovan MD Flexor tenosynovitis of thumb (Primary Dx); Right hand pain 01/02/2025 Travel 11/11/[address] [address] Brenda Dangelo MD Care Management ([facility] graduation) 10/31/[address] [address] Brenda Dangelo MD Care Management ([facility] TC #[id number]) 10/29/2024 10:15 AM EDT Office Visit [address] [address] Brenda Dangelo MD Malignant neoplasm of upper-outer quadrant of right female breast, unspecified estrogen receptor status (CMS/HCC) (Primary Dx); Chronic pain of left knee 10/29/2024 Travel 10/28/[address] [address] Brenda Dangelo MD Chart prep 10/24/2024 Orders Only [facility] External Provider, [facility] from Last 3 Months Immunizations Immunization Administration Dates Next Due DTP 10/07/1992 Hep [...] Not Answered Alcohol Use Standard Drinks/Week Comments Never 0 [...] Sign Reading Time Taken Comments Blood Pressure 94/55 01/02/2025 1:32 PM EDT Pulse 82 01/02/2025 1:32 PM EDT Temperature 36.5 C (97.7 F) 01/02/2025 1:32 PM EDT Respiratory Rate 18 01/02/2025 1:32 PM EDT Oxygen Saturation 97% 01/02/2025 1:32 PM EDT Inhaled Oxygen Concentration - - Weight 67.2 kg (148 lb 3.2 oz) 10/29/2024 10:26 AM EDT Height 157.5 cm (5' 2 ) 10/29/2024 10:26 AM EDT Body Mass Index 27.11 10/29/2024 10:26 AM EDT Plan of Treatment Health Maintenance Due Date Last Done Comments Alcohol/Substance Use Screening 2000 Family Planning (PISQ) 02/06/2003 HPV Vaccines (1 - 3-dose series) 02/06/2003 Hepatitis B Vaccines (3 of 3 - 19+ 3-dose series) 09/12/2023 07/18/2023, 06/06/2023, 10/09/2014 COVID-19 Vaccine ( - 2023- season) 2025 Influenza Vaccine (#1) 2025 , 02/20/2020, 02/12/2018, Additional history exists Diagnostic Breast Imaging 02/19/20252024, 11/05/2024, 10/24/2024, Additional history exists SDOH Screening 06/24/2025 06/24/2024 Mammogram 07/20/2025 01/20/2025, 10/13, 10/24/2024, Additional history exists Depression Screening 10/29/2025 10/29/2024, 10/30/19 25 Disability Screening 10/29/2025 10/29/2024 Tobacco Screening 10/29/2025 10/29/2024 Cervical Cancer Screening 04/14/2026 HPV/Cotest 04/14/2026 04/13/2021, [...] Years) and At-Risk Patients (6 to 49) Years Aged Out No longer eligible based on [...] - RFID Routine 01/20/2025 9:50 AM EDT XR HAND 3+ VIEWS RIGHT Routine 01/02/2025 1:18 PM EDT Right hand pain Flexor tenosynovitis of thumb BI MR BREAST W AND WO CONTRAST BILATERAL Routine 11/05/2024 10:50 AM EDT BI US BREAST LIMITED LEFT Routine 10/24/2024 8:26 AM EDT HEPATITIS PANEL, GENERAL Routine 08/20/2024 11:28 AM EDT Elevated LFTs HIV 1/2 ANTIGEN/ANTIBODY, FOURTH GENERATION W/RFL Routine 07/28/2024 1:52 PM EDT Malignant neoplasm of upper-outer quadrant of right female breast, unspecified estrogen receptor status (CMS/HCC) HM PAP/HPV Routine 04/14/2021 ZZZ HISTORICAL HPV E6/E7 RFLX PORTIA 16 18/45 Routine 04/13/2021 10:26 AM EST from Last 3 Months or Most Recently Relevant to Health Maintenance Results * Mammogram Diagnostic Right (01/20/2025 11:00 AM EDT) Anatomical Region Laterality Modality Breast Right Mammography 01/20/2025 11:0 0 AM EDT Narrative 01/20/2025 12:39 PM EDT [facility] [address] [place] [address] Dr. [place], [place] [address] Mammography Report Signed Patient: Jeny Sierra MR#: [id number] 6 : 1990 Acct:[id number] Age/Sex: 34 / F ADM Date: 01/20/25 Loc: HO.MAMMO Attending Dr: Onofre Dela Cruz MD Ordering Physician: Onofre Dela Cruz MD Results: 6Kno wn Biopsy Proven Malignancy Date of Service: 01/20/25 Follow Up: Surgical Consult Procedure(s): MM diagnostic mammo unilat RT Accession Number(s): [id number] cc: Brenda Dangelo MD; Onofre Dela Cruz [...] (9cc: 1cc) at each site. LOCALIZATION SYSTEM: -Buzzilla LOCallizer Wire-Free Guidance System with 12g needle applicator. -Length: 7 cm. -RADIOFREQUENCY TAG: ID # [id number] placed within the right breast mass at 8-9:00 at 5 cm from the nipple. -RADIOFREQUENCY TAG: ID # [id number] placed within the abnormal right axillary lymph [...] post right breast RFID localization TAG ID# [id number]. - Status post right axilla RFID localization TAG ID# [id number]. Electronically signed by: Melvin Man MD 01/20/2025 12:36 PM EDT Workstation: [employer] Dictated By: Melvin Man MD Signed By: <Electronically signed by Melvin Man MD in OV> 01/20/25 1236 DD/ 1100 TD/TT: 01/20/25 1112 Clinical Partner: Procedure Note Donotuseinterpreter, Image - [facility] [address] [place] [address] Mammography Report Signed Patient: Jeny SierraMR#: [id number] 6 : 1990Acct:[id number] Age/Sex: 34 / FADM Date: 01/20/25 Loc: HO.MAMMO Attending Dr: Onofre Dela Cruz MD Ordering Physician: Onofre Dela Cruz MDResults: 6Kno wn Biopsy Proven Malignancy Date of Service: 01/20/25Follow Up: Surgical Consult Procedure(s): MM diagnostic mammo unilat RT Accession Number(s): [id number] cc: Brenda Dangelo MD; Onofre Dela Cruz [...] (9cc: 1cc) at each site. LOCALIZATION SYSTEM: -Buzzilla LOCallizer Wire-Free Guidance System with 12g needle applicator. -Length: 7 cm. -RADIOFREQUENCY TAG: ID # [id number] placed within the right breast mass at 8-9:00 at 5 cm from the nipple. -RADIOFREQUENCY TAG: ID # [id number] placed within the abnormal right axillary lymph [...] post right breast RFID localization TAG ID# [id number]. - Status post right axilla RFID localization TAG ID# [id number]. Electronically signed by: Melvin Man MD 01/20/2025 12:36 PM EDT Dictated By: Melvin Man MD Signed By: <Electronically signed by Melvin Man MD in OV> 01/20/25 1236 DD/ 1100 TD/TT: 01/20/25 1112 Clinical Partner: [facility] External Provider IMG BI PROCEDURES Edited Result - Final * US breast RF Tag Device Addl (01/20/2025 9:50 AM EDT) Anatomical Region Laterality Modality Abdomen Ultrasound 01/20/2025 9:50 AM EDT Narrative 01/20/2025 12:39 PM EDT [address] [place] [address] Ultrasound Report Signed Patient: Jeny Sierra MR#: [id number] 6 : 1990 Acct:[id number] Age/Sex: 34 / F ADM Date: 01/20/25 Loc: MAMMO Attending Dr: Onofre Dela Cruz MD Ordering Physician: Onofre Dela Cruz MD Date of Service: 01/20/25 Procedure(s): US Breast RF Tag Device Addl Accession Number(s): [id number] cc: Brenda Dangelo MD; Onofre Dela Cruz [...] (9cc: 1cc) at each site. LOCALIZATION SYSTEM: -Buzzilla LOCallizer Wire-Free Guidance System with 12g needle applicator. -Length: 7 cm. -RADIOFREQUENCY TAG: ID # [id number] placed within the right breast mass at 8-9:00 at 5 cm from the nipple. -RADIOFREQUENCY TAG: ID # [id number] placed within the abnormal right axillary lymph [...] post right breast RFID localization TAG ID# [id number]. - Status post right axilla RFID localization TAG ID# [id number]. Electronically signed by: Melvin Man MD 01/20/2025 12:36 PM EDT Dictated By: Melvin Man MD Signed By: <Electronically signed by Melvin Man MD in OV> 01/20/25 1236 DD/ 0950 TD/TT: 01/20/25 1109 Clinical Partner: Procedure Note Donotuseinterpreter, Image - 01/20/2025 [facility] [address] [place] [address] Ultrasound Report Signed Patient: Jeny SierraMR#: [id number] 6 : 1990Acct:[id number] Age/Sex: 34 / FADM Date: 01/20/25 Loc: HO.MAMMO Attending Dr: Onofre Dela Cruz MD Ordering Physician: Onofre Dela Cruz MD Date of Service: 01/20/25 Procedure(s): US Breast RF Tag Device Addl Accession Number(s): [id number] cc: Brenda Dangelo MD; Onofre Dela Cruz [...] (9cc: 1cc) at each site. LOCALIZATION SYSTEM: -Buzzilla LOCallizer Wire-Free Guidance System with 12g needle applicator. -Length: 7 cm. -RADIOFREQUENCY TAG: ID # [id number] placed within the right breast mass at 8-9:00 at 5 cm from the nipple. -RADIOFREQUENCY TAG: ID # [id number] placed within the abnormal right axillary lymph [...] post right breast RFID localization TAG ID# [id number]. - Status post right axilla RFID localization TAG ID# [id number]. Electronically signed by: Melvin Man MD 01/20/2025 12:36 PM EDT Dictated By: Melvin Man MD Signed By: <Electronically signed by Mlevin Man MD in OV> 01/20/25 1236 DD/ 0950 TD/TT: 01/20/25 1109 Clinical Partner: [facility] External Provider IMG US PROCEDURES Edited Result - Final * US breast needle loc RT - RFID (01/20/2025 9:50 AM EDT) Anatomical Region Laterality Modality Abdomen Ultrasound 01/20/2025 9:50 AM EDT Narrative 01/20/2025 12:39 PM EDT [facility] [address] [place], [place] [address] Ultrasound Report Signed Patient: Jeny Sierra MR#: [id number] 6 : 1990 Acct:[id number] Age/Sex: 34 / F ADM Date: 01/20/25 Loc: HO.MAMMO Attending Dr: Onofre Dela Cruz MD Ordering Physician: Onofre Dela Cruz MD Date of Service: 01/20/25 Procedure(s): US Breast RF Tag Device Right Accession Number(s): [id number] cc: Brenda Dangelo MD; Onofre Dela Cruz [...] (9cc: 1cc) at each site. LOCALIZATION SYSTEM: -Buzzilla LOCallizer Wire-Free Guidance System with 12g needle applicator. -Length: 7 cm. -RADIOFREQUENCY TAG: ID # [id number] placed within the right breast mass at 8-9:00 at 5 cm from the nipple. -RADIOFREQUENCY TAG: ID # [id number] placed within the abnormal right axillary lymph [...] post right breast RFID localization TAG ID# [id number]. - Status post right axilla RFID localization TAG ID# [id number]. Electronically signed by: Melvin Man MD 01/20/2025 12:36 PM EDT Dictated By: Melvin Man MD Signed By: <Electronically signed by Melvin Man MD in OV> 01/20/25 1236 DD/ 0950 TD/TT: 01/20/25 1109 Clinical Partner: Procedure Note Donotuseinterpreter, Image - 01/20/2025 [facility] [address] [place] [address] Ultrasound Report Signed Patient: Vahid Sierra#: [id number] 6 : 1990Acct:[id number] Age/Sex: 34 / FADM Date: 01/20/25 Loc: HO.MAMMO Attending Dr: Onofre Dela Cruz MD Ordering Physician: Onofre Dela Cruz MD Date of Service: 01/20/25 Procedure(s): US Breast RF Tag Device Right Accession Number(s): [id number] cc: Brenda Dangelo MD; Onofre Dela Cruz [...] (9cc: 1cc) at each site. LOCALIZATION SYSTEM: -Buzzilla LOCallizer Wire-Free Guidance System with 12g needle applicator. -Length: 7 cm. -RADIOFREQUENCY TAG: ID # [id number] placed within the right breast mass at 8-9:00 at 5 cm from the nipple. -RADIOFREQUENCY TAG: ID # [id number] placed within the abnormal right axillary lymph [...] post right breast RFID localization TAG ID# [id number]. - Status post right axilla RFID localization TAG ID# [id number]. Electronically signed by: Melvin Man MD 01/20/2025 12:36 PM EDT Dictated By: Melvin Man MD Signed By: <Electronically signed by Melvin Man MD in OV> 01/20/25 1236 DD/ 0950 TD/TT: 01/20/25 1109 Clinical Partner: us [facility] External Provider IMG US PROCEDURES Edited Result - Final * XR Hand 3+ Views Right (01/02/2025 1:18 PM EDT) Anatomical Region Laterality Modality Upper Extremities, Hand Right [facility] 01/02/2025 1:18 PM EDT Narrative 01/02/2025 2:21 PM EDT [address] [address] XRay Report Signed Patient: Jeny Sierra MR#: [id number] 6 : 1990 Acct:[id number] Age/Sex: 34 / F ADM Date: 01/02/25 Loc: HO.HHCX Attending Dr: Jovan Broussard MD Ordering Physician: Jovan Broussard MD Date of Service: 01/02/25 Procedure(s): XR hand RT min 3V Accession Number(s): [id number] cc: Jovan Broussard MD EXAMINATION: XR HAND, RIGHT CLINICAL INFORMATION: Right hand pain COMPARISON: None available. TECHNIQUE: PA, lateral, and oblique views of the right hand. FINDINGS: The bones and soft tissues are normal. No fracture. Alignment is anatomic. Joint spaces are maintained. No erosions or soft tissue calcifications. XR/XR hand RT min 3V IMPRESSION: Unremarkable right hand. Electronically signed by: Justin Flores MD 01/02/2025 02:18 PM EDT Dictated By: Justin Flores MD Signed By: <Electronically signed by Justin Flores MD in OV> 01/02/25 1418 DD/ 1318 TD/TT: 01/02/25 1405 Clinical Partner: Procedure Note Donotuseinterpreter, Image - 01/02/[address] [address] XRay Report Signed Patient: Jeny SierraMR#: [id number] 6 : 1990Acct:[id number] Age/Sex: 34 / FADM Date: 01/02/25 Loc: HO.HHCX Attending Dr: Jovan Broussard MD Ordering Physician: Jovan Broussard MD Date of Service: 01/02/25 Procedure(s): XR hand RT min 3V Accession Number(s): [id number] cc: Jovan Broussard MD EXAMINATION: XR HAND, RIGHT CLINICAL INFORMATION: Right hand pain COMPARISON: None available. TECHNIQUE: PA, lateral, and oblique views of the right hand. FINDINGS: The bones and soft tissues are normal. No fracture. Alignment is anatomic. Joint spaces are maintained. No erosions or soft tissue calcifications. XR/XR hand RT min 3V IMPRESSION: Unremarkable right hand. Electronically signed by: Justin Flores MD 01/02/2025 02:18 PM EDT Dictated By: Justin Flores MD Signed By: <Electronically signed by Justin Flores MD in OV> 01/02/25 1418 DD/ 1318 TD/TT: 01/02/25 1405 Clinical Partner: Jovan Broussard MD IMG XR PROCEDURES Final Result * BI MR Breast w and w/o Contrast Bilateral (11/05/2024 10:50 AM EDT) Anatomical Region Laterality Modality Breast Bilateral Magnetic Resonan ce 11/05/2024 10:5 0 AM EDT Narrative 11/06/2024 11:56 AM EDT [address] [address] Magnetic Resonance Report Signed Patient: Jeny Sierra MR#: [id number] 6 : 1990 Acct:[id number] Age/Sex: 34 / F ADM Date: 11/05/24 Loc: HO.MRI Attending Dr: Onofre Dela Cruz MD Ordering Physician: Onofre Dela Cruz MD Date of Service: 11/05/24 Procedure(s): MR breast BI wo/w con Accession Number(s): [id number] cc: Brenda Dangelo MD; Onofre Dela Cruz MD EXAMINATION: MR BREAST WITHOUT AND WITH CONTRAST, BILATERAL CLINICAL INFORMATION: Recently diagnosed right breast cancer February 2024 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 Evaluate for neoadjuvant chemotherapy assessment. COMPARISON: Comparison is made with relevant prior imaging. Breast MRI April 29, 2024 mammography March 2024 TECHNIQUE: MR imaging of the breasts was performed using T1, T2 and fat saturated techniques. Dynamic multiphase imaging was also performed after administration of intravenous gadolinium contrast agent. Computer generated 3D reconstruction and enhancement kinetic analysis was utilized by the radiologist in the interpretation of this examination. FINDINGS: Breast composition: There is heterogeneous fibroglandular breast tissue with moderate background enhancement. LEFT BREAST: No suspicious enhancing masses or areas of non mass enhancement. No axillary or internal mammary adenopathy. RIGHT BREAST: There is interval decrease size and conspicuity of area of nonmass enhancement in the lower outer central outer right breast today measuring 33 x 20 mm 40 mm anterior to posterior by transverse by superior to inferior compared with prior MRI April 2024. This biopsy-proven malignancy previously measured 60 x 24 x 44 (anterior to posterior by transverse by superior to inferior). Multiple prominent right axillary lymph nodes are decreased in size from priors these were consistent with metastatic disease.. Limited views of the chest and abdomen are unremarkable. MR/MR breast BI wo/w con IMPRESSION: Left: No MRI evidence of malignancy. Right: Biopsy-proven malignancy in the central outer right breast with decreased in mass appearance, enhancement is more nonmass enhancement and decreased in size and conspicuity. There is decreased size of known metastatic right axillary lymph nodes which still remains slightly prominent. ASSESSMENT: LEFT BREAST: BI-RADS 1 negative. RIGHT BREAST: BI-RADS 6 known biopsy-proven malignancy. RECOMMENDATIONS: Known biopsy-proven malignancy. The patient is under the care of a breast surgeon and oncology is for excision and further management. Electronically signed by: Carola Simpson DO 11/06/2024 11:53 AM EDT Dictated By: Carola Simpson DO Signed By: <Electronically signed by Carola Simpson DO in OV> 11/06/24 1153 DD/ 1050 TD/TT: 11/05/24 1220 Clinical Partner: Procedure Note Donotuseinterpreter, Image - 11/06/[address] [address] Magnetic Resonance Report Signed Patient: Vahid Sierra#: [id number] 6 : 1990Acct:[id number] Age/Sex: 34 / FADM Date: 11/05/24 Loc: HO.MRI Attending Dr: Oonfre Dela Cruz MD Ordering Physician: Onofre Dela Cruz MD Date of Service: 11/05/24 Procedure(s): MR breast BI wo/w con Accession Number(s): [id number] cc: Brenda Dangelo MD; Onofre Dela Cruz MD EXAMINATION: MR BREAST WITHOUT AND WITH CONTRAST, BILATERAL CLINICAL INFORMATION: Recently diagnosed right breast cancer February 2024 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 Evaluate for neoadjuvant chemotherapy assessment. COMPARISON: Comparison is made with relevant prior imaging. Breast MRI April 29, 2024 mammography March 2024 TECHNIQUE: MR imaging of the breasts was performed using T1, T2 and fat saturated techniques. Dynamic multiphase imaging was also performed after administration of intravenous gadolinium contrast agent. Computer generated 3D reconstruction and enhancement kinetic analysis was utilized by the radiologist in the interpretation of this examination. FINDINGS: Breast composition: There is heterogeneous fibroglandular breast tissue with moderate background enhancement. LEFT BREAST: No suspicious enhancing masses or areas of non mass enhancement. No axillary or internal mammary adenopathy. RIGHT BREAST: There is interval decrease size and conspicuity of area of nonmass enhancement in the lower outer central outer right breast today measuring 33 x 20 mm 40 mm anterior to posterior by transverse by superior to inferior compared with prior MRI April 2024. This biopsy-proven malignancy previously measured 60 x 24 x 44 (anterior to posterior by transverse by superior to inferior). Multiple prominent right axillary lymph nodes are decreased in size from priors these were consistent with metastatic disease.. Limited views of the chest and abdomen are unremarkable. MR/MR breast BI wo/w con IMPRESSION: Left: No MRI evidence of malignancy. Right: Biopsy-proven malignancy in the central outer right breast with decreased in mass appearance, enhancement is more nonmass enhancement and decreased in size and conspicuity. There is decreased size of known metastatic right axillary lymph nodes which still remains slightly prominent. ASSESSMENT: LEFT BREAST: BI-RADS 1 negative. RIGHT BREAST: BI-RADS 6 known biopsy-proven malignancy. RECOMMENDATIONS: Known biopsy-proven malignancy. The patient is under the care of a breast surgeon and oncology is for excision and further management. Electronically signed by: Carola Simpson DO 11/06/2024 11:53 AM EDT Dictated By: Carola Simpson DO Signed By: <Electronically signed by Carola Simpson DO in OV> 11/06/24 1153 DD/ 1050 TD/TT: 11/05/24 1220 Clinical Partner: us [facility] External Provider IMG MRI PROCEDURES Final Result * BI US Breast Limited Left (10/24/2024 8:26 AM EDT) Anatomical Region Laterality Modality Breast Left Ultrasound 10/24/2024 8:26 AM EDT Narrative 10/24/2024 3:16 PM EDT [address] [place] [address] Ultrasound Report Signed Patient: Jeny Sierra MR#: [id number] 6 : 1990 Acct:[id number] Age/Sex: 34 / F ADM Date: 10/24/24 Loc: HO.MAMMO Attending Dr: Onofre Dela Cruz MD Ordering Physician: Onofre Dela Cruz MD Date of Service: 10/24/24 Procedure(s): US breast LT limited mamm only Accession Number(s): [id number] cc: Brenda Dangelo MD; Onofre Dela Cruz MD EXAMINATION: US DIAGNOSTIC ULTRASOUND BREAST, RIGHT CLINICAL INFORMATION: No right breast cancer with axillary metastasis assess response to neoadjuvant chemotherapy treatment. COMPARISON: Comparison is made with relevant prior imaging. Prior ultrasound August 04, 2024. Prior imaging dating back to 2023. TECHNIQUE: Ultrasound of the breast is performed with real-time lopes scale imaging and color Doppler. FINDINGS: Targeted color Doppler ultrasound scanning in the area of previously biopsy-proven invasive ductal carcinoma at 8-9 o'clock demonstrates the previously seen mass is more ill-defined slightly decreased from prior today measuring 28 mm x 13 mm given differences in measuring technique difficult to assess previously similar area measurements were 35 x 20. Targeted color Doppler ultrasound scanning in the right axilla demonstrates again seen an enlarged axillary lymph node approximately 15 x 16 mm previously 18 x 20 mm. There is a marker clip adjacent to the enlarged lymph node in the right axilla. Results are provided to the patient at time of visit by the technologist. US/US breast LT limited mamm only IMPRESSION: Slight decreased size of vague mass in the right breast 8-9 o'clock compared with ultrasound from July 2024. Slight decrease in size of enlarged abnormal right axillary lymph node. 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 Recommend clinical follow-up with oncology and breast surgeon for excision and further management. ASSESSMENT: BI-RADS 6: Known Biopsy-Proven Malignancy RECOMMENDATION: Recommend clinical follow up with oncology and breast surgeon for excision and further management of known right breast malignancy with metastases. Electronically signed by: Carola Simpson DO 10/24/2024 03:13 PM EDT Dictated By: Carola Simpson DO Signed By: <Electronically signed by Carola Simpson DO in OV> 10/24/24 1513 DD/ 08 TD/TT: 10/24/24 0854 Clinical Partner: Procedure Note Donotuseinterpreter, Image - 10/24/2024 [facility]'s [address] [place] [address] Ultrasound Report Signed Patient: Jeny SierraMR#: [id number] 6 : 1990Acct:[id number] Age/Sex: 34 / FADM Date: 10/24/24 Loc: HO.MAMMO Attending Dr: Onofre Dela Cruz MD Ordering Physician: Onofre Dela Cruz MD Date of Service: 10/24/24 Procedure(s): US breast LT limited mamm only Accession Number(s): [id number] cc: Brenda Dangelo MD; Onofre Dela Cruz MD EXAMINATION: US DIAGNOSTIC ULTRASOUND BREAST, RIGHT CLINICAL INFORMATION: No right breast cancer with axillary metastasis assess response to neoadjuvant chemotherapy treatment. COMPARISON: Comparison is made with relevant prior imaging. Prior ultrasound August 04, 2024. Prior imaging dating back to 2023. TECHNIQUE: Ultrasound of the breast is performed with real-time lopes scale imaging and color Doppler. FINDINGS: Targeted color Doppler ultrasound scanning in the area of previously biopsy-proven invasive ductal carcinoma at 8-9 o'clock demonstrates the previously seen mass is more ill-defined slightly decreased from prior today measuring 28 mm x 13 mm given differences in measuring technique difficult to assess previously similar area measurements were 35 x 20. Targeted color Doppler ultrasound scanning in the right axilla demonstrates again seen an enlarged axillary lymph node approximately 15 x 16 mm previously 18 x 20 mm. There is a marker clip adjacent to the enlarged lymph node in the right axilla. Results are provided to the patient at time of visit by the technologist. US/US breast LT limited mamm only IMPRESSION: Slight decreased size of vague mass in the right breast 8-9 o'clock compared with ultrasound from July 2024. Slight decrease in size of enlarged abnormal right axillary lymph node. 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 Recommend clinical follow-up with oncology and breast surgeon for excision and further management. ASSESSMENT: BI-RADS 6: Known Biopsy-Proven Malignancy RECOMMENDATION: Recommend clinical follow up with oncology and breast surgeon for excision and further management of known right breast malignancy with metastases. Electronically signed by: Carola Simpson DO 10/24/2024 03:13 PM EDT RP Dictated By: Carola Simpson DO Signed By: <Electronically signed by Carola Simpson DO in OV> 10/24/24 1513 DD/ 0826 TD/TT: 10/24/24 0854 Clinical Partner: [facility] External Provider IMG US PROCEDURES Final Result * Hepatitis A,B,C Profile (08/20/2024 11:28 AM EDT) Hepatitis A IgM Nonreactive Nonreactive [facility] Comment:IgM antibodies to NAVARRO V not detected; does not exclude earlyacute or recovered HAV infection. ~Hepatitis B Surface Antibody REACTIVE Nonreactive [facility] Comment:REACTIVE: > 11.99 mI U/mL Hepatitis B Core Antibody Nonreactive Nonreactive [facility] Hepatitis C Antibody Nonreactive Nonreactive [facility] Comment:Antibodies to HCV no t detected; does not exclude early acuteHCV infection. Hepatitis B Surface Ag Negative Negative [facility] Blood Venous blood specimen / Unknown 08/20/2024 11:28 AM EDT 08/20/2024 1:34 PM EDT Brenda Sawyer MD LAB BLOOD ORDERABLES Final Result [facility] [address] [place] [address] [phone] * HIV-1/2 Antigen and Antibodies, Fourth Generation, with Reflexes (07/28/2024 1:52 PM EDT) Pathologist [facility] HIV AB/AG Nonreactive Nonreactive [facility] Comment:HIV-1 p24 Ag and/or HIV-1/HIV-2 Ab not detected.A test result that is nonreactive does not exclude thepossibility of exposure to or infection with HIV-1 and/orHIV-2. Nonreactive results in this assay for individualswith prior exposure to HIV-1 and/or HIV-2 may be due toantigen and antibody levels that are below the limit ofdetection of this assay.The [employer]iron[employer] HIV Ag/Ab Combo assay result andsupplemental assay results should be interpreted inconjunction with the patient's clinical presentation,history and other laboratory results. If the results areinconsistent with clinical evidence, additional testing issuggested to confirm the result. Blood Venous blood specimen / Unknown 07/28/2024 1:52 PM EDT 07/28/2024 4:24 PM EDT us Brenda Sawyer MD LAB BLOOD ORDERABLES Final Result [facility] [address] [place] [address] [phone] * Pap Smear (04/14/2021) [facility] HM Pap smear Performed us Historical Provider HEALTH MAINTENANCE Final Result * HPV E6/E7 RFLX PORTIA 16 18/45 (04/13/2021 10:26 AM EST) [facility] HPV 16 RNA [facility] HPV 18/45 RNA [facility] HPV E6 E7 ADD [facility] HPV mRNA E6/E7 rflx Not Detected Not Detected [facility] Comment: Methodology: [employer]-Mediated Amplification This assay detects E6/E7 viral messenger RNA (mRNA) from 14 high-risk HPV types (16,18,31,33,35,39,45,51,52,56,58,59,66,68). The analytical performance characteristics of this assay have been determined by [employer] (formerly [employer]). The modifications have not been cleared or approved by the FDA. This assay has been validated pursuant to the CLIA regulations and is used for clinical purposes. For additional information, please refer to http://education.Breeze/faq/FJM056o1 (This link if provided for information/ educational purposes only.) THIS TEST WAS PERFORMED AT: [facility] [address] [place] [address] [address],[place] [address] WILD BRICENO MD 04/13/2021 10:2 6 AM EST Sharon Perez HISTORICAL/NON ORDERABLE LABS Fi nal Result [facility]where [address] from Last 3 Months or Most Recently Relevant to Health Maintenance Insurance [facility] [employer] Care Teams Manager Of Radiology Relationship Specialty Start Date End Date Brenda Dangelo MD [address] [place] [id number] PCP - General Internal Medicine 01/16/24
[2025-01-23 10:26] VITALS: BMI 26.9
--- NOTE | 2025-01-26 08:32 | P.CONAN_ITS ---
Documented by User: Almita Chinchilla NP 01/26/25 08:33 HPI - Anesthesia Eval Consult details Narrative: 34yo F for Right Breast Lumpectomy w/LOCalizer, [place] Node Biopsy PMFSH Active Problems Active Problems: All Active Problems Invasive ductal carcinoma of breast (Acute) Rhinovirus (Acute) Breast cancer, right (Chronic) Breast mass, right (Acute) Mass of right axilla (Acute) Cervical cancer screening (Acute) Encounter for screening for malformation using ultrasound (Acute) test positive (Acute) COVID-19 (Acute) Pneumonia due to COVID-19 virus (Acute) Anemia (Acute) Past Medical History Medical History Invasive ductal carcinoma of breast Former smoker Anemia Family History Family History Maternal Grandmother Arthritis Asthma Maternal Grandfather Diabetes mellitus Maternal Aunt Breast cancer Father Throat cancer Paternal Grandfather Stomach cancer Surgical History Surgical History Metastatic cancer to axillary lymph nodes No history of previous surgery Social History Social History Household Members: Children Housing: Apartment Are you a primary childcare provider to a significant other at home: No Do you presently have visiting nurse or other home services: No Unable to assess alcohol history related to: Unknown Alcohol intake: former Patient Tobacco Use Status: Former Tobacco user Use of substances other than those prescribed or required for medical reasons: No Agree to transfusion: Yes Advance Directives: No Advance Directives Information Provided: Yes service: No Current occupational status: unemployed Sexual orientation: Straight/Heterosexual Gender identity: Female Meds Allergies Allergy/AdvReac Type Severity Reaction Status Date / Time No Known Allergies (No Known Allergy Verified 12/17/24 10:36 Allergies*) Home Medications ?Medication ?Instructions ?Recorded ?Confirmed ?Last Taken ?Type No Known Home Meds 10/21/24 10/21/24 Un known History Exam Height,Weight and Vital Signs: Height 5 ft 2 in Weight 66.678 kg Pertinent Lab Results Pertinent Lab Results: Laboratory Tests 12/30/24 12/30/24 14:59 Unknown WBC 6.2 Hgb 11.2 L Hct 32.5 L Plt Count 234 Sodium 141 Potassium 3.7 Chloride 106 Carbon Dioxide 27 BUN 12 Creatinine 0.81 Narrative Narrative: EKG 06/2024 Vent. Rate : 104 BPM Atrial Rate : 104 BPM P-R Int : 148 ms QRS Dur : 100 ms QT Int : 320 ms P-R-T Axes : 14 3 19 degrees QTcB Int : 420 ms Sinus tachycardia Incomplete right bundle branch block Borderline ECG No previous ECGs available ECHO 2023 (pre chemo eval) Conclusions: - The left ventricular systolic function is normal. The calculated ejection fraction is 65% by biplane method. - No obvious valvular pathology seen on this study. Assessment and Plan Assessment Anesthesia Assessment: Chart Reviewed Documented by User: Latricia Tapia MD 01/27/25 11:40 [facility] Past Medical History Medical History Invasive ductal carcinoma of breast Former smoker Anemia Family History Family History Maternal Grandmother Arthritis Asthma Maternal Grandfather Diabetes mellitus Maternal Aunt Breast cancer Father Throat cancer Paternal Grandfather Stomach cancer Family history of problems with anesthesia: No Surgical History Surgical History Metastatic cancer to axillary lymph nodes No history of previous surgery History of Problems with Anesthesia: No Social History Social History Household Members: Children Housing: Apartment Are you a primary childcare provider to a significant other at home: No Do you presently have visiting nurse or other home services: No Unable to assess alcohol history related to: Unknown Alcohol intake: former Patient Tobacco Use Status: Former Tobacco user Use of substances other than those prescribed or required for medical reasons: No Agree to transfusion: Yes Advance Directives: No Advance Directives Information Provided: Yes service: No Current occupational status: unemployed Sexual orientation: Straight/Heterosexual Gender identity: Female Meds Allergies Allergy/AdvReac Type Severity Reaction Status Date / Time No Known Allergies (No Known Allergy Verified 12/17/24 10:36 Allergies*) Home Medications ?Medication ?Instructions ?Recorded ?Confirmed ?Last Taken ?Type No Known Home Meds 10/21/24 10/21/24 Un known History Exam Airway Mallampati Class: II TM Dist: >3cm Neck ROM: Full Heart: rrr Lungs: cta Assessment and Plan Assessment Anesthesia Assessment: Anesthesia Plan Discussed Final Anesthetic Review Family History of Problems with Anesthesia: No History of Problems with Anesthesia: No NPO: Yes ASA Class: III Final Preanesthetic Review: No Changes in Pt Med Stat, Meds/Allgs Chart Reviewed, Consent Obtained/Reviewed and Anes Risks/Benef Reviewed Patient Risk: Low Procedure Risk: Intermediate Anesthetic Plan Anesthetic Plan: GA and Agree w/ Assess. and Plan Disposition: Standard PACU
[2025-01-27] VITALS (9 sets, daily range): BP systolic 101–122; BP diastolic 53–77; PULSE 62–77; RESP 14–16; TEMP 36.3–36.6; O2SAT 94–100; BMI 27.3
--- NOTE | ~2025-01-27 | NM_ITS ---
EXAMINATION: Nuclear medicine sentinel node imaging. CLINICAL INDICATION: Right breast cancer. COMPARISON: Breast mammogram 01/20/2025. TECHNIQUE: Following explaining right breast sentinel node imaging procedure, benefits, a written consent was obtained. 4% lidocaine cream was applied around the right breast areola 30 minutes prior to the procedure. Patient arrived in nuclear medicine department and the jelly around the right breast areola was cleaned and aseptic manner. 0.5 mCi of 99m Tc lymphoseek divided in 4 equal doses was injected in 4 quadrants around the right breast areola and imaging obtained at 30 minutes. Patient tolerated procedure extremely well. FINDINGS: There is a four-quadrant activity seen around the right breast areola. In addition there are at least 2 sentinel nodes visualized in the anterior axilla at 30 minutes of imaging. No abnormal activity seen along the internal mammary lymph nodes. NM/NM sentinel node w imaging IMPRESSION: Successful right breast sentinel node imaging performed. Electronically signed by: Nirav Mooney MD 01/27/2025 12:48 PM EDT
--- NOTE | ~2025-01-27 | MM_ITS ---
Right single specimen radiograph of the right breast demonstrates the clip (presumed open coil) and the LOCalizer tag within the specimen. Results were called to Dr. Dela Cruz in the operating room at the time of imaging. Right single specimen radiograph of the right axilla demonstrates the butterfly clip and the LOCalizer tag within the specimen. Electronically signed by: Melvin Man MD 01/27/2025 02:13 PM EDT
[2025-01-27 07:47] LABS: UPreg QC Valid YES
[2025-01-27] MEDS: Lactated Ringers 1,000 ML 100 ML IVCONT (07:52)
--- NOTE | 2025-01-27 08:06 | PC.NURSE ---
Pt to radiology for needle loc
--- NOTE | 2025-01-27 09:13 | PC.NURSE ---
Pt back from radiology, no c/o resting on stretcher
--- NOTE | 2025-01-27 11:57 | MHC.SHP ---
Pre-Procedural Eval Section A - 24 Hr Update-Section A only Date of Service: 01/27/25 Section B - Complete if H&P > 30 days Chief Complaint: Malignant neoplasm of unspecified site Details of Present Illness: Has large invasive ductal carcinoma of the right breast, underwent neoadjuvant chemotherapy; for lumpectomy today with sentinel node biopsy, targeted axillary dissection; Hologic localizer placed for both the lump as well as the previously biopsied axillary lymph node Patient still has a large mass on exam; multiple discussions with her about mastectomy done; she is insisting on attempting lumpectomy; she says she is not ready to have mastectomy at this time; she understands high risks of positive margins Relevant Social History: None Present Medications: see Short Stay Collaborative assessment Medical History: No relevant PMH History of Previous Operations: No relevant previous surgery Allergies: Allergies Allergy/AdvReac Type Severity Reaction Status Date / Time No Known Allergies (No Known Allergy Verified 12/17/24 10:36 Allergies*) Review of Systems Sugical H&P ROS: Negative: Constitution, Cardiovascular and Respiratory Exam Surgical H&P Exam: Normal: Heart, Normal: Lungs and Normal: Abdomen Exam Comment: Vague mass on the lateral aspect of the right breast Plan Diagnosis/Plan: Unchanged I have reviewed the history and physical and performed a pertinent physical examination on my patient. No changes have occurred unless specified. Time Spent With Patient Time: Total time managing care of this patient today ____ minutes.
--- NOTE | 2025-01-27 11:59 | PM.EVENT ---
Event Note Date of Service: 01/28/25 Event Note: The patient status post neoadjuvant chemotherapy for a large right breast invasive ductal carcinoma The tumor has decreased in size but remains large I have had multiple discussions with the about this in the he will continue with achieving negative margins with the lumpectomy She says that she is not ready to have a mastectomy she says to at least try a lumpectomy She says if she ends up with passage margins, she will rediscuss the option of mastectomy with me in the office afterwards She is scheduled for lumpectomy, with the Hologic localizer for both the lump in the axilla, with sentinel biopsy and targeted axillary dissection for the positive lymph node I have reviewed her images from the scintigraphy and there appears to be 3 lymph nodes that are showing up Time Spent With Patient Time: Total time managing care of this patient today ____ minutes.
--- NOTE | 2025-01-27 13:54 | W.PM.OPN ---
Operative Note Operative Note Date of Service: 01/27/25 Narrative: Preop diagnosis: Invasive ductal carcinoma of the right breast, status post neoadjuvant chemotherapy Postop diagnosis: The same Procedure: Lumpectomy, right breast, with the Hologic localizer, with targeted axillary dissection, sentinel node biopsies Surgeon: Onofre Dela Cruz MD dental front office assistant: WADE Rivera The patient is a 34 year female who had been diagnosed last year for a large right breast invasive ductal carcinoma. She had undergone neoadjuvant chemotherapy. She is here for lumpectomy. She still had a large residual palpable mass. She had insisted on a lumpectomy instead of mastectomy despite the risk of positive margins. She did state that if she ends up with positive margins we will need further wider excision, she we will discuss with me the option of mastectomy The patient had undergone RF ID localizer placement as well for both the large right breast mass and the previously biopsied axillary lymph node which was positive for metastatic disease She had undergone lymph node mapping with the radiology earlier. I reviewed the images and there appeared to be maybe 2 or 3 lymph nodes that were showing a on the nuclear scan. She was brought to the operating room. She was placed supine under general anesthesia via laryngeal mask airway. The right arm was abducted. The right axilla in the right breast were prepped and draped usual sterile fashion. A surgical time-out was done. The patient received cefazolin 2 g IV preoperatively Using the Hologic localizer, I marked the operative area of the skin a lateral aspect for the incision. A transverse incision was made with a blade 15. After infiltration with lidocaine 1%. This was carried down through the full-thickness of the skin and subcutaneous fat. I then created flaps on both sides and followed the palpable mass circumferentially. Guided by direct palpation, as well as with the Hologic localizer, proceeded to use the curved Chow scissors to circumferentially dissect around the mass, it cutting through grossly normal looking breast tissue. We proceeded with this dissection circumferentially. The mass was eventually completely removed. I marked the superior and lateral margins with sutures for orientation. Immediate re-ray showed that the RF ID clip as well as the biopsy clip were within the specimen I copiously irrigated. I used electrocautery and ligation with the Polysorb 3-0 tie to achieve hemostasis. Once hemostasis confirmed, I applied a light packing with gauze . We changed our set up of instruments and gloves We then proceeded to do the targeted axillary dissection and sentinel node biopsy. I marked the area of the incision using the Hologic localizer as well as the gamma probe as our guide. I infiltrated this area of the skin and made the incision in the axilla using blade 15. This was carried down with electrocautery through the full-thickness of the skin and thick subcutaneous fat. I incised the fascia and entered the axillary fat pad. I then periodically used the gamma probe as well as the Hologic localizer. I was able to identify the previously biopsied lymph node with the RF ID clip in place. I did targeted dissection of the lymph node and this was sent as a specimen. Immediate Re ray of this particular lymph node showed that the RF ID clip as well as the biopsy clip were in place I then proceeded to scan the axilla with the gamma probe. I was able to identify and palpate for 2 lymph nodes [place] #1 had a count of 598 [place] node # 2 had a count of 680. This were both excised after careful dissection with Metzenbaum scissors sent as specimens.. I observed for hemostasis. I irrigated. Once hemostasis confirmed, I proceeded to then reapposed the deep tissues with Polysorb 3-0 simple interrupted sutures. Skin closure was achieved with Polysorb 4-0 subcuticular running stitch We then proceeded to then copiously irrigate the lumpectomy site. At this point we were called by the pathologist that the inferior margins may be positive. The anterior and posterior margins appeared to be close although free I therefore proceeded to excise more inferior margins using the curved Chow scissors and this was sent as additional specimen On the anterior margin, this was already on skin and the posterior margin this was already and chest wall so I felt that we would not be able to excise additional tissue. I then proceeded to ensure hemostasis using electrocautery. We copiously irrigated. We observed for a few minutes and once hemostasis was confirmed, I reapposed deep breast tissue with Polysorb 3-0 simple interrupted sutures. Skin closure was achieved with Polysorb 4-0 subcuticular running stitch Both incisions were infiltrated with Marcaine 0.5% for postop analgesia. Dressings were applied. The procedure was completed The patient tolerated the procedure well. There were no immediate complications. Initial and final counts of sponges and instruments were correct. Estimated blood loss about 75 cc The patient is extubated without difficulty and transferred to the recovery room with stable vital signs
[2025-01-27] MEDS: oxyCODONE HCl Immed Release 5 MG TABLET PO (14:29)
== END 2025-01-27 15:30 | disposition home or self-care (01) ==
PROVIDERS: Nurse Practitioner; PCP Internal Medicine; Visit Provider Surgery
PROC: (CPT 19301; principal; 2025-01-27 11:10)
PROC: (CPT 19301; 2025-01-27 11:10)
DX: C50.911 Malignant neoplasm of unspecified site of right female breast (principal); Z92.21 Personal history of antineoplastic chemotherapy; C77.3 Secondary and unspecified malignant neoplasm of axilla and upper limb lymph nodes; Z17.0 Estrogen receptor positive status [ER+]; Z17.21 Progesterone receptor positive status; D64.9 Anemia, unspecified; Z87.891 Personal history of nicotine dependence
CPT/HCPCS: 19301; 38525; 78195; 81025; 88305; 88307; 88341; 88342; A9520; J0131; J0690; J1100; J2003; J2250; J2405; J2704; J2795; J3010; Q9968

== ENCOUNTER → 2025-01-27 07:21 | Outpatient (BNV) | payer MEDICAID, SELFPAY | PROVIDERS: PCP Internal Medicine; Visit Provider Surgery | DX: C50.911 Malignant neoplasm of unspecified site of right female breast (principal) | CPT/HCPCS: 19301; 38525; 38900; 99499 ==

== ENCOUNTER → 2025-01-27 07:40 | Outpatient (BNV) | payer MEDICAID, SELFPAY | PROVIDERS: PCP Internal Medicine; Visit Provider Radiology Diagnostic Radiology | DX: C50.911 Malignant neoplasm of unspecified site of right female breast (principal) | CPT/HCPCS: 78195 ==

== ENCOUNTER 2025-02-11 09:29 | Outpatient (AMB) | payer MEDICAID, SELFPAY ==
--- NOTE | 2025-02-11 09:36 | MHC.OFFVIS ---
Intake Visit Reasons: s/p Rt breast lumpectomy w/localizer & SN bx Intake Note: This patient presents for post-op assessment status post right breast lumpectomy with localizer and sentinel node biopsy. Pt c/o; reports no changes. [employer] Leader Required: No Accompanied by: Self / Same As Patient Allergies No Known Allergies (No Known Allergies*) Allergy (Verified 02/25/25 15:08) HPI HPI s/p Rt breast lumpectomy w/localizer & SN bx: Details: She had undergone lumpectomy with the Hologic localizer, with sentinel node biopsy and targeted axillary dissection for invasive ductal cancer last 01/27/2025. She tolerated procedure well. She does describe some sharp pains on the surgical sites including the axilla She denies any fever or chills. [facility] Medical History Invasive ductal carcinoma of breast Former smoker Anemia Surgical History (Updated 02/27/25 @ 10:49 by NICKI Friedman) History of lumpectomy of right breast (~01/27/25) Metastatic cancer to axillary lymph nodes No history of previous surgery Family History Maternal Grandmother Arthritis Asthma Maternal Grandfather Diabetes mellitus Maternal Aunt Breast cancer Father Throat cancer Paternal Grandfather Stomach cancer Social History Household Members: Children Housing: Apartment Are you a primary respiratory care program director to a significant other at home: No Do you presently have visiting nurse or other home services: No Alcohol intake: former Comment: counts correct Patient Tobacco Use Status: Former Tobacco user Agree to transfusion: Yes service: No Current occupational status: unemployed Sexual orientation: Straight/Heterosexual Gender identity: Female Female Reproductive History Menstrual Age of Menarche: 10 Review of Systems Const Denies chills and Denies fever(s) Card Denies chest pain at rest and Denies dyspnea on exertion Resp Denies pain with cough and Denies dyspnea on exertion Physical Exam Const General: comfortable and no acute distress Chest Other: Incisions on both the axilla and the breast are well healed but with note of some underlying hematoma, no cellulitis Resp Effort & Inspection: normal respiratory effort Assessment & Plan Assessment & Plan (1) Invasive ductal carcinoma of breast: Code(s): C50.919 - Malignant neoplasm of unspecified site of unspecified female breast Category: Medical Plan: Status post lumpectomy right, with sentinel node biopsy and targeted axillary dissection after neoadjuvant chemotherapy. She tolerated procedure well. She may have a hematoma in the lumpectomy site. I had advised her to do warm compresses to the area at least 3 times a day I will see her again in the office in about 2 weeks Her final path report shows invasive ductal carcinoma, with initial positive inferior and procedure margins. Re-excision for wider margins was done during the procedure for the inferior margin and this was negative. The posterior margin maybe focally positive although this was already on the chest wall . She also has DCIS 1 mm from the inferior and posterior margins. The final staging currently is ypT2 N1. I explained to her the above. I also explained to her that it will be best to proceed with mastectomy as she is young because of the high risk of recurrence. She says that she does not want mastectomy currently despite the above path report with likely positive margins. I will see her again in the office in 2 weeks review everything again with her. I also emphasized to her that she should follow up with Dr. Lei of Oncology. I had called the oncology office to set her up for this follow up. Coding Level of Care Code Est Pt Level 3 (06710) Diagnoses Invasive ductal carcinoma of breast C50.919
--- OUTSIDE RECORDS SUMMARY | 2025-02-11 10:22 | XMS_ITS | Clinical Summary ---
Author Organization [facility] [address] [place] [address] [place] [address] Phone Care Team Providers Care Cnc Wood Lathe Operator Name Role Phone Unavailable Primary Care Provider Unavailabl e Allergies No known active allergies Medications PNV no.95/ferrous fum/folic ac ( ORAL) Take 1 tablet by mouth 1 (one) time each day. 12/11/2022 Active medroxyPROGESTE Desean 150 mg/mL injection Inject 1 mL (150 mg total) into the shoulder, thigh, or buttocks every 3 (three) months. 03/19/2023 Active Immunizations Immunization Administration Dates Next Due Tdap Tetanus diptheria [...] Years) (1 of 2 - PCV) 02/06/2007 HPV Vaccines (1 - Risk 3-dose SCDM series) 02/06/2015 Social Influencers of Health Screening 04/16/2022 Hepatitis B Vaccines (3 of 3 - 19+ 3-dose series) 09/12/2023 07/18/2023, 06/06/2023, 10/09/2014 Depression Screening 05/14/2024 Influenza Vaccine (#1) 2025 , 02/20/2020, 02/12/2018, Additional history exists Cervical Cancer Screening: HPV 08/03/2027 08/02/2022 DTaP,Tdap,and Td Vaccines (6 - Td or Tdap) 11/17/2032 11/17/2022, 09/01/2021, 11/29/2011, Additional history exists RSV Immunization Adult Patients (1 - 1-dose 75+ series) 02/06/2063 MMR Vaccines Aged Out 04/30/2009 No longer [...] C Screening (05/25/2023) Hepatitis C Screening Abstracted [facility] Provider [place] HEALTH MAINTENANCE Final Result * HIV Screening (05/23/2023) Pathologist [facility] HIV Screening Abstracted [facility] Provider HEALTH MAINTENANCE Final Result * Cervical Cancer Screening: HPV (08/02/2022) Pathologist [facility] Cervical Cancer Screening: HPV Negative, abstracted [facility] Provider HEALTH MAINTENANCE Final Result from Last 3 Months or Most Recently Relevant to Health Maintenance Insurance MEDICAID - [place]
--- OUTSIDE RECORDS SUMMARY | 2025-02-11 10:22 | XMS_ITS | Encounter Summary ---
Author Organization [employer] Address [address] [place] [address] [address] [place] [address] Care Team Providers Care Seismic Plotter Name Role Phone Debbie Logan Primary Care Provider [phone] Debbie Logan Primary Care Provider [phone] Brenda Dangelo MD Primary Care Provide r Encounter Details Date Type Department Care Team (Late st Contact Info) Description 02/09/2023 Abstract [facility] MEDICINE [address] [place] [address] Louann Leung Social History Tobacco Use Types [...] on filedocumented in this encounter Care Teams Seismic Plotter Relationship Specialty Start Date End Date Debbie Logan FNP [address] [place], [place] [phone] PCP - General Family Medicine 01/19/23 06/14/23 Debbie Logan FNP [address] [place] [address] PCP - General Family Medicine 06/15/23 01/15/24 Brenda Dangelo MD [address] [place] [id number] PCP - General Internal Medicine 01/16/24 documented as of this encounter
--- OUTSIDE RECORDS SUMMARY | 2025-02-11 10:22 | XMS_ITS | Clinical Summary ---
Author Organization [facility] Address [address] [place] [address] Care Team Providers Care Darkroom Worker Name Role Phone Unavailable Primary Care Provider Unavailabl e Allergies No known active allergies Medications Medication Sig Dispensed Refills Start Date End Date Status 27-1 MG TABS Take 1 tablet by mouth daily. 0 12/11/2022 Active Active Problems Patient Care Coordination No te Formatting of this note migh t be different from the original. PCP: KRISTI [facility] NPI#[id number] Problem Noted Date Diagnosed Date Other specified [...] topic RigoJeny acosta Personal/Family Self [address] [address]
--- OUTSIDE RECORDS SUMMARY | 2025-02-11 10:23 | XMS_ITS | Encounter Summary ---
Author Organization [employer] Address [address] [place] [address] Care Team Providers Care Radon Inspector Name Role Phone Chip Banerjee Primary Care Provider Unavail able Debbie Logan Primary Care Provider [phone] Debbie Logan Primary Care Provider [phone] Brenda Dangelo MD Primary Care Provide r Reason for Visit * Reason Onset Date Comments Triage 08/30/2022 Encounter Details Date Type Department Care Team (Late st Contact Info) Description 08/30/2022 Telephone [facility] MEDICINE [address] [place] [id number] Chip Banerjee AGNP Triage Social History Tobacco [...] 17 weeks . Pt is going to PATIENT ACCESS DIRECTOR apt at 10AM and will come to [facility] after to be seen by provider. Pt [...] on filedocumented in this encounter Care Teams Radon Inspector Relationship Specialty Start Date End Date Chip Banerjee AGNP PCP - General Family Medicine 02/16/22 01/18/23 Debbie Logan FNP [address] [place] [address] PCP - General Family Medicine 01/19/23 06/14/23 Debbie Logan FNP [address] [place] [address] PCP - General Family Medicine 06/15/23 01/15/24 Brenda Dangelo MD [address] [place] [address] PCP - General Internal Medicine 01/16/24 documented as of this encounter
--- OUTSIDE RECORDS SUMMARY | 2025-02-11 10:23 | XMS_ITS | Clinical Summary ---
Author Organization [employer] Address [address] [facility] [address] [place] [address] Care Team Providers Care Coal Tram Driver Name Role Phone Brenda Dangelo MD Primary [...] 026 Active ergocalciferol (Vitamin D2) 1.25 MG (41176 UT) capsuleIndicati ons:Vitamin D deficiency Take 1 [...] 10 days. 20 tablet 01/03/20 25 025 amoxicillin (Amoxil) 500 MG capsule Take 1 capsule (500 mg) by mouth every 12 (twelve) hours for 10 days. 20 capsule 01/30/20 25 025 oxyCODONE-aceta minophen (Percocet) 5-325 MG tabletIndicatio ns:Breast pain, right Take 1 tablet by mouth every 6 (six) hours if needed for severe pain for up to 5 days. 20 tablet 02/06/20 25 025 Active Problems Problem Noted Date [...] upper- outer quadrant of right female breast (CMS/HCC) 04/16/2024 Assessment & Plan (10/29/2024 11:15 AM [...] Diagnosed Date Resolved Date Acute respiratory failure wi th hypoxia (CMS/HCC) 07/28/2024 10/29/2024 Assessment & Plan (07/28/2024 4:08 [...] Encounters Date Type Department Care Team Description 02/05/2025 11:20 AM EDT [facility] [address] [address] Millicent Peña DO Breast pain, right (Primary Dx) 02/05/2025 Travel 01/29/2025 9:20 AM EDT [facility] [address] [address] Fabio Wagner MD Strep pharyngitis 01/29/2025 Travel 01/27/2025 Orders Only GENERIC EXTERNAL DATA DEPARTMENT Provider, Generic External Data 01/20/2025 Orders Only [facility] External Provider, [facility] 01/05/2025 Results Follow-Up [facility] [address] [place] [id number] Name, MD Jovan XR Hand 3+ Views Right 01/02/2025 2:00 PM EDT Office Visit [facility] [address] [place] [address] Name, MD Jovan Flexor tenosynovitis of thumb (Primary Dx); Right hand pain 01/02/2025 Travel 11/11/[address] [facility] [address] [place] [address] Brenda Dangelo MD Care Management ([facility] graduation) from Last 3 Months Immunizations Immunization Administration [...] the past 12 months, has t he [employer] gas, oil or water company threatened to [...] Sign Reading Time Taken Comments Blood Pressure 104/66 02/05/2025 11:10 AM EDT Pulse 68 02/05/2025 11:10 AM EDT Temperature 36.5 C (97.7 F) 02/05/2025 11:10 AM EDT Respiratory Rate 18 02/05/2025 11:10 AM EDT Oxygen Saturation 98% 02/05/2025 11:10 AM EDT Inhaled Oxygen Concentration - - Weight 69.4 kg (153 lb) 02/05/2025 11:10 AM EDT Height 157.5 cm (5' 2 ) 10/29/2024 10:26 AM EDT Body Mass Index 27.98 10/29/2024 10:26 AM EDT Plan of Treatment Health Maintenance Due Date Last Done Comments Alcohol/Substance Use Screening 2000 Family Planning (PISQ) 02/06/2003 HPV Vaccines (1 - 3-dose series) 02/06/2003 Hepatitis B Vaccines (3 of 3 - 19+ 3-dose series) 09/12/2023 07/18/2023, 06/06/2023, 10/09/2014 COVID-19 Vaccine (1 - 2024-25 season) 2025 Influenza Vaccine (#1) 2025 , 02/20/2020, 02/12/2018, Additional history exists Diagnostic Breast Imaging 02/19/20252024, 11/05/2024, 10/24/2024, Additional history exists SDOH Screening 06/24/2025 06/24/2024 Mammogram 07/20/2025 01/20/2025, 10/13, 10/24/2024, Additional history exists Depression Screening 10/29/2025 10/29/2024, 10/30/19 Disability Screening 10/29/2025 10/29/2024 Tobacco Screening 02/05/2026 02/05/2025 Cervical Cancer Screening 04/14/2026 HPV/Cotest 04/14/2026 04/13/2021, [...] Procedure Name Priority Date/Time Associated Diagnosis Comments POCT RAPID STREP A Routine 01/29/2025 9: 30 AM EDT Strep pharyngitis BI MM SURGICAL SPECIMEN Routine 01/27/2025 1:05 PM EDT HEMATOXYLIN AND EOSIN STAIN Routine 01/27/2025 12:52 PM EDT NM SENTINEL NODE W IMAGING Routine 01/27/2025 7:41 AM EDT HCG, QL, URINE Routine 01/27/2025 7:30 AM EDT BI MAMMOGRAM DIAGNOSTIC RIGHT Routine 01/20/2025 11:00 AM EDT US BREAST RF TAG DEVICE ADDL Routine 01/20/2025 9:50 AM EDT US BREAST NEEDLE LOC RT - RFID Routine 01/20/2025 9:50 AM EDT XR HAND 3+ VIEWS RIGHT Routine 01/02/2025 1:18 PM EDT Right hand pain Flexor tenosynovitis of thumb HEPATITIS PANEL, GENERAL Routine 08/20/2024 11:28 AM [...] Recently Relevant to Health Maintenance Results * (ABNORMAL) POCT rapid strep A manually resulted (01/29/2025 9:30 AM EDT) Rapid Strep A Screen Positive( A) Negative, None Detected Swab 01/29/2025 9:30 AM EDT Fabio Wagner MD POINT OF CARE TEST ENTER/EDIT OR DERABLES Final Result * BI MM SURGICAL SPECIMEN (01/27/2025 1:05 PM EDT) Anatomical Region Laterality Modality Breast Bilateral Mammography 01/27/2025 1:05 PM EDT Narrative 01/27/2025 2:16 PM EDT [place] [address] [id number] Mammography Report Signed Patient: Jeny Sierra MR#: [id number] 6 : 1990 Acct:[id number] Age/Sex: 34 / F ADM Date: 01/27/25 Loc: [facility] Attending Dr: Onofre Dela Cruz MD Ordering Physician: Onofre Dela Cruz MD Results: Date of Service: 01/27/25 Follow Up: Procedure(s): MM surgical specimen Accession Number(s): [id number] cc: Brenda Dangelo MD; Onofre Dela Cruz MD Reason For Exam: C50.911 - Malignant neoplasm of unspecified site of right female breast Right single specimen radiograph of the right breast demonstrates the clip (presumed open coil) and the LOCalizer tag within the specimen. Results were called to Dr. Dela Cruz in the operating room at the time of imaging. Right single specimen radiograph of the right axilla demonstrates the butterfly clip and the LOCalizer tag within the specimen. Electronically signed by: Melvin Man MD 01/27/2025 02:13 PM EDT Dictated By: Melvin Man MD Signed By: <Electronically signed by Melvin Man MD in OV> 01/27/25 1413 DD/ 1305 TD/TT: 01/27/25 1320 Boiler Or Engine Operator: Procedure Note Donotuseinterpreter, Image - 01/27/[address] [address] [phone] Mammography Report Signed Patient: Jeny SierraMR#: [id number] 6 : 1990Acct:[id number] Age/Sex: 34 / FADM Date: 01/27/25 Loc: [facility] Attending Dr: Onofre Dela Cruz MD Ordering Physician: Onofre Dela Cruzesults: Date of Service: 01/27/25Follow Up: Procedure(s): MM surgical specimen Accession Number(s): [id number] cc: Brenda Dangelo MD; Onofre Dela Cruz MD Reason For Exam: C50.911 - Malignant neoplasm of unspecified site ofright female breast Right single specimen radiograph of the right breast demonstrates the clip (presumed open coil) and the LOCalizer tag within the specimen. Results were called to Dr. Dela Cruz in the operating room at the time of imaging. Right single specimen radiograph of the right axilla demonstrates the butterfly clip and the LOCalizer tag within the specimen. Electronically signed by: Melvin Man MD 01/27/2025 02:13 PM EDT Dictated By: Melvin Man MD Signed By: <Electronically signed by Melvin Man MD in OV> 01/27/25 1413 DD/ 1305 TD/TT: 01/27/25 1320 Boiler Or Engine Operator: [facility] External Provider IMG BI PROCEDURES Edited Result - Final * Hematoxylin and Eosin Stain (01/27/2025 12:52 PM EDT) 01/27/2025 12:5 2 PM EDT 01/27/2025 1:00 PM EDT [facility] - 02/01/2025 2:03 PM EDT ----- ------- Name: Jeny Sierra Age/Sex: 34/F : 1990 Unit#: [id number] Attend Dr: Onofre Dela Cruz MD Re01/27/25 Status: [facility] Location: [facility] Disch: ----- ------- SPEC : [id number] RECD: 01/27/25-1299 STATUS: VIC MILLER NUM: [id number] [place]: 01/27/25-[address] [facility] [address]: Onofre Dela Cruz MD ENTERED: 01/27/25-1304 SP TYPE: Surgical OTHR DR: Brenda Dangelo MD ORDERED: HE Stain/3, Gross Micro L4, Gross Micro L5/4, Cytokeratin/2, IOC, IHC/2, Add. immunos/2, SMM/2 Diagnosis A. 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 - Ductal carcinoma in situ, high nuclear grade, solid and cribriform types with comedonecrosis. - Invasive carcinoma present at inferior margin and posterior (focally) margin (final inferior margin is negative, see part E); remainder margins negative (> 4 mm). - DCIS is 1 mm from inferior and posterior margins; remainder margins negative (> 4 mm). - Tumor bed with minimal treatment response (residual cancer burden: 4.666, RCB-III class). - Lymphovascular invasion present. - AJCC Stage 8th edition: [id number](sn) B. [place] lymph node #1, excision: - Metastatic adenocarcinoma involving one lymph node (05/14). - Size of metastatic deposit: 9 mm. C. 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 - Size of metastatic deposit: 25 mm. - Extranodal extension present, greater than 2 mm. - Minimal treatment response noted. D. [place] lymph node #2, excision: - Metastatic adenocarcinoma involving one lymph node (05/14). - Size of metastatic deposit: 8 mm. E. Breast, right, additional inferior margin, re-excision: - Residual microscopic focus of invasive ductal carcinoma, grade 3, 1.5 mm, margins negative. Synoptic Data - Invasive Breast Cancer Procedure: Lumpectomy, margin revisions, sentinel lymph nodes Laterality: Right Tumor size: 48 mm Tumor focality: Unifocal Extent of tumor Skin: No skin present Nipple: Nipple not present Skeletal muscle: Muscle not present DCIS: Present; DCIS involves 6 of 19 blocks CONTINUED ON NEXT PAGE ----- ------- Name: Jeny Sierra Age/Sex: 34/F [facility] 1990 [id number]#: [id number] Attend Dr: Onofre Dela Cruz MD Re01/27/25 Status: [facility] Location: [facility] Disch: ----- ------- SPEC : [id number] RECD: 01/27/25-1299 STATUS: VIC MILLER NUM: [id number] [place]: 01/27/25-[address] [facility] [address]: Onofre Dela Cruz MD ENTERED: 01/27/25-4357 SP TYPE: Surgical OTHR DR: Brenda Dangelo MD ORDERED: HE Stain/3, Gross Micro L4, Gross Micro L5/4, Cytokeratin/2, IOC, IHC/2, Add. 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 deposit: 25 mm (part C) Treatment effect Breast: Minimal response Lymph nodes: Minimal response TNM: [id number](sn) Ancillary studies: Refer to previous biopsy ([id number]; ER +, WA +, HER2 (0), high ki-67 proliferation Note: For tumors greater than 5 mm in size with negative lymph nodes, prognostic genetic testing may be appropriate to guide further management. Clinical History Malignant neoplasm of unspecified site CONTINUED ON NEXT PAGE ----- ------- Name: Jeny Sierra Age/Sex: 34/F : 1990 Unit#: [id number] Attend Dr: Onofre Dela Cruz MD Re01/27/25 Status: [facility] Location: [facility] Disch: ----- ------- SPEC : [id number] RECD: 01/27/25-1299 STATUS: VIC MILLER NUM: [id number] [place]: 01/27/25-[address] [facility] [address]: Onofre Dela Cruz MD ENTERED: 01/27/25-4 SP TYPE: Surgical OTHR DR: Brenda Dangelo MD ORDERED: HE Stain/3, Gross Micro L4, Gross Micro L5/4, Cytokeratin/2, IOC, IHC/2, Add. immunos/2, SMM/2 Microscopic Description A-E. Sections of the breast excision reveal a large invasive ductal carcinoma with grade 3 features and minimal response to neoadjuvant therapy. Tumor bed is identified. Lymphovascular and perineural invasion is identified. The tumor demonstrates variable morphologies including lobular and mucinous features. Ductal carcinoma in situ is also identified with high nuclear grade. The immunostain for SMMS-1 in part E confirms residual microscopic focus of invasive ductal carcinoma. The previously biopsied right axillary lymph node in part C shows minimal to no treatment response. Background uninvolved breast parenchyma shows adenosis and fibrosis. The axillary and sentinel nodes show tattoo ink. Material Received A. Right breast lumpectomy B. [place] lymph node #1, count 598 C. Previously biopsied lymph node with RFID clip D. [place] node #2, count 680 E. Additional inferior margin Gross Description Received in five parts. Part A: Received fresh, for intraoperative consultation, labeled right breast lumpectomy is a 6.0 (medial-lateral) x 6.0 (superior-inferior) x 3.5-4.0 (anterior- posterior) cm portion of firm, focally indurated, caraballo-white and mack-yellow lobular fibrofatty breast tissue. As stated on the specimen container and specimen requisition slip a short stitch denotes the superior margin and a long stitch denotes the lateral margin. The margins are inked as follows: anterior-black, posterior-red, superior-blue, inferior-green, medial- orange and lateral-yellow. The specimen is serially sectioned to reveal a central band of dense, gritty, indurated, micronodular caraballo-white fibrous breast tissue spanning an area measuring 5.5 (superior-inferior) x 4.5 (medial-lateral) x 3.0 (anterior- posterior) cm. The center of this band of breast tissue is remarkable for an ill-defined, dense, gritty, indurated focus suspicious for residual tumor spanning an area measuring 4.8 (superior- inferior) x 3.0 (medial-lateral) x 2.5 (anterior-posterior) cm (slice 5) which very closely approaches if not abuts the inferior margin and is located 0.5 cm from the nearest anterior and posterior margins of resection. The focus of residual tumor is identified in the breast tissue corresponding to the area harboring the Hologic LOCalizer RFID tag with focal hemorrhage consistent with prior biopsy. The Hologic localizer RFID tag is identified, however, the biopsy clip is not identified. Pipelines Laborer sections are submitted labeled as follows: CONTINUED ON NEXT PAGE ----- ------- Name: Jeny Sierra Age/Sex: 34/F : 1990 Unit#: [id number] Attend Dr: Onofre Dela Cruz MD Re01/27/25 Status: [facility] Location: [facility] Disch: ----- ------- SPEC : [id number] RECD: 01/27/25-1300 STATUS: VIC MILLER NUM: [id number] [place]: 01/27/25-[address] [facility] [address]: Onofre Dela Cruz MD ENTERED: 01/27/250279 SP TYPE: Surgical OTHR DR: Brenda Dangelo MD ORDERED: HE Stain/3, Gross Micro L4, Gross Micro L5/4, Cytokeratin/2, IOC, IHC/2, Add. immunos/2, SMM/2 Gross Description (Continued) A1 medial, slice 1; A2 medial, slice 2; A3 anterior, slice 3; A4 superior-anterior, slice 4; A5 posterior, slice 4; A6 anterior, slice 4; A7 inferior, slice 4; A8 xshngegk-gqphdiwn-jgvqwnhhe, slice 5; A9 anterior-posterior, slice 5; A10 inferior, slice 5; A11 anterior-inferior, slice 5; A12 anterior, slice 6; A13 posterior, slice 6; A14 inferior, slice 6; A15 inferior, slice 7; A16 superior-posterior, slice 7; A17 superior-posterior, slice 8; A18 posterior, slice 9; A19 lateral, slice 10. The intraoperative diagnosis is reported to Dr. Dela Cruz as mass and Hologic RFID tag identified, present at inferior margin. Anterior and posterior margins appear to be free, but close by Dr. Carmona. (PK) Part B: Received in formalin labeled sentinel lymph node #1, count 598 is a 1.7 cm in greatest dimension caraballo, pink-purple lymph node with attached adipose tissue which is serially sectioned to reveal a 1.0 x 0.6 x 0.35 cm firm, caraballo-white nodule suspicious for metastatic tumor. The lymph node is entirely submitted in a cassette labeled B1. Part C: Received in formalin labeled previously biopsied lymph node with RFID clip is a 2.5 cm in greatest dimension indurated caraballo-pink lymph node with attached adipose tissue serially sectioned to reveal chalky, opaque caraballo-white and caraballo-yellow cut surfaces consistent with metastatic tumor with focal blue-black dye staining. A 0.9 cm Hologic localizer RFID clip is identified. A biopsy clip is not identified. The lymph node is entirely submitted in cassettes C1-C4. Part D: Received in formalin labeled sentinel node #2, count 680 is a 1.4 cm in greatest dimension rubbery, caraballo-pink and pink-maroon lymph node with attached adipose tissue, serially sectioned to reveal a 0.6 x 0.4 x 0.35 cm rubbery caraballo-white focus suspicious for metastatic tumor. The remaining lymph node is remarkable for a fatty mack-yellow hilum and partial rim of red-maroon cortical lymphoid tissue. The lymph node is entirely submitted in cassettes D1 and D2. CONTINUED ON NEXT PAGE ----- ------- Name: Jeny Sierra Age/Sex: 34/F : 1990 Unit#: [id number] Attend Dr: Onofre Dela Cruz MD Re01/27/25 Status: [facility] Location: [facility] Disch: ----- ------- SPEC : [id number] RECD: 01/27/25-1299 STATUS: VIC CORIENik NUM: [id number] [place]: 01/27/25-[address] [facility] [address]: Onofre Dela Cruz MD ENTERED: 01/27/25-130 SP TYPE: Surgical OTHR DR: Brenda Dangelo MD ORDERED: HE Stain/3, Gross Micro L4, Gross Micro L5/4, Cytokeratin/2, IOC, IHC/2, Add. immunos/2, SMM/2 Gross Description (Continued) Part E: Received in formalin labeled additional inferior margin is a 4.8 x 2.5 x 0.5-1.4 cm partially fragmented flap of caraballo, white-pink and mack-yellow lobular fibrofatty breast tissue. No sutures are present to orient the specimen. There is a slight concave cauterized and hemorrhagic surface consistent with prior biopsy side. The opposing convex surface is smooth and glistening mack-yellow and caraballo-pink consistent with the new margin. The convex new margin is inked and the specimen is serially sectioned to reveal predominantly homogeneous mack-yellow lobular fat with a lesser amount of focally congested and hemorrhagic caraballo-white and red-maroon fibrous breast tissue at the prior biopsy side. There is no gross evidence of residual tumor identified. No distinct cysts, lesions or nodules are identified. The specimen is entirely submitted in cassettes E1-E8. CEDS Special stains ordered and performed: SMMS on E1 and E4. IHC S/NG Disclaimer NOTE: Unless otherwise stated, all tissue is formalin-fixed and paraffin-embedded. Some or all of the immunohistochemical tests reported herein may have been developed and their performance characteristics determined by [facility]. They have not been cleared or approved by the U.S. Food and Drug Administration (FDA). However, the FDA has determined that such clearance or approval is not necessary. This laboratory is certified under the Clinical Laboratory Improvement Amendments of 1988 (CLIA) as qualified to perform high complexity clinical laboratory testing. Copies To: Brenda Dangelo MD [address] [address] Onofre Dela Cruz MD [facility] [address] [place] [address] ----- ------- Signed (signature on file) Radha Aleman MD 02/01/25 1403 ----- ------- END OF REPORT us Generic External Data Provider LAB BLOOD ORDERAB LES Final Result [facility] [address] [place] [phone] * NM SENTINEL NODE W IMAGING (01/27/2025 7:41 AM EDT) Anatomical Region Laterality Modality Nuclear Medicine 01/27/2025 7:41 AM EDT Narrative 01/27/2025 12:50 PM EDT [address] [address] Nuclear Medicine Report Signed Patient: Jeny Sierra MR#: [id number] 6 : 1990 Acct:[id number] Age/Sex: 34 / F ADM Date: 01/27/25 Loc: [facility] Attending Dr: Onofre Dela Cruz MD Ordering Physician: Onofre Dela Cruz MD Date of Service: 01/27/25 Procedure(s): NM sentinel node w imaging Accession Number(s): [id number] cc: Brenda Dangelo MD; Onofre Dela Cruz MD Reason for Exam: C50.919 - Malignant neoplasm of unspecified site of unspecified female b... EXAMINATION: Nuclear medicine sentinel node imaging. CLINICAL INDICATION: Right breast cancer. COMPARISON: Breast mammogram 01/20/2025. TECHNIQUE: Following explaining right breast sentinel node imaging procedure, benefits, a written consent was obtained. 4% lidocaine cream was applied around the right breast areola 30 minutes prior to the procedure. Patient arrived in nuclear medicine department and the jelly around the right breast areola was cleaned and aseptic manner. 0.5 mCi of 99m Tc lymphoseek divided in 4 equal doses was injected in 4 quadrants around the right breast areola and imaging obtained at 30 minutes. Patient tolerated procedure extremely well. FINDINGS: There is a four-quadrant activity seen around the right breast areola. In addition there are at least 2 sentinel nodes visualized in the anterior axilla at 30 minutes of imaging. No abnormal activity seen along the internal mammary lymph nodes. NM/NM sentinel node w imaging IMPRESSION: Successful right breast sentinel node imaging performed. Electronically signed by: Nirav Mooney MD 01/27/2025 12:48 PM EDT RP Dictated By: Nirav Mooney MD Signed By: <Electronically signed by Nirav Mooney MD in OV> 01/27/25 1248 DD/ 0741 TD/TT: 01/27/25 0900 Boiler Or Engine Operator: [facility] Procedure Note Donotuseinterpreter, Image - 01/27/[address] [address] Nuclear Medicine Report Signed Patient: Jeny SierraMR#: [id number] 6 : 1990Acct:[id number] Age/Sex: 34 / FADM Date: 01/27/25 Loc: [facility] Attending Dr: Onofre Dela Cruz MD Ordering Physician: Onofre Dela Cruz MD Date of Service: 01/27/25 Procedure(s): NM sentinel node w imaging Accession Number(s): [id number] cc: Brenda Dangelo MD; Onofre Dela Cruz MD Reason for Exam: C50.919 - Malignant neoplasm of unspecified site ofunspecified female b... EXAMINATION: Nuclear medicine sentinel node imaging. CLINICAL INDICATION: Right breast cancer. COMPARISON: Breast mammogram 01/20/2025. TECHNIQUE: Following explaining right breast sentinel node imaging procedure, benefits, a written consent was obtained. 4% lidocaine cream was applied around the right breast areola 30 minutes prior to the procedure. Patient arrived in nuclear medicine department and the jelly around the right breast areola was cleaned and aseptic manner. 0.5 mCi of 99m Tc lymphoseek divided in 4 equal doses was injected in 4 quadrants around the right breast areola and imaging obtained at 30 minutes. Patient tolerated procedure extremely well. FINDINGS: There is a four-quadrant activity seen around the right breast areola. In addition there are at least 2 sentinel nodes visualized in the anterior axilla at 30 minutes of imaging. No abnormal activity seen along the internal mammary lymph nodes. NM/NM sentinel node w imaging IMPRESSION: Successful right breast sentinel node imaging performed. Electronically signed by: Nirav Mooney MD 01/27/2025 12:48 PM EDT Dictated By: Nirav Mooney MD Signed By: <Electronically signed by Nirav Mooney MD in OV> 01/27/25 1248 DD/ 0741 TD/TT: 01/27/25 0900 Boiler Or Engine Operator: ANA ROSA [facility] External Provider IMG NM PROCEDURES Edited Result - Final * HCG, Qualitative, Urine (01/27/2025 7:30 AM EDT) Urine NEGATIVE NEGATIVE [facility] Comment:This test was develo ped to detect early . Falsenegative results may occur after the 5th - 7th week ofpregnancy when using this test method. If clinicallyindicated, consider a serum hCG. 01/27/2025 7:30 AM EDT 01/27/2025 7:40 AM EDT Generic External Data Provider LAB URINE ORDERAB LES Final Result [facility] [address] [place] [address] [phone] * Mammogram Diagnostic Right (01/20/2025 11:00 AM EDT) Anatomical Region Laterality Modality Breast Right Mammography 01/20/2025 11:0 0 AM EDT Narrative 01/20/2025 12:39 PM EDT [facility] [address] [place] [address] Mammography Report Signed Patient: Jeny Sierra MR#: [id number] 6 : 1990 Acct:[id number] Age/Sex: 34 / F ADM Date: 01/20/25 Loc: [facility] Attending Dr: Onofre Dela Cruz MD Ordering Physician: Onofre Dela Cruz MD Results: 6Kno wn Biopsy Proven Malignancy Date of Service: 01/20/25 Follow Up: Surgical Consult Procedure(s): MM diagnostic mammo unilat RT Accession Number(s): [id number] cc: Brenda Dangelo MD; Onofre Dela Cruz [...] (9cc: 1cc) at each site. LOCALIZATION SYSTEM: -Cono-C LOCallizer Wire-Free Guidance System with 12g needle applicator. -Length: 7 cm. -RADIOFREQUENCY TAG: ID # [id number] placed within the right breast mass at 8-9:00 at 5 cm from the nipple. -RADIOFREQUENCY TAG: ID # [id number] placed within the abnormal right axillary lymph [...] post right breast RFID localization TAG ID# [id number]. - Status post right axilla RFID localization TAG ID# [id number]. Electronically signed by: Melvin aMn MD 01/20/2025 12:36 PM EDT Dictated By: Melvin Man MD Signed By: <Electronically signed by Melvin Man MD in OV> 01/20/25 1236 DD/ 1100 TD/TT: 01/20/25 1112 Boiler Or Engine Operator: Procedure Note Donotuseinterpreter, Image - 01/20/2025 [facility]'s [address] [place] [address] Mammography Report Signed Patient: Jeny SierraMR#: [id number] 6 : 1990Acct:[id number] Age/Sex: 34 / FADM Date: 01/20/25 Loc: HO.MAMMO Attending Dr: Onofre Dela Cruz MD Ordering Physician: Onofre Dela Cruzesults: [id number] wn Biopsy Proven Malignancy Date of Service: 01/20/25Follow Up: Surgical Consult Procedure(s): MM diagnostic mammo unilat RT Accession Number(s): [id number] cc: Brenda Dangelo MD; Onofre Dela Cruz [...] (9cc: 1cc) at each site. LOCALIZATION SYSTEM: -Cono-C LOCallizer Wire-Free Guidance System with 12g needle applicator. -Length: 7 cm. -RADIOFREQUENCY TAG: ID # [id number] placed within the right breast mass at 8-9:00 at 5 cm from the nipple. -RADIOFREQUENCY TAG: ID # [id number] placed within the abnormal right axillary lymph [...] post right breast RFID localization TAG ID# [id number]. - Status post right axilla RFID localization TAG ID# [id number]. Electronically signed by: Melvin Man MD 01/20/2025 12:36 PM EDT Dictated By: Melvin Man MD Signed By: <Electronically signed by Melvin Man MD in OV> 01/20/25 1236 DD/ 1100 TD/TT: 01/20/25 1112 Boiler Or Engine Operator: us [facility] External Provider IMG BI PROCEDURES Edited Result - Final * US breast RF Tag Device Addl (01/20/2025 9:50 AM EDT) Anatomical Region Laterality Modality Abdomen Ultrasound 01/20/2025 9:50 AM EDT Narrative 01/20/2025 12:39 PM EDT [address] [place] [address] Ultrasound Report Signed Patient: Jeny Sierra MR#: [id number] 6 : 1990 Acct:[id number] Age/Sex: 34 / F ADM Date: 01/20/25 Loc: HO.MAMMO Attending Dr: Onofre Dela Cruz MD Ordering Physician: Onofre Dela Cruz MD Date of Service: 01/20/25 Procedure(s): US Breast RF Tag Device Addl Accession Number(s): [id number] cc: Brenda Dangelo MD; Onofre Dela Cruz [...] (9cc: 1cc) at each site. LOCALIZATION SYSTEM: -Cono-C LOCallizer Wire-Free Guidance System with 12g needle applicator. -Length: 7 cm. -RADIOFREQUENCY TAG: ID # [id number] placed within the right breast mass at 8-9:00 at 5 cm from the nipple. -RADIOFREQUENCY TAG: ID # [id number] placed within the abnormal right axillary lymph [...] post right breast RFID localization TAG ID# [id number]. - Status post right axilla RFID localization TAG ID# [id number]. Electronically signed by: Melvin Man MD 01/20/2025 12:36 PM EDT Dictated By: Melvin Man MD Signed By: <Electronically signed by Melvin Man MD in OV> 01/20/25 1236 DD/ 0950 TD/TT: 01/20/25 1109 Boiler Or Engine Operator: Procedure Note Donotuseinterpreter, Image - [facility] [address] [place], [place] [address] Ultrasound Report Signed Patient: Vahid Sierra#: [id number] 6 : 1990Acct:[id number] Age/Sex: 34 / FADM Date: 01/20/25 Loc: HO.MAMMO Attending Dr: Onofre Dela Cruz MD Ordering Physician: Onofre Dela Cruz MD Date of Service: 01/20/25 Procedure(s): US Breast RF Tag Device Addl Accession Number(s): [id number] cc: Brenda Dangelo MD; Onofre Dela Cruz [...] (9cc: 1cc) at each site. LOCALIZATION SYSTEM: -Cono-C LOCallizer Wire-Free Guidance System with 12g needle applicator. -Length: 7 cm. -RADIOFREQUENCY TAG: ID # [id number] placed within the right breast mass at 8-9:00 at 5 cm from the nipple. -RADIOFREQUENCY TAG: ID # [id number] placed within the abnormal right axillary lymph [...] post right breast RFID localization TAG ID# [id number]. - Status post right axilla RFID localization TAG ID# [id number]. Electronically signed by: Melvin Man MD 01/20/2025 12:36 PM EDT Dictated By: Melvin Man MD Signed By: <Electronically signed by Melvin Man MD in OV> 01/20/25 1236 DD/ 0950 TD/TT: 01/20/25 1109 Boiler Or Engine Operator: us [facility] External Provider IMG US PROCEDURES Edited Result - Final * US breast needle loc RT - RFID (01/20/2025 9:50 AM EDT) Anatomical Region Laterality Modality Abdomen Ultrasound 01/20/2025 9:50 AM EDT Narrative 01/20/2025 12:39 PM EDT [address] [place] [address] Ultrasound Report Signed Patient: Jeny Sierra MR#: [id number] 6 : 1990 Acct:[id number] Age/Sex: 34 / F ADM Date: 01/20/25 Loc: HO.MAMMO Attending Dr: Onofre Dela Cruz MD Ordering Physician: Onofre Dela Cruz MD Date of Service: 01/20/25 Procedure(s): US Breast RF Tag Device Right Accession Number(s): [id number] cc: Brenda Dangelo MD; Onofre Dela Cruz [...] (9cc: 1cc) at each site. LOCALIZATION SYSTEM: -Cono-C LOCallizer Wire-Free Guidance System with 12g needle applicator. -Length: 7 cm. -RADIOFREQUENCY TAG: ID # [id number] placed within the right breast mass at 8-9:00 at 5 cm from the nipple. -RADIOFREQUENCY TAG: ID # [id number] placed within the abnormal right axillary lymph [...] post right breast RFID localization TAG ID# [id number]. - Status post right axilla RFID localization TAG ID# [id number]. Electronically signed by: Melvin Man MD 01/20/2025 12:36 PM EDT Dictated By: Melvin Man MD Signed By: <Electronically signed by Melvin Man MD in OV> 01/20/25 1236 DD/ 0950 TD/TT: 01/20/25 1109 Boiler Or Engine Operator: Procedure Note Ruslanter, Image - 01/20/2025 [facility] [address] [place] [address] Ultrasound Report Signed Patient: Jeny Sierra#: [id number] 6 : 1990Acct:[id number] Age/Sex: 34 / FADM Date: 01/20/25 Loc: HO.MAMMO Attending Dr: Onofre Dela Cruz MD Ordering Physician: Onofre Dela Cruz MD Date of Service: 01/20/25 Procedure(s): US Breast RF Tag Device Right Accession Number(s): [id number] cc: Brenda Dangelo MD; Onofre Dela Cruz [...] (9cc: 1cc) at each site. LOCALIZATION SYSTEM: -Cono-C LOCallizer Wire-Free Guidance System with 12g needle applicator. -Length: 7 cm. -RADIOFREQUENCY TAG: ID # [id number] placed within the right breast mass at 8-9:00 at 5 cm from the nipple. -RADIOFREQUENCY TAG: ID # [id number] placed within the abnormal right axillary lymph [...] post right breast RFID localization TAG ID# [id number]. - Status post right axilla RFID localization TAG ID# [id number]. Electronically signed by: Melvin Man MD 01/20/2025 12:36 PM EDT Dictated By: Melvin Man MD Signed By: <Electronically signed by Melvin Man MD in OV> 01/20/25 1236 DD/ 0950 TD/TT: 01/20/25 1109 Boiler Or Engine Operator: us [facility] External Provider IMG US PROCEDURES Edited Result - Final * XR Hand 3+ Views Right (01/02/2025 1:18 PM EDT) Anatomical Region Laterality Modality Upper Extremities, Hand Right [facility] 01/02/2025 1:18 PM EDT Narrative 01/02/2025 2:21 PM EDT [address] [address] XRay Report Signed Patient: Jeny Sierra MR#: [id number] 6 : 1990 Acct:[id number] Age/Sex: 34 / F ADM Date: 01/02/25 Loc: HO.CX Attending Dr: Jovan Broussard MD Ordering Physician: Jovan Broussard MD Date of Service: 01/02/25 Procedure(s): XR hand RT min 3V Accession Number(s): [id number] cc: Jovan Broussard MD EXAMINATION: XR HAND, [...] 01/02/25 1418 DD/ 1318 TD/TT: 01/02/25 1405 Boiler Or Engine Operator: Procedure Note Donotshalainterpreter, Image - 01/02/[address] [address] XRay Report Signed Patient: Jeny SierraMR#: [id number] 6 : 1990Acct:[id number] Age/Sex: 34 / FADM Date: 01/02/25 Loc: CX Attending Dr: Jovan Broussard MD Ordering Physician: Jovan Broussard MD Date of Service: 01/02/25 Procedure(s): XR hand RT min 3V Accession Number(s): [id number] cc: Jovan Broussard MD EXAMINATION: XR HAND, [...] 01/02/25 1418 DD/ 1318 TD/TT: 01/02/25 1405 Boiler Or Engine Operator: us Jovan Broussard MD IMG XR PROCEDURES Final Result * Hepatitis A,B,C Profile (08/20/2024 11:28 AM EDT) Hepatitis A IgM Nonreactive Nonreactive [facility] Comment:IgM antibodies to NAVARRO V not detected; does not exclude earlyacute or recovered HAV infection. ~Hepatitis B Surface Antibody REACTIVE Nonreactive [facility] Comment:REACTIVE: > 11.99 mI U/mL Hepatitis B Core Antibody Nonreactive Nonreactive [facility] Hepatitis C Antibody Nonreactive Nonreactive [facility] Comment:Antibodies to HCV no t detected; does not exclude early acuteHCV infection. Hepatitis B Surface Ag Negative Negative [facility] Blood Venous blood specimen / Unknown 08/20/2024 11:28 AM EDT 08/20/2024 1:34 PM EDT us Brenda Sawyer MD LAB BLOOD ORDERABLES Final Result [facility] [address] [place] [address] [phone] * HIV-1/2 Antigen and Antibodies, Fourth Generation, with Reflexes (07/28/2024 1:52 PM EDT) HIV AB/AG Nonreactive Nonreactive [facility] Comment:HIV-1 p24 Ag and/or HIV-1/HIV-2 Ab not detected.A test result that is nonreactive does not exclude thepossibility of exposure to or infection with HIV-1 and/orHIV-2. Nonreactive results in this assay for individualswith prior exposure to HIV-1 and/or HIV-2 may be due toantigen and antibody levels that are below the limit ofdetection of this assay.The [employer] HIV Ag/Ab Combo assay result andsupplemental assay results should be interpreted inconjunction with the patient's clinical presentation,history and other laboratory results. If the results areinconsistent with clinical evidence, additional testing issuggested to confirm the result. Blood Venous blood specimen / Unknown 07/28/2024 1:52 PM EDT 07/28/2024 4:24 PM EDT Brenda Sawyer MD LAB BLOOD ORDERABLES Final Result [facility] [address] [place] [phone] * Pap Smear (04/14/2021) Pathologist [facility] Pap smear Performed Historical Provider HEALTH MAINTENANCE Final Result * HPV E6/E7 RFLX PORTIA 16 18/45 (04/13/2021 10:26 AM EST) Pathologist [facility] HPV 16 RNA TNP [facility] HPV 18/45 RNA [facility] HPV E6 E7 ADD [facility]NP [facility] HPV mRNA E6/E7 rflx Not Detected Not Detected [facility] Comment: Methodology: Cotton Ginner Helper-Mediated Amplification This assay detects E6/E7 viral messenger RNA (mRNA) from 14 high-risk HPV types (16,18,31,33,35,39,45,51,52,56,58,59,66,68). The analytical performance characteristics of this assay have been determined by [employer]. The modifications have not been cleared or approved by the FDA. This assay has been validated pursuant to the CLIA regulations and is used for clinical purposes. For additional information, please refer to http://education.[employer].IRIS-RFID/faq/GNL210k4 (This link if provided for information/ educational purposes only.) THIS TEST WAS PERFORMED AT: [facility] [employer] [address] [place] [address],[place] [address] WILD BRICENO MD 04/13/2021 10:2 6 AM EST us Sharon Perez HISTORICAL/NON ORDERABLE LABS Fi nal Result [facility] [address] from Last 3 Months or Most Recently Relevant to Health Maintenance Insurance [employer] C3 Care Teams Coal Tram Driver Relationship Specialty Start Date End Date Brenda Dangelo MD [address] [place] [phone] PCP - General Internal Medicine 01/16/24
--- OUTSIDE RECORDS SUMMARY | 2025-02-11 10:23 | XMS_ITS | Encounter Summary ---
Author Organization [employer] Address [address] [facility] [place] [address] Care Team Providers Care Die Sinker Apprentice Name Role Phone Debbie Logan WILIAN Primary Care Provider [phone] Brenda Dangelo MD Primary Care Provide r Encounter Details Date Type Department Care Team ([facility] Contact Info) Description 06/23/2023 Orders Only [facility] [address] [place], [place] [phone] Perry Miguel MD [address] [place] [address] Hematuria, unspecified type (Primary Dx) Social History [...] documented as of this encounter Care Teams Die Sinker Apprentice Relationship Specialty Start Date End Date Debbie Logan FNP [address] [place] [address] PCP - General Family Medicine 06/15/23 01/15/24 Brenda Dangelo MD [address] [place] [address] PCP - General Internal Medicine 01/16/24 documented as of this encounter
== END 2025-02-11 10:05 | disposition home or self-care (01) ==
LOC: HO.HGS 09:30
PROVIDERS: PCP Internal Medicine; Visit Provider Surgery
DX: C50.919 Malignant neoplasm of unspecified site of unspecified female breast (principal)
CPT/HCPCS: 99024

== ENCOUNTER → 2025-02-11 09:29 | Outpatient (BNVA) | payer MEDICAID, SELFPAY | PROVIDERS: PCP Internal Medicine; Visit Provider Surgery | DX: Z71.2 Person consulting for explanation of examination or test findings (principal); C50.911 Malignant neoplasm of unspecified site of right female breast | CPT/HCPCS: 99212 ==

== ENCOUNTER 2025-02-26 11:43 | Outpatient (REF) | payer MEDICAID, SELFPAY ==
--- NOTE | ~2025-02-26 | US_ITS ---
EXAMINATION: US TRIPLEX UPPER EXTREMITY, RIGHT CLINICAL INFORMATION: Acute pain and swelling right upper extremity. Recent breast surgery right lateral breast. COMPARISON: None available. TECHNIQUE: Color-flow triplex imaging with spectral analysis and compression Doppler was performed on the right upper extremity. FINDINGS: The right internal jugular, subclavian, and axillary veins are patent and free of thrombus. The imaged segment of the right brachiocephalic vein is patent. Spectral doppler waveforms are normal. The brachial, basilic, cephalic, radial, and ulnar veins are patent and compressible. Incidental note made of a fluid collection measuring 4.6 x 2.4 x 3.0 cm in the right lateral breast at the area of pain, most consistent with a postsurgical seroma. US/US venous duplex UE RT IMPRESSION: 1. No evidence of deep venous thrombosis involving the right upper extremity. 2. Postop seroma as detailed suspected in the area of pain, right lateral breast. Electronically signed by: Ruy Gallo MD 02/26/2025 12:22 PM EDT
--- OUTSIDE RECORDS SUMMARY | 2025-02-26 15:03 | XMS_ITS | Clinical Summary ---
Author Organization [facility] Address [address] [place] [address] Phone Care Team Providers Care Carbon Setter Name Role Phone Brenda Dangelo MD Primary Care Provider Social History Tobacco Use Types Packs/Day Years Used Date Smoking Tobacco: Never Assessed Education Answer Date Recorded Are you interested [...] on file Sexual Orientation Not on file Plan of Treatment Upcoming Encounters Date Type Department Care Team (Late st Contact Info) Description 03/11/2025 10:00 AM EDT Office Visit [facility] Rad Onc [address] [place] [phone] Mouna Palacios MD [address] [place] [address] [email or web address] Health Maintenance Due Date Last Done Comments Adult Td,Tdap Booster 1990 DEPRESSION SCREENING 2000 SMOKING Hx and SMOKELESS TOB ACCO SCREENING 02/06/2001 HEPATITIS C SCREENING 02/06/2006 HIV ONE-TIME SCREENING (18-6 5 YEARS) 02/06/2006 PAP SMEAR 02/06/2009 INFLUENZA VACCINE (#1) 2024 COVID-19 VACCINE (2024-2 6 season) 2025 HEPATITIS A VACCINES Aged Out No long er eligible based on patient's age to complete this topic HIB VACCINES Aged Out No longer eligi ble based on patient's age to complete this topic MENINGOCOCCAL VACCINES (ACWY) Aged Out No longer eligible based on patient's age to complete this topic MENINGOCOCCAL VACCINES (B) Aged Out N o longer eligible based on patient's age to complete this topic PNEUMOCOCCAL VACCINES (0-49 years) Aged Out No longer eligible based on patient's age to complete this topic Medical Devices Not on file Insurance Care Teams Carbon Setter Relationship Specialty Start Date End Date Brenda Dangelo MD [address] [place] [phone] PCP - General Internal Medicine 02/26/25 Additional Source Comments The information contained in this document represents components of the legal health record. It is not the complete legal health record.[facility]
--- OUTSIDE RECORDS SUMMARY | 2025-02-26 15:03 | XMS_ITS | Clinical Summary ---
Author Organization [facility] Address [address] [place] [address] Care Team Providers Care Dyeing Machine Tender Name Role Phone Unavailable Primary Care Provider Unavailabl e Allergies No known active allergies Medications Medication Sig Dispensed Refills Start Date End Date Status 27-1 MG TABS Take 1 tablet by mouth daily. 0 12/11/2022 Active Active Problems Patient Care Coordination No te Formatting of this note migh t be different from the original. PCP: [facility] NPI#[id number] Problem Noted Date Diagnosed Date Other specified [...] topic RigoJeny acosta Personal/Family Self [address] [address]
== END 2025-02-26 11:44 | disposition home or self-care (01) ==
LOC: HO.US 11:43
PROVIDERS: PCP Internal Medicine Geriatric Medicine; Visit Provider Internal Medicine
DX: C50.911 Malignant neoplasm of unspecified site of right female breast (principal)
CPT/HCPCS: 93971

== ENCOUNTER → 2025-02-26 11:45 | Outpatient (BNV) | payer MEDICAID, SELFPAY | PROVIDERS: PCP Internal Medicine Geriatric Medicine; Visit Provider Radiology Diagnostic Radiology | DX: M79.622 Pain in left upper arm (principal); M79.89 Other specified soft tissue disorders | CPT/HCPCS: 93971 ==

== ENCOUNTER 2025-03-12 10:08 | Outpatient (AMB) | payer MEDICAID, SELFPAY ==
--- OUTSIDE RECORDS SUMMARY | 2024-04-01 01:00 | XMS_ITS | Encounter Summary ---
Author Organization [facility] Address [address] [place] [phone] Phone Care Team Providers Care Mine Boss Name Role Phone Unavailable Primary Care Provider Unavailabl e Encounter Details Date Type Department Care Team (Late st Contact Info) Description 04/01/2024 Hospital Encounter [facility],Outside Imaging [address] [place] [address] Unknown, Unknown, Social History Tobacco Use Types Packs/Day Years Used Date Smoking Tobacco: Some Days Cigarettes Smokeless Tobacco: Never Alcohol Use Standard Drinks/Week Comments Yes 0 (1 standard drink = 0.6 oz pur e alcohol) occasional beer here and there Education Answer Date Recorded Are you interested in more education? Not on orion e 02/26/2025 Are you concerned about learning? Not on file 02/26/2025 No 02/26/2025 No 02/26/2025 Digital Access Answer Date Recorded No 02/26/2025 No 02/26/2025 Reliable internet access at home? Not on file 02/26/2025 Device with a working camera? Not on file Comments Unknown Sex and Gender Information Value Date Recorded Sex Assigned at Not on file Legal Sex Female 8:11 AM EDT Gender Identity Not on file Sexual Orientation Not on file documented as of this encounter Plan of Treatment Not on file documented as of this encounter Procedures Procedure Name Priority Date/Time Associated Diagnosis Comments BI US BREAST OUTSIDE (NO INTERPRETATION) Routine 04/01/2024 12:00 AM EST documented in this encounter Results * US Breast Outside (No Interpretation) (04/01/2024 12:00 AM EST) Narrative SYSTEMGENERATED, DOCUMENTATION - 03/11/2025 12:44 PM EDT This study is for PACS storage only and not for interpretation. us Unknown Unknown MD JACKI OUTSIDE IMAGING W/OUT INT ERPRETATION Final Result documented in this encounter Visit Diagnoses Not on filedocumented in this encounter Additional Source Comments The information contained in this document represents components of the legal health record. It is not the complete legal health record.[facility]
--- OUTSIDE RECORDS SUMMARY | 2024-04-01 01:05 | XMS_ITS | Encounter Summary ---
Author Organization [facility] Address [address] [place] [id number] Phone Care Team Providers Care Assistant Director Of Residence Life Name Role Phone Unavailable Primary Care Provider Unavailabl e Encounter Details Date Type Department Care Team (Late st Contact Info) Description 04/01/2024 12:05 AM EST Hospital Encounter [facility],Outside Imaging [address] [place], [place] [id number] Unknown, Unknown, Social History Tobacco Use Types [...] Name Priority Date/Time Associated Diagnosis Comments BI MAMMOGRAM OUTSIDE (NO INTERPRETATION) Routine 04/01/2024 12:05 AM EST documented in this encounter Results * Mammogram Outside (No Interpretation) (04/01/2024 12:05 AM EST) Narrative SYSTEMGENERATED, DOCUMENTATION - 03/11/2025 12:45 PM EDT This study is for PACS storage only and not for interpretation. us Unknown Unknown MD ECHEVERRIA OUTSIDE IMAGING W/OUT INT ERPRETATION Final Result documented in this encounter Visit Diagnoses Not on filedocumented in this encounter Additional Source Comments The information contained in this document represents components of the legal health record. It is not the complete legal health record.[facility]
--- OUTSIDE RECORDS SUMMARY | 2024-04-08 01:00 | XMS_ITS | Encounter Summary ---
Author Organization [facility] Address [address] [place] [phone] Phone Care Team Providers Care Technology Intern Name Role Phone Unavailable Primary Care Provider Unavailabl e Encounter Details Date Type Department Care Team (Late st Contact Info) Description 04/08/2024 Hospital Encounter [facility],Outside Imaging [address] [place] [address] Unknown, Unknown, Social History Tobacco Use Types [...] Comments BI MAMMOGRAM OUTSIDE (NO INTERPRETATION) Routine 04/08/2024 12:00 AM EST documented in this encounter Results * Mammogram Outside (No Interpretation) (04/08/2024 12:00 AM EST) Narrative SYSTEMGENERATED, DOCUMENTATION - [...] It is not the complete legal health record.[facility]
--- OUTSIDE RECORDS SUMMARY | 2024-04-08 01:05 | XMS_ITS | Encounter Summary ---
Author Organization [facility] Address [address] [place] [phone] Phone Care Team Providers Care Bottle Label Inspector Name Role Phone Unavailable Primary Care Provider Unavailabl e Encounter Details Date Type Department Care Team (Late st Contact Info) Description 04/08/2024 12:05 AM EST Hospital Encounter [facility],Outside Imaging [address] [place], [place] [phone] Unknown, Unknown, Social History Tobacco Use Types [...] BI US BREAST OUTSIDE (NO INTERPRETATION) Routine 04/08/2024 12:05 AM EST documented in this encounter Results * US Breast Outside (No Interpretation) (04/08/2024 12:05 AM EST) Narrative SYSTEMGENERATED, DOCUMENTATION - [...] It is not the complete legal health record.[facility]
--- OUTSIDE RECORDS SUMMARY | 2024-04-29 01:00 | XMS_ITS | Encounter Summary ---
Author Organization [facility] Address [address] [place] [phone] Phone Care Team Providers Care Social Media Intern Name Role Phone Unavailable Primary Care Provider Unavailabl e Encounter Details Date Type Department Care Team (Late st Contact Info) Description 04/29/2024 Hospital Encounter [facility],Outside Imaging [address] [place] [address] Unknown, Unknown, Social History Tobacco Use Types [...] Name Priority Date/Time Associated Diagnosis Comments BI MRI BREAST OUTSIDE (NO INTERPRETATION) Routine 04/29/2024 12:00 AM EST documented in this encounter Results * MRI Breast Outside (No Interpretation) (04/29/2024 12:00 AM EST) Narrative SYSTEMGENERATED, DOCUMENTATION - [...] It is not the complete legal health record.Located Within [facility]
--- OUTSIDE RECORDS SUMMARY | 2024-07-30 | XMS_ITS | Encounter Summary ---
Author Organization [facility] Address [address] [place] [phone] Phone Care Team Providers Care Educational Coordinator Name Role Phone Unavailable Primary Care Provider Unavailabl e Encounter Details Date Type Department Care Team (Late st Contact Info) Description 07/30/2024 Hospital Encounter [facility],Outside Imaging [address] [place] [address] Unknown, Unknown, Social History Tobacco Use Types [...] BI US BREAST OUTSIDE (NO INTERPRETATION) Routine 07/30/2024 12:00 AM EDT documented in this encounter Results * US Breast Outside (No Interpretation) (07/30/2024 12:00 AM EDT) Narrative SYSTEMGENERATED, DOCUMENTATION - 03/11/2025 12:44 PM [...] It is not the complete legal health record.[facility]
--- OUTSIDE RECORDS SUMMARY | 2024-10-24 | XMS_ITS | Encounter Summary ---
Author Organization [facility] Address [address] [place] [phone] Phone Care Team Providers Care Digester Capper Name Role Phone Unavailable Primary Care Provider Unavailabl e Encounter Details Date Type Department Care Team (Late st Contact Info) Description 10/24/2024 Hospital Encounter [facility],Outside Imaging [address] [place] [address] Unknown, Unknown, Social History Tobacco Use Types [...] BI US BREAST OUTSIDE (NO INTERPRETATION) Routine 10/24/2024 12:00 AM EDT documented in this encounter Results * US Breast Outside (No Interpretation) (10/24/2024 12:00 AM EDT) Narrative SYSTEMGENERATED, DOCUMENTATION - 03/11/2025 12:43 PM EDT This study is for PACS storage only and not for interpretation. us Unknown Unknown MD [facility] W/OUT INT ERPRETATION Final Result documented in this encounter Visit Diagnoses Not on filedocumented in this encounter Additional Source Comments The information contained in this document represents components of the legal health record. It is not the complete legal health record.[facility]
--- OUTSIDE RECORDS SUMMARY | 2024-11-05 | XMS_ITS | Encounter Summary ---
Author Organization [facility] Address [address] [place] [phone] Phone Care Team Providers Care Day Treatment Clinician/Art Therapist Name Role Phone Unavailable Primary Care Provider Unavailabl e Encounter Details Date Type Department Care Team (Late st Contact Info) Description 11/05/2024 Hospital Encounter [facility],Outside Imaging [address] [place] [address] Unknown, Unknown, Social History Tobacco Use Types [...] BI MRI BREAST OUTSIDE (NO INTERPRETATION) Routine 11/05/2024 12:00 AM EDT documented in this encounter Results * MRI Breast Outside (No Interpretation) (11/05/2024 12:00 AM EDT) Narrative SYSTEMGENERATED, DOCUMENTATION - [...] It is not the complete legal health record.[facility]
--- OUTSIDE RECORDS SUMMARY | 2025-01-20 | XMS_ITS | Encounter Summary ---
Author Organization [facility] Address [address] [place] [phone] Phone Care Team Providers Care Seed Analysis Laboratory Assistant Name Role Phone Unavailable Primary Care Provider Unavailabl e Encounter Details Date Type Department Care Team (Late st Contact Info) Description 01/20/2025 Hospital Encounter [facility]Outside Imaging [address] [place] [address] Unknown, Unknown, Social History Tobacco Use Types [...] BI US BREAST OUTSIDE (NO INTERPRETATION) Routine 01/20/2025 12:00 AM EDT documented in this encounter Results * US Breast Outside (No Interpretation) (01/20/2025 12:00 AM EDT) Narrative SYSTEMGENERATED, DOCUMENTATION - [...] It is not the complete legal health record.[facility]
--- OUTSIDE RECORDS SUMMARY | 2025-01-20 00:05 | XMS_ITS | Encounter Summary ---
Author Organization [facility] Address [address] [place] [phone] Phone Care Team Providers Care Computer Security Manager Name Role Phone Unavailable Primary Care Provider Unavailabl e Encounter Details Date Type Department Care Team (Late st Contact Info) Description 01/20/2025 12:05 AM EDT Hospital Encounter [facility],Outside Imaging [address] [place], [place] [phone] Unknown, Unknown, Social History Tobacco Use Types [...] US BREAST OUTSIDE (NO INTERPRETATION) Routine 01/20/2025 12:05 AM EDT documented in this encounter Results * US Breast Outside (No Interpretation) (01/20/2025 12:05 AM EDT) Narrative SYSTEMGENERATED, DOCUMENTATION - 03/11/2025 [...] It is not the complete legal health record.[facility]
--- OUTSIDE RECORDS SUMMARY | 2025-01-27 | XMS_ITS | Encounter Summary ---
Author Organization [facility] Address [address] [place] [phone] Phone Care Team Providers Care Aviation Survival Technician Name Role Phone Unavailable Primary Care Provider Unavailabl e Encounter Details Date Type Department Care Team (Late st Contact Info) Description 01/27/2025 Hospital Encounter [facility],Outside Imaging [address] [place] [address] Unknown, Unknown, Social History Tobacco Use Types [...] Priority Date/Time Associated Diagnosis Comments BI MAMMOGRAM SPECIMENT OUTSIDE (NO INTERPRETATION) Routine 01/27/2025 12:00 AM EDT documented in this encounter Results * Mammogram Specimen Outside (No Interpretation) (01/27/2025 12:00 AM EDT) Narrative SYSTEMGENERATED, DOCUMENTATION - [...] It is not the complete legal health record.[facility]
--- OUTSIDE RECORDS SUMMARY | 2025-03-11 10:00 | XMS_ITS | Encounter Summary ---
Author Organization [facility] Address [address] [place] [id number] Phone Care Team Providers Care Soap Mixer Name Role Phone Brenda Laguna MD Primary Care Provider Reason for Visit * Reason Comments Consult Breast cancer Encounter Details Date Type Department Care Team (Late st Contact Info) Description 03/11/2025 10:00 AM EDT Office Visit [facility] Rad Onc [address] [place] [id number] Mouna Palacios MD [address] [place] [id number] [email or web address] Malignant neoplasm of overlapping sites of right breast in female, estrogen receptor positive (Primary Dx) Social History Tobacco Use Types [...] on file documented as of this encounter Last Filed Vital Signs Vital Sign Reading Time Taken Comments Blood Pressure 121/78 03/11/2025 10:27 AM EDT Pulse 68 03/11/2025 10:27 AM EDT Temperature 36.2 C (97.2 F) 03/11/2025 10:27 AM EDT Respiratory Rate - - Oxygen Saturation 100% 03/11/2025 10:27 AM EDT Inhaled Oxygen Concentration - - Weight 67.8 kg (149 lb 6.4 oz) 03/11/2025 11:48 AM EDT Height - - Body Mass Index - - documented in this encounter Progress Notes * Mouna Palacios MD - 03/11/2025 10:00 AM EDT RADIATION ONCOLOGY CONSULTATION NOTE Name: Jeny Sierra Date of : 1990 Date of Service: 03/11/2025 Referring MD: Hawa Lei MD Primary Care Provider: Brenda Laguna MD Diagnosis: Right (outer) breast invasive ductal carcinoma AJCC 8th Edition Stage IIA (cT3 cN2a cM0,ypT2 ypN1a(sn) cM0, grade 3, ER/AZ positive, HER2/gary negative), status post neoadjuvant DD-AC x4 cycles followed by weekly Taxol x 12 cycles 05/20/2024-10/07/2024, status post right breast lumpectomy and targeted axillary dissection/sentinel lymph node biopsy 01/27/2025 Medical Oncologist: Dr. Hawa Lei Surgeon: Dr. Onofre Dela Cruz Patient Identification: This is a 35 y.o. female with locally advanced right breast cancer status post neoadjuvant chemotherapy followed by lumpectomy and sentinel lymph node biopsy with residual disease seen today in consultation for recommendations regarding further therapy. Patient is unaccompanied. History of Present Illness: The patient's oncological history thus far is detailed below in oncologic history. Oncologic history was reviewed and updated. Oncology History Overview Note 02/2024: Patient presented with palpable right breast lump during her first trimester of her fifth . was terminated due to lack of heartbeat. Right breast mass was painful and grew quickly in size and was associated with right axillary mass. 04/01/2024 bilateral diagnostic mammogram, right breast ultrasound ([facility]): Breasts are heterogeneously dense. Left: No suspicious findings on mammogram. Right: On mammogram, irregular spiculated mass with associated distortion/desmoplasia and stable microcalcifications at 8-9:00 axis of the right breast. On ultrasound, suspicious 2.1 x 4.9 x 1.3 cm hypoechoic mass spanning 8-9:00 axis, correlate with palpable abnormality. Within the lower right axilla, markedly enlarged lymph node with loss of normal fatty hilum, thickened cortex, consistent withpathologic node, measuring 2.8 x 1.8 cm. BI- RADS 5, biopsy recommended. 04/08/2024 right breast and right axillary lymph node core biopsy ([facility]): A. Breast, right, mass at 9:00, ultrasound-guided core biopsy: Invasive ductal carcinoma with focallobular features and focal extracellular mucin, grade 2. Lymphovascular invasion identified. ER positive (90%), AZ positive (75%), HER2/gary negative (0). Ki-67 high. B. Lymph node, right axillary, ultrasound-guided core biopsy: Invasive ductal carcinoma with extracellular mucin and micropapillary features, consistent with metastasis from breast primary. Scant lymphoid tissue present. ER positive (85%), AZ positive (85%), HER2/gary low (1+). Ki-67 borderline high. 04/25/2024 medical oncology visit (Dr. Hawa Lei, [facility]): Patient clinically staged as T2 N1 based on mammogram and ultrasound. MRI breast ordered. Genetic testing performed. Neoadjuvant chemotherapy with dose dense AC x 4 cycles followed by weekly Taxol x 12 cycles recommended. 04/29/2024 MRI breast with/without ([facility]): Left: 5 mm area of non-mass enhancement in central outer breast. Second look ultrasound recommended. If no correlate seen, 6-month follow-up MRI recommended. BI-RADS 3, probably benign. Right: Biopsy-proven irregular enhancing mass in upper outer breast measuring 60 mm anterior to posterior by 24 mm transverse by 44 mm superior to inferior. Mass abuts but does not involve the pectoralis muscle. At least 5 enlarged abnormal appearing axilla lymph nodes. 1 axilla lymph node containsclip artifact from biopsy-proven metastatic carcinoma. No other suspicious enhancing areas. 05/16/2024 PET/CT ([facility]): 1. FDG avid right breast mass (SUV max 9.1) and right axillary lymphadenopathy (largest measuring 2.4 x 2.3 cm, SUV max 8.4) in keeping with biopsy-proven malignancy. 2. Nonspecific FDG avid mesenteric lymph nodes which may be reactive/inflammatory in etiology or represent metastatic disease. 05/20/2024-10/07/2024 Neoadjuvant chemotherapy ([facility]): Received neoadjuvant chemotherapy (DD-AC x4, weekly Taxol x12) for clinical stage IIA (cT3 cN2a cM0, ER/AZ+, Her2-) based on MRI findings. 10/24/2024 right breast ultrasound ([facility]): Slight decreased size of vague mass in right breast 8-9 o'clock position measuring 28 mm x 13 mm (previously 35 x 20 mm) compared to ultrasound from July 2024. Slight decrease in size of enlarged abnormal right axillary lymph node measuring 15 x 16 mm (previously 18 x 20 mm). 11/05/2024 MRI breast with/without ([facility]): Left no suspicious enhancing masses or areas of non-mass enhancement. No axillary or internal mammary adenopathy. Right: Biopsy-proven malignancy in central outer right breast with decreased mass appearance and enhancement is more non-mass enhancement and decrease in size and conspicuity, measuring 33 x 20 x 40 mm (previously 60 x 24 x 44 mm). Multiple prominent right axillary nodes are decreased in size. 01/27/2025 right breast lumpectomy with targeted right axillary dissection and sentinel lymph node biopsies (Dr. Onofre Dela Cruz, [facility]): ypT2 ypN1a(sn) invasive ductal carcinoma, grade 3, 48 mm. Invasive carcinoma present at posterior margin (focally). DCIS, high nuclear grade, solid and cribriform types with comedonecrosis. 3 of 3 axillary lymph nodes positive for metastatic carcinoma with extranodal extension (1 targeted lymph node, 2 sentinel lymph nodes). 02/25/2025 medical oncology visit (Dr. Hawa Lei, [facility]): Recommended adjuvanttherapy consisting of ovarian suppression with Lupron and aromatase inhibitor and CDK 4/6 inhibitor. Doppler ultrasound of the right arm ordered to rule out DVT. Patient referred to OT for lymphedema. Patient referred to radiation oncology for adjuvant radiation therapy. Malignant neoplasm of overlapping sites of right female breast 04/08/2024 Initial Diagnosis Malignant neoplasm of overlapping sites of right female breast 04/08/2024 Biopsy Right breast and right axilla lymph node core biopsy ([facility]): A. Breast, right, mass at 9:00, ultrasound-guided core biopsy: Invasive ductal carcinoma with focallobular features and focal extracellular mucin, grade 2. Lymphovascular invasion identified. ER positive (90%), AZ positive (75%), HER2/gary negative (0). Ki-67 high. B. Lymph node, right axillary, ultrasound-guided core biopsy: Invasive ductal carcinoma with extracellular mucin and micropapillary features, consistent with metastasis from breast primary. Scant lymphoid tissue present. ER positive (85%), AZ positive (85%), HER2/gary low (1+). Ki-67 borderline high. 04/29/2024 - Cancer Staged Staging form: Breast, AJCC 8th Edition - Clinical stage from 04/29/2024: Stage IIA (cT3, cN2a(f), cM0, G2, ER: Positive, AZ: Positive, HER2: Negative) - Signed by Mouna Palacios MD on 03/11/2025 01/27/2025 Surgery Right breast lumpectomy with targeted right axillary dissection and sentinel lymph node biopsies (Dr. Onofre Dela Cruz, [facility]): Right breast mass and previously biopsied right axillary lymph node were localized with radiofrequency tags prior to surgery. Radiofrequency tagged axillary lymph node was dissected. 2 additional sentinel lymph nodes were identified. A. Breast, right, lumpectomy: Invasive ductal carcinoma, grade 3, 48 mm. Ductal carcinoma in situ, high nuclear grade, solid and cribriform types with comedonecrosis. Invasive carcinoma present at inferior margin and posterior (focally) margin (final inferior margin is negative). Remaining margins negative (>4 mm). DCIS 1 mm from inferior and posterior margins; remainder margins negative (>4 mm). Tumor bed with minimal treatment response. Lymphovascular invasion present. [id number](sn) B. Henderson lymph node #1 excision: Metastatic adenocarcinoma involving 1 lymph node (05/14). Size ofmetastatic deposit 9 mm. C. Right axillary lymph node, previously biopsy, excision: Metastatic adenocarcinoma involving 1 lymph node (05/14). Size of metastatic deposit 25 mm. Extranodal extension present, greater than 2 mm. Minimal treatment response noted. D. Henderson lymph node #2, excision: Metastatic adenocarcinoma involving 1 lymph node (05/14). Size of metastatic deposit 8 mm. E. Breast, right, additional inferior margin, reexcision: Residual microscopic focus of invasive ductal carcinoma, grade 3, 1.3 mm, margins negative. 01/27/2025 - Cancer Staged Staging form: Breast, AJCC 8th Edition - Pathologic stage from 01/27/2025: ypT2, pN1a(sn), cM0, G3, ER: Positive, AZ: Positive, HER2: Negative - Signed by Mouna Palacios MD on 03/11/2025 She reports right arm swelling and pain, which limits range of motion and use of her right arm. Shereports Doppler ultrasound of the right arm showed no evidence of DVT. She is scheduled for initialvisit with occupational therapy on 03/16/2025. 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 She rarely consumes alcohol or smokes cigarettes. She lives at home with her and 4 children (ages 2-10). Genetic testing was performed by breast surgeon and is reportedly negative. Breast Cancer Risk Factors: Age at menarche: 10 Menopausal status: Pre-menopausal, LMP 2 months ago Number of pregnancies: G5, P4 Age at first live : 25 Breastfed: Yes Use of hormonal based contraception: Yes, Depot intermittently for total of 3-4 year Use of fertility treatments: Denies Use of hormone replacement therapy: N/A Prior breast biopsy: None History of breast/ovarian cancer in family: Breast cancer in maternal aunt and paternal aunt Exercise: None Radiation Therapy Screening Questions: Prior radiation: Denies Cardiac device: Denies History of lupus, scleroderma, rheumatoid arthritis: Denies History of inflammatory bowel disease: Denies Review of Systems: Systems other than those listed in the HPI have been reviewed and are negative. Past History: Patient Active Problem List Diagnosis Malignant neoplasm of overlapping sites of right female breast Past Medical History: Diagnosis Date Anemia Malignant neoplasm of overlapping sites of right female breast Past Surgical History: Procedure Laterality Date BREAST SURGERY Right 01/27/2025 Right lumpectomy, right targeted axillary dissection, right sentinel lymph node biopsy Medications: No current [facility]-ordered outpatient medications on file. Allergies: Allergen Reactions Tegaderm [Adhesive Tape-Silicones] Rash Social History: Social History Socioeconomic History Marital status: /Civil Union Spouse name: Not on file Number of children: Not on file Years of education: Not on file Highest education level: Not on file Occupational History Not on file Tobacco Use Smoking status: Some Days Types: Cigarettes Smokeless tobacco: Never Vaping Use Vaping status: never used Substance and Sexual Activity Alcohol use: Yes Comment: occasional beer here and there Drug use: Never Sexual activity: Not on file Other Topics Concern Not on file Social History Narrative Jeny currently resides in [place] with her and 4 children, 3 boys, 1 girl- ages ranging from 2-10. 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 Social Drivers of Health Residential Stability: Low Risk (04/02/2024) Received from [facility] Housing Stability What is your housing situation today?: I have housing Think about the place you live. Do you have problems with any of the following? : None of the above Family History: Family History Problem Relation Age of Onset Head and neck cancer Father throat cancer Stomach cancer Paternal Grandfather Breast cancer Maternal Aunt Breast cancer Paternal Aunt Physical Exam: Vitals: 03/11/25 1027 03/11/25 1148 BP: 121/78 BP Location: Left arm Patient Position: Sitting Cuff Size: Medium Pulse: 68 Temp: 36.2 ??C (97.2 ??F) TempSrc: Temporal SpO2: 100% Weight: 67.8 kg (149 lb 6.4 oz) ECOG Performance Status: ECOG performance status: 0- Fully active, able to carry on all pre-diseaseperformance without restriction General: Well-appearing female in no apparent distress. HEENT: Normocephalic/atraumatic, sclera anicteric. Neck: Supple, no cervical or supraclavicular lymphadenopathy. Respiratory: Lungs clear to auscultation bilaterally. Normal respiratory effort. Cardiovascular: Heart regular in rate and rhythm. No murmurs. Lower extremities free of edema. Neurologic: Alert, awake and oriented x3. Gait within normal limits. Psychiatric: Calm, attentive, normal interaction. Breast: Healing lumpectomy incision at 9 o'clock position in the lateral right breast with underlying seroma. Healing right axillary incision. No suspicious palpable breast mass bilaterally. Nipples everted. No axillary lymphadenopathy bilaterally. Cording right axilla. Mild differential in upper arm circumference (right arm larger than left). Musculoskeletal: Able to lift left arm above head without difficulty. Able to lift right arm above head with some discomfort. Labs/Imaging: I have personally reviewed: 04/01/2024 bilateral diagnostic mammogram, right breast ultrasound ([facility], in P[facility]): Breasts are heterogeneously dense. Left: No suspicious findings on mammogram. Right: On mammogram, irregular spiculated mass with associated distortion/desmoplasia and stable microcalcifications at 8-9:00 axis of the right breast. On ultrasound, suspicious 2.1 x 4.9 x 1.3 cm hypoechoic mass spanning 8-9:00 axis, correlate with palpable abnormality. Within the lower right axilla, markedly enlarged lymph node with loss of normal fatty hilum, thickened cortex, consistent withpathologic node, measuring 2.8 x 1.8 cm. BI- RADS 5, biopsy recommended. 04/29/2024 MRI breast with/without ([facility], in [facility]): Left: 5 mm area of non-mass enhancement in central outer breast. Second look ultrasound recommended. If no correlate seen, 6-month follow-up MRI recommended. BI-RADS 3, probably benign. Right: Biopsy-proven irregular enhancing mass in upper outer breast measuring 60 mm anterior to posterior by 24 mm transverse by 44 mm superior to inferior. Mass abuts but does not involve the pectoralis muscle. At least 5 enlarged abnormal appearing axilla lymph nodes. 1 axilla lymph node containsclip artifact from biopsy-proven metastatic carcinoma. No other suspicious enhancing areas. 05/16/2024 PET/CT ([facility]): 1. FDG avid right breast mass (SUV max 9.1) and right axillary lymphadenopathy (largest measuring 2.4 x 2.3 cm, SUV max 8.4) in keeping with biopsy-proven malignancy. 2. Nonspecific FDG avid mesenteric lymph nodes which may be reactive/inflammatory in etiology or represent metastatic disease. 10/24/2024 right breast ultrasound ([facility]): Slight decreased size of vague mass in right breast 8-9 o'clock position measuring 28 mm x 13 mm (previously 35 x 20 mm) compared to ultrasound from July 2024. Slight decrease in size of enlarged abnormal right axillary lymph node measuring 15 x 16 mm (previously 18 x 20 mm). 11/05/2024 MRI breast with/without ([facility], in [facility]): Left no suspicious enhancing masses or areas of non-mass enhancement. No axillary or internal mammary adenopathy. Right: Biopsy-proven malignancy in central outer right breast with decreased mass appearance and enhancement is more non-mass enhancement and decrease in size and conspicuity, measuring 33 x 20 x 40 mm (previously 60 x 24 x 44 mm). Multiple prominent right axillary nodes are decreased in size. 04/08/2024 right breast and right axillary lymph node core biopsy ([facility]): A. Breast, right, mass at 9:00, ultrasound-guided core biopsy: Invasive ductal carcinoma with focallobular features and focal extracellular mucin, grade 2. Lymphovascular invasion identified. ER positive (90%), AZ positive (75%), HER2/gary negative (0). Ki-67 high. B. Lymph node, right axillary, ultrasound-guided core biopsy: Invasive ductal carcinoma with extracellular mucin and micropapillary features, consistent with metastasis from breast primary. Scant lymphoid tissue present. ER positive (85%), AZ positive (85%), HER2/gary low (1+). Ki-67 borderline high. 01/27/2025 right breast lumpectomy with targeted right axillary dissection and sentinel lymph node biopsies (Dr. Onofre Dela Cruz, [facility]): Right breast mass and previously biopsied right axillary lymph node were localized with radiofrequency tags prior to surgery. Radiofrequency tagged axillary lymph node was dissected. 2 additional sentinel lymph nodes were identified. A. Breast, right, lumpectomy: Invasive ductal carcinoma, grade 3, 48 mm. Ductal carcinoma in situ, high nuclear grade, solid and cribriform types with comedonecrosis. Invasive carcinoma present at inferior margin and posterior (focally) margin (final inferior margin is negative). Remaining margins negative (>4 mm). DCIS 1 mm from inferior and posterior margins; remainder margins negative (>4 mm). Tumor bed with minimal treatment response. Lymphovascular invasion present. ypT2 ypN1a(sn) B. Henderson lymph node #1 excision: Metastatic adenocarcinoma involving 1 lymph node (05/14). Size ofmetastatic deposit 9 mm. C. Right axillary lymph node, previously biopsy, excision: Metastatic adenocarcinoma involving 1 lymph node (05/14). Size of metastatic deposit 25 mm. Extranodal extension present, greater than 2 mm. Minimal treatment response noted. D. Henderson lymph node #2, excision: Metastatic adenocarcinoma involving 1 lymph node (05/14). Size of metastatic deposit 8 mm. E. Breast, right, additional inferior margin, reexcision: Residual microscopic focus of invasive ductal carcinoma, grade 3, 1.3 mm, margins negative. Assessment and Plan of Care: This is a 35 y.o. female with right (outer) breast invasive ductal carcinoma AJCC 8th Edition StageIIA (cT3 cN2a cM0, ypT2 ypN1a(sn) cM0, grade 3, ER/AZ positive, HER2/gary negative), status post neoadjuvant DD-AC x4 cycles followed by weekly Taxol x 12 cycles 05/20/2024-10/07/2024, status post right breast lumpectomy and targeted axillary dissection/sentinel lymph node biopsy 01/27/2025 seen now forrecommendations regarding further therapy. The patient presented with right breast mass and right axillary lymphadenopathy during her first trimester of her fifth . was terminated due to lack of heartbeat. Initial workup with mammogram, ultrasound, MRI breast, and PET/CT showed 6 cm right breast mass at 8-9:00 with right axillary lymphadenopathy and no evidence of metastatic disease. Biopsy of the right breast showed invasive ductal carcinoma with focal lobular features and focal extracellular mucin, grade 2, ER/AZ positive, HER2 negative. Biopsy of right axillary lymph node showed invasive ductal carcinoma with extracellular mucin and micropapillary features, consistent with metastasis from breast primary, E R/AZ positive, HER2 negative. Patient received neoadjuvant dose dense AC-T. She tolerated chemotherapy well. Restaging breast ultrasound and breast MRI in 10/2024 showed decrease in size of right breast mass and decrease in size of right axillary lymph nodes. Right breast lumpectomy with targeted axillary dissection and sentinel lymph node biopsy 01/27/2025 showed residual invasive ductal carcinoma, grade 3, measuring 4.8 cm within the right breast and 3 of 3 right axillary lymph nodes positive for metastatic adenocarcinoma with extranodal extension. Previously biopsied right axillary lymph node was resected and remained positive. Posterior breast margin was focally positive. Lymphovascular invasion was present. Pathologic stage is ypT2 ypN1a(sn). I suspect posterior margin is along the pectoralis muscle given initial tumor location and thus additional resection is not likely feasible. I attempted to contact Dr. Dela Cruz today to confirm that reexcision is not warranted. I await callback to discuss margin status. I recommended adjuvant radiation therapy to the right breast and regional lymph nodes to decrease risk of recurrence in the setting of locally advanced invasive ductal carcinoma of the right breast. I explained the logistics of and potential short and long-term side effects of radiation therapy to the right breast and lymph nodes. Potential acute side effects discussed included but were not limite d to fatigue, radiation dermatitis, breast swelling/edema, and radiation pneumonitis. Potential late side effects discussed included but were not limited to persistent skin changes within the treatment field, persistent breast swelling, breast fibrosis, altered cosmesis of the breast, brachial plexopathy, lymphedema of the arm, rib fracture, and very small risk of secondary malignancy. I discussed both standard fractionation and moderate hypofractionation today with the patient. If there are any residual suspicious axillary lymph nodes, I would favor standard fractionation with boost to any un dissected suspicious nodes. I recommended boost to the lumpectomy bed. Final decision regarding fractionation schedule will be made after CT simulation. Patient has right arm swelling and pain, which is likely related to cording within the right axilla/arm. Per her report, ultrasound of the right arm was negative for DVT. I encouraged patient to meetwith occupational therapy as scheduled to address right arm symptoms. I explained that therapy can improve symptoms and will likely allow for better positioning during radiation therapy. Patient has ER/AZ positive tumor with residual disease after neoadjuvant therapy. She is a candidate for adjuvant hormonal therapy as well as CDK 4/6 inhibitor. She has discussed this previously withher medical oncologist. Ovarian suppression with Lupron, aromatase inhibitor, and CD4/6 inhibitor is planned. --Left message for Dr. Dela Cruz to discuss posterior margin (suspect tumor resected to chest wall) --Adjuvant RT to right breast and regional lymph nodes (hypofractionated versus standard fractionation if lymph node boost needed) --CT sim (after OT evaluation) --OT initial evaluation 03/16/25 --Follow up with Medical Oncology RE: adjuvant hormonal therapy and CDK4/6 inhibitor I personally spent a total of 60 minutes on care for this patient on the date of the encounter. This includes [id number] time during the visit as well as non [id number] time spent on chart review, documentation, and care coordination. Treatment intent: Curative Concurrent/systemic therapy: None On protocol: No Mouna Palacios MD Radiation Oncology [facility] [facility] * Krupa Rose RN - 03/11/2025 10:00 AM EDT Jeny seen in consult for a new diagnosis of IDC of the right breast. She is unaccompanied during our visit. Pt palpated a painful mass in her left breast in Mar of last year-a mammogram/US performed revealing an irregular elongated hypoechoic mass at the 8-9:00 position-2.1 x 4.9 x 1[address]-2.8 x 1.8 cm also detected in the right axilla. Pt underwent a biopsy of the right breast mass and right axillary LN on 04/08/24-Path: IDC with focal lobular features and extracellular munin,grade 2, LVI present. ER+/AZ+/Her2-. Right axillary LN-IDC with extracellular mucin and micropapillary features c/w mets from breast primary. Onc consult with Dr. Lei ([facility] [place]plan is for neoadjuvant chemo. Left chest port placed. Pt completed AC-T on 10/07/24. Pt underwent a right lumpectomy and targeted axillary dissection on 01/27/25 (). On assessment, right breast and axillary incisions healing well with no s/s infection noted. Pt reporting some swelling and pain in the right arm since having surgery. Pt referred to OT and scheduled to meet with OT next week. Pamphlet with stretching exercises provided to pt. The logistics of radiation therapy discussed with pt as well as next steps in the planning process. Age at Menarche: 10 Post-Menopausal? No OB Hx: G_5__ P_4__ Age at first Pregancy: 25 ? Yes OCP use (x years): intermittent use (Depo) for approx 3-4 yrs HRT (x years): none Exercise: No documented in this encounter Plan of Treatment Not on file documented as of this encounter Visit Diagnoses Diagnosis Malignant neoplasm of overlapping sites of right breast in female, estrogen receptor positive- Primary documented in this encounter Care Teams Soap Mixer Relationship Specialty Start Date End Date Brenda Laguna MD [address] [place] [id number] PCP - General Internal Medicine 02/26/25 documented as of this encounter Additional Source Comments The information contained in this document represents components of the legal health record. It is not the complete legal health record.[facility]
[2025-03-12 10:11] VITALS: BP 107/70; PULSE 77; BMI 27.6
--- NOTE | 2025-03-12 10:11 | A.OFFVIS_ITS ---
Vital Signs 03/12/25 10:11 Height 5 ft 2 in Weight 151 lb BMI 27.6 BP 107/70 Blood Pressure Location Lt brachial Position Sitting Pulse 77 Intake Visit Reasons: s/p Rt breast lumpectomy w/localizer & SN bx Intake Note: This patient presents for a follow-up status post right breast lumpectomy. Pt c/o; she had a consult with the radiation oncologist at [facility] on 03/11/2025, no complaints at this time. Shirring Tender Required: No Accompanied by: Self / Same As Patient Allergies No Known Allergies (No Known Allergies*) Allergy (Verified 03/12/25 10:18) HPI HPI s/p Rt breast lumpectomy w/localizer & SN bx: Details: She is here for follow-up after lumpectomy and sentinel biopsy She says she continues to do well. She denies any significant complaints currently. Her surgical site is not causing any significant pain. [facility] Medical History Invasive ductal carcinoma of breast Former smoker Anemia Surgical History History of lumpectomy of right breast (~01/27/25) Metastatic cancer to axillary lymph nodes No history of previous surgery Family History Maternal Grandmother Arthritis Asthma Maternal Grandfather Diabetes mellitus Maternal Aunt Breast cancer Father Throat cancer Paternal Grandfather Stomach cancer Social History Household Members: Children Both parents involved: Yes Caregiver staying overnight: No Housing: Apartment Are you a primary home care manager to a significant other at home: No Do you presently have visiting nurse or other home services: No 75 years or older and lives alone: No Alcohol intake: former Comment: counts correct Patient Tobacco Use Status: Former Tobacco user Agree to transfusion: Yes service: No Current occupational status: unemployed Sexual orientation: Straight/Heterosexual Gender identity: Female Female Reproductive History Menstrual Age of Menarche: 10 Review of Systems Const Denies chills and Denies fever(s) Card Denies chest pain, Denies dyspnea and Denies dyspnea on exertion Resp Denies cough, Denies dyspnea and Denies dyspnea on exertion GI Denies hematochezia and Denies change in bowel habits Denies hematuria Musc Denies back pain and Denies limited range of motion Neuro Denies focal weakness and Denies convulsions Psych Denies depression and Denies mood swings Physical Exam Vital Signs: Last Vital Signs Pulse 77 03/12/25 10:11 BP 107/70 03/12/25 10:11 BMI result Body Mass Index 27.6 Const General: comfortable and no acute distress Chest Other: Lumpectomy site and sentinel node biopsy site are both well healed, no hematoma Assessment & Plan Assessment & Plan (1) Invasive ductal carcinoma of breast: Code(s): C50.919 - Malignant neoplasm of unspecified site of unspecified female breast Category: Medical Plan: Status post lumpectomy and sentinel biopsy. Staging currently is T2 N1 after neoadjuvant treatment. However, she did have positive margins and I told her that I would recommend doing a mastectomy to achieve clear margins. I also explained to her the option of proceeding with breast reconstruction down the line She says she would like to think this over. She will let me know next week I will also discuss this with radiation oncology who had seen her yesterday. Coding Level of Care Code Global (73381) Diagnoses Invasive ductal carcinoma of breast C50.919
--- OUTSIDE RECORDS SUMMARY | 2025-03-12 12:15 | XMS_ITS | Encounter Summary ---
Author Organization [facility] Address [address] [place] [address] Phone Care Team Providers Care Coal Screener Name Role Phone Brenda Laguna MD Primary Care Provider Encounter Details Date Type Department Care Team (Late st Contact Info) Description 03/11/2025 Ancillary Orders [facility],Outside Imaging [address] [place] [address] Unknown, Unknown, Social History Tobacco Use Types [...] on file documented as of this encounter Results * US Breast Outside (No Interpretation) (04/01/2024 12:00 AM EST) Narrative SYSTEMGENERATED, DOCUMENTATION - 03/11/2025 12:44 PM EDT This study is for PACS storage only and not for interpretation. us Unknown Unknown MD [facility] OUTSIDE IMAGING W/OUT INT ERPRETATION Final Result documented in this encounter Visit Diagnoses Not on filedocumented in this encounter Care Teams Coal Screener Relationship Specialty Start Date End Date Brenda Laguna MD [address] [place] [address] PCP - General Internal Medicine 02/26/25 documented as of this encounter Additional Source Comments The information contained in this document represents components of the legal health record. It is not the complete legal health record.[facility]
--- OUTSIDE RECORDS SUMMARY | 2025-03-12 12:15 | XMS_ITS | Encounter Summary ---
Author Organization [facility] Address [address] [place] [address] Phone Care Team Providers Care Event Specialist Product Demonstrator Name Role Phone Brenda Laguna MD Primary Care Provider Encounter Details Date Type Department Care Team (Late st Contact Info) Description 03/11/2025 Ancillary Orders [facility],Outside Imaging [address] [place] [address] Unknown, Unknown, Social History Tobacco Use Types [...] documented as of this encounter Results * Mammogram Outside (No Interpretation) (04/01/2024 12:05 AM EST) Narrative SYSTEMGENERATED, DOCUMENTATION - 03/11/2025 12:45 PM EDT This study is for PACS storage only and not for interpretation. us Unknown Unknown MD IMG OUTSIDE IMAGING W/OUT INT ERPRETATION Final Result documented in this encounter Visit Diagnoses Not on filedocumented in this encounter Care Teams Event Specialist Product Demonstrator Relationship Specialty Start Date End Date Brenda Laguna MD [address] [place] [address] PCP - General Internal Medicine 02/26/25 documented as of this encounter Additional Source Comments The information contained in this document represents components of the legal health record. It is not the complete legal health record.[facility]
--- OUTSIDE RECORDS SUMMARY | 2025-03-12 12:15 | XMS_ITS | Encounter Summary ---
Author Organization [facility] Address [address] [place] [address] Phone Care Team Providers Care Delicatessen Store Manager Name Role Phone Brenda Laguna MD Primary Care Provider Encounter Details Date Type Department Care Team (Late st Contact Info) Description 03/11/2025 Ancillary Orders [facility],Outside Imaging [address] [place] [address] Unknown, Unknown, Social History Tobacco Use Types [...] on filedocumented in this encounter Care Teams Delicatessen Store Manager Relationship Specialty Start Date End Date Brenda Laguna MD [address] [place] [address] PCP - General Internal Medicine 02/26/25 documented as of this encounter Additional Source Comments The information contained in this document represents components of the legal health record. It is not the complete legal health record.[facility]
--- OUTSIDE RECORDS SUMMARY | 2025-03-12 12:15 | XMS_ITS | Encounter Summary ---
Author Organization [facility] Address [address] [place] [phone] Phone Care Team Providers Care Vice President Client Services Name Role Phone Brenda Laguna MD Primary Care Provider Encounter Details Date Type Department Care Team (Late st Contact Info) Description 03/11/2025 Ancillary Orders [facility],Outside Imaging [address] [place] [address] Unknown, Unknown, Social History Tobacco Use Types [...] documented as of this encounter Results * MRI Breast Outside (No Interpretation) (04/29/2024 12:00 AM EST) Narrative SYSTEMGENERATED, DOCUMENTATION - 03/11/2025 12:44 PM EDT This study is for PACS storage only and not for interpretation. us Unknown Unknown MD IMG OUTSIDE IMAGING W/OUT INT ERPRETATION Final Result documented in this encounter Visit Diagnoses Not on filedocumented in this encounter Care Teams Vice President Client Services Relationship Specialty Start Date End Date Brenda Laguna MD [address] [place] [address] PCP - General Internal Medicine 02/26/25 documented as of this encounter Additional Source Comments The information contained in this document represents components of the legal health record. It is not the complete legal health record.[facility]
--- OUTSIDE RECORDS SUMMARY | 2025-03-12 12:15 | XMS_ITS | Encounter Summary ---
Author Organization [facility] Address [address] [place] [address] Phone Care Team Providers Care Scrap Baller Name Role Phone Brenda Laguna MD Primary Care Provider Encounter Details Date Type Department Care Team (Late st Contact Info) Description 03/11/2025 Ancillary Orders [facility],Outside Imaging [address] [place] [address] Unknown, Unknown, Social History Tobacco Use Types [...] on filedocumented in this encounter Care Teams Scrap Baller Relationship Specialty Start Date End Date Brenda Laguna MD [address] [place] [address] PCP - General Internal Medicine 02/26/25 documented as of this encounter Additional Source Comments The information contained in this document represents components of the legal health record. It is not the complete legal health record.[facility]
--- OUTSIDE RECORDS SUMMARY | 2025-03-12 12:15 | XMS_ITS | Encounter Summary ---
Author Organization [employer] Address [address] [place] [address] [address] [place] [address] Care Team Providers Care Systems Mgr Name Role Phone Debbie Logan Primary Care Provider [phone] Debbie Logan Primary Care Provider [phone] Brenda Dangelo MD Primary Care Provide r Encounter Details Date Type Department Care Team (Late Contact Info) Description 02/09/2023 Abstract [facility] MEDICINE [address] [place] [id number] Louann Leung Social History Tobacco Use Types [...] Encounters Date Type Department Care Team (Late Contact Info) Description 04/30/2025 9:15 AM EST Office Visit [facility] MEDICINE [address] [place] [address] Brenda Dangelo MD [address] [place] [address] documented as of this encounter Visit Diagnoses Not on filedocumented in this encounter Care Teams Systems Mgr Relationship Specialty Start Date End Date Debbie Logan FNP [address] [place] [address] PCP - General Family Medicine 01/19/23 06/14/23 Debbie Logan FNP [address] [place] [address] PCP - General Family Medicine 06/15/23 01/15/24 Brenda Dagnelo MD [address] [place] [address] PCP - General Internal Medicine 01/16/24 documented as of this encounter
--- OUTSIDE RECORDS SUMMARY | 2025-03-12 12:15 | XMS_ITS | Encounter Summary ---
Author Organization [facility] Address [address] [place] [address] Phone Care Team Providers Care Sales Assoc Name Role Phone Brenda Laguna MD Primary Care Provider Encounter Details Date Type Department Care Team (Late st Contact Info) Description 03/11/2025 Ancillary Orders [facility],Outside Imaging [address] [place] [address] Unknown, Unknown, Social History Tobacco Use Types [...] filedocumented in this encounter Care Teams Sales Assoc Relationship Specialty Start Date End Date Brenda Laguna MD [address] [place] [address] PCP - General Internal Medicine 02/26/25 documented as of this encounter Additional Source Comments The information contained in this document represents components of the legal health record. It is not the complete legal health record.[facility]
--- OUTSIDE RECORDS SUMMARY | 2025-03-12 12:15 | XMS_ITS | Clinical Summary ---
Author Organization [facility] Address [address] [place] [address] Care Team Providers Care Gaming Worker Name Role Phone Unavailable Primary Care Provider Unavailabl e Allergies No known active allergies Medications Medication Sig Dispensed Refills Start Date End Date Status 27-1 MG TABS Take 1 tablet by mouth daily. 0 12/11/2022 Active Active Problems Patient Care Coordination No te Formatting of this note migh t be different from the original. PCP: KRISTI [facility] NPI#[id number] Problem Noted Date Diagnosed Date Other specified [...] topic RigoJeny acosta Personal/Family Self [address] [address]
--- OUTSIDE RECORDS SUMMARY | 2025-03-12 12:15 | XMS_ITS | Encounter Summary ---
Author Organization [facility] Address [address] [place] [address] Phone Care Team Providers Care Naval Special Warfare Medic Name Role Phone Brenda Laguna MD Primary Care Provider Encounter Details Date Type Department Care Team (Late st Contact Info) Description 03/11/2025 Ancillary Orders [facility],Outside Imaging [address] [place] [address] Unknown, Unknown, Social History Tobacco Use Types [...] on filedocumented in this encounter Care Teams Naval Special Warfare Medic Relationship Specialty Start Date End Date Brenda Laguna MD [address] [place] [address] PCP - General Internal Medicine 02/26/25 documented as of this encounter Additional Source Comments The information contained in this document represents components of the legal health record. It is not the complete legal health record.[facility]
--- OUTSIDE RECORDS SUMMARY | 2025-03-12 12:15 | XMS_ITS | Encounter Summary ---
Author Organization [facility] Address [address] [place] [address] Phone Care Team Providers Care Museum Educator Name Role Phone Brenda Laguna MD Primary Care Provider Encounter Details Date Type Department Care Team (Late st Contact Info) Description 03/11/2025 Ancillary Orders [facility],Outside Imaging [address] [place] [address] Unknown, Unknown, Social History Tobacco Use Types [...] on filedocumented in this encounter Care Teams Museum Educator Relationship Specialty Start Date End Date Brenda Laguna MD [address] [place] [address] PCP - General Internal Medicine 02/26/25 documented as of this encounter Additional Source Comments The information contained in this document represents components of the legal health record. It is not the complete legal health record.[facility]
--- OUTSIDE RECORDS SUMMARY | 2025-03-12 12:15 | XMS_ITS | Clinical Summary ---
Author Organization [facility] [address] [place] [address] [place] [address] Phone Care Team Providers Care Rn Cardiovascular Icu Name Role Phone Unavailable Primary Care Provider [...] Screening (05/25/2023) Hepatitis C Screening Abstracted [facility] Provider [place] HEALTH MAINTENANCE Final Result * HIV Screening (05/23/2023) Pathologist [facility] HIV Screening Abstracted [facility] Provider HEALTH MAINTENANCE Final Result * Cervical Cancer Screening: HPV (08/02/2022) Pathologist [facility] Cervical Cancer Screening: HPV Negative, abstracted [facility] Provider HEALTH MAINTENANCE Final Result from Last 3 Months or Most Recently Relevant to Health Maintenance Insurance MEDICAID - [place]
--- OUTSIDE RECORDS SUMMARY | 2025-03-12 12:15 | XMS_ITS | Encounter Summary ---
Author Organization [facility] Address [address] [place] [phone] Phone Care Team Providers Care Pier Master Name Role Phone Brenda Laguna MD Primary Care Provider Encounter Details Date Type Department Care Team (Late st Contact Info) Description 03/11/2025 Ancillary Orders [facility],Outside Imaging [address] [place] [address] Unknown, Unknown, Social History Tobacco Use Types [...] on filedocumented in this encounter Care Teams Pier Master Relationship Specialty Start Date End Date Brenda Laguna MD [address] [place] [address] PCP - General Internal Medicine 02/26/25 documented as of this encounter Additional Source Comments The information contained in this document represents components of the legal health record. It is not the complete legal health record.[facility]
--- OUTSIDE RECORDS SUMMARY | 2025-03-12 12:16 | XMS_ITS | Encounter Summary ---
Author Organization [facility] Address [address] [place] [address] Phone Care Team Providers Care Driver Material Handler Name Role Phone Brenda Laguna MD Primary Care Provider Encounter Details Date Type Department Care Team (Late st Contact Info) Description 03/11/2025 Ancillary Orders [facility],Outside Imaging [address] [place] [address] Unknown, Unknown, Social History Tobacco Use Types [...] on filedocumented in this encounter Care Teams Driver Material Handler Relationship Specialty Start Date End Date Brenda Laugna MD [address] [place] [address] PCP - General Internal Medicine 02/26/25 documented as of this encounter Additional Source Comments The information contained in this document represents components of the legal health record. It is not the complete legal health record.[facility]
--- OUTSIDE RECORDS SUMMARY | 2025-03-12 12:16 | XMS_ITS | Clinical Summary ---
Author Organization [employer] Address [address] [place] [address] Care Team Providers Care Brand Designer Name Role Phone Brenda Dangelo MD Primary [...] 026 Active ergocalciferol (Vitamin D2) 1.25 MG (14851 UT) capsuleIndicati ons:Vitamin D deficiency Take 1 [...] MD. 30 patch 1 10/30/19 25 Active oxyCODONE-aceta minophen (Percocet) 5-325 MG tabletIndicatio ns:Breast [...] upper- outer quadrant of right female breast ([facility]/HCC) 04/16/2024 Assessment & Plan (10/29/2024 11:15 AM [...] Date Acute respiratory failure wi th hypoxia ([facility]) 07/28/2024 10/29/2024 Assessment & Plan (07/28/2024 4:08 [...] Encounters Date Type Department Care Team Description 02/16/2025 Telephone [facility] [address] [place] [phone] Brenda Dangelo MD dec recall 02/05/2025 11:20 AM EDT [facility] [address] [address] Millicent Peña DO Breast pain, right (Primary Dx) 02/05/2025 Travel 01/29/2025 9:20 AM EDT Office Visit [address] [address] Fabio Wagner MD Strep pharyngitis 01/29/2025 Travel 01/27/2025 Orders Only GENERIC EXTERNAL DATA DEPARTMENT Provider, Generic External Data 01/20/2025 Orders Only [facility] External Provider, [facility] 01/05/2025 Results Follow-Up [facility] [address] [place] [phone] oJvan Broussard MD XR Hand 3+ Views Right 01/02/2025 2:00 PM EDT [facility] [address] [address] Jovan Broussard MD Flexor tenosynovitis of thumb (Primary Dx); Right hand pain 01/02/2025 Travel from Last 3 Months Immunizations Immunization Administration [...] 10/29/2024 10:26 AM EDT Plan of Treatment Upcoming Encounters Date Type Department Care Team (Late st Contact Info) Description 04/30/2025 9:15 AM EST Office Visit [facility] [address] [place] [address] Brenda Dangelo MD [address] [place] [address] Health Maintenance Due Date Last Done Comments Alcohol/Substance Use Screening 2000 Family Planning (PISQ) 02/06/2003 HPV Vaccines (1 - 3-dose series) 02/06/2003 Hepatitis B Vaccines (3 of 3 - 19+ 3-dose series) 09/12/2023 07/18/2023, 06/06/2023, 10/09/2014 COVID-19 Vaccine ( season) 2025 Influenza Vaccine (#1) 2025 , [...] Procedure Name Priority Date/Time Associated Diagnosis Comments VASC US UPPER EXTREMITY VENOUS DUPLEX RIGHT Routine 02/26/2025 11:53 AM EDT POCT RAPID STREP A Routine 01/29/2025 9: [...] Recently Relevant to Health Maintenance Results * Vascular US upper extremity venous duplex right (02/26/2025 11:53 AM EDT) 02/26/2025 11:5 3 AM EDT Narrative [facility] - 02/26/2025 12:25 PM EDT [address] [address] Ultrasound Report Signed Patient: Jeny Sierra MR#: [id number] 6 : 1990 Acct:[id number] Age/Sex: 35 / F ADM Date: 02/26/25 Loc: HO.US Attending Dr: Hawa Lei MD Ordering Physician: Hawa Lei MD Date of Service: 02/26/25 Procedure(s): US venous duplex UE RT Accession Number(s): [id number] cc: Hawa Lei MD; Name,Jovan AG Reason for Exam: Acute pain and swelling EXAMINATION: US TRIPLEX UPPER EXTREMITY, RIGHT CLINICAL INFORMATION: Acute pain and swelling right upper extremity. Recent breast surgery right lateral breast. COMPARISON: None available. TECHNIQUE: Color-flow triplex imaging with spectral analysis and compression Doppler was performed on the right upper extremity. FINDINGS: The right internal jugular, subclavian, and axillary veins are patent and free of thrombus. The imaged segment of the right brachiocephalic vein is patent. Spectral doppler waveforms are normal. The brachial, basilic, cephalic, radial, and ulnar veins are patent and compressible. Incidental note made of a fluid collection measuring 4.6 x 2.4 x 3.0 cm in the right lateral breast at the area of pain, most consistent with a postsurgical seroma. US/US venous duplex UE RT IMPRESSION: 1. No evidence of deep venous thrombosis involving the right upper extremity. 2. Postop seroma as detailed suspected in the area of pain, right lateral breast. Electronically signed by: Ruy Gallo MD 02/26/2025 12:22 PM EDT Dictated By: Ruy Gallo MD Signed By: <Electronically signed by Ruy Gallo MD in OV> 02/26/25 1222 DD/ 1153 TD/TT: 02/26/25 1208 Retread Mold Operator: Procedure Note Donotuseinterpreter, Image - 02/26/2025 [place] [address] Ultrasound Report Signed Patient: Jeny SierraMR#: [id number] 6 : 1990Acct:[id number] Age/Sex: 35 / FADM Date: 02/26/25 Loc: HO.US Attending Dr: Hawa Lei MD Ordering Physician: Hawa Lei MD Date of Service: 02/26/25 Procedure(s): US venous duplex UE RT Accession Number(s): [id number] cc: Hawa Lei MD; Name,Jovan AG Reason for Exam: Acute pain and swelling EXAMINATION: US TRIPLEX UPPER EXTREMITY, RIGHT CLINICAL INFORMATION: Acute pain and swelling right upper extremity. Recent breast surgery right lateral breast. COMPARISON: None available. TECHNIQUE: Color-flow triplex imaging with spectral analysis and compression Doppler was performed on the right upper extremity. FINDINGS: The right internal jugular, subclavian, and axillary veins are patent and free of thrombus. The imaged segment of the right brachiocephalic vein is patent. Spectral doppler waveforms are normal. The brachial, basilic, cephalic, radial, and ulnar veins are patent and compressible. Incidental note made of a fluid collection measuring 4.6 x 2.4 x 3.0 cm in the right lateral breast at the area of pain, most consistent with a postsurgical seroma. US/US venous duplex UE RT IMPRESSION: 1. No evidence of deep venous thrombosis involving the right upper extremity. 2. Postop seroma as detailed suspected in the area of pain, right lateral breast. Electronically signed by: Ruy Gallo MD 02/26/2025 12:22 PM EDT Dictated By: Ruy Gallo MD Signed By: <Electronically signed by Ruy Gallo MD in OV> 02/26/25 1222 DD/ 1153 TD/TT: 02/26/25 1208 Retread Mold Operator: [facility] External Provider CV VASC ULAR PROCEDURES Edited Result - Final [facility] [address] [place] [phone] * (ABNORMAL) POCT rapid strep A manually resulted (01/29/2025 9:30 AM EDT) Rapid Strep A Screen Positive( A) Negative, None Detected Swab 01/29/2025 9:30 AM EDT Fabio Wagner MD POINT OF CARE TEST ENTER/EDIT OR DERABLES Final Result * BI MM SURGICAL SPECIMEN (01/27/2025 1:05 PM EDT) Anatomical Region Laterality Modality Breast Bilateral Mammography 01/27/2025 1:05 PM EDT Narrative 01/27/2025 2:16 PM EDT [address] [address] [phone] Mammography Report Signed Patient: Jeny Sierra MR#: [id number] 6 : 1990 Acct:[id number] Age/Sex: 34 / F ADM Date: 01/27/25 Loc: [facility] Attending Dr: Onofre Dela Cruz MD Ordering Physician: Onofre Dela Cruz MD Results: Date of Service: 01/27/25 Follow Up: Procedure(s): MM surgical specimen Accession Number(s): [id number] cc: Brenda Dangelo MD; Onofre Dela Cruz [...] Melvin Man MD 01/27/2025 02:13 PM EDT RP Dictated By: Melvin Man MD Signed By: <Electronically signed by Melvin Man MD in OV> 01/27/25 1413 DD/ 1305 TD/TT: 01/27/25 1320 Retread Mold Operator: Procedure Note Donotuseinterpreter, Image - 01/27/[address] [address] [phone] Mammography Report Signed Patient: Jeny SierraMR#: [id number] 6 : 1990Acct:[id number] Age/Sex: 34 / FADM Date: 01/27/25 Loc: [facility] Attending Dr: Onofre Dela Cruz MD Ordering Physician: Onofre Dela Cruzesults: Date of Service: 01/27/25Follow Up: Procedure(s): MM surgical specimen Accession Number(s): [id number] cc: Brenda Dangelo MD; Onofre Dela Cruz [...] Melvin Man MD 01/27/2025 02:13 PM EDT RP Dictated By: Melvin Man MD Signed By: <Electronically signed by Melvin Man MD in OV> 01/27/25 1413 DD/ 1305 TD/TT: 01/27/25 1320 Retread Mold Operator: [facility] External Provider IMG BI PROCEDURES Edited Result - Final * Hematoxylin and Eosin Stain (01/27/2025 12:52 PM EDT) 01/27/2025 12:5 2 PM EDT 01/27/2025 1:00 PM EDT [facility] - 02/01/2025 2:03 PM EDT ----- ------- Name: Jeny Sierra Age/Sex: 34/F : 1990 Unit#: [id number] Attend Dr: Onofre Dela Cruz MD Re01/27/25 Status: [facility] Location: [facility] Disch: ----- ------- SPEC : [id number] RECD: 01/27/25-1299 STATUS: VIC MILLER NUM: [id number] [place]: 01/27/25-[address] [facility] [address]: Onofer Dela Cruz MD ENTERED: 01/27/25-1304 SP TYPE: [...] invasion present. - AJCC Stage 8th edition: [id number](sn) B. 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 - Size of metastatic deposit: 9 mm. C. 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 - Size of metastatic deposit: 25 mm. - Extranodal extension present, greater than 2 mm. - Minimal treatment response noted. D. [place] lymph node #2, excision: - Metastatic adenocarcinoma [...] Jeny Sierra Age/Sex: 34/F : 1990 Unit#: [id number] Attend Dr: Onofre Dela Cruz MD Re01/27/25 Status: [facility] Location: [facility] Disch: ----- ------- SPEC : [id number] RECD: 01/27/25-1299 STATUS: VIC MILLER NUM: [id number] [place]: 01/27/25-[address] [facility] [address]: Onofre Dela Cruz MD ENTERED: 01/27/25-1303 SP TYPE: Surgical OTHR DR: Brenda Dangelo [...] posterior margins Lymph nodes Number examined: 3 [place] nodes: 2 Axillary nodes: 1 Number involved: 3 With macrometastases: 3 With micrometastases: 0 With isolated tumor cells: 0 Extranodal extension: 1 Size of largest met. deposit: 25 mm (part C) Treatment effect Breast: Minimal response Lymph nodes: Minimal response TNM: [id number](sn) Ancillary studies: Refer to previous biopsy ([id number]; ER +, MT +, HER2 (0), high ki-67 proliferation Note: For tumors greater than 5 mm in size with negative lymph nodes, prognostic genetic testing may be appropriate to guide further management. Clinical History Malignant neoplasm of unspecified site CONTINUED ON NEXT PAGE ----- ------- Name: RigoJeny Age/Sex: 34/F : 1990 Unit#: [id number] Attend Dr: Onofre Dela Cruz MD Re01/27/25 Status: [facility] [place] [facility] Location: [facility] Disch: ----- ------- SPEC : [id number] RECD: 01/27/25-1299 STATUS: VIC MILLER NUM: [id number] [place]: 01/27/25-[address] [facility] [address]: Onofre Dela Cruz MD ENTERED: 01/27/25-1304 [...] Material Received A. Right breast lumpectomy B. [place] lymph node #1, count 598 C. Previously biopsied lymph node with RFID clip D. [place] node #2, count 680 E. Additional inferior [...] however, the biopsy clip is not identified. Corporate Administrator sections are submitted labeled as follows: CONTINUED ON NEXT PAGE ----- ------- Name: Jeny Sierra Age/Sex: 34/F : 1990 [facility] [id number] Unit#: [id number] Attend Dr: Onofre Dela Cruz MD Re01/27/25 Status: [facility] Location: [facility] Disch: ----- ------- SPEC : [id number] RECD: 01/27/25 STATUS: VIC MILLER NUM: [id number] [place]: 01/27/25-[address] [facility] [address]: Onofre Dela Cruz MD ENTERED: 01/27/25-1303 SP TYPE: Surgical OTHR DR: Brenda Dangelo MD ORDERED: HE Stain/3, Gross Micro L4, Gross Micro L5/4, Cytokeratin/2, IOC, IHC/2, Add. immunos/2, SMM/2 Gross Description (Continued) A1 medial, slice 1; A2 medial, slice 2; A3 anterior, slice 3; A4 superior-anterior, slice 4; A5 posterior, slice 4; A6 anterior, slice 4; A7 inferior, slice 4; A8 jbwyemdz-wfodxbpr-cgawrguyh, slice 5; A9 anterior-posterior, slice 5; A10 [...] CONTINUED ON NEXT PAGE ----- ------- Name: RigoJeny Age/Sex: 34/F : 1990 Unit#: [id number] Attend Dr: Onofre Dela Cruz MD Re01/27/25 Status: [facility] Location: [facility] Disch: ----- ------- SPEC : [id number] RECD: 01/27/25-1299 STATUS: VIC ANGELA NUM: [id number] [place]: 01/27/25-[address] [facility] [address]: Onofre Dela Cruz MD ENTERED: 01/27/25-3647 SP TYPE: Surgical OTHR DR: Brenda Dangelo [...] developed and their performance characteristics determined by [facility]. They have not been cleared or approved by the U.S. Food and Drug Administration (FDA). However, the FDA has determined that such clearance or approval is not necessary. This laboratory is certified under the Clinical Laboratory Improvement Amendments of 1988 (CLIA) as qualified to perform high complexity clinical laboratory testing. Copies To: Brenda Dangelo MD [place] [id number] Onofre Dela Cruz MD [facility] [address] [place] [phone] ----- ------- Signed (signature on file) Radha Aleman MD 02/01/25 1403 ----- ------- END OF REPORT us Generic External Data Provider LAB BLOOD ORDERAB LES Final Result Performing Organization Address City/State/[facility] Co de Phone Number [facility] [address] [place] [phone] * NM SENTINEL NODE W IMAGING (01/27/2025 7:41 AM EDT) Anatomical Region Laterality Modality Nuclear Medicine 01/27/2025 7:41 AM EDT Narrative 01/27/2025 12:50 PM EDT [address] [address] Nuclear Medicine Report Signed Patient: Jeny Sierra MR#: [id number] 6 : 1990 Acct:[id number] Age/Sex: 34 / F ADM Date: 01/27/25 Loc: [facility] Attending Dr: Onofre Dela Cruz MD Ordering Physician: Onofre Dela Cruz MD Date of Service: 01/27/25 Procedure(s): NM sentinel node w imaging Accession Number(s): [id number] cc: Brenda Dangelo MD; Onofre Dela Cruz [...] 01/27/25 1248 DD/ 0741 TD/TT: 01/27/25 0900 Retread Mold Operator: [facility] Procedure Note Donotuseinterpreter, Image - 01/27/2025 [place] [address] Nuclear Medicine Report Signed Patient: Jeny Sierra#: [id number] 6 : 1990Acct:[id number] Age/Sex: 34 / FADM Date: 01/27/25 Loc: .[facility] Attending Dr: Onofre Dela Cruz MD Ordering Physician: Onofre Dela Cruz MD Date of Service: 01/27/25 Procedure(s): NM sentinel node w imaging Accession Number(s): [id number] cc: Brenda Dangelo MD; Onofre Dela Cruz [...] 01/27/25 1248 DD/ 0741 TD/TT: 01/27/25 0900 Retread Mold Operator: ANA ROSA [facility] External Provider IMG NM PROCEDURES Edited Result - Final * HCG, Qualitative, Urine (01/27/2025 7:30 AM EDT) Urine NEGATIVE NEGATIVE [facility] Comment:This test was develo ped to detect early . Falsenegative results may occur after the 5th - 7th week ofpregnancy when using this test method. If clinicallyindicated, consider a serum hCG. 01/27/2025 7:30 AM EDT 01/27/2025 7:40 AM EDT Generic External Data Provider LAB URINE ORDERAB LES Final Result [facility] [address] [place] [phone] * Mammogram Diagnostic Right (01/20/2025 11:00 AM EDT) Anatomical Region Laterality Modality Breast Right Mammography 01/20/2025 11:0 0 AM EDT Narrative 01/20/2025 12:39 PM EDT [facility] [address] [place] [address] Mammography Report Signed Patient: Jeny Sierra MR#: [id number] 6 : 1990 Acct:[id number] Age/Sex: 34 / F ADM Date: 01/20/25 Loc: HO.MAMMO Attending Dr: Onofre Dela Cruz MD Ordering Physician: Onofre Dela Cruz MD Results: 6Kno wn Biopsy Proven Malignancy Date of Service: 01/20/25 Follow Up: Surgical Consult Procedure(s): MM diagnostic mammo unilat RT Accession Number(s): [id number] cc: Brenda Dangelo MD; Onofre Dela Cruz [...] (9cc: 1cc) at each site. LOCALIZATION SYSTEM: -PLC Systems LOCallizer Wire-Free Guidance System with 12g needle applicator. -Length: 7 cm. -RADIOFREQUENCY TAG: ID # [id number] placed within the right breast mass at 8-9:00 at 5 cm from the nipple. -RADIOFREQUENCY TAG: ID # [id number] placed within the abnormal right axillary lymph [...] post right breast RFID localization TAG ID# [id number]. - Status post right axilla RFID localization TAG ID# [id number]. Electronically signed by: Melvin Man MD 01/20/2025 12:36 PM EDT Dictated By: Melvin Man MD Signed By: <Electronically signed by Melvin Man MD in OV> 01/20/25 1236 DD/ 1100 TD/TT: 01/20/25 1112 Retread Mold Operator: Procedure Note Donotuseinterpreter, Image - [facility]/20/[facility] [address] [place] [address] Mammography Report Signed Patient: Jeny SierraMR#: [id number] 6 : 1990Acct:[id number] Age/Sex: 34 / FADM Date: 01/20/25 Loc: HO.MAMMO Attending Dr: Onofre Dela Cruz MD Ordering Physician: Onofre Dela Cruz MDResults: 6Kno wn Biopsy Proven Malignancy Date of Service: 01/20/25Follow Up: Surgical Consult Procedure(s): MM diagnostic mammo unilat RT Accession Number(s): [id number] cc: Brenda Dangelo MD; Onofre Dela Cruz [...] (9cc: 1cc) at each site. LOCALIZATION SYSTEM: -PLC Systems LOCallizer Wire-Free Guidance System with 12g needle applicator. -Length: 7 cm. -RADIOFREQUENCY TAG: ID # [id number] placed within the right breast mass at 8-9:00 at 5 cm from the nipple. -RADIOFREQUENCY TAG: ID # [id number] placed within the abnormal right axillary lymph [...] post right breast RFID localization TAG ID# [id number]. - Status post right axilla RFID localization TAG ID# [id number]. Electronically signed by: Melvin Man MD 01/20/2025 12:36 PM EDT Dictated By: Melvin Man MD Signed By: <Electronically signed by Melvin Man MD in OV> 01/20/25 1236 DD/ 1100 TD/TT: 01/20/25 1112 Retread Mold Operator: [facility] External Provider IMG BI PROCEDURES Edited Result - Final * US breast RF Tag Device Addl (01/20/2025 9:50 AM EDT) Anatomical Region Laterality Modality Abdomen Ultrasound 01/20/2025 9:50 AM EDT Narrative 01/20/2025 12:39 PM EDT [address] [place] [address] Ultrasound Report Signed Patient: Jeny Sierra MR#: [id number] 6 : 1990 Acct:[id number] Age/Sex: 34 / F ADM Date: 01/20/25 Loc: HO.MAMMO Attending Dr: Onofre Dela Cruz MD Ordering Physician: Onofre Dela Cruz MD Date of Service: 01/20/25 Procedure(s): US Breast RF Tag Device Addl Accession Number(s): [id number] cc: Brenda Dangelo MD; Onofre Dela Cruz [...] (9cc: 1cc) at each site. LOCALIZATION SYSTEM: -PLC Systems LOCallizer Wire-Free Guidance System with 12g needle applicator. -Length: 7 cm. -RADIOFREQUENCY TAG: ID # [id number] placed within the right breast mass at 8-9:00 at 5 cm from the nipple. -RADIOFREQUENCY TAG: ID # [id number] placed within the abnormal right axillary lymph [...] post right breast RFID localization TAG ID# [id number]. - Status post right axilla RFID localization TAG ID# [id number]. Electronically signed by: Melvin Man MD 01/20/2025 12:36 PM EDT Dictated By: Melvin Man MD Signed By: <Electronically signed by Melvin Man MD in OV> 01/20/25 1236 DD/ 0950 TD/TT: 01/20/25 1109 Retread Mold Operator: Procedure Note Donotuseinterpreter, Image - 01/20/2025 [facility] [address] [place], [place] [address] Ultrasound Report Signed Patient: Jeny Sierra#: [id number] 6 : 1990Acct:[id number] Age/Sex: 34 / FADM Date: 01/20/25 Loc: HO.MAMMO Attending Dr: Onofre Dela Cruz MD Ordering Physician: Onofre Dela Cruz MD Date of Service: 01/20/25 Procedure(s): US Breast RF Tag Device Addl Accession Number(s): [id number] cc: Brenda Dangelo MD; Onofre Dela Cruz [...] (9cc: 1cc) at each site. LOCALIZATION SYSTEM: -PLC Systems LOCallizer Wire-Free Guidance System with 12g needle applicator. -Length: 7 cm. -RADIOFREQUENCY TAG: ID # [id number] placed within the right breast mass at 8-9:00 at 5 cm from the nipple. -RADIOFREQUENCY TAG: ID # [id number] placed within the abnormal right axillary lymph [...] post right breast RFID localization TAG ID# [id number]. - Status post right axilla RFID localization TAG ID# [id number]. Electronically signed by: Melvin Man MD 01/20/2025 12:36 PM EDT Dictated By: Melvin Man MD Signed By: <Electronically signed by Melvin Man MD in OV> 01/20/25 1236 DD/ 0950 TD/TT: 01/20/25 1109 Retread Mold Operator: [facility] External Provider IMG US PROCEDURES Edited Result - Final * US breast needle loc RT - RFID (01/20/2025 9:50 AM EDT) Anatomical Region Laterality Modality Abdomen Ultrasound 01/20/2025 9:50 AM EDT Narrative 01/20/2025 12:39 PM EDT [facility] [place] [address] Ultrasound Report Signed Patient: Jeny Sierra MR#: [id number] 6 : 1990 Acct:[id number] Age/Sex: 34 / F ADM Date: 01/20/25 Loc: HO.MAMMO Attending Dr: Onofre Dela Cruz MD Ordering Physician: Onofre Dela Cruz MD Date of Service: 01/20/25 Procedure(s): US Breast RF Tag Device Right Accession Number(s): [id number] cc: Brenda Dangelo MD; Onofre Dela Cruz [...] (9cc: 1cc) at each site. LOCALIZATION SYSTEM: -PLC Systems LOCallizer Wire-Free Guidance System with 12g needle applicator. -Length: 7 cm. -RADIOFREQUENCY TAG: ID # [id number] placed within the right breast mass at 8-9:00 at 5 cm from the nipple. -RADIOFREQUENCY TAG: ID # [id number] placed within the abnormal right axillary lymph [...] post right breast RFID localization TAG ID# [id number]. - Status post right axilla RFID localization TAG ID# [id number]. Electronically signed by: Melvin Man MD 01/20/2025 12:36 PM EDT Dictated By: Melvin Man MD Signed By: <Electronically signed by Melvin Man MD in OV> 01/20/25 1236 DD/ 0950 TD/TT: 01/20/25 1109 Retread Mold Operator: Procedure Note Donotuseinterpreter, Image - 01/20/2025 [facility] [address] [place] [address] Ultrasound Report Signed Patient: Vahid Sierra#: [id number] 6 : 1990Acct:[id number] Age/Sex: 34 / FADM Date: 01/20/25 Loc: MAMMO Attending Dr: Onofre Dela Cruz MD Ordering Physician: Onofre Dela Cruz MD Date of Service: 01/20/25 Procedure(s): US Breast RF Tag Device Right Accession Number(s): [id number] cc: Brenda Dangelo MD; Onofre Dela Cruz [...] (9cc: 1cc) at each site. LOCALIZATION SYSTEM: -PLC Systems LOCallizer Wire-Free Guidance System with 12g needle applicator. -Length: 7 cm. -RADIOFREQUENCY TAG: ID # [id number] placed within the right breast mass at 8-9:00 at 5 cm from the nipple. -RADIOFREQUENCY TAG: ID # [id number] placed within the abnormal right axillary lymph [...] post right breast RFID localization TAG ID# [id number]. - Status post right axilla RFID localization TAG ID# [id number]. Electronically signed by: Melvin Man MD 01/20/2025 12:36 PM EDT Dictated By: Melvin Man MD Signed By: <Electronically signed by Melvin Man MD in OV> 01/20/25 1236 DD/ 0950 TD/TT: 01/20/25 1109 Retread Mold Operator: us [facility] External Provider IMG US PROCEDURES Edited Result - Final * XR Hand 3+ Views Right (01/02/2025 1:18 PM EDT) Anatomical Region Laterality Modality Upper Extremities, Hand Right [facility] 01/02/2025 1:18 PM EDT Narrative 01/02/2025 2:21 PM EDT [address] [address] XRay Report Signed Patient: Jeny Sierra MR#: [id number] 6 : 1990 Acct:[id number] Age/Sex: 34 / F ADM Date: 01/02/25 Loc: HO.HHCX Attending Dr: Jovan Broussard MD Ordering Physician: Jovan Broussard MD Date of Service: 01/02/25 Procedure(s): XR hand RT min 3V Accession Number(s): [id number] cc: Jovan Broussard MD EXAMINATION: XR HAND, [...] 01/02/25 1418 DD/ 1318 TD/TT: 01/02/25 1405 Retread Mold Operator: Procedure Note Donotuseinterpreter, Image - 01/02/[address] [address] XRay Report Signed Patient: Jeny SierraMR#: [id number] 6 : 1990Acct:[id number] Age/Sex: 34 / FADM Date: 01/02/25 Loc: HO.HHCX Attending Dr: Jovan Broussard MD Ordering Physician: Jovan Broussard MD Date of Service: 01/02/25 Procedure(s): XR hand RT min 3V Accession Number(s): [id number] cc: NameJovan MD EXAMINATION: XR HAND, RIGHT CLINICAL INFORMATION: [...] 01/02/25 1418 DD/ 1318 TD/TT: 01/02/25 1405 Retread Mold Operator: us Jovan Broussard MD IMG XR PROCEDURES Final Result * Hepatitis A,B,C Profile (08/20/2024 11:28 AM EDT) Hepatitis A IgM Nonreactive Nonreactive [facility] Comment:IgM antibodies to NAVARRO V not detected; does not exclude earlyacute or recovered HAV infection. ~Hepatitis B Surface Antibody REACTIVE Nonreactive [facility] Comment:REACTIVE: > 11.99 mI U/mL Hepatitis B Core Antibody Nonreactive Nonreactive [facility] Hepatitis C Antibody Nonreactive Nonreactive [facility] Comment:Antibodies to HCV no t detected; does not exclude early acuteHCV infection. Hepatitis B Surface Ag Negative Negative [facility] Blood Venous blood specimen / Unknown 08/20/2024 11:28 AM EDT 08/20/2024 1:34 PM EDT us Brenda Sawyer MD LAB BLOOD ORDERABLES Final Result [facility] [address] [place] [address] [phone] * HIV-1/2 Antigen and Antibodies, Fourth Generation, with Reflexes (07/28/2024 1:52 PM EDT) HIV AB/AG Nonreactive Nonreactive [facility] Comment:HIV-1 p24 Ag and/or HIV-1/HIV-2 Ab not detected.A test result that is nonreactive does not exclude thepossibility of exposure to or infection with HIV-1 and/orHIV-2. Nonreactive results in this assay for individualswith prior exposure to HIV-1 and/or HIV-2 may be due toantigen and antibody levels that are below the limit ofdetection of this assay.The [employer] HIV Ag/Ab Combo assay result andsupplemental assay results should be interpreted inconjunction with the patient's clinical presentation,history and other laboratory results. If the results areinconsistent with clinical evidence, additional testing issuggested to confirm the result. Blood Venous blood specimen / Unknown 07/28/2024 1:52 PM EDT 07/28/2024 4:24 PM EDT Brenda Sawyer MD LAB BLOOD ORDERABLES Final Result [facility] [address] [place] [phone] * Pap Smear (04/14/2021) [facility] Pap smear Performed Sis Provider HEALTH MAINTENANCE Final Result * HPV E6/E7 RFLX PORTIA 16 18/45 (04/13/2021 10:26 AM EST) [facility] HPV 16 RNA [facility] HPV 18/45 RNA [facility] HPV E6 E7 ADD [facility] HPV mRNA E6/E7 rflx Not Detected Not Detected [facility] Comment: Methodology: Telemarketing Supervisor-Mediated Amplification This assay detects E6/E7 viral messenger RNA (mRNA) from 14 high-risk HPV types (16,18,31,33,35,39,45,51,52,56,58,59,66,68). The analytical performance characteristics of this assay have been determined by [employer]. The modifications have not been cleared or approved by the FDA. This assay has been validated pursuant to the CLIA regulations and is used for clinical purposes. For additional information, please refer to http://[email or web address].Hatchbuck/faq/YJT235h8 (This link if provided for information/ educational purposes only.) THIS TEST WAS PERFORMED AT: [facility] [address] [place] [address] [address]LO[address],[place] [address] WILD BRICENO MD 04/13/2021 10:2 6 AM EST us Sharon [place] HISTORICAL/NON ORDERABLE LABS Fi nal Result [facility] [address] from Last 3 Months or Most Recently Relevant to Health Maintenance Insurance [employer] C3 Care Teams Brand Designer Relationship Specialty Start Date End Date Brenda Dangelo MD [address] [place] [address] PCP - General Internal Medicine 01/16/24
--- OUTSIDE RECORDS SUMMARY | 2025-03-12 12:16 | XMS_ITS | Encounter Summary ---
Author Organization [facility] Address [address] [place] [address] Phone Care Team Providers Care Manufacturing Maintenance Technician Name Role Phone Brenda Laguna MD Primary Care Provider Encounter Details Date Type Department Care Team (Late st Contact Info) Description 03/11/2025 Ancillary Orders [facility],Outside Imaging [address] [place] [address] Unknown, Unknown, Social History Tobacco Use Types [...] as of this encounter Results * Mammogram Specimen Outside (No Interpretation) (01/27/2025 12:00 AM EDT) Narrative SYSTEMGENERATED, DOCUMENTATION - 03/11/2025 12:43 PM EDT This study is for PACS storage only and not for interpretation. us Unknown Unknown MD [facility] OUT[facility] W/OUT INT ERPRETATION Final Result documented in this encounter Visit Diagnoses Not on filedocumented in this encounter Care Teams Manufacturing Maintenance Technician Relationship Specialty Start Date End Date Brenda Laguna MD [address] [place] [address] PCP - General Internal Medicine 02/26/25 documented as of this encounter Additional Source Comments The information contained in this document represents components of the legal health record. It is not the complete legal health record.[facility]
--- OUTSIDE RECORDS SUMMARY | 2025-03-12 12:16 | XMS_ITS | Clinical Summary ---
Author Organization [facility] Address [address] [place] [address] Phone Care Team Providers Care Webmaster Name Role Phone Brenda Laguna MD Primary Care Provider Allergies Active Allergy Reactions Criticality Noted Date Comments Adhesive Tape-Silicones Rash Low 03/11/2025 Medications No known medications Active Problems Problem Noted Date Diagnosed Date Malignant neoplasm of overla pping sites of right female breast 03/11/2025 Cancer Staging:Clinical stage from 04/29/2024:Stage IIA(cT3, cN2a(f), cM0, G2, ER: Positive, IL: Positive, HER2: Negative) - Signed by Mouna Palacios MD on 03/11/2025 Pathologic stage from 01/27/2025: ypT2, pN1a(sn), cM0, G3, ER: Positive, IL: Positive, HER2: Negative - Signed by Mouna Palacios MD on 03/11/2025 Encounters Date Type Department Care Team Description 03/11/2025 10:00 AM EDT Office Visit [facility] Rad Onc [address] [place] [address] Mouna Palacios MD Malignant neoplasm of overlapping sites of right breast in female, estrogen receptor positive (Primary Dx) 03/11/2025 Ancillary Orders [facility],Outside Imaging [address] [place] [address] Unknown, MD Brett 03/11/2025 Ancillary Orders [facility],Outside Imaging [address] [place] [address] Unknown, MD Brett 03/11/2025 Ancillary Orders [facility],Outside Imaging [address] [place] [address] Unknown, Brett, 03/11/2025 Ancillary Orders [facility],Outside Imaging [address] [place] [address] Unknown, Brett, 03/11/2025 Ancillary Orders [facility],Outside Imaging [address] [place] [address] Unknown, Unknown, 03/11/2025 Ancillary Orders [facility],Outside Imaging [address] [place] [address] Unknown, Unknown, 03/11/2025 Ancillary Orders [facility],Outside Imaging [address] [place] [address] Unknown, Unknown, 03/11/2025 Ancillary Orders [facility],Outside Imaging [address] [place] [address] Unknown, Brett, 03/11/2025 Ancillary Orders [facility],Outside Imaging [address] [place] [address] Unknown, Brett, 03/11/2025 Ancillary Orders [facility],Outside Imaging [address] [place] [address] Unknown, Brett, 03/11/2025 Ancillary Orders [facility],Outside Imaging [address] [place] [address] Unknown, MD Brett 01/27/2025 Hospital Encounter [facility],Outside Imaging [address] [place] [address] Unknown, MD Brett 01/20/2025 12:05 AM EDT Hospital Encounter [facility],Outside Imaging [address] [place] [address] Brett, MD Brett 01/20/2025 Hospital Encounter [facility],Outside Imaging [address] [place] [address] Unknown, MD Brett from Last 3 Months Family History Medical History Relation Comments Head and neck cancer Father throat canc er Breast cancer Maternal Aunt Breast cancer Paternal Aunt Stomach cancer Paternal Grandfather Relation Status Comments Father Maternal Aunt Paternal Aunt Paternal Grandfather Social History Tobacco Use Types [...] on file Sexual Orientation Not on file Last Filed Vital Signs [...] Health Maintenance Due Date Last Done Comments DEPRESSION SCREENING 2000 SMOKING Hx and SMOKELESS TOBACCO SCREENING 02/06/2001 HEPATITIS C SCREENING 02/06/2006 HIV ONE-TIME SCREENING (18-6 5 YEARS) 02/06/2006 PNEUMOCOCCAL VACCINES (0-49 years) (1 of 2 - PCV) 02/06/2007 PAP SMEAR 02/06/2009 INFLUENZA VACCINE (#1) 2024 COVID-19 VACCINE ( - 2024-2 6 season) 2025 Adult Td,Tdap Booster 11/17/2032 11/17/2022 , 09/01/2021, 06/23/2011 HEPATITIS A VACCINES Aged Out No long [...] this topic Medical Devices Not on file Procedures Procedure Name Priority Date/Time Associated Diagnosis Comments BI MAMMOGRAM SPECIMENT OUTSIDE (NO INTERPRETATION) Routine 01/27/2025 12:00 AM EDT BI US BREAST OUTSIDE (NO INTERPRETATION) Routine 01/20/2025 12:05 AM EDT BI US BREAST OUTSIDE (NO INTERPRETATION) Routine 01/20/2025 12:00 AM EDT from Last 3 Months Results * Mammogram Specimen Outside (No Interpretation) (01/27/2025 12:00 AM EDT) Narrative SYSTEMGENERATED, DOCUMENTATION - 03/11/2025 12:43 PM EDT This study is for PACS storage only and not for interpretation. us Unknown Unknown MD IMG OUTSIDE IMAGING W/OUT INT ERPRETATION Final Result * US Breast Outside (No Interpretation) (01/20/2025 12:05 AM EDT) Narrative SYSTEMGENERATED, DOCUMENTATION - 03/11/2025 12:43 PM EDT This study is for PACS storage only and not for interpretation. us Unknown Unknown MD IMG OUTSIDE IMAGING W/OUT INT ERPRETATION Final Result * US Breast Outside (No Interpretation) (01/20/2025 12:00 AM EDT) Narrative SYSTEMGENERATED, DOCUMENTATION - 03/11/2025 12:43 PM EDT This study is for PACS storage only and not for interpretation. us Unknown Unknown MD IMG OUTSIDE IMAGING W/OUT INT ERPRETATION Final Result from Last 3 Months Insurance [facility] C3 ACO C3 ACO Care Teams Webmaster Relationship Specialty Start Date End Date Brenda Laguna MD [address] [place] [phone] PCP - General Internal Medicine 02/26/25 Additional Source Comments The information contained in this document represents components of the legal health record. It is not the complete legal health record.[facility]
--- OUTSIDE RECORDS SUMMARY | 2025-03-12 12:16 | XMS_ITS | Encounter Summary ---
Author Organization [employer] Address [address] [facility] [address] [place] [address] Care Team Providers Care Spa Manager Name Role Phone Chip Banerjee Primary Care Provider Unavail able Debbie Logan Primary Care Provider [phone] Debbie Logan Primary Care Provider [phone] Brenda Dangelo MD Primary Care Provide r Reason for Visit * Reason Onset Date Comments Triage 08/30/2022 Encounter Details Date Type Department Care Team (Late st Contact Info) Description 08/30/2022 Telephone [facility] [address] [place] [phone] Chip Banerjee AGNP Triage Social History Tobacco [...] 17 weeks . Pt is going to [facility] at 10AM and will come to [facility] after to be seen by [...] Description 04/30/2025 9:15 AM EST Office Visit [facility] [address] [place] [address] Brenda Dangelo MD [address] [place] [address] documented as of this encounter Visit Diagnoses Not on filedocumented in this encounter Care Teams Spa Manager Relationship Specialty Start Date End Date Chip Banerjee AGNP PCP - General Family Medicine 02/16/22 01/18/23 Debbie Logan FNP [address] [place] [address] PCP - General Family Medicine 01/19/23 06/14/23 Debbie Logan FNP [address] [place] [address] PCP - General Family Medicine 06/15/23 01/15/24 Brenda Dangelo MD [address] [place] [address] PCP - General Internal Medicine 01/16/24 documented as of this encounter
--- OUTSIDE RECORDS SUMMARY | 2025-03-12 12:16 | XMS_ITS | Encounter Summary ---
Author Organization [employer] Address [address] [facility] 7t [place] [address] Care Team Providers Care Watch Hairspring Assembler Name Role Phone Debbie Logan WILIAN Primary Care Provider [phone] Brenda Dangelo MD Primary Care Provide r Encounter Details Date Type Department Care Team ([facility] Contact Info) Description 06/23/2023 Orders Only [facility] [address] [place], [place] [phone] Perry Miguel MD [address] [place] [address] Hematuria, unspecified type (Primary Dx) Social History [...] Description 04/30/2025 9:15 AM EST Office Visit [facility] [address] [place] [phone] Brenda Dangelo MD [address] [place] [phone] Scheduled Orders Name Type Priority Associated Diagnoses Orde r Schedule Urinalysis with reflex microscopic Lab Routine Hematuria, unspecified type Expected: 06/23/2023, Expires: 06/23/2024 documented as of this encounter Visit Diagnoses Diagnosis Hematuria, unspecified type- Primary documented in this encounter Additional Health Concerns Assessment Noted Time PHQ-9 Depression Total Score: 0 05/23/19 24 10:43 AM EST documented as of this encounter Care Teams Watch Hairspring Assembler Relationship Specialty Start Date End Date Debbie Logan FNP [address] [place] [address] PCP - General Family Medicine 06/15/23 01/15/24 Brenda Dangelo MD [address] [place] [address] PCP - General Internal Medicine 01/16/24 documented as of this encounter
== END 2025-03-12 10:34 | disposition home or self-care (01) ==
LOC: HO.HGS 10:09
PROVIDERS: PCP Internal Medicine; Visit Provider Surgery
DX: C50.919 Malignant neoplasm of unspecified site of unspecified female breast (principal)
CPT/HCPCS: 99024

== ENCOUNTER → 2025-03-12 10:08 | Outpatient (BNVA) | payer MEDICAID, SELFPAY | PROVIDERS: PCP Internal Medicine; Visit Provider Surgery | DX: C50.911 Malignant neoplasm of unspecified site of right female breast (principal) | CPT/HCPCS: 99212 ==

== ENCOUNTER 2025-04-15 15:16 | Outpatient (REF) | payer MEDICAID, SELFPAY ==
--- NOTE | ~2025-04-15 | XR_ITS ---
EXAMINATION: XR CHEST CLINICAL INFORMATION: cough, fever COMPARISON: June 21 2024 TECHNIQUE: 2 views of the chest were obtained. FINDINGS: Left-sided Port-A-Cath terminating in the right atrium is unchanged. No significant abnormality is noted involving the heart, lungs, mediastinum, bony thorax or soft tissues. XR/XR chest 2V IMPRESSION: No acute disease. Electronically signed by: Justin Flores MD 04/15/2025 05:23 PM GIL
--- OUTSIDE RECORDS SUMMARY | 2025-04-15 14:00 | XMS_ITS | Encounter Summary ---
Author Organization [employer] Address [address] [place] [address] Care Team Providers Care Cylinder Tester Name Role Phone Brenda Dangelo MD Primary Care Provide r Reason for Visit * Reason Comments Sore Throat Encounter Details Date Type Department Care Team ([facility] Contact Info) Description 04/15/2025 2:00 PM EST Office Visit [facility] [address] [place] [address] Acute cough (Primary Dx) Social History Tobacco Use Types Packs/Day Years Used Date Smoking Tobacco: Former Cigarettes 0.5 15 2 004 - 2019 Passive Smoke Exposure: Never Smokeless [...] AM EDT documented as of this encounter Last Filed Vital Signs Vital Sign Reading Time Taken Comments Blood Pressure 114/70 04/15/2025 2:28 PM EST Pulse 66 04/15/2025 2:28 PM EST Temperature 37.2 C (98.9 F) 04/15/2025 2:28 PM EST Respiratory Rate 20 04/15/2025 2:28 PM EST Oxygen Saturation 98% 04/15/2025 2:28 PM EST Inhaled Oxygen Concentration - - Weight 68.7 kg (151 lb 6.4 oz) 04/15/2025 2:28 P M EST Height - - Body Mass Index 27.69 10/29/2024 10:26 AM EDT documented in this encounter Plan of Treatment Upcoming Encounters Date Type Department Care Team (Late st Contact Info) Description 04/30/2025 9:15 AM EST Office Visit [facility] [address] [place] [address] Brenda Dangelo MD [address] [place] [address] documented as of this encounter Procedures Procedure Name Priority Date/Time Associated Diagnosis Comments XR CHEST 2 VIEWS Routine 04/15/2025 3:32 PM EST Acute cough POCT INFLUENZA A Routine 04/15/2025 3:20 PM EST Acute cough POCT INFLUENZA B Routine 04/15/2025 3:19 PM EST Acute cough POCT RAPID STREP A Routine 04/15/2025 3: 18 PM EST Acute cough POCT RAPID COVID ANTIGEN Routine 04/15/2025 3:17 PM EST Acute cough documented in this encounter Results * XR Chest 2 Views (04/15/2025 3:32 PM EST) Anatomical Region Laterality Modality Chest Radiographic Margot ging 04/15/2025 3:32 PM EST Narrative 04/15/2025 5:26 PM EST [address] [address] XRay Report Signed Patient: Jeny Sierra MR#: [id number] 6 : 1990 Acct:[id number] Age/Sex: 35 / F ADM Date: 04/15/25 Loc: .HHCX Attending Dr: Eric Smith MD Ordering Physician: ERIC SMITH MD Date of Service: 04/15/25 Procedure(s): XR chest 2V Accession Number(s): [id number] cc: ERIC SMITH MD Reason for Exam: cough, fever EXAMINATION: XR CHEST CLINICAL INFORMATION: cough, fever COMPARISON: June 21 2024 TECHNIQUE: 2 views of the chest were obtained. FINDINGS: Left-sided Port-A-Cath terminating in the right atrium is unchanged. No significant abnormality is noted involving the heart, lungs, mediastinum, bony thorax or soft tissues. XR/XR chest 2V IMPRESSION: No acute disease. Electronically signed by: Justin Flores MD 04/15/2025 05:23 PM EST Dictated By: Justin Flores MD Signed By: <Electronically signed by Justin Flores MD in OV> 04/15/25 1723 DD/ 1532 TD/TT: 04/15/25 1532 Sales Broker: Procedure Note Donotuseinterpreter, Image - 04/15/[address] [address] XRay Report Signed Patient: Jeny SierraMR#: [id number] 6 : 1990Acct:[id number] Age/Sex: 35 / FADM Date: 04/15/25 Loc: HO.HHCX Attending Dr: Eric Smith MD Ordering Physician: ERIC SMITH MD Date of Service: 04/15/25 Procedure(s): XR chest 2V Accession Number(s): [id number] cc: ERIC SMITH MD Reason for Exam: cough, fever EXAMINATION: XR CHEST CLINICAL INFORMATION: cough, fever COMPARISON: June 21 2024 TECHNIQUE: 2 views of the chest were obtained. FINDINGS: Left-sided Port-A-Cath terminating in the right atrium is unchanged. No significant abnormality is noted involving the heart, lungs, mediastinum, bony thorax or soft tissues. XR/XR chest 2V IMPRESSION: No acute disease. Electronically signed by: Justin Flores MD 04/15/2025 05:23 PM EST Dictated By: Justin Flores MD Signed By: <Electronically signed by Justin Flores MD in OV> 04/15/25 1723 DD/ 1532 TD/TT: 04/15/25 1532 Sales Broker: us Eric Smith MD IMG XR PROCEDURES Final Result * POCT Influenza A manually resulted (04/15/2025 3:20 PM EST) Rapid Influenza A Ag Negative Negative, Indeterminate QC Media Lot # [id number] Lot# Expiration Date 111,126 Swab Nasopharyngeal structure / Unknown 04/15/2025 3:20 PM EST Eric Smith MD POINT OF CARE TEST ENTER/EDIT OR DERABLES Final Result * POCT Influenza B manually resulted (04/15/2025 3:19 PM EST) Rapid Influenza B Ag Negative Negative, Indeterminate QC Media Lot # [id number] Lot# Expiration Date ,126 Swab 04/15/2025 3:19 PM EST us Eric Smith MD POINT OF CARE TEST ENTER/EDIT OR DERABLES Final Result * POCT rapid strep A manually resulted (04/15/2025 3:18 PM EST) [facility] Rapid Strep A Screen Negative Negative, None Detected QC Media Lot # [id number] Lot# Expiration Date 111,126 Swab 04/15/2025 3:18 PM EST us Eric Smith MD POINT OF CARE TEST ENTER/EDIT OR DERABLES Final Result * POCT Rapid COVID Ag (04/15/2025 3:17 PM EST) [facility] Rapid COVID Ag Negative QC Media Lot # [id number] Lot# Expiration Date [id number] Swab 04/15/2025 3:17 PM EST us Eric Smith MD POINT OF CARE TEST ENTER/EDIT OR DERABLES Final Result documented in this encounter Visit Diagnoses Diagnosis Acute cough- Primary documented in this encounter Additional Health Concerns Assessment Noted Time PHQ-9 Depression Total Score: 0 10/30/19 25 10:27 AM EDT documented as of this encounter Care Teams Cylinder Tester Relationship Specialty Start Date End Date Brenda Dangelo MD [address] [place] [phone] PCP - General Internal Medicine 01/16/24 documented as of this encounter
--- OUTSIDE RECORDS SUMMARY | 2025-04-15 18:21 | XMS_ITS | Clinical Summary ---
Author Organization [facility] Prior to 10/11/24 Address [address] [place] [address] Care Team Providers Care Bark Press Operator Name Role Phone Unavailable Primary Care [...] [facility] NPI#[id number] Problem Noted Date Diagnosed Date Other specified [...] on patient's age to complete this topic Jeny Sierra Personal/Family Self [address] [address]
--- OUTSIDE RECORDS SUMMARY | 2025-04-15 18:21 | XMS_ITS | Clinical Summary ---
Author Organization [employer] Address [address] [place] [address] [address] [place] [address] Care Team Providers Care Mexican Food Maker Name Role Phone Brenda Dangelo MD Primary [...] 2025 Active ergocalciferol (Vitamin D2) 1.25 MG (02608 UT) capsuleIndicat ions:Vitamin D deficiency Take 1 capsule (1.25 mg) by mouth 1 (one) time per week. 5 capsule 2 Active fluticasone (Flonase) 50 MCG/ACT nasal sprayIndicatio ns:Cough in adult INSTILL 1 SPRAY IN EACH NOSTRIL ONCE DAILY 48 g Active lidocaine (Lidoderm) 5 % patchIndicatio ns:Chronic pain of left knee Apply 1 patch topically Once per day. Remove & discard patch within 12 hours or as directed by MD. 30 patch 1 Active acetaminophen (Tylenol) 500 MG tablet Take 2 tablets (1,000 mg) by mouth every 6 (six) hours if needed for moderate pain or fever for up to 25 doses. 50 tablet Active albuterol 108 (90 Base) MCG/ACT inhaler Inhale 2 puffs every 4 (four) hours if needed for wheezing or shortness of breath. 18 g 1 025 2025 Active amoxicillin-cl avulanate (Augmentin) 875-125 MG tablet Take 1 tablet by mouth 2 times daily. 14 tablet Active Spacer/Aero-Ho lding Chambers (OptiChamber Desiree) misc 1 each every 4 (four) hours if needed (asthma). 1 each Active albuterol 108 (90 Base) MCG/ACT inhaler Inhale 2 puffs every 4 (four) hours if needed for wheezing or shortness of breath. 18 g 1 025 2024 Discontinued(R eorder (will not trigger notification to Pharmacy)) Spacer/Aero-Ho lding Chambers (C[employer]o [employer]cherhamber Desiree) misc 1 each every 4 (four) hours if needed (asthma). 1 each 025 2024 Discontinued(R eorder (will not trigger notification to Pharmacy)) amoxicillin-cl avulanate (Augmentin) 875-125 MG tablet Take 1 tablet by mouth 2 times daily. 14 tablet 025 2024 Discontinued(R eorder (will not trigger notification to Pharmacy)) acetaminophen (Tylenol) 500 MG tablet Take 2 tablets (1,000 mg) by mouth every 6 (six) hours if needed for moderate pain or fever for up to 25 doses. 50 tablet 025 2024 Discontinued(R eorder (will not trigger notification to Pharmacy)) Active Problems Problem Noted Date Diagnosed Date Metastatic cancer to axillary lymph nodes 2024 Elevated LFTs 07/29/2024 Hospital discharge follow-up 07/28/2024 Muscular pain 07/28/2024 Assessment & Plan (07/28/2024 4:11 PM EDT): I prescribed for patient ibuprofen as needed and I advised to report symptoms to oncologist Chronic pain of left knee 04/16/2024 Assessment & Plan (04/16/2024 2:56 PM EST): XRAY ordered today Malignant neoplasm of upper- outer quadrant of right female breast ([facility]) 04/16/2024 Assessment & Plan (10/29/2024 11:15 AM [...] Date Acute respiratory failure wi th hypoxia ([facility]) 07/28/2024 10/29/2024 Assessment & Plan (07/28/2024 4:08 [...] Encounters Date Type Department Care Team Description 04/15/2025 2:00 PM EST [facility] [address] [address] Acute cough (Primary Dx) 04/15/2025 Travel 03/20/2025 Telephone [facility] [address] [place] [phone] Joi Mathews MD No Show 03/18/2025 Telephone [facility] [address] [place] [address] Brenda Dangelo MD Nurse Triage 02/16/[address] [address] Brenda Dangelo MD dec recall 02/05/2025 11:20 AM EDT [facility] [address] [address] Millicent Peña DO Breast pain, right (Primary Dx) 02/05/2025 Travel 01/29/2025 9:20 AM EDT [facility] [address] [address] Fabio Wagner MD Strep pharyngitis 01/29/2025 Travel 01/27/2025 Orders Only GENERIC EXTERNAL DATA DEPARTMENT Provider, Generic External Data 01/20/2025 Orders Only [facility] External Provider, [facility] from Last 3 Months Immunizations Immunization [...] oz) 04/15/2025 2:28 P M EST Height 157.5 cm (5' 2 ) 10/29/2024 10:26 AM EDT Body Mass Index 27.69 10/29/2024 10:26 AM EDT Plan of Treatment Upcoming Encounters Date Type Department Care Team (Late st Contact Info) Description 04/30/2025 9:15 AM EST Office Visit [facility] [address] [place] [address] Brenda Dangelo MD [address] [place] [address] Health Maintenance Due Date Last Done Comments Alcohol/Substance Use Screening 2000 Family Planning (PISQ) 02/06/2003 HPV Vaccines (1 - 3-dose series) 02/06/2003 Pneumococcal Vaccine: Pediatrics (0 to 5 Years) and At-Risk Patients (6 to 49) Years (1 of 2 - PCV) 02/06/2007 Hepatitis B Vaccines (3 of 3 - 19+ 3-dose series) 09/12/2023 07/18/2023, 06/06/2023, 10/09/2014 COVID-19 Vaccine (1 - 2024- season) 2025 Influenza Vaccine (#1) 2025 , 02/20/2020, 02/12/2018, Additional history exists Diagnostic Breast Imaging 02/19/20252024, 11/05/2024, 10/24/2024, Additional history exists SDOH Screening 06/24/2025 06/24/2024 Mammogram 07/20/2025 01/20/2025, 06/09/2024, 10/24/2024, Additional history exists Depression Screening 10/29/2025 10/29/2024, 10/30/19 25 Disability Screening 10/29/2025 10/29/2024 Cervical Cancer Screening 04/14/2026 HPV/Cotest 04/14/2026 04/13/2021, 04/13/2021 Pap Smear 04/14/2026 04/14/2021 Tobacco Screening 04/15/2026 04/15/2025 DTaP/Tdap/Td Vaccines (6 - Td or Tdap) [...] Routine 04/15/2025 3:17 PM EST Acute cough VASC US UPPER EXTREMITY VENOUS DUPLEX RIGHT [...] - RFID Routine 01/20/2025 9:50 AM EDT HEPATITIS PANEL, GENERAL Routine 08/20/2024 [...] Recently Relevant to Health Maintenance Results * XR Chest 2 Views (04/15/2025 3:32 PM EST) Anatomical Region Laterality Modality Chest Radiographic Margot ging 04/15/2025 3:32 PM EST Narrative 04/15/2025 5:26 PM EST [address] [address] XRay Report Signed Patient: Jeny Sierra MR#: [id number] 6 : 1990 Acct:[id number] Age/Sex: 35 / F ADM Date: 04/15/25 Loc: HO.HHCX Attending Dr: Eric Payan MD Ordering Physician: ERIC PAYAN MD Date of Service: 04/15/25 Procedure(s): XR chest 2V Accession Number(s): [id number] cc: ERIC PAYAN MD Reason for Exam: cough, fever EXAMINATION: [...] 04/15/25 1723 DD/ 1532 TD/TT: 04/15/25 1532 Tankage Supervisor: Procedure Note Donotuseinterpreter, Image - 04/15/[address] [address] XRay Report Signed Patient: Jeny SierraMR#: [id number] 6 : 1990Acct:[id number] Age/Sex: 35 / FADM Date: 04/15/25 Loc: HO.HHCX Attending Dr: Eric Payan MD Ordering Physician: ERIC PAYAN MD Date of Service: 04/15/25 Procedure(s): XR chest 2V Accession Number(s): [id number] cc: ERIC PAYAN MD Reason for Exam: cough, fever EXAMINATION: [...] 04/15/25 1723 DD/ 1532 TD/TT: 04/15/25 1532 Tankage Supervisor: us Eric Payan MD IMG XR PROCEDURES Final Result * POCT Influenza A manually resulted (04/15/2025 3:20 PM EST) Rapid Influenza A Ag Negative Negative, Indeterminate QC Media Lot # [id number] Lot# Expiration Date 111,126 Swab Nasopharyngeal structure / Unknown 04/15/2025 3:20 PM EST us Eric Payan MD POINT OF CARE TEST ENTER/EDIT OR DERABLES Final Result * POCT Influenza B manually resulted (04/15/2025 3:19 PM EST) [facility] Signature Rapid Influenza B Ag Negative Negative, Indeterminate QC Media Lot # [id number] Lot# Expiration Date 111,126 Swab 04/15/2025 3:19 PM EST us Eric Payan MD POINT OF CARE TEST ENTER/EDIT OR DERABLES Final Result * POCT rapid strep A manually resulted (04/15/2025 3:18 PM EST) Only the most recent of2 resultswithin the time period is included. Rapid Strep A Screen Negative Negative, None Detected QC Media Lot # [id number] Lot# Expiration Date 111,126 Swab 04/15/2025 3:18 PM EST us Eric Payan MD POINT OF CARE TEST ENTER/EDIT OR DERABLES Final Result * POCT Rapid COVID Ag (04/15/2025 3:17 PM EST) Rapid COVID Ag Negative QC Media Lot # [id number] Lot# Expiration Date 102,826 Swab 04/15/2025 3:17 PM EST us Eric Payan MD POINT OF CARE TEST ENTER/EDIT OR DERABLES Final Result * Vascular US upper extremity venous duplex right (02/26/2025 11:53 AM EDT) 02/26/2025 11:5 3 AM EDT Narrative [facility] - 02/26/2025 12:25 PM EDT [place] [address] Ultrasound Report Signed Patient: Jeny Sierra MR#: [id number] 6 : 1990 Acct:[id number] Age/Sex: 35 / F ADM Date: 02/26/25 Loc: HO. Attending Dr: Hawa Lei MD Ordering Physician: Hawa Lei MD Date of Service: 02/26/25 Procedure(s): US venous duplex UE RT Accession Number(s): [id number] cc: Hawa Lei MD; Name,Jovan AG Reason [...] Ruy Gallo MD 02/26/2025 12:22 PM EDT RP Dictated By: Ruy Gallo MD Signed By: <Electronically signed by Ruy Gallo MD in OV> 02/26/25 1222 DD/ 1153 TD/TT: 02/26/25 1208 Tankage Supervisor: Procedure Note Donotuseinterpreter, Image - 02/26/2025 [place] [address] Ultrasound Report Signed Patient: Jeny Sierra#: [id number] 6 : 1990Acct:[id number] Age/Sex: 35 / FADM Date: 02/26/25 Loc: . Attending Dr: Hawa Lei MD Ordering Physician: Hawa Lei MD Date of Service: 02/26/25 Procedure(s): US venous duplex UE RT Accession Number(s): [id number] cc: Hawa Lei MD; Name,Jovan AG Reason [...] 02/26/25 1222 DD/ 1153 TD/TT: 02/26/25 1208 Tankage Supervisor: us [facility] External Provider CV VASC ULAR PROCEDURES Edited Result - Final [facility] [address] [place] [phone] * BI MM SURGICAL SPECIMEN (01/27/2025 1:05 PM EDT) Anatomical Region Laterality Modality Breast Bilateral Mammography 01/27/2025 1:05 PM EDT Narrative 01/27/2025 2:16 PM EDT [address] [id number] Mammography Report Signed Patient: Jeny Sierra MR#: [id number] 6 : 1990 Acct:[id number] Age/Sex: 34 / F ADM Date: 01/27/25 Loc: HO[facility] Attending Dr: Onofre Dela Cruz MD Ordering Physician: Onofre Dela Cruz MD Results: Date of Service: 01/27/25 Follow Up: Procedure(s): MM surgical specimen Accession Number(s): [id number] cc: Brenda Dangelo MD; Onofre Dela Cruz [...] 01/27/25 1413 DD/ 1305 TD/TT: 01/27/25 1320 Tankage Supervisor: Procedure Note Donotuseinterpreter, Image - 01/27/[address] [id number] Mammography Report Signed Patient: Jeny SierraMR#: [id number] 6 : 1990Acct:[id number] Age/Sex: 34 / FADM Date: 01/27/25 Loc: [facility] Attending Dr: Onofre Dela Cruz MD Ordering Physician: Onofre Dela Cruzesults: Date of Service: 01/27/25Follow Up: Procedure(s): MM surgical specimen Accession Number(s): [id number] cc: Brenda Dangelo MD; Onofre Dela Cruz [...] 01/27/25 1413 DD/ 1305 TD/TT: 01/27/25 1320 Tankage Supervisor: [facility] External Provider IMG BI PROCEDURES Edited Result - Final * Hematoxylin and Eosin Stain (01/27/2025 12:52 PM EDT) 01/27/2025 12:5 2 PM EDT 01/27/2025 1:00 PM EDT [facility] - 02/01/2025 2:03 PM EDT ----- ------- Name: Jeny Sierra Age/Sex: 34/F : 1990 Unit#: [id number] Attend Dr: Onofre Dela Cruz MD Re01/27/25 Status: [facility] Location: [facility] Disch: ----- ------- SPEC : [id number] RECD: 01/27/25-1299 STATUS: VIC ANGELA NUM: [id number] [place]: 01/27/25-[address] [facility] DR: Onofre Dela Cruz MD ENTERED: 01/27/25-130 [...] invasion present. - AJCC Stage 8th edition: [id number](sn) B. [place] lymph node #1, excision: - Metastatic adenocarcinoma involving one lymph node (05/14). - Size of metastatic deposit: 9 mm. C. 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 - Size of metastatic deposit: 25 mm. - Extranodal extension present, greater than 2 mm. - Minimal treatment response noted. D. [place] lymph node #2, excision: - Metastatic adenocarcinoma [...] Jeny Sierra Age/Sex: 34/F : 1990 Unit#: [id number] Attend Dr: Onofre Dela Cruz MD Re01/27/25 Status: DEP SDC Location: HO.SSS Disch: ----- ------- SPEC : [id number] RECD: 01/27/25 STATUS: VIC MILLER NUM: [id number] [place]: 01/27/25-[address]: Onofre Dela Cruz MD ENTERED: 01/27/25 SP TYPE: Surgical OTHR DR: Brenda Dangelo [...] posterior margins Lymph nodes Number examined: 3 [place] nodes: 2 Axillary nodes: 1 Number involved: 3 With macrometastases: 3 With micrometastases: 0 With isolated tumor cells: 0 Extranodal extension: 1 Size of largest met. deposit: 25 mm (part C) Treatment effect Breast: Minimal response Lymph nodes: Minimal response TNM: [id number](sn) Ancillary studies: Refer to previous biopsy ([id number]; ER +, LA +, HER2 (0), high ki-67 proliferation Note: For tumors greater than 5 mm in size with negative lymph nodes, prognostic genetic testing may be appropriate to guide further management. Clinical History Malignant neoplasm of unspecified site CONTINUED ON NEXT PAGE ----- ------- Name: Jeny Sierra Age/Sex: 34/F : 1990 Unit#: [id number] Attend Dr: Onofre Dela Cruz MD Re01/27/25 Status: [facility] Location: [facility] Disch: ----- ------- SPEC : [id number] RECD: 01/27/25-1299 STATUS: VIC MILLER NUM: [id number] [place]: 01/27/25-[address] [facility] DR: Onofre Dela Cruz MD ENTERED: 01/27/25-1304 [...] Material Received A. Right breast lumpectomy B. [place] lymph node #1, count 598 C. Previously biopsied lymph node with RFID clip D. [place] node #2, count 680 E. Additional inferior [...] however, the biopsy clip is not identified. Dispensary Technician sections are submitted labeled as follows: CONTINUED ON NEXT PAGE ----- ------- Name: Jeny Sierra Age/Sex: 34/F : 1990 Unit#: [id number] Attend Dr: Onofre Dela Cruz MD Re01/27/25 Status: [facility] Location: [facility] Disch: ----- ------- SPEC : [id number] RECD: 01/27/25-1299 STATUS: VIC MILLER NUM: [id number] [place]: 01/27/25-[address]: Onofre Dela Cruz MD ENTERED: 01/27/25-1303 SP TYPE: Surgical OTHR DR: Brenda Dangelo MD ORDERED: HE Stain/3, Gross Micro L4, Gross Micro L5/4, Cytokeratin/2, IOC, IHC/2, Add. immunos/2, SMM/2 Gross Description (Continued) A1 medial, slice 1; A2 medial, slice 2; A3 anterior, slice 3; A4 superior-anterior, slice 4; A5 posterior, slice 4; A6 anterior, slice 4; A7 inferior, slice 4; A8 iocgqlup-yirkymae-ekwjjcflg, slice 5; A9 anterior-posterior, slice 5; A10 [...] Jeny Sierra Age/Sex: 34/F : 1990 Unit#: [id number] Attend Dr: Onofre Dela Cruz MD Re01/27/25 Status: [facility] Location: [facility] Disch: ----- ------- SPEC : [id number] RECD: 01/27/25-1300 STATUS: VIC MILLER NUM: [id number] [place]: 01/27/25-[address] [facility] DR: Onofre Dela Cruz MD ENTERED: 01/27/25-4339 SP TYPE: Surgical OTHR DR: Brenda Dangelo [...] developed and their performance characteristics determined by [facility]. They have not been cleared or approved by the U.S. Food and Drug Administration (FDA). However, the FDA has determined that such clearance or approval is not necessary. This laboratory is certified under the Clinical Laboratory Improvement Amendments of 1988 (CLIA) as qualified to perform high complexity clinical laboratory testing. Copies To: Brenda Dangelo MD [address] [id number] Onofre Dela Cruz MD [facility] [address] [place], [place] [id number] ----- ------- Signed (signature on file) Radha Aleman MD 02/01/25 1403 ----- ------- END OF REPORT us Generic External Data Provider LAB BLOOD ORDERAB LES Final Result [facility] [address] [place] [phone] * NM SENTINEL NODE W IMAGING (01/27/2025 7:41 AM EDT) Anatomical Region Laterality Modality Nuclear Medicine 01/27/2025 7:41 AM EDT Narrative 01/27/2025 12:50 PM EDT [address] [address] Nuclear Medicine Report Signed Patient: Jeny Sierra MR#: [id number] 6 : 1990 Acct:[id number] Age/Sex: 34 / F ADM Date: 01/27/25 Loc: HO.[facility] Attending Dr: Onofre Dela Cruz MD Ordering Physician: Onofre Dela Cruz MD Date of Service: 01/27/25 Procedure(s): NM sentinel node w imaging Accession Number(s): [id number] cc: Brenda Dangelo MD; Onofre Dela Cruz [...] 01/27/25 1248 DD/ 0741 TD/TT: 01/27/25 0900 Tankage Supervisor: [facility] Procedure Note Donotuseinterpreter, Image - 01/27/2025 [place] [address] Nuclear Medicine Report Signed Patient: Vahid Sierra#: [id number] 6 : 1990Acct:[id number] Age/Sex: 34 / FADM Date: 01/27/25 Loc: .[facility] Attending Dr: Onofre Dela Cruz MD Ordering Physician: Onofre Dela Cruz MD Date of Service: 01/27/25 Procedure(s): NM sentinel node w imaging Accession Number(s): [id number] cc: Brenda Dangelo MD; Onofre Dela Cruz [...] node imaging performed. Electronically signed by: Nirav Moonye MD 01/27/2025 12:48 PM EDT RP Dictated By: Nirav Mooney MD Signed By: <Electronically signed by Nirav Mooney MD in OV> 01/27/25 1248 DD/ 0741 TD/TT: 01/27/25 0900 Tankage Supervisor: ANA ROSA [facility] External Provider IMG NM PROCEDURES Edited Result - Final * HCG, Qualitative, Urine (01/27/2025 7:30 AM EDT) Urine NEGATIVE NEGATIVE [facility] Comment:This test was develo ped to detect early . Falsenegative results may occur after the 5th - 7th week ofpregnancy when using this test method. If clinicallyindicated, consider a serum hCG. 01/27/2025 7:30 AM EDT 01/27/2025 7:40 AM EDT Generic External Data Provider LAB URINE ORDERAB LES Final Result [facility] [address] [place] [phone] * Mammogram Diagnostic Right (01/20/2025 11:00 AM EDT) Anatomical Region Laterality Modality Breast Right Mammography 01/20/2025 11:0 0 AM EDT Narrative 01/20/2025 12:39 PM EDT [facility] [address] [place] [address] Mammography Report Signed Patient: Jeny Sierra MR#: [id number] 6 : 1990 Acct:[id number] Age/Sex: 34 / F ADM Date: 01/20/25 Loc: HO.MAMMO Attending Dr: Onofre Dela Cruz MD Ordering Physician: Onofre Dela Cruz MD Results: 6Kno wn Biopsy Proven Malignancy Date of Service: 01/20/25 Follow Up: Surgical Consult Procedure(s): MM diagnostic mammo unilat RT Accession Number(s): [id number] cc: Brenda Dangelo MD; Onofre Dela Cruz [...] (9cc: 1cc) at each site. LOCALIZATION SYSTEM: -[employer] LOCallizer Wire-Free Guidance System with 12g needle applicator. -Length: 7 cm. -RADIOFREQUENCY TAG: ID # [id number] placed within the right breast mass at 8-9:00 at 5 cm from the nipple. -RADIOFREQUENCY TAG: ID # [id number] placed within the abnormal right axillary lymph [...] post right breast RFID localization TAG ID# [id number]. - Status post right axilla RFID localization TAG ID# [id number]. Electronically signed by: Melvin Man MD 01/20/2025 12:36 PM EDT Dictated By: Melvin Man MD Signed By: <Electronically signed by Melvin Man MD in OV> 01/20/25 1236 DD/ 1100 TD/TT: 01/20/25 1112 Tankage Supervisor: Procedure Note Donotuseinterpreter, Image - 01/20/2025 [facility] [address] [place] [address] Mammography Report Signed Patient: Jeny SierraMR#: [id number] 6 : 1990Acct:[id number] Age/Sex: 34 / FADM Date: 01/20/25 Loc: HO.MAMMO Attending Dr: Onofre Dela Cruz MD Ordering Physician: Onofre Dela Cruzesults: 6Kno wn Biopsy Proven Malignancy Date of Service: 01/20/25Follow Up: Surgical Consult Procedure(s): MM diagnostic mammo unilat RT Accession Number(s): [id number] cc: Brenda Dangelo MD; Onofre Dela Cruz [...] (9cc: 1cc) at each site. LOCALIZATION SYSTEM: -[employer] LOCallizer Wire-Free Guidance System with 12g needle applicator. -Length: 7 cm. -RADIOFREQUENCY TAG: ID # [id number] placed within the right breast mass at 8-9:00 at 5 cm from the nipple. -RADIOFREQUENCY TAG: ID # [id number] placed within the abnormal right axillary lymph [...] post right breast RFID localization TAG ID# [id number]. - Status post right axilla RFID localization TAG ID# [id number]. Electronically signed by: Melvin Man MD 01/20/2025 12:36 PM EDT Workstation: [employer] Dictated By: Melvin Man MD Signed By: <Electronically signed by Melvin Man MD in OV> 01/20/25 1236 DD/ 1100 TD/TT: 01/20/25 1112 Tankage Supervisor: [facility] External Provider IMG BI PROCEDURES Edited Result - Final * US breast RF Tag Device Addl (01/20/2025 9:50 AM EDT) Anatomical Region Laterality Modality Abdomen Ultrasound 01/20/2025 9:50 AM EDT Narrative 01/20/2025 12:39 PM EDT [facility] [address] [place] [address] Ultrasound Report Signed Patient: Jeny Sierra MR#: [id number] 6 : 1990 Acct:[id number] Age/Sex: 34 / F ADM Date: 01/20/25 Loc: HO.MAMMO Attending Dr: Onofre Dela Cruz MD Ordering Physician: Onofre Dela Cruz MD Date of Service: 01/20/25 Procedure(s): US Breast RF Tag Device Addl Accession Number(s): [id number] cc: Brenda Dangelo MD; Onofre Dela Cruz [...] (9cc: 1cc) at each site. LOCALIZATION SYSTEM: -[employer] LOCallizer Wire-Free Guidance System with 12g needle applicator. -Length: 7 cm. -RADIOFREQUENCY TAG: ID # [id number] placed within the right breast mass at 8-9:00 at 5 cm from the nipple. -RADIOFREQUENCY TAG: ID # [id number] placed within the abnormal right axillary lymph [...] post right breast RFID localization TAG ID# [id number]. - Status post right axilla RFID localization TAG ID# [id number]. Electronically signed by: Melvin Man MD 01/20/2025 12:36 PM EDT Dictated By: Melvin Man MD Signed By: <Electronically signed by Melvin Man MD in OV> 01/20/25 1236 DD/ 0950 TD/TT: 01/20/25 1109 Tankage Supervisor: Procedure Note Donotuseinterpreter, Image - 01/20/2025 [facility] [address] [place] [address] Ultrasound Report Signed Patient: Vahid Sierra#: [id number] 6 : 1990Acct:[id number] Age/Sex: 34 / FADM Date: 01/20/25 Loc: HO.MAMMO Attending Dr: Onofre Dela Cruz MD Ordering Physician: Onofre Dela Cruz MD Date of Service: 01/20/25 Procedure(s): US Breast RF Tag Device Addl Accession Number(s): [id number] cc: Brenda Dangelo MD; Onofre Dela Cruz [...] (9cc: 1cc) at each site. LOCALIZATION SYSTEM: -[employer] LOCallizer Wire-Free Guidance System with 12g needle applicator. -Length: 7 cm. -RADIOFREQUENCY TAG: ID # [id number] placed within the right breast mass at 8-9:00 at 5 cm from the nipple. -RADIOFREQUENCY TAG: ID # [id number] placed within the abnormal right axillary lymph [...] post right breast RFID localization TAG ID# [id number]. - Status post right axilla RFID localization TAG ID# [id number]. Electronically signed by: Melvin Man MD 01/20/2025 12:36 PM EDT Dictated By: Melvin Man MD Signed By: <Electronically signed by Melvin Man MD in OV> 01/20/25 1236 DD/ 0950 TD/TT: 01/20/25 1109 Tankage Supervisor: [facility] External Provider IMG US PROCEDURES Edited Result - Final * US breast needle loc RT - RFID (01/20/2025 9:50 AM EDT) Anatomical Region Laterality Modality Abdomen Ultrasound 01/20/2025 9:50 AM EDT Narrative 01/20/2025 12:39 PM EDT [facility] [address] [place] [address] Ultrasound Report Signed Patient: Jeny Sierra MR#: [id number] 6 : 1990 Acct:[id number] Age/Sex: 34 / F ADM Date: 01/20/25 Loc: HO.MAMMO Attending Dr: Onofre Dela Cruz MD Ordering Physician: Onofre Dela Cruz MD Date of Service: 01/20/25 Procedure(s): US Breast RF Tag Device Right Accession Number(s): [id number] cc: Brenda Dangelo MD; Onofre Dela Cruz [...] (9cc: 1cc) at each site. LOCALIZATION SYSTEM: -[employer] LOCallizer Wire-Free Guidance System with 12g needle applicator. -Length: 7 cm. -RADIOFREQUENCY TAG: ID # [id number] placed within the right breast mass at 8-9:00 at 5 cm from the nipple. -RADIOFREQUENCY TAG: ID # [id number] placed within the abnormal right axillary lymph [...] post right breast RFID localization TAG ID# [id number]. - Status post right axilla RFID localization TAG ID# [id number]. Electronically signed by: Melvin Man MD 01/20/2025 12:36 PM EDT Workstation: [employer] Dictated By: Melvin Man MD Signed By: <Electronically signed by Melvin Man MD in OV> 01/20/25 1236 DD/ 0950 TD/TT: 01/20/25 1109 Tankage Supervisor: Procedure Note Donotuseinterpreter, Image - 01/20/2025 [facility] [address] [place] [address] Ultrasound Report Signed Patient: Jeny SierraMR#: [id number] 6 : 1990Acct:[id number] Age/Sex: 34 / FADM Date: 01/20/25 Loc: HO.MAMMO Attending Dr: Onofre Dela Cruz MD Ordering Physician: Onofre Dela Cruz MD Date of Service: 01/20/25 Procedure(s): US Breast RF Tag Device Right Accession Number(s): [id number] cc: Brenda Dangelo MD; Onofre Dela Cruz [...] (9cc: 1cc) at each site. LOCALIZATION SYSTEM: -[employer] LOCallizer Wire-Free Guidance System with 12g needle applicator. -Length: 7 cm. -RADIOFREQUENCY TAG: ID # [id number] placed within the right breast mass at 8-9:00 at 5 cm from the nipple. -RADIOFREQUENCY TAG: ID # [id number] placed within the abnormal right axillary lymph [...] post right breast RFID localization TAG ID# [id number]. - Status post right axilla RFID localization TAG ID# [id number]. Electronically signed by: Melvin Man MD 01/20/2025 12:36 PM EDT Dictated By: Melvin Man MD Signed By: <Electronically signed by Melvin Man MD in OV> 01/20/25 1236 DD/ 0950 TD/TT: 01/20/25 1109 Tankage Supervisor: [facility] External Provider IMG US PROCEDURES Edited Result - Final * Hepatitis A,B,C Profile (08/20/2024 11:28 AM EDT) Hepatitis A IgM Nonreactive Nonreactive [facility] Comment:IgM antibodies to NAVARRO V not detected; does not exclude earlyacute or recovered HAV infection. ~Hepatitis B Surface Antibody REACTIVE Nonreactive [facility] Comment:REACTIVE: > 11.99 mI U/mL Hepatitis B Core Antibody Nonreactive Nonreactive [facility] Hepatitis C Antibody Nonreactive Nonreactive [facility] Comment:Antibodies to HCV no t detected; does not exclude early acuteHCV infection. Hepatitis B Surface Ag Negative Negative [facility] Blood Venous blood specimen / Unknown 08/20/2024 11:28 AM EDT 08/20/2024 1:34 PM EDT Brenda Sawyer MD LAB BLOOD ORDERABLES Final Result [facility] [address] [place] [address] [phone] * HIV-1/2 Antigen and Antibodies, Fourth Generation, with Reflexes (07/28/2024 1:52 PM EDT) HIV AB/AG Nonreactive Nonreactive [facility] Comment:HIV-1 p24 Ag and/or HIV-1/HIV-2 Ab not detected.A test result that is nonreactive does not exclude thepossibility of exposure to or infection with HIV-1 and/orHIV-2. Nonreactive results in this assay for individualswith prior exposure to HIV-1 and/or HIV-2 may be due toantigen and antibody levels that are below the limit ofdetection of this assay.The [employer] learning HIV Ag/Ab Combo assay result andsupplemental assay results should be interpreted inconjunction with the patient's clinical presentation,history and other laboratory results. If the results areinconsistent with clinical evidence, additional testing issuggested to confirm the result. Blood Venous blood specimen / Unknown 07/28/2024 1:52 PM EDT 07/28/2024 4:24 PM EDT Brenda Sawyer MD LAB BLOOD ORDERABLES Final Result Performing Organization Address City/[facility]/ZIP Co de Phone Number [facility] [address] [place] [phone] * Hm Pap Smear (04/14/2021) Pap [...] [facility] Comment: Methodology: Rug Backing Stenciler-Mediated Amplification This assay detects E6/E7 viral messenger RNA (mRNA) from 14 high-risk HPV types (16,18,31,33,35,39,45,51,52,56,58,59,66,68). The analytical performance characteristics of this assay have been determined by [employer]. The modifications have not been cleared or approved by the FDA. This assay has been validated pursuant to the CLIA regulations and is used for clinical purposes. For additional information, please refer to http://education.[employer]/faq/KCI303f4 (This link if provided for information/ educational purposes only.) THIS TEST WAS PERFORMED AT: [facility] [address] [place] [address] [address],[place] [address] WILD BRICENO MD 04/13/2021 10:2 6 AM EST [place] HISTORICAL/NON ORDERABLE LABS Fi nal Result [facility] [address] from Last 3 Months or Most Recently Relevant to Health Maintenance [facility] Care Teams Mexican Food Maker Relationship Specialty Start Date End Date Brenda Dangelo MD [address] [place] [phone] PCP - General Internal Medicine 01/16/24
--- OUTSIDE RECORDS SUMMARY | 2025-04-15 18:21 | XMS_ITS | Encounter Summary ---
Author Organization [employer] Address [address] [place] [address] Care Team Providers Care Chucking Machine Operator Name Role Phone Debbie Logan WILIAN Primary Care Provider [phone] Brenda Dangelo MD Primary Care Provide r Encounter Details Date Type Department Care Team ([facility] Contact Info) Description 06/23/2023 Orders Only [facility] [address], [place] [phone] Perry Miguel MD [address] [place] [address] Hematuria, unspecified type (Primary Dx) Social History [...] Description 04/30/2025 9:15 AM EST Office Visit [facility] [address] [place] [phone] Brenda Dangelo MD [address] [place] [phone] Scheduled Orders Name Type Priority Associated Diagnoses Orde r Schedule Urinalysis with reflex microscopic Lab Routine Hematuria, unspecified type Expected: 06/23/2023, Expires: 06/23/2024 documented as of this encounter Visit Diagnoses Diagnosis Hematuria, unspecified type- Primary documented in this encounter Additional Health Concerns Assessment Noted Time PHQ-9 Depression Total Score: 0 05/23/19 24 10:43 AM EST documented as of this encounter Care Teams Chucking Machine Operator Relationship Specialty Start Date End Date Debbie Logan FNP [address] [place] [phone] PCP - General Family Medicine 06/15/23 01/15/24 Brenda Dangelo MD [address] [place] [address] [phone] PCP - General Internal Medicine 01/16/24 documented as of this encounter
--- OUTSIDE RECORDS SUMMARY | 2025-04-15 18:21 | XMS_ITS | Encounter Summary ---
Author Organization [employer] Address [address] [place] [address] Care Team Providers Care Rice Milling Supervisor Name Role Phone Brenda Dangelo MD Primary Care Provide r Encounter Details Date Type Department Care Team (Latest Contact Info) Description 04/15/2025 Travel Social History Tobacco Use Types Packs/Day Years [...] Description 04/30/2025 9:15 AM EST Office Visit [facility] [address] [place] [phone] Brenda Dagnelo MD [address] [place] [phone] documented as of this encounter Visit Diagnoses Not on filedocumented in this encounter Additional Health Concerns Assessment Noted Time PHQ-9 Depression Total Score: 0 10/30/19 25 10:27 AM EDT documented as of this encounter Care Teams Rice Milling Supervisor Relationship Specialty Start Date End Date Brenda Dangelo MD [address] [place] [phone] PCP - General Internal Medicine 01/16/24 documented as of this encounter
--- OUTSIDE RECORDS SUMMARY | 2025-04-15 18:21 | XMS_ITS | Encounter Summary ---
Author Organization [facility] Address [address] [place] [address] Phone Care Team Providers Care Television Equipment Operator Name Role Phone Brenda Laguna MD Primary Care Provider Encounter Details Date Type Department Care Team (Late st Contact Info) Description 04/15/2025 Telephone [facility] at [address] [phone] Unknown, Unknown, Social History Tobacco Use Types [...] on file documented as of this encounter Progress Notes * Rox Abraham - 04/15/2025 12:46 PM EST [facility] HemOnc lvm @ [facility] Pt supposed to come for radiation tx, unable to make to appt b/c pt has a cold C/b number [phone] opt 2 for triage documented in this encounter Plan of Treatment Upcoming Encounters Date Type Department Care Team (Late st Contact Info) Description 04/17/2025 9:40 AM EST Office Visit [facility] Rad Onc [address] [place] [address] Mouna Palacios MD [address] [place] [phone] [email or web address] 04/20/2025 9:40 AM EST Treatment [facility] Rad Onc [address] [place] [address] Mouna Palacios MD [address] [place] [phone] [email or web address] 04/21/2025 9:40 AM EST Treatment [facility] Rad Onc [address] [place] [address] Mouna Palacios MD [address] [place] [phone] [email or web address] 04/22/2025 9:40 AM EST Treatment [facility] Rad Onc [address] [place] [address] Mouna Palacios MD [address] [place] [phone] [email or web address] 04/23/2025 9:40 AM EST Treatment [facility] Rad Onc [address] [place] [address] Mouna Palacios MD [address] [place] [phone] [email or web address] 04/23/2025 9:50 AM EST Procedure visit [facility] Rad Onc [address] [place] [address] Mouna Palacios MD [address] [place] [phone] [email or web address] 04/24/2025 9:40 AM EST Treatment [facility] Rad Onc [address] [place] [address] Mouna Palacios MD [address] [place] [address] [phone] [email or web address] 04/27/2025 9:40 AM EST Treatment [facility] Rad Onc [address] [place] [address] Mouna Palacios MD [address] [place] [address] [phone] [email or web address] 04/28/2025 9:40 AM EST Treatment [facility] Rad Onc [address] [place] [address] Mouna Palacios MD [address] [place] [address] [phone] [email or web address] 04/29/2025 9:40 AM EST Treatment [facility] Rad Onc [address] [place] [address] Mouna Palacios MD [address] [place] [address] 100[address] [email or web address] 04/30/2025 9:40 AM EST Treatment [facility] Rad Onc [address] [place] [address] Mouna Palacios MD [address] [place] [phone] [email or web address] 04/30/2025 9:50 AM EST Procedure visit [facility] Rad Onc [address] [place] [address] Mouna Palacios MD [address] [place] [phone] [email or web address] 05/01/2025 9:40 AM EST Treatment [facility] Rad Onc [address] [place] [address] Mouna Palacios MD [address] [place] [address] [phone] [email or web address] 05/04/2025 9:40 AM EST Treatment [facility] Rad Onc [address] [place] [address] Mouna Palacios MD [address] [place] [address] [phone] [email or web address] 05/05/2025 9:40 AM EST Treatment [facility] Rad Onc [address] [place] [address] Mouna Palacios MD [address] [place] [address] [phone] [email or web address] 05/06/2025 9:40 AM EST Treatment [facility] Rad Onc [address] [place] [address] Mouna Palacios MD [address] [place] [address] [phone] [email or web address] 05/06/2025 9:50 AM EST Procedure visit [facility] Onc [address] [place] [address] Mouna Palacios MD [address] [place] [address] [phone] [email or web address] 05/08/2025 9:40 AM EST Treatment [facility] Onc [address] [place] [address] Mouna Palacios MD [address] [place] [address] [phone] [email or web address] 05/08/2025 9:50 AM EST Office Visit [facility] Onc [address] [place] [address] Mouna Palacios MD [address] [place] [address] [phone] [email or web address] 05/11/2025 9:40 AM EST Treatment [facility] Onc [address] [place] [address] 15[address] Mouna Palacios MD [address] [place] [address] 20232 [email or web address] 05/12/2025 9:40 AM EST Treatment [facility] Onc [address] [place] [address] Mouna Palacios MD [address] [place] [address] 22430 [email or web address] 05/13/2025 9:40 AM EST Treatment [facility] Onc [address] [place] [address] Mouna Palacios MD [address] [place] [address] [phone] [email or web address] 05/13/2025 9:50 AM EST Procedure visit [facility] Onc [address] [place] [address] 85[address] Mouna Palacios MD [address] [place] [address] [phone] [email or web address] 05/15/2025 9:40 AM EST Treatment [facility] Onc [address] [place] [address] Mouna Palacios MD [address] [place] [address] [phone] [email or web address] 05/18/2025 9:40 AM EST Treatment [facility] Onc [address] [place] [address] Mouna Palacios MD [address] [place] [address] [phone] [email or web address] 05/19/2025 9:40 AM EST Treatment [facility] Onc [address] [place] [address] Mouna Palacios MD [address] [place] [address] [email or web address] 05/19/2025 9:50 AM EST Procedure visit [facility] Onc [address] [place] [address] Mouna Palacios MD [address] [place] [address] [email or web address] Honorio Cantu MD [address] [place] [phone] [email or web address] documented as of this encounter Visit Diagnoses Not on filedocumented in this encounter Care Teams Television Equipment Operator Relationship Specialty Start Date End Date Brenda Laguna MD [address] [place] [phone] PCP - General Internal Medicine 02/26/25 documented as of this encounter Additional Source Comments The information contained in this document represents components of the legal health record. It is not the complete legal health record.[facility]
--- OUTSIDE RECORDS SUMMARY | 2025-04-15 18:21 | XMS_ITS | Clinical Summary ---
Author Organization [facility] Address [address] [place] [address] Phone Care Team Providers Care Binding Dyer Name Role Phone Brenda Laguna MD Primary Care Provider Allergies Active Allergy Reactions Criticality Noted Date Comments Adhesive Tape-Silicones Rash Low 03/11/2025 Medications No known medications Active Problems Problem Noted Date Diagnosed Date Malignant neoplasm of overla pping sites of right female breast 03/11/2025 Cancer Staging:Clinical stage from 04/29/2024:Stage IIA(cT3, cN2a(f), cM0, G2, ER: Positive, DE: Positive, HER2: Negative) - Signed by Mouna Palacios MD on 03/11/2025 Pathologic stage from 01/27/2025: ypT2, pN1a(sn), cM0, G3, ER: Positive, DE: Positive, HER2: Negative - Signed by Mouna Palacios MD on 03/11/2025 Encounters Date Type Department Care Team Description 04/15/2025 Telephone [facility] [address] [place] [address] Unknown, Brett, 04/01/2025 11:30 AM EST Office Visit [facility] At [facility] Rad Onc [address] [place] [address] Mouna Palacios MD Malignant neoplasm of overlapping sites of right breast in female, estrogen receptor positive (Primary Dx) 04/01/2025 Telephone [facility] Cancer [facility] At [facility] Onc [address] [place] [address] [facility]/01/2025 Documentation [facility] Cancer [facility] At [facility] Rad Onc [address] [place] [address] Laura Larsen, BELKIS 03/26/2025 Documentation [facility] Cancer [facility] At [facility] Rad Onc [address] [place] [address] Laura Larsen, BELKIS 03/26/2025 Documentation [facility] Cancer Center At [facility] Rad Onc [address] [place] [address] Laura Larsen, BELKIS 03/13/2025 Ancillary Orders [facility] [address] [place] [address] Unknown, Brett, 03/11/2025 10:00 AM EDT Office Visit [facility] At [facility] Rad Onc [address] [place] [address] Mouna Palacios MD Malignant neoplasm of overlapping sites of right breast in female, estrogen receptor positive (Primary Dx) 03/11/2025 Ancillary Orders [facility] [address] [place] [address] Unknown, Brett, 03/11/2025 Ancillary Orders [facility] [address] [place] [address] Unknown, MD Brett 03/11/2025 Ancillary Orders [facility] [address] [place] [address] Unknown, Brett, 03/11/2025 Ancillary Orders [facility] [address] [place] [address] Unknown, Unknown, 03/11/2025 Ancillary Orders [facility] [address] [place] [address] Unknown, MD Brett 03/11/2025 Ancillary Orders [facility] [address] [place] [address] Unknown, MD Brett 03/11/2025 Ancillary Orders [facility] [address] [place] [address] Unknown, MD Brett 03/11/2025 Ancillary Orders [facility] [address] [place] [address] Brett, MD Brett 03/11/2025 Ancillary Orders [facility] [address] [place] [address] Unknown, MD Brett 03/11/2025 Ancillary Orders [facility] [address] [place] [address] Unknown, MD Brett 03/11/2025 Ancillary Orders [facility] [address] [place] [address] Unknown, MD Brett 01/27/2025 - 01/27/2025 11:59 PM EDT Hospital Encounter [facility] [address] [place] [address] Unknown, MD Brett Discharge Disposition: Home or Self Care 01/20/2025 12:05 AM EDT - 01/20/2025 11:59 PM EDT Hospital Encounter [facility] [address] [place] [address] Unknown, MD Brett Discharge Disposition: Home or Self Care 01/20/2025 - 01/20/2025 12:04 AM EDT Hospital Encounter [facility] [address] [place] [address] Unknown, MD Brett Discharge Disposition: Home or Self Care from Last 3 Months Family History Medical [...] Mass Index - - Plan of Treatment Upcoming Encounters Date Type Department Care Team (Late st Contact Info) Description 04/17/2025 9:40 AM EST Office Visit [facility] At [facility] Rad Onc [address] [place] [address] Mouna Palacios MD [address] [place] [address] [email or web address] 04/20/2025 9:40 AM EST Treatment [facility] Cancer [facility] At [facility] Rad Onc [address] [place] [address] Mouna Palacios MD [address] [place] [address] [email or web address] 04/21/2025 9:40 AM EST Treatment [facility] Cancer [facility] At [facility] Rad Onc [address] [place] [address] Mouna Palacios MD [address] [place] [phone] [email or web address] 04/22/2025 9:40 AM EST Treatment [facility] Cancer [facility] At [facility] Rad Onc [address] [place] [address] Mouna Palacios MD [address] [place] [address] [email or web address] 04/23/2025 9:40 AM EST Treatment [facility] Cancer [facility] At [facility] Rad Onc [address] [place] [address] Mouna Palacios MD [address] [place] [phone] [email or web address] 04/23/2025 9:50 AM EST Procedure visit [facility] Cancer Center At [facility] Rad Onc [address] [place] [address] Mouna Palacios MD [address] [place] [phone] [email or web address] 04/24/2025 9:40 AM EST Treatment [facility] Cancer [facility] At [facility] Rad Onc [address] [place] [address] Mouna Palacios MD [address] [place] [address] [email or web address] 04/27/2025 9:40 AM EST Treatment [facility] Cancer [facility] At [facility] Rad Onc [address] [place] [address] Mouna Palacios MD [address] [place] [address] [email or web address] 04/28/2025 9:40 AM EST Treatment [facility] Cancer [facility] At [facility] Rad Onc [address] [place] [address] Mouna Palacios MD [address] [place] [address] [email or web address] 04/29/2025 9:40 AM EST Treatment [facility] Cancer [facility] At [facility] Rad Onc [address] [place] [address] Mouna Palacios MD [address] [place] [phone] [email or web address] 04/30/2025 9:40 AM EST Treatment [facility] Cancer [facility] At [facility] Rad Onc [address] [place] [address] Mouna Palacios MD [address] [place] [address] [email or web address] 04/30/2025 9:50 AM EST Procedure visit [facility] Cancer [facility] At [facility] Rad Onc [address] [place] [address] Mouna Palacios MD [address] [place] [address] [email or web address] 05/01/2025 9:40 AM EST Treatment [facility] Cancer [facility] At [facility] Rad Onc [address] [place] [address] Mouna Palacios MD [address] [place] [address] [email or web address] 05/04/2025 9:40 AM EST Treatment [facility] Cancer [facility] At [facility] Rad Onc [address] [place] [address] 120[address] Mouna Palacios MD [address] [place] [address] [email or web address] 05/05/2025 9:40 AM EST Treatment [facility] Cancer [facility] At [facility] Rad Onc [address] [place] [address] Mouna Palacios MD [address] [place] [address] [email or web address] 05/06/2025 9:40 AM EST Treatment [facility] At [facility] Rad Onc [address] [place] [address] Mouna Palacios MD [address] [place] [address] [email or web address] 05/06/2025 9:50 AM EST Procedure visit [facility] At [facility] Rad Onc [address] [place] [address] Mouna Palacios MD [address] [place] [address] [email or web address] 05/08/2025 9:40 AM EST Treatment [facility] Cancer [facility] At [facility] Rad Onc [address] [place] [address] Mouna Palacios MD [address] [place] [address] [email or web address] 05/08/2025 9:50 AM EST Office Visit [facility] At [facility] Rad Onc [address] [place] [address] Mouna Palacios MD [address] [place] [address]77 [email or web address] 05/11/2025 9:40 AM EST Treatment [facility] At [facility] Rad Onc [address] [place] [address] Mouna Palacios MD [address] [place] [address] [email or web address] 05/12/2025 9:40 AM EST Treatment [facility] Cancer [facility] At [facility] Rad Onc [address] [place] [address] Mouna Palacios MD [address] [place] [address] [email or web address] 05/13/2025 9:40 AM EST Treatment [facility] Cancer [facility] At [facility] Rad Onc [address] [place] [address] Mouna Palacios MD [address] [place] [address] [email or web address] 05/13/2025 9:50 AM EST Procedure visit [facility] Cancer Center At [facility] Rad Onc [address] [place] [address] 19441 Mouna Palacios MD [address] [place] [address] [email or web address] 05/15/2025 9:40 AM EST Treatment [facility] Cancer [facility] At [facility] Rad Onc [address] [place] [address] Mouna Palacios MD [address] [place] [phone] [email or web address] 05/18/2025 9:40 AM EST Treatment [facility] At [facility] Rad Onc [address] [place] [address] 900[address] Mouna Palacios MD [address] [place] [address] 39827 [email or web address] 05/19/2025 9:40 AM EST Treatment [facility] At [facility] Rad Onc [address] [place] [address] 86184 Mouna Palacios MD [address] [place] [address] 13706 [email or web address] 05/19/2025 9:50 AM EST Procedure visit [facility] At [facility] Rad Onc [address] [place] [address] 76[address] Monua Palacios MD [address] [place] [address] [email or web address] Honorio Cantu MD [address] [place] [phone] [email or web address] Health Maintenance Due Date Last Done Comments DEPRESSION SCREENING 2000 SMOKING Hx and SMOKELESS TOBACCO SCREENING 02/06/2001 HEPATITIS C SCREENING 02/06/2006 HIV ONE-TIME SCREENING (18-6 5 YEARS) 02/06/2006 PNEUMOCOCCAL VACCINES (0-49 years) (1 of 2 - PCV) 02/06/2007 PAP SMEAR 02/06/2009 INFLUENZA VACCINE (#1) 2024 COVID-19 VACCINE (1 - 2024-2 6 season) 2025 Adult Td,Tdap [...] Final Result from Last 3 Months Insurance C3 ACO C3 ACO C3 ACO C3 ACO C3 ACO C3 ACO Care Teams Binding Dyer Relationship Specialty Start Date End Date Brenda Laguna MD [address] [place] [phone] PCP - General Internal Medicine 10/16/25 Additional Source Comments The information contained in this document represents components of the legal health record. It is not the complete legal health record.[facility]
--- OUTSIDE RECORDS SUMMARY | 2025-04-15 18:21 | XMS_ITS | Encounter Summary ---
Author Organization [employer] Address [address] [place] [address] [address] [place] [address] Care Team Providers Care Key Carrier Name Role Phone Debbie Logan Primary Care Provider [phone] Debbie Logan Primary Care Provider [phone] Brenda Dangelo MD Primary Care Provide r Encounter Details Date Type Department Care Team (Late Contact Info) Description 02/09/2023 Abstract [facility] [address] [place] [phone] Louann Leung Social History Tobacco Use Types [...] Description 04/30/2025 9:15 AM EST Office Visit [facility] [address] [place] [address] Brenda Dangelo MD [address] [place] [address] documented as of this encounter Visit Diagnoses Not on filedocumented in this encounter Care Teams Key Carrier Relationship Specialty Start Date End Date Debbie Logan FNP [address] [place] [address] PCP - General Family Medicine 01/19/23 06/14/23 Debbie Logan FNP [address] [place] [address] PCP - General Family Medicine 06/15/23 01/15/24 Brenda Dangelo MD [address] [place] [address] PCP - General Internal Medicine 01/16/24 documented as of this encounter
--- OUTSIDE RECORDS SUMMARY | 2025-04-15 18:21 | XMS_ITS | Encounter Summary ---
Author Organization [employer] Address [address] [facility] [address] [place] [address] Care Team Providers Care Monkey Keeper Name Role Phone Chip Banerjee Primary Care Provider Unavail able Debbie Logan Primary Care Provider [phone] Debbie Logan Primary Care Provider [phone] Brenda Dangelo MD Primary Care Provide r Reason for Visit * Reason Onset Date Comments Triage 08/30/2022 Encounter Details Date Type Department Care Team (Late st Contact Info) Description 08/30/2022 Telephone [facility] MEDICINE [address] [place] [phone] Chip Banerjee AGNP Triage Social History Tobacco [...] 17 weeks . Pt is going to [facility] apt at 10AM and will come to [facility] after to be seen by provider. Pt [...] Description 04/30/2025 9:15 AM EST Office Visit [facility] MED[facility]INE [address] [place] [address] Brenda Dangelo MD [address] [place] [address] documented as of this encounter Visit Diagnoses Not on filedocumented in this encounter Care Teams Monkey Keeper Relationship Specialty Start Date End Date Chip Banerjee AGNP PCP - General Family Medicine 02/16/22 01/18/23 Debbie Logan FNP [address] [place] [address] PCP - General Family Medicine 01/19/23 06/14/23 Debbie Logan FNP [address] [place] [address] PCP - General Family Medicine 06/15/23 01/15/24 Brenda Dangelo MD [address] [place] [address] PCP - General Internal Medicine 01/16/24 documented as of this encounter
== END 2025-04-15 15:17 | disposition home or self-care (01) ==
LOC: HO.HHCX 15:16
PROVIDERS: Visit Provider Emergency Medicine
DX: R05.1 Acute cough (principal); R50.9 Fever, unspecified
CPT/HCPCS: 71046

== ENCOUNTER → 2025-04-15 15:17 | Outpatient (BNV) | payer MEDICAID, SELFPAY | PROVIDERS: Visit Provider Radiology Diagnostic Radiology | DX: R05.9 Cough, unspecified (principal); R50.9 Fever, unspecified | CPT/HCPCS: 71046 ==